=== PATIENT | male | born 1975 | race Caucasian/White ===

== ENCOUNTER 2016-06-28 13:33 | Inpatient (IN) | payer OTHER ==
[2016-06-28] MEDS: chlordiazePOXIDE HCL 25 MG CAPSULE PO SCH ×2 (11:55→17:18)
[2016-06-28 14:02] VITALS: BMI 26.4
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
[2016-06-28] MEDS ORDERED: chlordiazePOXIDE HCL 25 MG CAPSULE PO ONE (14:18)
[2016-06-28] MEDS ORDERED: guaiFENesin/D-METHORPHAN HB 10 ML UNIT-DOSE CUPS PO PRN (14:18)
[2016-06-28] MEDS ORDERED: NICOTINE POLACRILEX 2 MG GUM BUC PRN (14:18)
[2016-06-28] MEDS ORDERED: MAGNESIUM HYDROX 2400MG/30ML ORAL SUSPENSION 30 ML CUP PO PRN (14:18)
[2016-06-28] MEDS ORDERED: MAGNESIUM CITRATE 300 ML BOTTLE PO PRN (14:18)
[2016-06-28] MEDS ORDERED: IBUPROFEN 400 MG TABLET (FP) PO PRN (14:18)
[2016-06-28] MEDS ORDERED: LOPERAMIDE HCL 2 MG CAPSULE PO PRN (14:18)
[2016-06-28] MEDS ORDERED: hydrOXYzine PAMOATE 50 MG CAPSULE (FP) PO PRN (14:18)
[2016-06-28] MEDS ORDERED: chlordiazePOXIDE HCL 25 MG CAPSULE PO PRN (14:18)
[2016-06-28] MEDS ORDERED: P-EPHED 60MG/TRIPROLIDI 2.5MG TABLET PO PRN (14:18)
[2016-06-28] MEDS ORDERED: MENTHOL/PHENOL 1 EACH UD MM PRN (14:18)
[2016-06-28] MEDS ORDERED: METHADONE HCL 10 MG TABLET (FOR DETOX USE ONLY) PO ONE ×2 (14:18→23:00)
[2016-06-28] MEDS ORDERED: MAG HYDROX/AL HYDROX/SIMETH 30 ML UNIT-DOSE CUP PO PRN (14:18)
[2016-06-28] MEDS ORDERED: diphenhydrAMINE HCL 50 MG CAPSULE PO PRN (14:18)
[2016-06-28] MEDS ORDERED: ACETAMINOPHEN 325 MG TABLET (FP) PO PRN (14:18)
[2016-06-28] MEDS: NICOTINE 21 MG/24 HOURS TOPICAL PATCH TD SCH (15:55)
[2016-06-28 19:02] LABS: URINE APPEARANCE CLEAR; URINE BILIRUBIN NEGATIVE (NEGATIVE); URINE BLOOD NEGATIVE (NEGATIVE); URINE COLOR YELLOW; URINE GLUCOSE (UA) NEGATIVE (NEGATIVE); URINE KETONE NEGATIVE (NEGATIVE); URINE LEUK ESTERASE NEGATIVE (NEGATIVE); URINE NITRITE NEGATIVE (NEGATIVE); URINE PROTEIN NEGATIVE (NEGATIVE); URINE UROBILINOGEN NEGATIVE E.U./dl (0.2-1.0)
[2016-06-28] MEDS: THIAMINE HCL 100 MG TABLET (FP) PO SCH (22:13)
[2016-06-29] MEDS: chlordiazePOXIDE HCL 25 MG CAPSULE PO SCH ×4 (05:42→22:04)
[2016-06-29 09:51] LABS: MCH 30.6 pg (25.7-33.7); MCHC 33.6 g/dl (32.0-35.9); MEAN PLT VOLUME 8.6 fl (7.5-11.1); PLATELET COUNT 245 K/MM3 (134-434); RDW 14.2 % (11.9-15.9); WHITE BLOOD COUNT 6.4 K/mm3 (4.0-10.0)
[2016-06-29] MEDS ORDERED: METHADONE HCL 10 MG TABLET (FOR DETOX USE ONLY) PO SCH (10:00)
[2016-06-29] MEDS: PRENATAL VITAMINS W/ FOLIC ACID TABLET (FP) PO SCH (10:14)
[2016-06-29] MEDS: NICOTINE 21 MG/24 HOURS TOPICAL PATCH TD SCH (10:15)
[2016-06-29 11:06] LABS: ALBUMIN 3.5 g/dl (3.4-5.0); ALK PHOS 50 U/L (45-117); ANION GAP 7 (8-16); BILIRUBIN,TOTAL 0.6 mg/dL (0.2-1.0); CO2 26 mmol/L (21-32); CREATININE 0.7 mg/dL (0.7-1.3); GLUCOSE,RANDOM 84 mg/dL (74-106); SGOT/AST 13 U/L (15-37); SGPT/ALT 26 U/L (12-78); TOT PROT 6.3 g/dl (6.4-8.2)
[2016-06-29] MEDS ORDERED: ZOLPIDEM TARTRATE 5 MG TABLET PO PRN (11:49)
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
[2016-06-29] MEDS: prednisoLONE ACETATE 1% OPHTH SUSP 5 ML BOTTLE OD SCH ×3 (14:18→22:03)
[2016-06-29] MEDS: THIAMINE HCL 100 MG TABLET (FP) PO SCH (22:03)
[2016-06-29] MEDS: MINERAL OIL/PETROLAT/WATER TOPICAL CREAM 113 GM JAR TP SCH (22:05)
--- NOTE | 2016-06-29 23:33 | EKG ---
Test Reason : Blood Pressure : / mmHG Vent. Rate : 070 BPM Atrial Rate : 070 BPM P-R Int : 132 ms QRS Dur : 090 ms QT Int : 408 ms P-R-T Axes : 055 005 021 degrees QTc Int : 440 ms NORMAL SINUS RHYTHM NORMAL ECG NO PREVIOUS ECGS AVAILABLE Confirmed by YANETH CLEMONS MD ([id number]) on 06/29/2016 11:32:45 PM Referred By: Confirmed By:YANETH CLEMONS MD
[2016-06-30] MEDS: chlordiazePOXIDE HCL 25 MG CAPSULE PO SCH ×2 (05:27→10:08)
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
--- NOTE | 2016-06-30 09:26 | PN ---
S CIWA - CIWA Score Nausea/Vomitin Muscle Tremors: 4-Moderate,w/Arms Extend Anxiety: 4-Mod. Anxious/Guarded Agitation: 4-Moderately Restless Paroxysmal Sweats: 3 Orientation: 0-Oriented Tacttile Disturbances: 1-Very Mild Itch/Numbness Auditory Disturbances: 0-None Visual Disturbances: 0-None Headache: 0-None Present CIWA-Ar Total Score: 19 BHS COWS - Scale Resting Pulse: 1= [place] 81-100 Sweatin= Chills/Flushing Restless Observation: 1= Difficult to Sit Still Pupil Size: 1= Pupils >than Normal Bone or Joint Aches: 1= Mild Discomfort Runny Nose/ Eye Tearin= Nasal Congestion GI Upset > 30mins: 2= Nausea/Diarrhea Tremor Observation of Outstretched Hands: 2= Slight Tremor Visible Yawning Observation: 1= 1-2x During Session Anxiety or Irritability: 2=Irritable/Anxious Goose Flesh Skin: 3=Piloerection COWS Score: 16 S Progress Note (SOAP) Subjective: nausea, sweats, interrupted sleep, anxiety, trmeor, runny nose, body aches Objective: 06/30/16 09:23 Vital Signs - 8 hr 06/30/16 06/30/16 06/30/16 03:38 06:08 09:16 Temperature 96.7 F L 96.3 F L Pulse Rate 99 H 78 Respiratory 18 16 18 Rate Blood Pressure 108/70 111/78 Vital Signs - 8 hr 06/30/16 06/30/16 06/30/16 03:38 06:08 09:16 Temperature 96.7 F L 96.3 F L Pulse Rate 99 H 78 Respiratory 18 16 18 Rate Blood Pressure 108/70 111/78 Laboratory Tests 06/28/16 06/29/16 06/29/16 17:00 07:45 07:45 WBC 6.4 RBC 4.43 Hgb 13.5 Hct 40.3 MCV 91.0 MCHC 33.6 RDW 14.2 Plt Count 245 MPV 8.6 Sodium 139 Potassium 4.2 Chloride 106 Carbon Dioxide 26 Anion Gap 7 L BUN 11 Creatinine 0.7 Creat Clearance w eGFR > 60 Random Glucose 84 Calcium 8.0 L Total Bilirubin 0.6 AST 13 L D ALT 26 D Alkaline Phosphatase 50 D Total Protein 6.3 L D Albumin 3.5 D Urine Color Yellow Urine Appearance Clear Urine pH 6.0 Ur Specific [place] 1.018 Urine Protein Negative Urine Glucose (UA) Negative Urine Ketones Negative Urine Blood Negative Urine Nitrite Negative Urine Bilirubin Negative Urine Urobilinogen Negative Ur Leukocyte Esterase Negative RPR Titer 06/29/16 07:45 WBC RBC Hgb Hct MCV MCHC RDW Plt Count MPV Sodium Potassium Chloride Carbon Dioxide Anion Gap BUN Creatinine Creat Clearance w eGFR Random Glucose Calcium Total Bilirubin AST ALT Alkaline Phosphatase Total Protein Albumin Urine Color Urine Appearance Urine pH Ur Specific [place] Urine Protein Urine Glucose (UA) Urine Ketones Urine Blood Urine Nitrite Urine Bilirubin Urine Urobilinogen Ur Leukocyte Esterase RPR Titer Nonreactive Assessment: 06/30/16 09:26 withdrawal sx Plan: cont detox, symptomatic relief.
[2016-06-30] MEDS: prednisoLONE ACETATE 1% OPHTH SUSP 5 ML BOTTLE OD SCH ×4 (10:07→22:25)
[2016-06-30] MEDS: cloNIDine HCL 0.1 MG TABLET PO SCH ×2 (10:08→22:26)
[2016-06-30] MEDS: PRENATAL VITAMINS W/ FOLIC ACID TABLET (FP) PO SCH (10:08)
[2016-06-30] MEDS: METHADONE HCL 5 MG TABLET (FOR DETOX USE ONLY) PO SCH (10:08)
[2016-06-30] MEDS: NAPROXEN 500 MG TABLET (FP) PO SCH ×2 (10:09→22:23)
[2016-06-30] MEDS: NICOTINE 21 MG/24 HOURS TOPICAL PATCH TD SCH (10:09)
[2016-06-30] MEDS: MINERAL OIL/PETROLAT/WATER TOPICAL CREAM 113 GM JAR TP SCH ×2 (10:09→22:26)
[2016-06-30] MEDS: CYCLOBENZAPRINE HCL 10 MG TABLET (FP) PO SCH ×2 (14:44→22:23)
[2016-06-30] MEDS: chlordiazePOXIDE 5 MG CAPSULE PO SCH ×2 (17:30→22:23)
[2016-06-30] MEDS: THIAMINE HCL 100 MG TABLET (FP) PO SCH (22:23)
[2016-06-30] MEDS: ZOLPIDEM TARTRATE 10 MG TABLET (PARK CARE ONLY) PO SCH (22:23)
[2016-06-30] MEDS: QUEtiapine FUMARATE 100 MG TABLET (FP) PO SCH (22:23)
[2016-07-01] MEDS: CYCLOBENZAPRINE HCL 10 MG TABLET (FP) PO SCH ×3 (05:31→22:09)
[2016-07-01] MEDS: chlordiazePOXIDE 5 MG CAPSULE PO SCH ×2 (05:32→10:04)
--- NOTE | 2016-07-01 08:40 | PN ---
BHS Progress Note (SOAP) Subjective: nausea, sweats, interrupted sleep, anxiety, tremor, body aches Objective: 07/01/16 08:39 Vital Signs - 8 hr 07/01/16 07/01/16 03:39 06:29 Temperature 96.3 F L Pulse Rate 67 Respiratory 18 16 Rate Blood Pressure 109/79 Laboratory Tests 06/28/16 06/29/16 06/29/16 17:00 07:45 07:45 WBC 6.4 RBC 4.43 Hgb 13.5 Hct 40.3 MCV 91.0 MCHC 33.6 RDW 14.2 Plt Count 245 MPV 8.6 Sodium 139 Potassium 4.2 Chloride 106 Carbon Dioxide 26 Anion Gap 7 L BUN 11 Creatinine 0.7 Creat Clearance w eGFR > 60 Random Glucose 84 Calcium 8.0 L Total Bilirubin 0.6 AST 13 L D ALT 26 D Alkaline Phosphatase 50 D Total Protein 6.3 L D Albumin 3.5 D Urine Color Yellow Urine Appearance Clear Urine pH 6.0 Ur Specific [place] 1.018 Urine Protein Negative Urine Glucose (UA) Negative Urine Ketones Negative Urine Blood Negative Urine Nitrite Negative Urine Bilirubin Negative Urine Urobilinogen Negative Ur Leukocyte Esterase Negative RPR Titer 06/29/16 07:45 WBC RBC Hgb Hct MCV MCHC RDW Plt Count MPV Sodium Potassium Chloride Carbon Dioxide Anion Gap BUN Creatinine Creat Clearance w eGFR Random Glucose Calcium Total Bilirubin AST ALT Alkaline Phosphatase Total Protein Albumin Urine Color Urine Appearance Urine pH Ur Specific [place] Urine Protein Urine Glucose (UA) Urine Ketones Urine Blood Urine Nitrite Urine Bilirubin Urine Urobilinogen Ur Leukocyte Esterase RPR Titer Nonreactive Assessment: 07/01/16 08:40 withdrawal sx Plan: cont detox, early discharge in AM because patient needs to return to work.
[2016-07-01] MEDS: NICOTINE 21 MG/24 HOURS TOPICAL PATCH TD SCH (10:03)
[2016-07-01] MEDS: PRENATAL VITAMINS W/ FOLIC ACID TABLET (FP) PO SCH (10:03)
[2016-07-01] MEDS: METHADONE HCL 5 MG TABLET (FOR DETOX USE ONLY) PO SCH (10:04)
[2016-07-01] MEDS: MINERAL OIL/PETROLAT/WATER TOPICAL CREAM 113 GM JAR TP SCH ×2 (10:04→22:09)
[2016-07-01] MEDS: NAPROXEN 500 MG TABLET (FP) PO SCH ×2 (10:04→22:09)
[2016-07-01] MEDS: cloNIDine HCL 0.1 MG TABLET PO SCH ×2 (10:04→22:09)
[2016-07-01] MEDS: prednisoLONE ACETATE 1% OPHTH SUSP 5 ML BOTTLE OD SCH ×4 (10:08→22:12)
[2016-07-01] MEDS: chlordiazePOXIDE HCL 10 MG CAPSULE PO SCH ×2 (17:20→22:09)
[2016-07-01] MEDS: QUEtiapine FUMARATE 100 MG TABLET (FP) PO SCH (22:09)
[2016-07-01] MEDS: ZOLPIDEM TARTRATE 10 MG TABLET (PARK CARE ONLY) PO SCH (22:09)
[2016-07-01] MEDS: THIAMINE HCL 100 MG TABLET (FP) PO SCH (22:09)
[2016-07-02] MEDS: CYCLOBENZAPRINE HCL 10 MG TABLET (FP) PO SCH (05:51)
[2016-07-02] MEDS: chlordiazePOXIDE HCL 10 MG CAPSULE PO SCH (05:51)
[2016-07-02] MEDS ORDERED: METHADONE HCL 10 MG TABLET (FOR DETOX USE ONLY) PO SCH ×2 (06:00→10:00)
[2016-07-02 06:35] VITALS: BP 117/78; PULSE 80; TEMP 96.6
--- NOTE | 2016-07-02 09:07 | DS ---
[facility] Detox Discharge Summary Admission Date: 06/28/16 Discharge Date: 07/02/16 - History Present History: Alcohol Dependence, Cannabis Dependence, Cocaine Dependence, Opioid Dependence, Sedative Dependence Pertinent Past History: anxiety, depression and insomnia, nicotine dependence - Physical Exam Results Vital Signs: Vital Signs Temperature 96.6 F L 07/02/16 06:35 Pulse Rate 80 07/02/16 06:35 Respiratory Rate 16 07/02/16 06:35 Blood Pressure 117/78 07/02/16 06:35 O2 Sat by Pulse Oximetry (%) Pertinent Admission Physical Exam Findings: withdrawal sx - Treatment Hospital Course: Detox Protocol Followed, Detoxed Safely, Responded well, Discharged Condition Good, Rehab Referral Accepted Patient has Accepted a Rehab Referral to: Yes - Medication Discharge Medications: Ambulatory Orders Quetiapine Fumarate [Seroquel] 100 mg PO HS #30 tablet 06/30/16 - Diagnosis (1) Alcohol dependence with uncomplicated withdrawal Status: Acute (2) Cannabis dependence, uncomplicated Status: Acute (3) Cocaine dependence, uncomplicated Status: Acute (4) Drug-induced mood disorder Status: Acute (5) Nicotine dependence Status: Acute Qualifiers: Nicotine product type: cigarettes Substance use status: uncomplicated Qualified Code(s): F17.210 - Nicotine dependence, cigarettes, uncomplicated (6) Opioid dependence with withdrawal Status: Acute (7) Sedative, hypnotic, or anxiolytic withdrawal Status: Acute (8) Substance-induced sleep disorder Status: Acute - AMA Did Patient Leave Against Medical Advice: No
[2016-07-03] MEDS ORDERED: METHADONE HCL 5 MG TABLET (FOR DETOX USE ONLY) PO SCH (06:00)
== END 2016-07-02 07:10 | disposition home or self-care (01) | DRG 897 ==
LOC: YASAS 13:33 → Y3N 14:30
PROVIDERS: ADMIT Internal Medicine; ATTEND Internal Medicine
PROC: HZ2ZZZZ Detoxification Services for Substance Abuse Treatment (ICD-10-PCS; principal; 2016-06-28)
DX: F11.23 Opioid dependence with withdrawal (principal); F14.20 Cocaine dependence, uncomplicated; F19.282 Other psychoactive substance dependence with psychoactive substance-induced sleep disorder; F13.230 Sedative, hypnotic or anxiolytic dependence with withdrawal, uncomplicated; F10.230 Alcohol dependence with withdrawal, uncomplicated; F12.20 Cannabis dependence, uncomplicated; F17.210 Nicotine dependence, cigarettes, uncomplicated; F32.9 Major depressive disorder, single episode, unspecified; F19.24 Other psychoactive substance dependence with psychoactive substance-induced mood disorder; L30.9 Dermatitis, unspecified; S05.91XS Unspecified injury of right eye and orbit, sequela; Y09 Assault by unspecified means
CPT/HCPCS: 36415; 80053; 81003; 85027; 86593; 93005; 93010

== ENCOUNTER 2016-07-31 13:08 | Observation (INO) | payer OTHER ==
[2016-07-31 13:18] VITALS: BMI 26.4
--- NOTE | 2016-07-31 13:19 | PDOC ---
History of Present Illness - General Chief Complaint: Chest Pain Stated Complaint: CHEST PAIN, SOB Time Seen by Provider: 07/31/16 13:19 Past History - Past Medical History Allergies/Adverse Reactions: Allergies Allergy/AdvReac Type Severity Reaction Status Date / Time No Known Allergies Allergy Verified 07/31/16 13:12 Home Medications: Ambulatory Orders Quetiapine Fumarate [Seroquel] 100 mg PO HS #30 tablet 06/30/16 Anemia: No Asthma: No Cancer: No Cardiac Disorders: No CVA: No COPD: No CHF: No Dementia: No Diabetes: No GI Disorders: No Disorders: No HTN: No Hypercholesterolemia: No Kidney Stones: No Liver Disease: No Suicide Attempt (Hx): No Seizures: No Thyroid Disease: No - Surgical History Abdominal Surgery: No Appendectomy: No Cardiac Surgery: No Cholecystectomy: No Lung Surgery: No Neurologic Surgery: No Orthopedic Surgery: No - Reproductive History Testicular Surgery: No - Psycho/Social/Smoking Cessation Hx Anxiety: Yes Suicidal Ideation: No Smoking History: Current every day smoker Have you smoked in the past 12 months: Yes Number of Cigarettes Smoked Daily: 3 Information on smoking cessation initiated: No 'Breaking Loose' booklet given: 06/28/16 (given on floor) Hx Alcohol Use: Yes Drug/Substance Use Hx: Yes Substance Use Type: Alcohol, Heroin, Tranquilizers Hx Substance Use Treatment: Yes *Physical Exam - Vital Signs Last Vital Signs Temp Pulse Resp BP Pulse Ox 97.9 F 82 19 131/73 95 07/31/16 13:12 07/31/16 13:12 07/31/16 13:12 07/31/16 13:12 07/31/16 13:12
--- NOTE | 2016-07-31 13:37 | PDOC ---
History of Present Illness <Enriqueta Sofia - Last Filed: 07/31/16 15:35> - History of Present Illness Initial Comments: 07/31/16 15:23 CHIEF COMPLAINT: Left sided chest pain PCP: Dr. Orlando Falcon HISTORY OF PRESENT ILLNESS: 41 year old male presented to the ED with chief complaint of left sided chest pain x 1 day. A/c to the patient, he started chest pain suddenly, woke him up from sleep, stabbing in nature, 7/10 in intensity, non radiating, also had jaw pain, neck pain, B/L shoulder pain associated with Shortness of breath at rest. Patient also reports he experienced numbness in the left arm and tingling sensation over the hands/foot. Patient mentioned he took 2 baby aspirin for chest pain which reduced the chest pain. Patient also reports to have taken 2 bags of heroine (snorted) Denies headache, dizziness, fever, chills, rigors, sweating, cough, palpitation , abdominal pain, nausea or vomiting. Bowel/Bladder habit normal. Sleep/Appetite normal. Recent Travel: None PAST MEDICAL HISTORY: Alcohol, cocaine, cannabis, opiod drug abuse; Anxiety, Depression, Insomnia, Nicotine addiction PAST SURGICAL HISTORY: None Social History: Smoking: Smokes marijuana Alcohol: Sober for 10 yrs Drugs: Cocaine-sober for 1 yr Takes heroine (snorts), last snorted this morning; no other drug intake as per the patient. 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 07/31/16 17:07 <Geovanna Pace - Last Filed: 07/31/16 17:16> - General Chief Complaint: Chest Pain Stated Complaint: CHEST PAIN, SOB Time Seen by Provider: 07/31/16 13:19 Past History <Enriqueta Sofia - Last Filed: 07/31/16 15:35> - Past Medical History Anemia: No Asthma: No Cancer: No Cardiac Disorders: No CVA: No COPD: No CHF: No Dementia: No Diabetes: No GI Disorders: No Disorders: No HTN: No Hypercholesterolemia: No Kidney Stones: No Liver Disease: No Suicide Attempt (Hx): No Seizures: No Thyroid Disease: No - Surgical History Abdominal Surgery: No Appendectomy: No Cardiac Surgery: No Cholecystectomy: No Lung Surgery: No Neurologic Surgery: No Orthopedic Surgery: No - Reproductive History Testicular Surgery: No - Psycho/Social/Smoking Cessation Hx Anxiety: Yes Suicidal Ideation: No Smoking History: Current every day smoker Have you smoked in the past 12 months: Yes Number of Cigarettes Smoked Daily: 3 Information on smoking cessation initiated: No 'Breaking Loose' booklet given: 06/28/16 (given on floor) Hx Alcohol Use: Yes Drug/Substance Use Hx: Yes Substance Use Type: Alcohol, Heroin, Tranquilizers Hx Substance Use Treatment: Yes <Geovanna Pace - Last Filed: 07/31/16 17:16> - Past Medical History Allergies/Adverse Reactions: Allergies Allergy/AdvReac Type Severity Reaction Status Date / Time No Known Allergies Allergy Verified 07/31/16 13:12 Home Medications: Ambulatory Orders Quetiapine Fumarate [Seroquel] 100 mg PO HS #30 tablet 06/30/16 Review of Systems - Review of Systems Able to Perform ROS?: Yes Comments:: 07/31/16 15:43 CONSTITUTIONAL: Absent: fever, chills, diaphoresis, generalized weakness, malaise, loss of appetite HEENT: Present: Jaw pain Absent: rhinorrhea, nasal congestion, throat pain, throat swelling, difficulty swallowing, mouth swelling, ear pain, eye pain, visual Changes CARDIOVASCULAR: Present:chest pain Absent:syncope, palpitations, irregular heart rate, lightheadedness, peripheral edema RESPIRATORY: Present: shortness of breath Absent: cough, dyspnea with exertion, orthopnea, wheezing, stridor, hemoptysis GASTROINTESTINAL: Present:abdominal pain Absent: abdominal distension, nausea, vomiting, diarrhea, constipation, melena , hematochezia GENITOURINARY: Absent: dysuria, frequency, urgency, hesitancy, hematuria, flank pain, genital pain MUSCULOSKELETAL: Present: B/L shoulder pain Absent: myalgia, arthralgia, joint swelling SKIN: Absent: rash, itching, pallor HEMATOLOGIC/IMMUNOLOGIC: Absent: easy bleeding, easy bruising, lymphadenopathy, frequent infections ENDOCRINE: Absent: unexplained weight gain, unexplained weight loss, heat intolerance, cold intolerance NEUROLOGIC: Absent: headache, focal weakness or paresthesias, dizziness, unsteady gait, seizure, mental status changes, bladder or bowel incontinence PSYCHIATRIC: Absent: anxiety, depression, suicidal or homicidal ideation, hallucinations. Is the patient limited [place] proficient: No <Geovanna Pace - Last Filed: 07/31/16 17:16> *Physical Exam - Vital Signs Last Vital Signs Temp Pulse Resp BP Pulse Ox 97.9 F 82 19 131/73 95 07/31/16 13:12 07/31/16 13:12 07/31/16 13:12 07/31/16 13:12 07/31/16 13:12 <Enriqueta Sofia - Last Filed: 07/31/16 15:35> - Vital Signs Last Vital Signs Temp Pulse Resp BP Pulse Ox 97.9 F 82 19 131/73 95 07/31/16 13:12 07/31/16 13:12 07/31/16 13:12 07/31/16 13:12 07/31/16 13:12 - Physical Exam Comments: 07/31/16 15:47 PE: GENERAL: Awake, alert, and fully oriented, in no acute distress HEAD: No signs of trauma EYES: PERRLA, EOMI, sclera anicteric, conjunctiva clear ENT: Auricles normal inspection, hearing grossly normal, nares patent, oropharynx clear without exudates. Moist mucosa NECK: Normal ROM, supple, no lymphadenopathy, JVD, or masses LUNGS: Breath sounds equal, clear to auscultation bilaterally. No wheezes, and no crackles.. HEART: Regular rate and rhythm, normal S1 and S2, no murmurs, rubs or gallops Chest: Reproductible left sided chest tenderness ABDOMEN: Soft, tenderness over the epigastric, LLQ and suprapubic area, normoactive bowel sounds. No guarding, no rebound. No masses EXTREMITIES: Normal range of motion, no edema. No clubbing or cyanosis. No cords, erythema, or tenderness NEUROLOGICAL: Cranial nerves II through XII grossly intact. Normal speech, normal gait SKIN: Warm, Dry, normal turgor, no rashes or lesions noted. <Geovanna Pace - Last Filed: 07/31/16 17:16> ED Treatment Course - LABORATORY CBC & Chemistry Diagram: 07/31/16 14:20 07/31/16 14:20 - ADDITIONAL ORDERS Additional order review: Laboratory Results 07/31/16 07/31/16 07/31/16 14:20 14:20 14:20 Sodium Potassium Chloride Carbon Dioxide Anion Gap BUN Creatinine Creat Clearance w eGFR Random Glucose Calcium Magnesium Total Bilirubin AST ALT Alkaline Phosphatase Creatine Kinase CK-MB (CK-2) Rel Index Cancelled Troponin I Total Protein Albumin Lipase Urine Color Yellow Urine Appearance Clear Urine pH 5.0 Ur Specific [place] 1.025 Urine Protein Negative Urine Glucose (UA) Negative Urine Ketones 1+ H Urine Blood Negative Urine Nitrite Negative Urine Bilirubin Negative Urine Urobilinogen Negative Ur Leukocyte Esterase Negative Opiates Screen Positive Methadone Screen Negative Barbiturate Screen Negative Phencyclidine Screen Negative Ur Amphetamines Screen Negative MDMA (Ecstasy) Screen Positive Benzodiazepines Screen Positive Cocaine Screen Negative U Marijuana (THC) Screen Positive 07/31/16 14:20 Sodium 137 Potassium 4.3 Chloride 102 Carbon Dioxide 26 Anion Gap 9 BUN 10 Creatinine 0.7 Creat Clearance w eGFR > 60 Random Glucose 97 Calcium 9.2 Magnesium 2.4 Total Bilirubin 0.8 D AST 22 D ALT 30 Alkaline Phosphatase 57 Creatine Kinase 164 CK-MB (CK-2) Rel Index Troponin I < 0.02 Total Protein 7.6 D Albumin 4.2 Lipase 68 L Urine Color Urine Appearance Urine pH Ur Specific [place] Urine Protein Urine Glucose (UA) Urine Ketones Urine Blood Urine Nitrite Urine Bilirubin Urine Urobilinogen Ur Leukocyte Esterase Opiates Screen Methadone Screen Barbiturate Screen Phencyclidine Screen Ur Amphetamines Screen MDMA (Ecstasy) Screen Benzodiazepines Screen Cocaine Screen U Marijuana (THC) Screen 07/31/16 14:20 RBC 4.74 MCV 90.3 MCHC 33.6 RDW 14.8 MPV 7.8 Neutrophils % 69.4 Lymphocytes % 23.8 Monocytes % 5.9 Eosinophils % 0.3 Basophils % 0.6 - RADIOLOGY Radiograph Interpretation: 07/31/16 15:35 Chest X-Ray Frontal view of the chest is provided. Lung dao appear clear without infiltrate or effusion. Cardiomediastinal silhouette is within normal limits. Visualized bony structures appear intact. IMPRESSION: No active disease in the chest. Reported By: Martin Betancur MD 07/31/16 9419 - Medications Given in the ED: ED Medications Discontinued Medications Generic Name Dose Route Start Last Admin Trade Name Freq PRN Reason Stop Dose Admin Aspirin 162 mg 07/31/16 13:56 07/31/16 14:23 Asa - PO 07/31/16 13:57 162 mg ONCE ONE Administration <Enriqueta Sofia - Last Filed: 07/31/16 15:35> - LABORATORY CBC & Chemistry Diagram: 07/31/16 14:20 07/31/16 14:20 <Geovanna Pace - Last Filed: 07/31/16 17:16> Medical Decision Making - Medical Decision Making 07/31/16 15:00 Patient seen and examined at bed side. Vitals, unremarkable. Physical examination: Positive for abdominal tenderness over the epigastric, left upper quadrant and supra pubic pain. Reproducible pain over the left side of the chest Will order CBC, CMP, Troponins, UA, Urine toxicology CXR 07/31/16 16:04 Patient reassessed. No complaints. Feeling hungry. Urine toxicology positive for heroine, benzodiazepine, Ectasy and Marijuana Troponins Negative. A/P # Chest pain with polysubstance abuse Place on observation in Telemetry Continuous cardiac monitoring Monitor withdrawals Consider Echo and stress test Counseling for drug cessation-Patient wants help and wants to quit taking drugs. Illness, Investigation and Plan of care explained to the patient. He verbalized understanding. Case seen and discussed with Dr. Medrano. 07/31/16 17:15 <Geovanna Pace - Last Filed: 07/31/16 17:16> *DC/Admit/Observation/Transfer <Enriqueta Sofia - Last Filed: 07/31/16 15:35> - Discharge Dispostion Admit: Yes <Geovanna Pace - Last Filed: 07/31/16 17:16> Diagnosis at time of Disposition: Chest pain, Polysubstance abuse - Discharge Dispostion Condition at time of disposition: Guarded
--- NOTE | 2016-07-31 13:38 | PDOC ---
Attending Attestation - Resident Resident Name: Sherrell Paceny - ED Attending Attestation I have performed the following: I have examined & evaluated the patient, The case was reviewed & discussed with the resident, I agree w/resident's findings & plan, Exceptions are as noted - HPI HPI: 07/31/16 13:38 The patient is a 41-year-old male with a significant past medical history of polysubstance abuse, who presents to the emergency department complaining of chest pain. - Physicial Exam PE: 07/31/16 15:32 He is well-appearing and in no acute distress He does have reproducible musculoskeletal chest pain - Medical Decision Making 07/31/16 15:32 Labs noted including negative troponin Clinical impression: Chest pain Polysubstance abuse Case discussed in detail with admitting provider including history, physical exam and ancillary studies. Admitting physician has assumed care for the patient, will follow all pending diagnostics and will complete the evaluation and treatment.
[2016-07-31] MEDS ORDERED: ASPIRIN 81 MG CHEWABLE TABLETS PO ONE (13:56)
[2016-07-31] MEDS ORDERED: ASPIRIN 81 MG CHEWABLE TABLETS ONE (14:22)
[2016-07-31 14:45] LABS: BASOPHIL 0.6 % (0-2.0); EOSINOPHIL 0.3 % (0-4.5); MCH 30.4 pg (25.7-33.7); MCHC 33.6 g/dl (32.0-35.9); MEAN CELL VOLUME 90.3 fl (80-96); MEAN PLT VOLUME 7.8 fl (7.5-11.1); NEUTROPHILS 69.4 % (42.8-82.8); PLATELET COUNT 325 K/MM3 (134-434); RDW 14.8 % (11.9-15.9); WHITE BLOOD COUNT 8.3 K/mm3 (4.0-10.0)
--- NOTE | 2016-07-31 15:01 | EKG ---
Test Reason : Blood Pressure : / mmHG Vent. Rate : 062 BPM Atrial Rate : 062 BPM P-R Int : 132 ms QRS Dur : 088 ms QT Int : 414 ms P-R-T Axes : 048 -01 023 degrees QTc Int : 420 ms NORMAL SINUS RHYTHM NORMAL ECG WHEN COMPARED WITH ECG OF 28-JUN-2016 15:58, NO SIGNIFICANT CHANGE WAS FOUND Confirmed by MALVIN CASTILLO MD ([id number]) on 07/31/2016 3:00:35 PM Referred By: Confirmed By:MALVIN CASTILLO MD
[2016-07-31 15:02] LABS: ALBUMIN 4.2 g/dl (3.4-5.0); ANION GAP 9 (8-16); BILIRUBIN,TOTAL 0.8 mg/dL (0.2-1.0); CALCIUM 9.2 mg/dL (8.5-10.1); CO2 26 mmol/L (21-32); CREATININE 0.7 mg/dL (0.7-1.3); GLUCOSE,RANDOM 97 mg/dL (74-106); MAGNESIUM 2.4 mg/dL (1.8-2.4); SGOT/AST 22 U/L (15-37); SGPT/ALT 30 U/L (12-78); TOT PROT 7.6 g/dl (6.4-8.2)
[2016-07-31 15:06] LABS: ALK PHOS 57 U/L (45-117); TROPONIN I < 0.02 ng/ml (0.00-0.05)
[2016-07-31 15:13] LABS: URINE MARIJUANA THC POSITIVE ng/ml (CUTOFF=50)
[2016-07-31 15:16] LABS: INR 1.19 (0.82-1.09); PROTHROMBIN TIME (PATIENT) 13.1 SEC (9.98-11.88)
[2016-07-31 15:21] LABS: URINE APPEARANCE CLEAR; URINE BILIRUBIN NEGATIVE (NEGATIVE); URINE BLOOD NEGATIVE (NEGATIVE); URINE COLOR YELLOW; URINE GLUCOSE (UA) NEGATIVE (NEGATIVE); URINE KETONE 1+ (NEGATIVE); URINE LEUK ESTERASE NEGATIVE (NEGATIVE); URINE NITRITE NEGATIVE (NEGATIVE); URINE PROTEIN NEGATIVE (NEGATIVE); URINE UROBILINOGEN NEGATIVE E.U./dl (0.2-1.0)
--- NOTE | 2016-07-31 19:03 | PN ---
Teaching Attending Note Name of Resident: Suzy Moeller ATTENDING PHYSICIAN STATEMENT I saw and evaluated the patient. I reviewed the resident's note and discussed the case with the resident. I agree with the resident's findings and plan as documented. SUBJECTIVE:c/o episode of chest pain that occurred 4:30 am and was partially relieved by aspirin. 8/10 pressure like pain , non radiating . reported heroin use, daily. Wants to detox. OBJECTIVE: VS STABLE Abnormal Lab Results 07/31/16 07/31/16 07/31/16 14:20 14:20 14:20 INR 1.19 H Lipase 68 L Urine Ketones 1+ H ENERAL: Awake, alert, and fully oriented, in no acute distress. HEAD: Normal with no signs of trauma. nontender sinuses. EYES: left pupils round and reactive to light, right pupil minimally reactive to light fixed defect larger than right pupil, right medial sclera with small clear vesicle, extraocular movements intact, sclera anicteric, conjunctiva clear. No lid lag. EARS, NOSE, THROAT: Ears normal, nares patent, oropharynx clear without exudates. Moist mucous membranes. missing dentition. NECK: Normal range of motion, supple without lymphadenopathy, JVD, or masses. LUNGS: Breath sounds equal, clear to auscultation bilaterally. No wheezes, and no crackles. No accessory muscle use. HEART: Regular rate and rhythm, normal S1 and S2 without murmur, rub or gallop. ABDOMEN: Soft, nontender, not distended, normoactive bowel sounds, no guarding, no rebound, no masses. MUSCULOSKELETAL: No bony deformities or tenderness. No CVA tenderness. UPPER EXTREMITIES: 2+ pulses, warm, well-perfused. No cyanosis. No clubbing. No peripheral edema. LOWER EXTREMITIES: 2+ pulses, warm, well-perfused. No calf tenderness. No peripheral edema. NEUROLOGICAL: Cranial nerves II-XII intact. Normal speech. PSYCHIATRIC: Cooperative. Good eye contact. Appropriate mood and affect. SKIN: Warm, dry, normal turgor, no rashes or lesions noted. UA positive for opiates, amphetamines. ASSESSMENT AND PLAN: 1. Chest pain - trend troponin -telemetry - IVF - Xanax prn - ECHO 2. Polysubstance abuse -counselled - detox eval 3. DVT ppx -low risk
--- NOTE | 2016-07-31 19:21 | HP ---
CHIEF COMPLAINT: chest pain PCP: HISTORY OF PRESENT ILLNESS: 41 yr old man with current heroin use presents with chest pain for 1 day. approximately 4:30am he felt intermittent non-positional chest pain characterized as tightness located in the midsternum/lower left chest a/with left arm numbness, b/l finger and feet tingling that lasted 10mins at a time. around 5am he snorted heroin and took 2 baby aspirin which helped bring down the pain but not completely. around 11am his drove him to the ED for further evaluation. No previous episodes of chest pain. He been addicted to heroin for the past 18 months, initially receiving prescription pain medications after a left shoulder injury, when he no longer received a prescription he started by heroin. he went from 10 bags to 5 bags daily via snorting (no IVDU) last use this morning at 5am. 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 Smoking: denies Drugs: heroin use for 18 months, snorting (denies IVDU), attempt at detox in [facility] about 1 month ago Family History: father with cardiac history Allergies No Known Allergies Allergy (Verified 07/31/16 13:12) HOME MEDICATIONS: Home Medications Medication Instructions Recorded Quetiapine Fumarate [Seroquel] 100 mg PO HS #30 tablet 06/30/16 REVIEW OF SYSTEMS CONSTITUTIONAL: Absent: fever, chills, diaphoresis, generalized weakness, malaise, loss of appetite, weight change HEENT: Present: blurry vision Absent: rhinorrhea, nasal congestion, throat pain, throat swelling, difficulty swallowing, mouth swelling, ear pain, eye pain, visual changes CARDIOVASCULAR: Present: chest pain Absent: chest pain, syncope, palpitations, irregular heart rate, lightheadedness , peripheral edema RESPIRATORY: Absent: cough, shortness of breath, dyspnea with exertion, orthopnea, wheezing, stridor, hemoptysis GASTROINTESTINAL: Absent: abdominal pain, abdominal distension, nausea, vomiting, diarrhea, constipation, melena, hematochezia GENITOURINARY: Absent: dysuria, frequency, urgency, hesitancy, hematuria, flank pain, genital pain MUSCULOSKELETAL: Absent: myalgia, arthralgia, joint swelling, back pain, neck pain SKIN: Absent: rash, itching, pallor HEMATOLOGIC/IMMUNOLOGIC: Absent: easy bleeding, easy bruising, lymphadenopathy, frequent infections ENDOCRINE: Absent: unexplained weight gain, unexplained weight loss, heat intolerance, cold intolerance NEUROLOGIC: Absent: headache, focal weakness or paresthesias, dizziness, unsteady gait, seizure, mental status changes, bladder or bowel incontinence PSYCHIATRIC: Absent: anxiety, depression, suicidal or homicidal ideation, hallucinations. PHYSICAL EXAMINATION Vital Signs - 24 hr 07/31/16 18:31 Pulse Rate [ 70 Apical] Respiratory 16 Rate Blood Pressure 141/87 [Right] O2 Sat by Pulse 98 Oximetry (%) GENERAL: Awake, alert, and fully oriented, in no acute distress. HEAD: Normal with no signs of trauma. nontender sinuses. EYES: left pupils round and reactive to light, right pupil minimally reactive to light fixed defect larger than right pupil, right medial sclera with small clear vesicle, extraocular movements intact, sclera anicteric, conjunctiva clear. No lid lag. EARS, NOSE, THROAT: Ears normal, nares patent, oropharynx clear without exudates. Moist mucous membranes. missing dentition. NECK: Normal range of motion, supple without lymphadenopathy, JVD, or masses. LUNGS: Breath sounds equal, clear to auscultation bilaterally. No wheezes, and no crackles. No accessory muscle use. HEART: Regular rate and rhythm, normal S1 and S2 without murmur, rub or gallop. ABDOMEN: Soft, nontender, not distended, normoactive bowel sounds, no guarding, no rebound, no masses. MUSCULOSKELETAL: No bony deformities or tenderness. No CVA tenderness. UPPER EXTREMITIES: 2+ pulses, warm, well-perfused. No cyanosis. No clubbing. No peripheral edema. LOWER EXTREMITIES: 2+ pulses, warm, well-perfused. No calf tenderness. No peripheral edema. NEUROLOGICAL: Cranial nerves II-XII intact. Normal speech. PSYCHIATRIC: Cooperative. Good eye contact. Appropriate mood and affect. SKIN: Warm, dry, normal turgor, no rashes or lesions noted. Laboratory Results - last 24 hr 07/31/16 07/31/16 07/31/16 14:20 14:20 14:20 WBC 8.3 RBC 4.74 Hgb 14.4 Hct 42.8 MCV 90.3 MCHC 33.6 RDW 14.8 Plt Count 325 D MPV 7.8 Neutrophils % 69.4 Lymphocytes % 23.8 Monocytes % 5.9 Eosinophils % 0.3 Basophils % 0.6 INR 1.19 H Sodium 137 Potassium 4.3 Chloride 102 Carbon Dioxide 26 Anion Gap 9 BUN 10 Creatinine 0.7 Creat Clearance w eGFR > 60 Random Glucose 97 Calcium 9.2 Magnesium 2.4 Total Bilirubin 0.8 D AST 22 D ALT 30 Alkaline Phosphatase 57 Creatine Kinase 164 Creatine Kinase Index 0.7 CK-MB (CK-2) 1.088 CK-MB (CK-2) Rel Index Troponin I < 0.02 Total Protein 7.6 D Albumin 4.2 Lipase 68 L Urine Color Urine Appearance Urine pH Ur Specific [place] Urine Protein Urine Glucose (UA) Urine Ketones Urine Blood Urine Nitrite Urine Bilirubin Urine Urobilinogen Ur Leukocyte Esterase Opiates Screen Methadone Screen Barbiturate Screen Phencyclidine Screen Ur Amphetamines Screen MDMA (Ecstasy) Screen Benzodiazepines Screen Cocaine Screen U Marijuana (THC) Screen 07/31/16 07/31/16 07/31/16 14:20 14:20 14:20 WBC RBC Hgb Hct MCV MCHC RDW Plt Count MPV Neutrophils % Lymphocytes % Monocytes % Eosinophils % Basophils % INR Sodium Potassium Chloride Carbon Dioxide Anion Gap BUN Creatinine Creat Clearance w eGFR Random Glucose Calcium Magnesium Total Bilirubin AST ALT Alkaline Phosphatase Creatine Kinase Creatine Kinase Index CK-MB (CK-2) CK-MB (CK-2) Rel Index Cancelled Troponin I Total Protein Albumin Lipase Urine Color Yellow Urine Appearance Clear Urine pH 5.0 Ur Specific [place] 1.025 Urine Protein Negative Urine Glucose (UA) Negative Urine Ketones 1+ H Urine Blood Negative Urine Nitrite Negative Urine Bilirubin Negative Urine Urobilinogen Negative Ur Leukocyte Esterase Negative Opiates Screen Positive Methadone Screen Negative Barbiturate Screen Negative Phencyclidine Screen Negative Ur Amphetamines Screen Negative MDMA (Ecstasy) Screen Positive Benzodiazepines Screen Positive Cocaine Screen Negative U Marijuana (THC) Screen Positive ASSESSMENT/PLAN: 41 yr old man with hx of substance abuse presents with chest pain for one day placed on observation for further evaluation. #Chest pain - ekg without acute ischemic changes, trend Trops - echo - acs vs drug induced chest pain #Opiate abuse - ativan 1mg q6hr for withdrawal symptoms - expresses interest in detox, Dr. Mcintyre consulted - IVF NS @100mls/hr #DVT - low risk #Diet - regular Visit type - Emergency Visit Emergency Visit: Yes ED Registration Date: 07/31/16 Care time: The patient presented to the Emergency Department on the above date and was hospitalized for further evaluation of their emergent condition. - New Patient This patient is new to me today: Yes Date on this admission: 07/31/16 - Critical Care Critical Care patient: No
[2016-07-31] MEDS: SODIUM CHLORIDE 1,000 ML IV SCH (19:35)
[2016-07-31] MEDS ORDERED: QUEtiapine FUMARATE 50 MG TABLET ONE (22:31)
[2016-07-31] MEDS: ALPRAZolam 2 MG TABLET PO PRN (22:37)
[2016-07-31] MEDS: QUEtiapine FUMARATE 100 MG TABLET (FP) PO SCH (22:37)
[2016-08-01 03:27] LABS: TROPONIN I < 0.02 ng/ml (0.00-0.05)
[2016-08-01] MEDS: ALPRAZolam 2 MG TABLET PO PRN (04:46)
[2016-08-01] MEDS ORDERED: LORAZEPAM CARPU-JECT 2 MG/ML DISP.SYRIN IVPUSH ONE (06:20)
[2016-08-01 07:59] LABS: CHOLESTEROL 176 mg/dL (50-200)
[2016-08-01 08:06] LABS: LDL CHOLESTEROL (ONLY SJRH) 123 mg/dL (5-100); TROPONIN I < 0.02 ng/ml (0.00-0.05)
[2016-08-01] MEDS ORDERED: LORazepam 1 MG TABLET PO ONE (08:45)
[2016-08-01] MEDS ORDERED: ASPIRIN COATED 81 MG TABLET.EC PO SCH (10:00)
[2016-08-01] MEDS ORDERED: NICOTINE 14 MG/24 HOURS TOPICAL PATCH TD SCH (10:30)
[2016-08-01] MEDS ORDERED: METHADONE HCL 10 MG TABLET (FOR DETOX USE ONLY) PO ONE (10:55)
[2016-08-01] MEDS ORDERED: diazePAM 5 MG TABLET PO PRN (10:55)
[2016-08-01] MEDS ORDERED: METHADONE HCL 10 MG TABLET PO ONE ×2 (11:45→23:00)
[2016-08-01] MEDS: SODIUM CHLORIDE 1,000 ML IV SCH ×2 (14:00→18:40)
--- NOTE | 2016-08-01 15:19 | PN ---
Teaching Attending Note Name of Resident: Suzy Moeller ATTENDING PHYSICIAN STATEMENT I saw and evaluated the patient. I reviewed the resident's note and discussed the case with the resident. I agree with the resident's findings and plan as documented. SUBJECTIVE:reports signs of withdrawal, diaphoresis , tremors and abdominal pain . No chest pain . N acute events on telemetry OBJECTIVE: Vital Signs Temperature 98.2 F 08/01/16 08:00 Pulse Rate 69 08/01/16 14:43 Respiratory Rate 20 08/01/16 14:43 Blood Pressure 122/72 08/01/16 14:43 O2 Sat by Pulse Oximetry (%) 96 08/01/16 10:22 GENERAL: The patient is awake, alert, and fully oriented, in no acute distress. HEAD: Normal with no signs of trauma. EYES: PERRL, extraocular movements intact, right scleral cyst . ENT: Ears normal, nares patent, oropharynx clear without exudates, moist mucous membranes. NECK: Trachea midline, full range of motion, supple. LUNGS: Breath sounds equal, clear to auscultation bilaterally, no wheezes, no crackles, no accessory muscle use. HEART: Regular rate and rhythm, S1, S2 without murmur, rub or gallop. ABDOMEN: Soft, nontender, nondistended, normoactive bowel sounds, no guarding, no rebound, no hepatosplenomegaly, no masses. EXTREMITIES: 2+ pulses, warm, well-perfused, no edema. NEUROLOGICAL: Cranial nerves II through XII grossly intact. Normal speech, gait not observed. PSYCH: Normal mood, normal affect. SKIN: Warm, dry, normal turgor, no rashes or lesions noted CBC, BMP 07/31/16 14:20 07/31/16 14:20 ASSESSMENT AND PLAN: 1. Atypical chest pain - no acute events on telemetry , troponin is negative, ACS ruled out . 2. Polysubstance abuse ( heroin ) - withdrawing . - c/w protocol - detox evaluation - [facility] Dispo : D/C to rehab if accepted .
[2016-08-01] MEDS ORDERED: chlordiazePOXIDE HCL 25 MG CAPSULE PO PRN (15:22)
--- NOTE | 2016-08-01 15:29 | CONSULT ---
Consult Detox [facility] Reason for Current Admission/Consult: Alcohol & heroin detox Referred by:: Sukhi Moeller RES - History History of Present Illness: 41 y/o man went to ED because of chest pain that woke him up from sleep. Pt. has a long hx. of heroin and alcohol dependence,most recent detox a month agoe at [facility] - History Source History Provided By: Patient, Medical Record - Alcohol/Substance Use Hx Alcohol Use: Yes - Current Drug/Alcohol Use Alcohol Route: Oral Frequency: Daily Amount used: cognac 1/2 pint & beer 48 Oz Age of first use: 19 Date of Last Use: 07/31/16 Heroin Route: Inhalation Frequency: Daily Amount used: 5 bags Age of first use: 39 Date of Last Use: 07/31/16 - Significant Medical Findings: Laboratory Last Values WBC 8.3 K/mm3 (4.0-10.0) 07/31/16 14:20 RBC 4.74 M/mm3 (4.00-5.60) 07/31/16 14:20 Hgb 14.4 GM/dL (11.7-16.9) 07/31/16 14:20 Hct 42.8 % (35.4-49) 07/31/16 14:20 MCV 90.3 fl (80-96) 07/31/16 14:20 MCHC 33.6 g/dl (32.0-35.9) 07/31/16 14:20 RDW 14.8 % (11.9-15.9) 07/31/16 14:20 Plt Count 325 K/MM3 (134-434) D 07/31/16 14:20 MPV 7.8 fl (7.5-11.1) 07/31/16 14:20 Neutrophils % 69.4 % (42.8-82.8) 07/31/16 14:20 Lymphocytes % 23.8 % (8-40) 07/31/16 14:20 Monocytes % 5.9 % (3.8-10.2) 07/31/16 14:20 Eosinophils % 0.3 % (0-4.5) 07/31/16 14:20 Basophils % 0.6 % (0-2.0) 07/31/16 14:20 INR 1.19 (0.82-1.09) H 07/31/16 14:20 Sodium 137 mmol/L (136-145) 07/31/16 14:20 Potassium 4.3 mmol/L (3.5-5.1) 07/31/16 14:20 Chloride 102 mmol/L (98-107) 07/31/16 14:20 Carbon Dioxide 26 mmol/L (21-32) 07/31/16 14:20 Anion Gap 9 (8-16) 07/31/16 14:20 BUN 10 mg/dL (7-18) 07/31/16 14:20 Creatinine 0.7 mg/dL (0.7-1.3) 07/31/16 14:20 Creat Clearance w eGFR > 60 (>60) 07/31/16 14:20 Random Glucose 97 mg/dL (74-106) 07/31/16 14:20 Calcium 9.2 mg/dL (8.5-10.1) 07/31/16 14:20 Magnesium 2.4 mg/dL (1.8-2.4) 07/31/16 14:20 Total Bilirubin 0.8 mg/dL (0.2-1.0) D 07/31/16 14:20 AST 22 U/L (15-37) D 07/31/16 14:20 ALT 30 U/L (12-78) 07/31/16 14:20 Alkaline Phosphatase 57 U/L (45-117) 07/31/16 14:20 Creatine Kinase 121 IU/L (39-308) 08/01/16 02:08 Creatine Kinase Index 0.7 % (0.0-5.0) 07/31/16 14:20 CK-MB (CK-2) 1.088 ng/ml (0.5-3.6) 07/31/16 14:20 CK-MB (CK-2) Rel Index Cancelled 07/31/16 14:20 Troponin I < 0.02 ng/ml (0.00-0.05) 08/01/16 05:35 Total Protein 7.6 g/dl (6.4-8.2) D 07/31/16 14:20 Albumin 4.2 g/dl (3.4-5.0) 07/31/16 14:20 Triglycerides 68 mg/dL (35-160) 08/01/16 05:35 Cholesterol 176 mg/dL (50-200) 08/01/16 05:35 Total LDL Cholesterol 123 mg/dL (5-100) H 08/01/16 05:35 HDL Cholesterol 50 mg/dL (40-60) 08/01/16 05:35 Lipase 68 U/L (73-393) L 07/31/16 14:20 Urine Color Yellow 07/31/16 14:20 Urine Appearance Clear 07/31/16 14:20 Urine pH 5.0 (5.0-8.0) 07/31/16 14:20 Ur Specific [place] 1.025 (1.001-1.035) 07/31/16 14:20 Urine Protein Negative (NEGATIVE) 07/31/16 14:20 Urine Glucose (UA) Negative (NEGATIVE) 07/31/16 14:20 Urine Ketones 1+ (NEGATIVE) H 07/31/16 14:20 Urine Blood Negative (NEGATIVE) 07/31/16 14:20 Urine Nitrite Negative (NEGATIVE) 07/31/16 14:20 Urine Bilirubin Negative (NEGATIVE) 07/31/16 14:20 Urine Urobilinogen Negative E.U./dl (0.2-1.0) 07/31/16 14:20 Ur Leukocyte Esterase Negative (NEGATIVE) 07/31/16 14:20 Opiates Screen Positive ng/ml (HHVNAS=884) 07/31/16 14:20 Methadone Screen Negative ng/ml (XOHDPS=680) 07/31/16 14:20 Barbiturate Screen Negative ng/ml (GUQUKL=955) 07/31/16 14:20 Phencyclidine Screen Negative ng/ml (CUTOFF=25) 07/31/16 14:20 Ur Amphetamines Screen Negative ng/ml (OGWYDD=479) 07/31/16 14:20 MDMA (Ecstasy) Screen Positive ng/ml (RNKRHI=912) 07/31/16 14:20 Benzodiazepines Screen Positive ng/ml (THSKHL=420) 07/31/16 14:20 Cocaine Screen Negative ng/ml (JROOQK=586) 07/31/16 14:20 U Marijuana (THC) Screen Positive ng/ml (CUTOFF=50) 07/31/16 14:20 labs noted COWS - Scale Resting Pulse: 0= [place] 80 or Below Sweatin=Flushed/Facial Moisture Restless Observation: 3= Extraneous Movement Pupil Size: 1= Pupils >than Normal Bone or Joint Aches: 2= Severe Diffuse Aches Runny Nose/ Eye Tearin= Runny Nose/Eyes GI Upset > 30mins: 2= Nausea/Diarrhea Tremor Observation: 2= Slight Tremor Visible Yawning Observation: 1= 1-2x During Session Anxiety or Irritability: 2=Irritable/Anxious Goose Flesh Skin: 3=Piloerection COWS Score: 20 CIWA Score - CIWA Score Nausea/Vomitin Muscle Tremors: 4-Moderate,w/Arms Extend Anxiety: 4-Mod. Anxious/Guarded Agitation: 4-Moderately Restless Paroxysmal Sweats: 4-Forehead w/Sweat Beads Orientation: 0-Oriented Tacttile Disturbances: 0-None Auditory Disturbances: 0-None Visual Disturbances: 0-None Headache: 0-None Present CIWA-Ar Total Score: 19 Assessment Plan - Diagnosis (1) Alcohol dependence with uncomplicated withdrawal Status: Acute (2) Cannabis dependence, uncomplicated Status: Acute (3) Cocaine dependence, uncomplicated Status: Acute (4) Nicotine dependence Status: Acute Qualifiers: Nicotine product type: cigarettes Substance use status: uncomplicated Qualified Code(s): F17.210 - Nicotine dependence, cigarettes, uncomplicated (5) Opioid dependence with withdrawal Status: Acute - Plan Plan: detox thenrefer to rehab if pt. is agreeable - Medication Detox Regimen/Protocol: Methadone/Librium
[2016-08-01] MEDS ORDERED: chlordiazePOXIDE HCL 25 MG CAPSULE PO ONE (15:45)
--- NOTE | 2016-08-01 16:22 | DS ---
Physical Exam: SUBJECTIVE: Patient seen and examined. c/o mild intermittent chest pain a/w withdrawal symptoms of heroin. Says he is currently withdrawing and xanax is not enough for his symptoms. OBJECTIVE: Vital Signs Period Temp Pulse Resp BP Sys/Villaseñor Pulse Ox Last 24 Hr 97.0 F-98.6 F 60-85 14-20 110-141/72-87 96-99 PHYSICAL EXAM GENERAL: The patient is awake, alert, and fully oriented. HEAD: Normal with no signs of trauma. EYES: left pupil round and reactive to light, right pupil minimally reactive to light fixed defect. right medial sclera with small clear vesicle, extraocular movements intact, sclera anicteric ENT: oropharynx clear without exudates, moist mucous membranes, missing dentition NECK: Trachea midline, full range of motion, supple. LUNGS: Breath sounds equal, clear to auscultation bilaterally, no wheezes, no crackles, no accessory muscle use. HEART: Regular rate and rhythm, S1, S2 without murmur, rub or gallop. ABDOMEN: Soft, nontender, nondistended, normoactive bowel sounds EXTREMITIES: 2+ pulses, warm, well-perfused, no edema. PSYCH: Normal mood, normal affect. LABS Laboratory Results - last 24 hr 08/01/16 08/01/16 02:08 05:35 Creatine Kinase 121 Troponin I < 0.02 < 0.02 Triglycerides 68 Cholesterol 176 Total LDL Cholesterol 123 H HDL Cholesterol 50 HOSPITAL COURSE: Date of Admission:07/31/16 - Date of Discharge: 08/01/16 41 yr old man with hx of heroin abuse presents with chest pain for one day placed on observation for further evaluation. EKG was normal sinus rhythm without any acute ischemic changes, echo showed normal LV and RV systolic function, trace pulmonic regurgitation, mild tricuspid regurgitation and chest xray was negative for infiltrate, effusion or cardiomegaly. Troponins trended 3 times over 16 hours remained low. He was ruled out for ACS. He expressed interest in attending a detox facility for his heroin withdrawal. Dr. Mcintyre was consulted and he will be transported to [facility] at 8am on 08/02. Minutes to complete discharge: 35 Discharge Summary Reason For Visit: POLYSUBSTANCE ABUSE/ CHEST PAIN Current Active Problems Chest pain (Acute) Polysubstance abuse (Acute) - Instructions Referrals: STAFF,NOT ON [Primary Care Provider] - - Home Medications Comprehensive Discharge Medication List: Ambulatory Orders Quetiapine Fumarate [Seroquel] 100 mg PO HS #30 tablet 06/30/16 This patient is new to me today: No Emergency Visit: No Critical Care patient: No - Discharge Referral Referred to [facility] No
--- NOTE | 2016-08-01 16:34 | EKG ---
Test Reason : Blood Pressure : / mmHG Vent. Rate : 060 BPM Atrial Rate : 060 BPM P-R Int : 126 ms QRS Dur : 094 ms QT Int : 414 ms P-R-T Axes : 061 -06 015 degrees QTc Int : 414 ms NORMAL SINUS RHYTHM WITH SINUS ARRHYTHMIA NORMAL ECG WHEN COMPARED WITH ECG OF 31-JUL-2016 13:20, NO SIGNIFICANT CHANGE WAS FOUND Confirmed by MD MARILUZ, CRISTA ([id number]) on 08/01/2016 4:33:45 PM Referred By: FLORENTINO CROWELL Confirmed By:CRISTA MCGRAW MD
[2016-08-01] MEDS: chlordiazePOXIDE HCL 25 MG CAPSULE PO SCH ×2 (17:13→22:46)
[2016-08-01] MEDS ORDERED: METOCLOPRAMIDE HCL INJECTION 10 MG/2 ML VIAL IVPB ONE ×2 (18:17→21:36)
[2016-08-01] MEDS ORDERED: QUEtiapine FUMARATE 50 MG TABLET ONE (21:32)
[2016-08-01] MEDS: QUEtiapine FUMARATE 100 MG TABLET (FP) PO SCH (22:47)
[2016-08-02] MEDS: SODIUM CHLORIDE 1,000 ML IV SCH (05:37)
[2016-08-02] MEDS: chlordiazePOXIDE HCL 25 MG CAPSULE PO SCH (05:37)
[2016-08-02 06:16] VITALS: BP 122/63; PULSE 72; TEMP 98.1
[2016-08-02] MEDS ORDERED: METHADONE HCL 10 MG TABLET PO ONE (10:00)
[2016-08-02] MEDS ORDERED: chlordiazePOXIDE HCL 25 MG CAPSULE PO SCH (17:00)
[2016-08-03] MEDS ORDERED: METHADONE HCL 5 MG TABLET PO ONE (10:00)
[2016-08-03] MEDS ORDERED: chlordiazePOXIDE 5 MG CAPSULE PO SCH (17:00)
[2016-08-04] MEDS ORDERED: METHADONE HCL 5 MG TABLET PO ONE (10:00)
[2016-08-05] MEDS ORDERED: METHADONE HCL 10 MG TABLET PO ONE (10:00)
[2016-08-06] MEDS ORDERED: METHADONE HCL 5 MG TABLET PO ONE (06:00)
== END 2016-08-02 08:16 | disposition other institution (70) ==
LOC: JER 13:08 → JERBED 17:16 → J4W 21:58
PROVIDERS: ADMIT Internal Medicine; ATTEND Internal Medicine
DX: R07.89 Other chest pain (principal); F10.230 Alcohol dependence with withdrawal, uncomplicated; F12.20 Cannabis dependence, uncomplicated; F14.20 Cocaine dependence, uncomplicated; F11.23 Opioid dependence with withdrawal; F17.210 Nicotine dependence, cigarettes, uncomplicated
CPT/HCPCS: 36415; 71010-TC; 80053; 80061; 80307; 81003; 82550; 82553; 83690; 83721; 83735; 84484; 85025; 85610; 93005; 93010; 93306-TC; 99284-25; G0378; G0480

== ENCOUNTER 2016-08-02 11:30 | Inpatient (IN) | payer OTHER ==
[~2016-08-02 11:30] MED LIST: METHADONE HCL 10 MG TABLET (FOR DETOX USE ONLY) PO SCH
[2016-08-02 12:07] VITALS: BMI 27.1
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
[2016-08-02] MEDS ORDERED: chlordiazePOXIDE HCL 25 MG CAPSULE PO PRN (13:40)
[2016-08-02] MEDS ORDERED: hydrOXYzine PAMOATE 50 MG CAPSULE (FP) PO PRN (13:53)
[2016-08-02] MEDS ORDERED: LOPERAMIDE HCL 2 MG CAPSULE PO PRN (13:53)
[2016-08-02] MEDS ORDERED: MAGNESIUM CITRATE 300 ML BOTTLE PO PRN (13:53)
[2016-08-02] MEDS ORDERED: MAG HYDROX/AL HYDROX/SIMETH 30 ML UNIT-DOSE CUP PO PRN (13:53)
[2016-08-02] MEDS ORDERED: IBUPROFEN 400 MG TABLET (FP) PO PRN (13:53)
[2016-08-02] MEDS ORDERED: ACETAMINOPHEN 325 MG TABLET (FP) PO PRN (13:53)
[2016-08-02] MEDS ORDERED: P-EPHED 60MG/TRIPROLIDI 2.5MG TABLET PO PRN (13:53)
[2016-08-02] MEDS ORDERED: MENTHOL/PHENOL 1 EACH UD MM PRN (13:53)
[2016-08-02] MEDS ORDERED: MAGNESIUM HYDROX 2400MG/30ML ORAL SUSPENSION 30 ML CUP PO PRN (13:53)
[2016-08-02] MEDS ORDERED: guaiFENesin/D-METHORPHAN HB 10 ML UNIT-DOSE CUPS PO PRN (14:04)
[2016-08-02] MEDS: prednisoLONE ACETATE 1% OPHTH SUSP 5 ML BOTTLE OD SCH ×3 (15:08→23:16)
[2016-08-02] MEDS: NICOTINE 21 MG/24 HOURS TOPICAL PATCH TD SCH (15:08)
[2016-08-02] MEDS ORDERED: METHADONE HCL 10 MG TABLET (FOR DETOX USE ONLY) PO SCH (15:45)
[2016-08-02] MEDS: chlordiazePOXIDE HCL 25 MG CAPSULE PO SCH ×2 (17:57→22:42)
[2016-08-02] MEDS: MINERAL OIL/PETROLAT/WATER TOPICAL CREAM 113 GM JAR TP SCH ×2 (18:16→23:16)
[2016-08-02 19:09] LABS: URINE APPEARANCE CLEAR; URINE BILIRUBIN NEGATIVE (NEGATIVE); URINE BLOOD NEGATIVE (NEGATIVE); URINE COLOR STRAW; URINE GLUCOSE (UA) NEGATIVE (NEGATIVE); URINE KETONE 1+ (NEGATIVE); URINE LEUK ESTERASE NEGATIVE (NEGATIVE); URINE NITRITE NEGATIVE (NEGATIVE); URINE PROTEIN NEGATIVE (NEGATIVE); URINE UROBILINOGEN NEGATIVE E.U./dl (0.2-1.0)
--- NOTE | 2016-08-02 20:58 | EKG ---
Test Reason : Blood Pressure : / mmHG Vent. Rate : 075 BPM Atrial Rate : 075 BPM P-R Int : 128 ms QRS Dur : 100 ms QT Int : 412 ms P-R-T Axes : 040 000 017 degrees QTc Int : 460 ms NORMAL SINUS RHYTHM NORMAL ECG WHEN COMPARED WITH ECG OF 01-AUG-2016 08:54, NO SIGNIFICANT CHANGE WAS FOUND Confirmed by FRANSISCO CERVANTES MD ([id number]) on 08/02/2016 8:57:35 PM Referred By: Confirmed By:FRANSISCO CERVANTES MD
[2016-08-02] MEDS: THIAMINE HCL 100 MG TABLET (FP) PO SCH (22:42)
[2016-08-02] MEDS: diphenhydrAMINE HCL 50 MG CAPSULE PO PRN (22:42)
[2016-08-03] MEDS: chlordiazePOXIDE HCL 25 MG CAPSULE PO SCH ×2 (06:08→10:40)
[2016-08-03] MEDS ORDERED: TRIMETHOBENZAMIDE HCL 200MG/2ML INJ IM PRN (09:17)
[2016-08-03 10:26] LABS: MCH 30.5 pg (25.7-33.7); MEAN CELL VOLUME 89.9 fl (80-96); MEAN PLT VOLUME 8.1 fl (7.5-11.1); PLATELET COUNT 281 K/MM3 (134-434); RDW 14.6 % (11.9-15.9); WHITE BLOOD COUNT 8.7 K/mm3 (4.0-10.0)
[2016-08-03 10:32] LABS: ALBUMIN 3.6 g/dl (3.4-5.0); ANION GAP 7 (8-16); CALCIUM 8.4 mg/dL (8.5-10.1); CO2 29 mmol/L (21-32); CREATININE 0.9 mg/dL (0.7-1.3); GLUCOSE,RANDOM 95 mg/dL (74-106); SGOT/AST 10 U/L (15-37); SGPT/ALT 21 U/L (12-78)
[2016-08-03 10:33] LABS: ALK PHOS 46 U/L (45-117); BILIRUBIN,TOTAL 0.6 mg/dL (0.2-1.0); TOT PROT 6.2 g/dl (6.4-8.2)
[2016-08-03] MEDS: PRENATAL VITAMINS W/ FOLIC ACID TABLET (FP) PO SCH (10:39)
[2016-08-03] MEDS: METHADONE HCL 5 MG TABLET (FOR DETOX USE ONLY) PO SCH (10:40)
[2016-08-03] MEDS: prednisoLONE ACETATE 1% OPHTH SUSP 5 ML BOTTLE OD SCH ×4 (10:41→22:28)
[2016-08-03] MEDS: NICOTINE 21 MG/24 HOURS TOPICAL PATCH TD SCH (10:43)
[2016-08-03] MEDS: MINERAL OIL/PETROLAT/WATER TOPICAL CREAM 113 GM JAR TP SCH ×2 (11:00→22:26)
[2016-08-03] MEDS ORDERED: TRIMETHOBENZAMIDE HCL 200MG/2ML INJ IM ONE (11:15)
--- NOTE | 2016-08-03 11:28 | PN ---
S CIWA - CIWA Score Nausea/Vomitin Muscle Tremors: 3 Anxiety: 4-Mod. Anxious/Guarded Agitation: 4-Moderately Restless Paroxysmal Sweats: No Perspiration Orientation: 0-Oriented Tacttile Disturbances: 1-Very Mild Itch/Numbness Auditory Disturbances: 0-None Visual Disturbances: 0-None Headache: 3-Moderate CIWA-Ar Total Score: 18 BHS COWS - Scale Resting Pulse: 0= [place] 80 or Below Sweatin= Chills/Flushing Restless Observation: 1= Difficult to Sit Still Pupil Size: 1= Pupils >than Normal Bone or Joint Aches: 2= Severe Diffuse Aches Runny Nose/ Eye Tearin= Runny Nose/Eyes GI Upset > 30mins: 2= Nausea/Diarrhea Tremor Observation of Outstretched Hands: 1= Tremor [place], Not Seen Yawning Observation: 1= 1-2x During Session Anxiety or Irritability: 2=Irritable/Anxious Goose Flesh Skin: 0=Smooth Skin COWS Score: 13 S Progress Note (SOAP) Subjective: Tremors, Anxiety, Restlessness, Diarrhea, Interrupted Sleep, Headache, Chills Objective: 08/03/16 11:27 Vital Signs Temperature 97.7 F 08/03/16 10:00 Pulse Rate 65 08/03/16 10:00 Respiratory Rate 16 08/03/16 10:00 Blood Pressure 140/79 08/03/16 10:00 O2 Sat by Pulse Oximetry (%) Laboratory Last Values WBC 8.7 K/mm3 (4.0-10.0) 08/03/16 08:00 RBC 4.65 M/mm3 (4.00-5.60) 08/03/16 08:00 Hgb 14.2 GM/dL (11.7-16.9) 08/03/16 08:00 Hct 41.8 % (35.4-49) 08/03/16 08:00 MCV 89.9 fl (80-96) 08/03/16 08:00 MCHC 34.0 g/dl (32.0-35.9) 08/03/16 08:00 RDW 14.6 % (11.9-15.9) 08/03/16 08:00 Plt Count 281 K/MM3 (134-434) 08/03/16 08:00 MPV 8.1 fl (7.5-11.1) 08/03/16 08:00 Sodium 141 mmol/L (136-145) 08/03/16 08:00 Potassium 3.7 mmol/L (3.5-5.1) 08/03/16 08:00 Chloride 105 mmol/L (98-107) 08/03/16 08:00 Carbon Dioxide 29 mmol/L (21-32) 08/03/16 08:00 Anion Gap 7 (8-16) L 08/03/16 08:00 BUN 10 mg/dL (7-18) 08/03/16 08:00 Creatinine 0.9 mg/dL (0.7-1.3) D 08/03/16 08:00 Creat Clearance w eGFR > 60 (>60) 08/03/16 08:00 Random Glucose 95 mg/dL (74-106) 08/03/16 08:00 Calcium 8.4 mg/dL (8.5-10.1) L 08/03/16 08:00 Total Bilirubin 0.6 mg/dL (0.2-1.0) D 08/03/16 08:00 AST 10 U/L (15-37) L D 08/03/16 08:00 ALT 21 U/L (12-78) D 08/03/16 08:00 Alkaline Phosphatase 46 U/L (45-117) 08/03/16 08:00 Total Protein 6.2 g/dl (6.4-8.2) L 08/03/16 08:00 Albumin 3.6 g/dl (3.4-5.0) 08/03/16 08:00 Urine Color Straw 08/02/16 16:00 Urine Appearance Clear 08/02/16 16:00 Urine pH 7.0 (5.0-8.0) D 08/02/16 16:00 Ur Specific [place] 1.010 (1.001-1.035) 08/02/16 16:00 Urine Protein Negative (NEGATIVE) 08/02/16 16:00 Urine Glucose (UA) Negative (NEGATIVE) 08/02/16 16:00 Urine Ketones 1+ (NEGATIVE) H 08/02/16 16:00 Urine Blood Negative (NEGATIVE) 08/02/16 16:00 Urine Nitrite Negative (NEGATIVE) 08/02/16 16:00 Urine Bilirubin Negative (NEGATIVE) 08/02/16 16:00 Urine Urobilinogen Negative E.U./dl (0.2-1.0) 08/02/16 16:00 Ur Leukocyte Esterase Negative (NEGATIVE) 08/02/16 16:00 Labs noted Assessment: Withdrawal Symptoms Plan: Continue Detox
[2016-08-03 14:48] LABS: HIV 1 & 2 AB NEGATIVE; HIV 1 AGp24 NEGATIVE
[2016-08-03] MEDS: chlordiazePOXIDE 5 MG CAPSULE PO SCH ×2 (17:12→22:27)
[2016-08-03] MEDS: THIAMINE HCL 100 MG TABLET (FP) PO SCH (22:26)
[2016-08-03] MEDS: diphenhydrAMINE HCL 50 MG CAPSULE PO PRN (22:26)
[2016-08-04] MEDS: chlordiazePOXIDE 5 MG CAPSULE PO SCH ×2 (05:56→10:10)
--- NOTE | 2016-08-04 07:39 | CONSULT ---
[facility] Psychiatric Consult - Data Date of interview: 08/04/16 Admission source: [facility] Identifying data: This is 41 years old male with no psychiatric hoaspitalization history intoxicated wioth: \Alcohol, Cannabis, Heroin, Benzodiazepins and Nicotine Substance Abuse History: Smoking history: Current every day smoker. Have you smoked in the past 12 months: Yes. Aproximately how many cigarettes per day: 20. Hx Chewing Tobacco Use: No. Initiated information on smoking cessation: Yes. 'Breaking Loose' booklet given: 08/02/16 (give on floor). - Substance & Tx. History. Hx Alcohol Use: Yes. Hx Substance Use: Yes. Substance Use Type: Alcohol, Heroin, Marijuana, Tranquilizers. Hx Substance Use Treatment: Yes ( detox, rehab). - Substances Abused. Alcohol. Route: Oral. Frequency: Daily. Amount used: 3 6 pack Beer, 1/2 pint Cognac. Age of first use: 16. Date of Last Use: 08/02/16. Heroin. Route: Inhalation. Frequency: Daily. Amount used: 7 bags. Age of first use: 40. Date of Last Use: 07/31/16. Alprazolam (Xanax). Route: Oral. Frequency: 3-6 times per week. Amount used: 4mg. Age of first use: 40. Date of Last Use: 08/01/16. Marijuana/Hashish. Route: Smoking. Frequency: 1-3 times last 30 days. Amount used: 1 joint. Age of first use: 16. Date of Last Use: 07/30/16. Benzodiazepine (Klonopin) . Route: Oral. Frequency: No use in 30 days Medical History: Eczema, Chest pain history Psychiatric History: Patient reports insomnia, anxiety, reports taking prior to admission: Ambien 10mg po qhs. Seroquel 100mg po qhs Physical/Sexual Abuse/Trauma History: Denies Additional Comment: Ambien 10mg po qhs. Seroquel 100mg po qhs Mental Status Exam - Mental Status Exam Alert and Oriented to: Person Cognitive Function: Fair Patient Appearance: Unkempt Mood: Sad Affect: Flat Patient Behavior: Sedated Speech Pattern: Delayed Voice Loudness: Mildly Soft/Quiet Thought Process: Circumstantial Thought Disorder: Being Controlled Hallucinations: Denies Suicidal Ideation: Denies Homicidal Ideation: Denies Insight/Judgement: Fair Sleep: Difficulty falling asleep Appetite: Fair Muscle strength/Tone: Mild Hypotonicity Gait/Station: Shuffling Additional Comments: Ambien 10mg po qhs. Seroquel 100mg po qhs Psychiatric Findings - Problem List ([place] 1, 2,3) (1) Alcohol dependence with uncomplicated withdrawal Current Visit: Yes Status: Chronic (2) Nicotine dependence Current Visit: Yes Status: Chronic Qualifiers: Nicotine product type: cigarettes Substance use status: uncomplicated Qualified Code(s): F17.210 - Nicotine dependence, cigarettes, uncomplicated (3) Opioid dependence with withdrawal Current Visit: Yes Status: Chronic (4) Cannabis dependence, uncomplicated Current Visit: No Status: Acute (5) Cocaine dependence, uncomplicated Current Visit: No Status: Acute (6) Drug-induced mood disorder Current Visit: No Status: Acute (7) Sedative, hypnotic, or anxiolytic withdrawal Current Visit: No Status: Acute (8) Substance-induced sleep disorder Current Visit: No Status: Acute (9) Substance-induced anxiety disorder Current Visit: No Status: Chronic - Initial Treatment Plan Initial Treatment Plan: Ambien 10mg po qhs. Seroquel 100mg po qhs
[2016-08-04] MEDS ORDERED: ZOLPIDEM TARTRATE 10 MG TABLET (PARK CARE ONLY) PO PRN (09:02)
[2016-08-04] MEDS ORDERED: METHADONE HCL 10 MG TABLET (FOR DETOX USE ONLY) PO SCH (10:00)
--- NOTE | 2016-08-04 10:00 | PN ---
[facility] CIWA - CIWA Score Nausea/Vomitin Muscle Tremors: 2 Anxiety: 3 Agitation: 2 Paroxysmal Sweats: 3 Orientation: 0-Oriented Tacttile Disturbances: 1-Very Mild Itch/Numbness Auditory Disturbances: 0-None Visual Disturbances: 0-None Headache: 0-None Present CIWA-Ar Total Score: 14 [facility] COWS - Scale Resting Pulse: 0= [place] 80 or Below Sweatin=Flushed/Facial Moisture Restless Observation: 1= Difficult to Sit Still Pupil Size: 1= Pupils >than Normal Bone or Joint Aches: 1= Mild Discomfort Runny Nose/ Eye Tearin= Nasal Congestion GI Upset > 30mins: 1= Stomach Cramp Tremor Observation of Outstretched Hands: 2= Slight Tremor Visible Yawning Observation: 0= None Anxiety or Irritability: 2=Irritable/Anxious Goose Flesh Skin: 0=Smooth Skin COWS Score: 11 [facility] Progress Note (SOAP) Subjective: interrupted sleep, swats, , nausea, vomitng Objective: 08/04/16 09:59 Vital Signs Temperature 97.7 F 08/04/16 06:49 Pulse Rate 69 08/04/16 06:49 Respiratory Rate 16 08/04/16 06:49 Blood Pressure 118/69 08/04/16 06:49 O2 Sat by Pulse Oximetry (%) Laboratory Results - last 24 hr 08/03/16 08/03/16 08/03/16 08:00 08:00 08:00 WBC 8.7 RBC 4.65 Hgb 14.2 Hct 41.8 MCV 89.9 MCHC 34.0 RDW 14.6 Plt Count 281 MPV 8.1 Sodium 141 Potassium 3.7 Chloride 105 Carbon Dioxide 29 Anion Gap 7 L BUN 10 Creatinine 0.9 D Creat Clearance w eGFR > 60 Random Glucose 95 Calcium 8.4 L Total Bilirubin 0.6 D AST 10 L D ALT 21 D Alkaline Phosphatase 46 Total Protein 6.2 L Albumin 3.6 RPR Titer HIV 1&2 Antibody Screen Negative HIV P24 Antigen Negative 08/03/16 08:00 WBC RBC Hgb Hct MCV MCHC RDW Plt Count MPV Sodium Potassium Chloride Carbon Dioxide Anion Gap BUN Creatinine Creat Clearance w eGFR Random Glucose Calcium Total Bilirubin AST ALT Alkaline Phosphatase Total Protein Albumin RPR Titer Nonreactive HIV 1&2 Antibody Screen HIV P24 Antigen pt aox3 in nad ambulating Assessment: 08/04/16 09:59 withdrawl sx's Plan: cont. detox increase fluids d/c in am
[2016-08-04] MEDS: PRENATAL VITAMINS W/ FOLIC ACID TABLET (FP) PO SCH (10:10)
[2016-08-04] MEDS: NICOTINE 21 MG/24 HOURS TOPICAL PATCH TD SCH (10:10)
[2016-08-04] MEDS: MINERAL OIL/PETROLAT/WATER TOPICAL CREAM 113 GM JAR TP SCH ×2 (10:12→22:20)
[2016-08-04] MEDS: prednisoLONE ACETATE 1% OPHTH SUSP 5 ML BOTTLE OD SCH ×3 (10:13→22:19)
[2016-08-04] MEDS: METHADONE HCL 5 MG TABLET (FOR DETOX USE ONLY) PO SCH (11:45)
[2016-08-04] MEDS: chlordiazePOXIDE HCL 10 MG CAPSULE PO SCH ×2 (17:55→22:19)
[2016-08-04] MEDS ORDERED: QUEtiapine FUMARATE 100 MG TABLET (FP) PO SCH (22:00)
[2016-08-04] MEDS: THIAMINE HCL 100 MG TABLET (FP) PO SCH (22:19)
[2016-08-05] MEDS: chlordiazePOXIDE HCL 10 MG CAPSULE PO SCH (05:53)
[2016-08-05] MEDS ORDERED: METHADONE HCL 5 MG TABLET (FOR DETOX USE ONLY) PO SCH (06:00)
[2016-08-05 06:27] VITALS: BP 116/71; PULSE 74; TEMP 97.4
--- NOTE | 2016-08-05 09:17 | DS ---
[facility] Detox Discharge Summary Admission Date: 08/02/16 Discharge Date: 08/05/16 - History Present History: Alcohol Dependence, Cannabis Dependence, Cocaine Dependence, Opioid Dependence, Sedative Dependence - Physical Exam Results Vital Signs: Vital Signs Temperature 97.4 F L 08/05/16 06:27 Pulse Rate 74 08/05/16 06:27 Respiratory Rate 18 08/05/16 06:27 Blood Pressure 116/71 08/05/16 06:27 O2 Sat by Pulse Oximetry (%) - Treatment Hospital Course: Detox Protocol Followed, Detoxed Safely, Responded well, Discharged Condition Good, Rehab Referral Accepted - Medication Discharge Medications: Ambulatory Orders Quetiapine Fumarate [Seroquel] 100 mg PO HS #30 tablet 06/30/16 Alprazolam [Xanax] 1 mg PO Q6H PRN #0 tablet [facility] 4 08/01/16 Chlordiazepoxide [Librium -] 15 mg PO [id number] capsule [facility] 4 08/01/16 Chlordiazepoxide [Librium -] 25 mg PO Q4H PRN #0 capsule [facility]D 6 08/01/16 Chlordiazepoxide [Librium -] 25 mg PO [id number] capsule [facility]D 4 08/01/16 Chlordiazepoxide [Librium -] 50 mg PO [id number] capsule MDD 4 08/01/16 Diazepam [Valium] 10 mg PO Q4H PRN #0 tablet [facility]D 6 08/01/16 Nicotine Patch [Nicoderm Patch -] 14 mg TD DAILY patch 08/01/16 Miscellaneous Drug Not In Syst [Outpatient Lab Test] 1 each ASDIR #1 mis Quetiapine Fumarate [Seroquel] 100 mg PO HS #30 tablet 08/04/16 Zolpidem Tartrate [Ambien] 10 mg PO HS PRN #14 tablet [facility]D 10 08/04/16 - Diagnosis (1) Alcohol dependence with uncomplicated withdrawal Status: Chronic (2) Eczema Status: Chronic Qualifiers: Eczema type: unspecified Qualified Code(s): L30.9 - Dermatitis, unspecified (3) History of eye trauma Status: Chronic (4) Nicotine dependence Status: Chronic Qualifiers: Nicotine product type: cigarettes Substance use status: uncomplicated Qualified Code(s): F17.210 - Nicotine dependence, cigarettes, uncomplicated (5) Opioid dependence with withdrawal Status: Chronic (6) Cannabis dependence, uncomplicated Status: Chronic (7) Chest pain Status: Resolved (8) Cocaine dependence, uncomplicated Status: Chronic (9) Drug-induced mood disorder Status: Acute (10) Polysubstance abuse Status: Acute (11) Sedative, hypnotic, or anxiolytic withdrawal Status: Acute (12) Substance-induced sleep disorder Status: Acute (13) Substance-induced anxiety disorder Status: Chronic (14) Tooth decay Status: Chronic - AMA Did Patient Leave Against Medical Advice: No
== END 2016-08-05 07:14 | disposition home or self-care (01) | DRG 745 ==
LOC: YASAS 11:30 → Y6N 14:01
PROVIDERS: ADMIT Internal Medicine; ATTEND Internal Medicine
PROC: HZ2ZZZZ Detoxification Services for Substance Abuse Treatment (ICD-10-PCS; principal; 2016-08-03)
DX: F11.23 Opioid dependence with withdrawal (principal); F13.230 Sedative, hypnotic or anxiolytic dependence with withdrawal, uncomplicated; F14.20 Cocaine dependence, uncomplicated; F12.20 Cannabis dependence, uncomplicated; F17.210 Nicotine dependence, cigarettes, uncomplicated; F19.24 Other psychoactive substance dependence with psychoactive substance-induced mood disorder; F19.282 Other psychoactive substance dependence with psychoactive substance-induced sleep disorder; F19.280 Other psychoactive substance dependence with psychoactive substance-induced anxiety disorder; L30.9 Dermatitis, unspecified; K02.9 Dental caries, unspecified
CPT/HCPCS: 36415; 80053; 81003; 85027; 86593; 87389; 93005; 93010

== ENCOUNTER 2016-09-26 01:31 | Observation (INO) | payer OTHER ==
[2016-09-26 02:06] VITALS: BMI 28.3
--- NOTE | 2016-09-26 02:43 | PDOC ---
History of Present Illness <Kg Tadeo - Last Filed: 09/26/16 05:18> - General History Source: Patient Exam Limitations: No Limitations - History of Present Illness Initial Comments: 09/26/16 04:31 The patient is a 41 year old male with significant past medical history of anxiety and polysubstance (heroin, marijuana and tranquilizers) who presents to the ED for 1 day of chest pain. Patient reports he developed a sudden onset of chest tightness around 2:30 pm yesterday afternoon. States at that time he started to also have tightness in both shoulders and both hands started to cramp up. He reports a shooting numbness going up the left arm. Patient started to take deep breaths and shortly after felt a sharp chest pain. Denies lightheadedness, diaphoresis, palpitations, SOB, nausea, or vomiting. 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 He also states not eating well due to stress and only ate an orange for lunch today. Admits to not being seen by his PMD in a period of time. The patient denies fever, chills, cough, abdominal pain, and diarrhea. Allergies: NKDA Social History: Current polysubstance abuse (heroin, marijuana and tranquilizers ), etoh use, current smoker (10 cigarettes per day) Family History: Father has h/o of heart disease and [place] Past Surgical History: trauma to left shoulder s/p surgery PCP: None reported <Reyna Bradley - Last Filed: 09/26/16 06:05> - General Chief Complaint: Chest Pain Stated Complaint: CHEST PAIN Past History - Past Medical History Anemia: No Asthma: No Cancer: No Cardiac Disorders: No CVA: No COPD: No CHF: No Dementia: No Diabetes: No GI Disorders: No Disorders: No HTN: No Hypercholesterolemia: No Kidney Stones: No Liver Disease: No Suicide Attempt (Hx): No Seizures: No Thyroid Disease: No - Surgical History Abdominal Surgery: No Appendectomy: No Cardiac Surgery: No Cholecystectomy: No Lung Surgery: No Neurologic Surgery: No Orthopedic Surgery: Yes (lt shoulder surgery) - Reproductive History Testicular Surgery: No - Psycho/Social/Smoking Cessation Hx Anxiety: Yes Suicidal Ideation: No Smoking History: Current every day smoker Have you smoked in the past 12 months: Yes Number of Cigarettes Smoked Daily: 20 Information on smoking cessation initiated: No 'Breaking Loose' booklet given: 08/02/16 (give on floor) Hx Alcohol Use: No Drug/Substance Use Hx: No Substance Use Type: Alcohol, Heroin, Marijuana, Tranquilizers Hx Substance Use Treatment: Yes (detox, rehab) <Kg Tadeo - Last Filed: 09/26/16 05:18> <Reyna Bradley - Last Filed: 09/26/16 06:05> - Past Medical History Allergies/Adverse Reactions: Allergies Allergy/AdvReac Type Severity Reaction Status Date / Time No Known Allergies Allergy Verified 09/26/16 02:03 Home Medications: Ambulatory Orders Quetiapine Fumarate [Seroquel] 100 mg PO HS #30 tablet 06/30/16 Alprazolam [Xanax] 1 mg PO Q6H PRN #0 tablet [facility] 4 08/01/16 Chlordiazepoxide [Librium -] 15 mg PO [id number] capsule [facility] 4 08/01/16 Chlordiazepoxide [Librium -] 25 mg PO Q4H PRN #0 capsule [facility] 6 08/01/16 Chlordiazepoxide [Librium -] 25 mg PO [id number] capsule [facility] 4 08/01/16 Chlordiazepoxide [Librium -] 50 mg PO [id number] capsule [facility] 4 08/01/16 Diazepam [Valium] 10 mg PO Q4H PRN #0 tablet [facility] 6 08/01/16 Nicotine Patch [Nicoderm Patch -] 14 mg TD DAILY patch 08/01/16 Miscellaneous Drug Not In Syst [Outpatient Lab Test] 1 each [place] #1 [facility] [place] Quetiapine Fumarate [Seroquel] 100 mg PO HS #30 tablet 08/04/16 Zolpidem Tartrate [Ambien] 10 mg PO HS PRN #14 tablet [facility] 10 08/04/16 Review of Systems - Review of Systems Able to Perform ROS?: Yes Comments:: 09/26/16 04:32 GENERAL/CONSTITUTIONAL: +lack of appetite No fever or chills. No weakness. HEAD, EYES, EARS, NOSE AND THROAT: No change in vision. No ear pain or discharge. No sore throat. CARDIOVASCULAR: +chest pain No shortness of breath. RESPIRATORY: No cough, wheezing, or hemoptysis. GASTROINTESTINAL: No nausea, vomiting, diarrhea or constipation. GENITOURINARY: No dysuria, frequency, or change in urination. MUSCULOSKELETAL: +cramping of both hands No joint or muscle swelling. No neck or back pain. SKIN: No rash NEUROLOGIC: +numbness in left arm No headache, vertigo, loss of consciousness, or change in strength/sensation. ENDOCRINE: No increased thirst. No abnormal weight change. HEMATOLOGIC/LYMPHATIC: No anemia, easy bleeding, or history of blood clots. ALLERGIC/IMMUNOLOGIC: No hives or skin allergy. <Reyna Bradley - Last Filed: 09/26/16 06:05> *Physical Exam - Vital Signs Last Vital Signs Temp Pulse Resp BP Pulse Ox 98.1 F 82 16 132/81 97 09/26/16 02:04 09/26/16 02:04 09/26/16 02:04 09/26/16 02:04 09/26/16 02:04 <Kg Tadeo - Last Filed: 09/26/16 05:18> - Vital Signs Last Vital Signs Temp Pulse Resp BP Pulse Ox 98.1 F 82 16 132/81 97 09/26/16 02:04 09/26/16 02:04 09/26/16 02:04 09/26/16 02:04 09/26/16 02:04 - Physical Exam Comments: 09/26/16 04:32 GENERAL: Awake, alert, and fully oriented, anxious appearing, but in no acute distress HEAD: No signs of trauma EYES: PERRLA, EOMI, sclera anicteric, conjunctiva clear ENT: Auricles normal inspection, hearing grossly normal, nares patent, oropharynx clear without exudates. Moist mucosa NECK: Normal ROM, supple, no lymphadenopathy, JVD, or masses LUNGS: Breath sounds equal, clear to auscultation bilaterally. No wheezes, and no crackles HEART: Regular rate and rhythm, normal S1 and S2, no murmurs, rubs or gallops ABDOMEN: Soft, nontender, normoactive bowel sounds. No guarding, no rebound. No masses EXTREMITIES: Normal range of motion, no edema. No clubbing or cyanosis. No cords, erythema, or tenderness NEUROLOGICAL: Cranial nerves II through XII grossly intact. Normal speech, normal gait SKIN: Warm, Dry, normal turgor, no rashes or lesions noted. <MirnaReyna - Last Filed: 09/26/16 06:05> Heart Score/ECG Review - ECG Impressions Comment:: 09/26/16 01:57:39 NSR @71bpm Normal axis No LVH Nonspecific T wave abnormality 09/26/16 05:22:19 NSR @70bpm <MirnaReyna - Last Filed: 09/26/16 06:05> ED Treatment Course - LABORATORY CBC & Chemistry Diagram: 09/26/16 03:30 09/26/16 03:30 <Kg Tadeo - Last Filed: 09/26/16 05:18> - LABORATORY CBC & Chemistry Diagram: 09/26/16 03:30 09/26/16 03:30 - ADDITIONAL ORDERS Additional order review: Laboratory Results 09/26/16 03:30 Urine Color Yellow Urine Appearance Clear Urine pH 5.0 D Ur Specific [place] 1.023 Urine Protein Negative Urine Glucose (UA) Negative Urine Ketones Trace H Urine Blood Negative Urine Nitrite Negative Urine Bilirubin Negative Urine Urobilinogen Negative Ur Leukocyte Esterase Negative - RADIOLOGY Radiograph Interpretation: 09/26/16 06:05 Exam: CT pulmonary angiogram Reviewed by Imaging control valve mechanic: Findings: No filling defects are seen in the main, central or proximal segmental pulmonary arteries. No pulmonary infiltrates, nodules or masses are seen. There is no axillary, mediastinal or hilar adenopathy. The heart is within limits for size. There is no pericardial or pleural effusion. The trachea and central bronchi are patent. The thoracic aorta and proximal great vessels have a normal unenhanced appearance. The visualized upper abdominal viscera appear unremarkable. Impression: No pulmonary embolism identified. No other acute abnormality seen in the chest or visualized upper abdomen. <MirnaReyna - Last Filed: 09/26/16 06:05> Medical Decision Making - Medical Decision Making 09/26/16 05:18 41yo m with chest pain, current high stress job, chronic insufficient sleep, poor nutrition, h/o family history cardiac disease, and chronic polysubstance abuse who presents with chest pain. He now also reports a jaw pain that involves only the LEFT side, in the setting of pain that has been LEFT shoulder and chest. He looks very anxious at thi 09/26/16 05:22 <Kg Tadeo - Last Filed: 09/26/16 05:18> *DC/Admit/Observation/Transfer <Kg Tadeo - Last Filed: 09/26/16 05:18> - Attestations Scribe Attestion: 09/26/16 04:33 Documentation prepared by Reyna Bradley, acting as medical office rep for Kg Tadeo MD, MD <Reyna Bradley - Last Filed: 09/26/16 06:05> - Referrals Referrals: STAFF,NOT ON [Primary Care Provider] -
[2016-09-26] MEDS ORDERED: SODIUM CHLORIDE 0.9% 1000 ML INFUS.BAG IV ONE (03:12)
[2016-09-26] MEDS ORDERED: hydrOXYzine HCL 25 MG TABLET (FP) PO ONE (03:12)
[2016-09-26] MEDS ORDERED: cloNIDine HCL 0.1 MG TABLET PO ONE (03:14)
[2016-09-26 03:42] LABS: URINE APPEARANCE CLEAR; URINE BILIRUBIN NEGATIVE (NEGATIVE); URINE BLOOD NEGATIVE (NEGATIVE); URINE COLOR YELLOW; URINE GLUCOSE (UA) NEGATIVE (NEGATIVE); URINE KETONE TRACE (NEGATIVE); URINE LEUK ESTERASE NEGATIVE (NEGATIVE); URINE NITRITE NEGATIVE (NEGATIVE); URINE PROTEIN NEGATIVE (NEGATIVE); URINE UROBILINOGEN NEGATIVE E.U./dl (0.2-1.0)
[2016-09-26 03:49] LABS: EOSINOPHIL 1.1 % (0-4.5); MCH 30.7 pg (25.7-33.7); MCHC 34.4 g/dl (32.0-35.9); MEAN CELL VOLUME 89.2 fl (80-96); MEAN PLT VOLUME 7.9 fl (7.5-11.1); PLATELET COUNT 317 K/MM3 (134-434); RDW 14.8 % (11.9-15.9); WHITE BLOOD COUNT 10.3 K/mm3 (4.0-10.0)
[2016-09-26] MEDS ORDERED: cloNIDine HCL 0.1 MG TABLET ONE (03:51)
[2016-09-26 03:58] LABS: URINE MARIJUANA THC POSITIVE ng/ml (CUTOFF=50)
[2016-09-26 04:09] LABS: INR 1.13 (0.82-1.09); PROTHROMBIN TIME (PATIENT) 12.5 SEC (9.98-11.88)
[2016-09-26 04:17] LABS: CHOLESTEROL 173 mg/dL (50-200)
[2016-09-26 04:19] LABS: ALBUMIN 3.9 g/dl (3.4-5.0); ANION GAP 10 (8-16); CALCIUM 9.1 mg/dL (8.5-10.1); CO2 26 mmol/L (21-32); COCKROFT - GAULT 128.63; CREATININE 0.8 mg/dL (0.7-1.3); GLUCOSE,RANDOM 95 mg/dL (74-106); MAGNESIUM 2.1 mg/dL (1.8-2.4); PHOSPHOROUS 3.7 mg/dL (2.5-4.9); SGOT/AST 15 U/L (15-37); SGPT/ALT 22 U/L (12-78)
[2016-09-26 04:21] LABS: ALK PHOS 47 U/L (45-117); BILIRUBIN,TOTAL 0.5 mg/dL (0.2-1.0); TOT PROT 6.6 g/dl (6.4-8.2); TROPONIN I < 0.02 ng/ml (0.00-0.05)
[2016-09-26 04:30] LABS: LDL CHOLESTEROL (ONLY SJRH) 102 mg/dL (5-100)
[2016-09-26] MEDS ORDERED: ASPIRIN 81 MG CHEWABLE TABLETS PO ONE (05:15)
[2016-09-26] MEDS ORDERED: ASPIRIN 81 MG CHEWABLE TABLETS ONE (05:19)
[2016-09-26 06:23] LABS: TROPONIN I < 0.02 ng/ml (0.00-0.05)
[2016-09-26] MEDS ORDERED: ZOLPIDEM TARTRATE 5 MG TABLET PO PRN ×2 (07:47→22:00)
[2016-09-26] MEDS ORDERED: diazePAM 5 MG TABLET PO PRN ×2 (07:47→12:10)
[2016-09-26] MEDS: NICOTINE 14 MG/24 HOURS TOPICAL PATCH TD SCH (09:14)
--- NOTE | 2016-09-26 09:54 | EKG ---
Test Reason : Blood Pressure : / mmHG Vent. Rate : 070 BPM Atrial Rate : 070 BPM P-R Int : 134 ms QRS Dur : 088 ms QT Int : 398 ms P-R-T Axes : 062 -01 035 degrees QTc Int : 429 ms NORMAL SINUS RHYTHM NORMAL ECG WHEN COMPARED WITH ECG OF 26-SEP-2016 01:57, NO SIGNIFICANT CHANGE WAS FOUND Confirmed by KARLEE HUGHES MD ([id number]) on 09/26/2016 9:53:43 AM Referred By: Confirmed By:KARLEE HUGHES MD
--- NOTE | 2016-09-26 09:55 | EKG ---
Test Reason : Blood Pressure : / mmHG Vent. Rate : 071 BPM Atrial Rate : 071 BPM P-R Int : 144 ms QRS Dur : 088 ms QT Int : 402 ms P-R-T Axes : 055 006 031 degrees QTc Int : 436 ms NORMAL SINUS RHYTHM NORMAL ECG WHEN COMPARED WITH ECG OF 02-AUG-2016 14:52, NO SIGNIFICANT CHANGE WAS FOUND Confirmed by KARLEE HUGHES MD ([id number]) on 09/26/2016 9:54:51 AM Referred By: Confirmed By:KARLEE HUGHES MD
--- NOTE | 2016-09-26 11:55 | HP ---
CHIEF COMPLAINT: PCP: HISTORY OF PRESENT ILLNESS: 41 year old male with pmh of polysubstance abuse, anxiety presented to the emergency department with complaint chest pain. the chest pain started at rest while at work, it was tightness/heaviness substernal, severe, radiating to the jaw, the chest pain also went back between the shoulder, the chest pain started at 2:30 Pm yesterday and lasted 15mn, it was accompanied by shortness of breath. The patient took aspirin sublingual and the chest pain was relieved. The patient did not come to the ED or see a physician because he thought it was just anxiety and panick attack. Pt has a recurrent episode again in the evening at home, this time lasting 5-10mn and decided to come to the hospital. The patient admitted to having used heroin before work yesterday morning, after work and at night, he used the same supplier. He also smoked marijuana yesterday. The patient had that chest pain before, was admitted had an echocardiogram which was normal. He was supposed to follow up with a health and safety specialist but did not because he was "very busy at work". Patient said he has been very stressed lately, lack of sleep, poor appetite and long hours at work, issue with paying bills. ER course was notable for: (1) Normal saline, Clonidine 0.2mg POm ASA 324 mg po once, hydroxyzine Recent Travel: none PAST MEDICAL HISTORY: Polysubstance abuse (heroin, marijuana, tranquillizer). Former alcohol abuser and cocaine. PAST SURGICAL HISTORY: Right eye retinal detachment Left shoulder surgery Social History: Smokin/2 pack per day for over 20 years Alcohol: denies Drugs: heroin, marijuana, percocet Family History: father with [place] at 58 Allergies No Known Allergies Allergy (Verified 09/26/16 02:03) HOME MEDICATIONS: Home Medications Medication Instructions Recorded Quetiapine Fumarate [Seroquel] 100 mg PO HS #30 tablet 06/30/16 Alprazolam [Xanax] 1 mg PO Q6H PRN #0 tablet [facility] 4 08/01/16 Chlordiazepoxide [Librium -] 15 mg PO [id number] capsule [facility] 4 08/01/16 Chlordiazepoxide [Librium -] 25 mg PO Q4H PRN #0 capsule [facility] 6 08/01/16 Chlordiazepoxide [Librium -] 25 mg PO [id number] capsule [facility] 4 08/01/16 Chlordiazepoxide [Librium -] 50 mg PO [id number] capsule [facility] 4 08/01/16 Diazepam [Valium] 10 mg PO Q4H PRN #0 tablet [facility] 6 08/01/16 Nicotine Patch [Nicoderm Patch -] 14 mg TD DAILY patch 08/01/16 Miscellaneous Drug Not In Syst 1 each [place] [facility] [place] [Outpatient Lab Test] Quetiapine Fumarate [Seroquel] 100 mg PO HS #30 tablet 08/04/16 Zolpidem Tartrate [Ambien] 10 mg PO HS PRN #14 tablet [facility] 10 08/04/16 REVIEW OF SYSTEMS CONSTITUTIONAL: Absent: fever, chills, diaphoresis, generalized weakness, malaise, loss of appetite, weight change HEENT: right eye blurred vision since surgery Absent: rhinorrhea, nasal congestion, throat pain, throat swelling, difficulty swallowing, mouth swelling, ear pain, eye pain, visual changes CARDIOVASCULAR: chest pain,palpitations Absent: syncope, irregular heart rate, lightheadedness, peripheral edema RESPIRATORY: shortness of breath, dyspnea with exertion Absent: cough, orthopnea, wheezing, stridor, hemoptysis GASTROINTESTINAL: Absent: abdominal pain, abdominal distension, nausea, vomiting, diarrhea, constipation, melena, hematochezia GENITOURINARY: Absent: dysuria, frequency, urgency, hesitancy, hematuria, flank pain, genital pain MUSCULOSKELETAL: Absent: myalgia, arthralgia, joint swelling, back pain, neck pain SKIN: Absent: rash, itching, pallor HEMATOLOGIC/IMMUNOLOGIC: Absent: easy bleeding, easy bruising, lymphadenopathy, frequent infections ENDOCRINE: Absent: unexplained weight gain, unexplained weight loss, heat intolerance, cold intolerance NEUROLOGIC: Absent: headache, focal weakness or paresthesias, dizziness, unsteady gait, seizure, mental status changes, bladder or bowel incontinence PSYCHIATRIC: Absent: anxiety, depression, suicidal or homicidal ideation, hallucinations. PHYSICAL EXAMINATION Vital Signs - 24 hr 09/26/16 09/26/16 09/26/16 06:56 06:57 07:02 Temperature Pulse Rate Pulse Rate [ 61 87 Apical] Respiratory 17 18 Rate Blood Pressure Blood Pressure 115/65 111/66 [Arm] O2 Sat by Pulse 100 98 Oximetry (%) 09/26/16 09/26/16 09/26/16 07:17 07:44 07:45 Temperature 98 F Pulse Rate 70 Pulse Rate [ 65 70 Apical] Respiratory 18 Rate Blood Pressure Blood Pressure 114/71 118/68 [Arm] O2 Sat by Pulse 100 99 99 Oximetry (%) 09/26/16 09/26/16 08:00 09:00 Temperature 98 F Pulse Rate 70 Pulse Rate [ Apical] Respiratory 18 Rate Blood Pressure 116/60 Blood Pressure [Arm] O2 Sat by Pulse 97 Oximetry (%) GENERAL: Awake, alert, and fully oriented, in no acute distress. HEAD: Normal with no signs of trauma. EYES: Pupils equal, right eye dilated 5mm, barely reactive. left pupil round and reactive to light 3mm. extraocular movements intact, sclera anicteric, conjunctiva clear. No lid lag. EARS, NOSE, THROAT: Ears normal, nares patent, oropharynx clear without exudates. Moist mucous membranes. NECK: Normal range of motion, supple without lymphadenopathy, JVD, or masses. LUNGS: Breath sounds equal, clear to auscultation bilaterally. No wheezes, and no crackles. No accessory muscle use. HEART: Regular rate and rhythm, normal S1 and S2 without murmur, rub or gallop. ABDOMEN: Soft, nontender, not distended, normoactive bowel sounds, no guarding, no rebound, no masses. No hepatomegaly or splenomegaly. MUSCULOSKELETAL: left Chest wal tenderness on palpation. Normal range of motion at all joints. No bony deformities or tenderness. No CVA tenderness. UPPER EXTREMITIES: 2+ pulses, warm, well-perfused. No cyanosis. No clubbing. No peripheral edema. LOWER EXTREMITIES: 2+ pulses, warm, well-perfused. No calf tenderness. No peripheral edema. NEUROLOGICAL: Cranial nerves II-XII intact. Normal speech. no tremors, strength 5/5 in all extremities, normal light touch to sensation in all ext, Normal reflexes in al ext Normal gait. PSYCHIATRIC: Cooperative. Good eye contact. Appropriate mood and affect. SKIN: Warm, dry, normal turgor, no rashes or lesions noted, normal capillary refill. CBC, BMP 09/26/16 03:30 09/26/16 03:30 ASSESSMENT/PLAN: 41 year old male with pmh of polysubstance abuse, anxiety presented to the emergency department with complaint chest pain. 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 Disposition: Keep in telemetry, trend troponins and Discharge to Detox in am in no cardiac event. Visit type - Emergency Visit Emergency Visit: Yes ED Registration Date: 09/26/16 Care time: The patient presented to the Emergency Department on the above date and was hospitalized for further evaluation of their emergent condition. - New Patient This patient is new to me today: Yes Date on this admission: 09/26/16 - Critical Care Critical Care patient: No
--- NOTE | 2016-09-26 12:11 | PN ---
Teaching Attending Note Name of Resident: Ej Kumar ATTENDING PHYSICIAN STATEMENT I saw and evaluated the patient. I reviewed the resident's note and discussed the case with the resident. I agree with the resident's findings and plan as documented. SUBJECTIVE:41yo M c/o L sided CP that started at 1430 yesterday while at work. pain was piercing through his chest assoc with jaw numbness and B/L shoulder pain. pt states that he went outside to have a cigarette and then took an asa and pain resolved 15 minutes later. pt had 2 more episodes later in the day each one which he took an asa which alleviated the pain. pt states he has a lot of stress at work and at home and everytime he develops these CP is usually when hes thinking about his work load and last night he said he was unable to sleep when he developed the pain as he was worried about how he will pay the mortgage. he has had similar episodes in the past, was evaluated last month here had echo which was normal and sent home. has not seen a PMD or mathematician. never had any other cardiac workup. he is active heroin users for the past 18months (snorts). he used it yesterday 3x (before and after work and before bed). desires to clean up his life. wants detox and outpatient rehab. denies SOB,fever, chills, blurred vision, N/V/C/D, tremors, auditory/visual/ tactile hallucinations OBJECTIVE: Last Vital Signs Temp Pulse Resp BP Pulse Ox 98 F 70 18 116/60 97 09/26/16 08:00 09/26/16 08:00 09/26/16 08:00 09/26/16 08:00 09/26/16 09:00 General mildly anxious CV S1 S2 RRR no murmur/rub/gallop + chest wall tenderness Lungs CTA B/L no wheezing/rales/rhonchi ASSESSMENT AND PLAN: 41yo M with PMH anxiety and continuous polysubstance abuse presented to the ER and was admitted for further evaluation of their emergent condition 1. Atypical CP- likely anxiety vs musculoskeletal. normal EKG. tele observation. continuous cardiac monitoring. cardiac markers neg x2 (were only done 2 hours apart) will repeat another cardiac enzyme 6H after the last one. echo from last month reviewed. can have stress test done as outpatient 2. Continuous polysubstance abuse- admits to heroin and THC use. last use of heroin last night. denies any ectasy or methamphetamine use. desires detox. will call jaleesa bustamante if can be transferred to [facility] later today. 3. anxiety- xanax prn. seroquel QHS 4. DVT ppx- EAM
[2016-09-26 13:01] LABS: TROPONIN I < 0.02 ng/ml (0.00-0.05)
[2016-09-26] MEDS ORDERED: METHADONE HCL 10 MG TABLET (FOR DETOX USE ONLY) PO ONE ×3 (16:17→23:00)
--- NOTE | 2016-09-26 16:27 | CONSULT ---
Consult Detox [facility] Reason for Current Admission/Consult: Heroin withdrawal sx. Referred by:: Ej cartagena Res - History History of Present Illness: 41 y/o man with hx. of heroin & alcohol dependence is admitted because of chest pain. Pt. denies drinking since he left detox in July. - Alcohol/Substance Use Hx Alcohol Use: No - Current Drug/Alcohol Use Heroin Route: Inhalation Frequency: Daily Amount used: 10-20 bags - Significant Medical Findings: Laboratory Tests 09/26/16 09/26/16 09/26/16 03:30 03:30 03:30 WBC 10.3 H RBC 4.47 Hgb 13.7 Hct 39.9 MCV 89.2 MCHC 34.4 RDW 14.8 Plt Count 317 MPV 7.9 Neutrophils % 61.0 Lymphocytes % 29.0 D Monocytes % 7.9 Eosinophils % 1.1 D Basophils % 1.0 INR 1.13 D-Dimer Sodium Potassium Chloride Carbon Dioxide Anion Gap BUN Creatinine Creat Clearance w eGFR Random Glucose Hemoglobin A1c % Lactic Acid Calcium Phosphorus Magnesium Total Bilirubin AST ALT Alkaline Phosphatase Creatine Kinase Creatine Kinase Index CK-MB (CK-2) CK-MB (CK-2) Rel Index Troponin I B-Natriuretic Peptide Total Protein Albumin Triglycerides Cholesterol Total LDL Cholesterol HDL Cholesterol Lipase Urine Color Yellow Urine Appearance Clear Urine pH 5.0 D Ur Specific Candor 1.023 Urine Protein Negative Urine Glucose (UA) Negative Urine Ketones Trace H Urine Blood Negative Urine Nitrite Negative Urine Bilirubin Negative Urine Urobilinogen Negative Ur Leukocyte Esterase Negative Opiates Screen Methadone Screen Barbiturate Screen Phencyclidine Screen Ur Amphetamines Screen MDMA (Ecstasy) Screen Benzodiazepines Screen Cocaine Screen U Marijuana (THC) Screen 09/26/16 09/26/16 09/26/16 03:30 03:30 03:30 WBC RBC Hgb Hct MCV MCHC RDW Plt Count MPV Neutrophils % Lymphocytes % Monocytes % Eosinophils % Basophils % INR D-Dimer Sodium 139 Potassium 3.7 Chloride 103 Carbon Dioxide 26 Anion Gap 10 BUN 16 D Creatinine 0.8 Creat Clearance w eGFR > 60 Random Glucose 95 Hemoglobin A1c % Lactic Acid 0.421 Calcium 9.1 Phosphorus 3.7 Magnesium 2.1 Total Bilirubin 0.5 AST 15 D ALT 22 Alkaline Phosphatase 47 Creatine Kinase 162 D Creatine Kinase Index 0.8 CK-MB (CK-2) 1.296 CK-MB (CK-2) Rel Index Troponin I < 0.02 B-Natriuretic Peptide 28.98 Total Protein 6.6 Albumin 3.9 Triglycerides Cholesterol Total LDL Cholesterol HDL Cholesterol Lipase 79 Urine Color Urine Appearance Urine pH Ur Specific Candor Urine Protein Urine Glucose (UA) Urine Ketones Urine Blood Urine Nitrite Urine Bilirubin Urine Urobilinogen Ur Leukocyte Esterase Opiates Screen Positive Methadone Screen Negative Barbiturate Screen Negative Phencyclidine Screen Negative Ur Amphetamines Screen Negative MDMA (Ecstasy) Screen Positive Benzodiazepines Screen Negative Cocaine Screen Negative U Marijuana (THC) Screen Positive 09/26/16 09/26/16 09/26/16 03:30 03:30 03:30 WBC RBC Hgb Hct MCV MCHC RDW Plt Count MPV Neutrophils % Lymphocytes % Monocytes % Eosinophils % Basophils % INR D-Dimer 447 H Sodium Potassium Chloride Carbon Dioxide Anion Gap BUN Creatinine Creat Clearance w eGFR Random Glucose Hemoglobin A1c % 5.3 Lactic Acid Calcium Phosphorus Magnesium Total Bilirubin AST ALT Alkaline Phosphatase Creatine Kinase Creatine Kinase Index CK-MB (CK-2) CK-MB (CK-2) Rel Index Troponin I B-Natriuretic Peptide Total Protein Albumin Triglycerides 88 D Cholesterol 173 Total LDL Cholesterol 102 H HDL Cholesterol 54 Lipase Urine Color Urine Appearance Urine pH Ur Specific Candor Urine Protein Urine Glucose (UA) Urine Ketones Urine Blood Urine Nitrite Urine Bilirubin Urine Urobilinogen Ur Leukocyte Esterase Opiates Screen Methadone Screen Barbiturate Screen Phencyclidine Screen Ur Amphetamines Screen MDMA (Ecstasy) Screen Benzodiazepines Screen Cocaine Screen U Marijuana (THC) Screen 09/26/16 09/26/16 09/26/16 03:30 05:54 05:54 WBC RBC Hgb Hct MCV MCHC RDW Plt Count MPV Neutrophils % Lymphocytes % Monocytes % Eosinophils % Basophils % INR D-Dimer Sodium Potassium Chloride Carbon Dioxide Anion Gap BUN Creatinine Creat Clearance w eGFR Random Glucose Hemoglobin A1c % Lactic Acid Calcium Phosphorus Magnesium Total Bilirubin AST ALT Alkaline Phosphatase Creatine Kinase 171 Creatine Kinase Index 0.7 CK-MB (CK-2) 1.166 CK-MB (CK-2) Rel Index Cancelled Cancelled Troponin I < 0.02 B-Natriuretic Peptide Total Protein Albumin Triglycerides Cholesterol Total LDL Cholesterol HDL Cholesterol Lipase Urine Color Urine Appearance Urine pH Ur Specific Candor Urine Protein Urine Glucose (UA) Urine Ketones Urine Blood Urine Nitrite Urine Bilirubin Urine Urobilinogen Ur Leukocyte Esterase Opiates Screen Methadone Screen Barbiturate Screen Phencyclidine Screen Ur Amphetamines Screen MDMA (Ecstasy) Screen Benzodiazepines Screen Cocaine Screen U Marijuana (THC) Screen 09/26/16 12:05 WBC RBC Hgb Hct MCV MCHC RDW Plt Count MPV Neutrophils % Lymphocytes % Monocytes % Eosinophils % Basophils % INR D-Dimer Sodium Potassium Chloride Carbon Dioxide Anion Gap BUN Creatinine Creat Clearance w eGFR Random Glucose Hemoglobin A1c % Lactic Acid Calcium Phosphorus Magnesium Total Bilirubin AST ALT Alkaline Phosphatase Creatine Kinase 138 Creatine Kinase Index CK-MB (CK-2) CK-MB (CK-2) Rel Index Troponin I < 0.02 B-Natriuretic Peptide Total Protein Albumin Triglycerides Cholesterol Total LDL Cholesterol HDL Cholesterol Lipase Urine Color Urine Appearance Urine pH Ur Specific Cand[place] Urine Protein Urine Glucose (UA) Urine Ketones Urine Blood Urine Nitrite Urine Bilirubin Urine Urobilinogen Ur Leukocyte Esterase Opiates Screen Methadone Screen Barbiturate Screen Phencyclidine Screen Ur Amphetamines Screen MDMA (Ecstasy) Screen Benzodiazepines Screen Cocaine Screen U Marijuana (THC) Screen labs noted COWS - Scale Resting Pulse: 0= [place] 80 or Below Sweatin=Flushed/Facial Moisture Restless Observation: 1= Difficult to Sit Still Pupil Size: 2= Moderately Dilated Bone or Joint Aches: 1= Mild Discomfort Runny Nose/ Eye Tearin= Runny Nose/Eyes GI Upset > 30mins: 2= Nausea/Diarrhea Tremor Observation: 2= Slight Tremor Visible Yawning Observation: 1= 1-2x During Session Anxiety or Irritability: 2=Irritable/Anxious Goose Flesh Skin: 0=Smooth Skin COWS Score: 15 Assessment Plan - Diagnosis (1) Opioid dependence with withdrawal Status: Chronic - Medication Detox Regimen/Protocol: Methadone
[2016-09-26] MEDS ORDERED: METHADONE HCL 10 MG TABLET ONE (17:05)
[2016-09-26] MEDS: diazePAM 5 MG TABLET PO PRN ×2 (18:36→22:32)
[2016-09-26] MEDS ORDERED: QUEtiapine FUMARATE 100 MG TABLET (FP) PO SCH (22:00)
[2016-09-26] MEDS ORDERED: PT OWN MED DRAWER 7, Y5N ONE (22:25)
[2016-09-26] MEDS ORDERED: QUEtiapine FUMARATE 50 MG TABLET ONE (22:25)
[2016-09-26] MEDS ORDERED: METHADONE HCL 10 MG TABLET PO ONE (23:00)
[2016-09-27 06:06] LABS: ECSTACY (MDMA) Negative (Cutoff=500)
[2016-09-27] MEDS: METHADONE HCL 10 MG TABLET PO ONE ×2 (08:24→09:04)
[2016-09-27] MEDS: NICOTINE 14 MG/24 HOURS TOPICAL PATCH TD SCH ×2 (08:25→09:04)
[2016-09-27 09:02] VITALS: BP 138/86; PULSE 78; TEMP 99.3
[2016-09-27] MEDS: diazePAM 5 MG TABLET PO PRN (09:07)
[2016-09-27] MEDS ORDERED: hydrOXYzine PAMOATE 25 MG CAPSULE (FP) PO ONE (10:14)
--- NOTE | 2016-09-27 10:22 | DS ---
Physical Exam: SUBJECTIVE: Patient seen and examined. c/o nausea. states he feels like hes "withdrawing" at this time. desires to go to rehab to "clean myself from this mess". no repeated episodes of CP since admission. denies CP, SOb,fever, chills , auditory/visual/tactile hallucinations OBJECTIVE: Vital Signs Period Temp Pulse Resp BP Sys/Vill[place] Pulse Ox Last 24 Hr 97 F-99.3 F 55-78 18-22 100-138/60-86 95-95 PHYSICAL EXAM GENERAL: The patient is awake, alert, and fully oriented, in no acute distress. HEAD: Normal with no signs of trauma. EYES: PERRL, extraocular movements intact, sclera anicteric, conjunctiva clear. ENT: Ears normal, nares patent, oropharynx clear without exudates, moist mucous membranes. NECK: Trachea midline, full range of motion, supple. LUNGS: Breath sounds equal, clear to auscultation bilaterally, no wheezes, no crackles, no accessory muscle use. HEART: Regular rate and rhythm, S1, S2 without murmur, rub or gallop. ABDOMEN: Soft, nontender, nondistended, normoactive bowel sounds, no guarding, no rebound, no hepatosplenomegaly, no masses. EXTREMITIES: 2+ pulses, warm, well-perfused, no edema. NEUROLOGICAL: Cranial nerves II through XII grossly intact. Normal speech, gait not observed. PSYCH: Normal mood, normal affect. SKIN: +piloerection, Warm, dry, normal turgor, no rashes or lesions noted. LABS Laboratory Results - last 24 hr 09/26/16 12:05 Creatine Kinase 138 Troponin I < 0.02 HOSPITAL COURSE: Date of Admission:09/26/16 Date of Discharge: 09/27/16 Admitting diagnosis: Atypical CP, Acute heroin withdrawals. Pre hospital course 41 year old male with pmh of polysubstance abuse, anxiety presented to the emergency department with complaint chest pain. the chest pain started at rest while at work, it was tightness/heaviness substernal, severe, radiating to the jaw, the chest pain also went back between the shoulder, the chest pain started at 2:30 Pm yesterday and lasted 15mn, it was accompanied by shortness of breath. The patient took aspirin sublingual and the chest pain was relieved. The patient did not come to the ED or see a physician because he thought it was just anxiety and panick attack. Pt has a recurrent episode again in the evening at home, this time lasting 5-10mn and decided to come to the hospital. The patient admitted to having used heroin before work yesterday morning, after work and at night, he used the same supplier. He also smoked marijuana yesterday. The patient had that chest pain before, was admitted had an echocardiogram which was normal. 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 Patient said he has been very stressed lately, lack of sleep, poor appetite and long hours at work, issue with paying bills. Subsequent hospital course: Tele observation. CTA to r/o dissection and PE. echo results noted from last month. pt remained hemodynamically stable and CP free from admission. desires detox from heroin. evaluated by Dr Pankaj Suarez and started on methadone protocol. next morning felt nauseated requesting for hydroxyzine for withdrawals. dose given. spoke with TWAN Tavrea at [facility] who accepted pt to be sent there for evaluation for inpatient detox. explained to pt importance of completing detox and need for abstaining from all illegal substances. informed him need to follow up with PMD in 1 week for evaluation as well as to have stress test done. verbalized understanding and agreed with plan. Minutes to complete discharge: 40 Discharge Summary Reason For Visit: CHEST PAIN - Instructions Referrals: STAFF,NOT ON [Primary Care Provider] - - Home Medications Comprehensive Discharge Medication List: Ambulatory Orders Quetiapine Fumarate [Seroquel] 100 mg PO HS #30 tablet 06/30/16 Alprazolam [Xanax] 1 mg PO Q6H PRN #0 tablet MDD 4 08/01/16 Chlordiazepoxide [Librium -] 15 mg PO [id number] capsule MDD 08/01/16 Chlordiazepoxide [Librium -] 25 mg PO Q4H PRN #0 capsule MDD 6 08/01/16 Chlordiazepoxide [Librium -] 25 mg PO [id number] capsule MDD 4 08/01/16 Chlordiazepoxide [Librium -] 50 mg PO [id number] capsule MDD 4 08/01/16 Diazepam [Valium] 10 mg PO Q4H PRN #0 tablet MDD 6 08/01/16 Nicotine Patch [Nicoderm Patch -] 14 mg TD DAILY patch 08/01/16 Miscellaneous Drug Not In Syst [Outpatient Lab Test] 1 each ASDIR #1 misc Quetiapine Fumarate [Seroquel] 100 mg PO HS #30 tablet 08/04/16 Zolpidem Tartrate [Ambien] 10 mg PO HS PRN #14 tablet MDD 10 08/04/16 This patient is new to me today: No Emergency Visit: Yes ED Registration Date: 09/26/16 Care time: The patient presented to the Emergency Department on the above date and was hospitalized for further evaluation of their emergent condition. Critical Care patient: No - Discharge Referral Referred to [facility] Med P.C.: No
[2016-09-28] MEDS ORDERED: METHADONE HCL 5 MG TABLET PO ONE (10:00)
[2016-09-29] MEDS ORDERED: METHADONE HCL 5 MG TABLET (FOR DETOX USE ONLY) PO ONE (10:00)
[2016-09-30] MEDS ORDERED: METHADONE HCL 10 MG TABLET PO ONE (10:00)
[2016-10-01] MEDS ORDERED: METHADONE HCL 5 MG TABLET PO ONE (06:00)
== END 2016-09-27 11:44 | disposition other institution (70) ==
LOC: JER 01:31 → JERBED 06:51 → J4W 08:15
PROVIDERS: ADMIT Internal Medicine; ATTEND Internal Medicine
DX: R07.89 Other chest pain (principal); F11.23 Opioid dependence with withdrawal; F17.210 Nicotine dependence, cigarettes, uncomplicated; F12.10 Cannabis abuse, uncomplicated; F41.9 Anxiety disorder, unspecified; G47.00 Insomnia, unspecified
CPT/HCPCS: 36415; 71020-TC; 71275-TC; 80053; 80061; 80307; 81003; 82550; 82553; 83036; 83605; 83690; 83721; 83735; 83880; 84100; 84484; 85025; 85379; 85610; 93005; 93010; 99285-25; G0378

== ENCOUNTER 2016-09-27 12:53 | Inpatient (IN) | payer OTHER ==
[2016-09-27 13:35] VITALS: BMI 26.2
[2016-09-27] MEDS ORDERED: MENTHOL/PHENOL 1 EACH UD MM PRN (15:49)
[2016-09-27] MEDS ORDERED: guaiFENesin/D-METHORPHAN HB 10 ML UNIT-DOSE CUPS PO PRN (15:49)
[2016-09-27] MEDS ORDERED: LOPERAMIDE HCL 2 MG CAPSULE PO PRN (15:49)
[2016-09-27] MEDS ORDERED: IBUPROFEN 400 MG TABLET (FP) PO PRN (15:49)
[2016-09-27] MEDS ORDERED: ACETAMINOPHEN 325 MG TABLET (FP) PO PRN (15:49)
[2016-09-27] MEDS ORDERED: P-EPHED 60MG/TRIPROLIDI 2.5MG TABLET PO PRN (15:49)
[2016-09-27] MEDS ORDERED: MAG HYDROX/AL HYDROX/SIMETH 30 ML UNIT-DOSE CUP PO PRN (15:49)
[2016-09-27] MEDS ORDERED: NICOTINE POLACRILEX 2 MG GUM BC PRN (15:49)
[2016-09-27] MEDS ORDERED: MAGNESIUM CITRATE 300 ML BOTTLE PO PRN (15:49)
[2016-09-27] MEDS ORDERED: hydrOXYzine PAMOATE 25 MG CAPSULE (FP) PO PRN (15:49)
[2016-09-27] MEDS ORDERED: MAGNESIUM HYDROX 2400MG/30ML ORAL SUSPENSION 30 ML CUP PO PRN (15:49)
--- NOTE | 2016-09-27 16:02 | HP ---
COWS - Scale Resting Pulse: 0= [place] 80 or Below Sweatin= Chills/Flushing Restless Observation: 1= Difficult to Sit Still Pupil Size: 0= Normal to Room Light Bone or Joint Aches: 2= Severe Diffuse Aches Runny Nose/ Eye Tearin= Nasal Congestion GI Upset > 30mins: 2= Nausea/Diarrhea Tremor Observation: 2= Slight Tremor Visible Yawning Observation: 1= 1-2x During Session Anxiety or Irritability: 2=Irritable/Anxious Goose Flesh Skin: 0=Smooth Skin COWS Score: 12 Admission [facility] Chief Complaint: withdrawal sx Allergies/Adverse Reactions: Allergies Allergy/AdvReac Type Severity Reaction Status Date / Time No Known Allergies Allergy Verified 09/26/16 02:03 History of Present Illness: 41 y/o male was admitted from [facility] where he was hospitalized for chest pain on . He was started on methadone tapering and presents here to complete detox. Exam Limitations: No Limitations - Ebola screening Have you traveled outside of the country in the last 21 days: No Have you had contact with anyone from an Ebola affected area: No Have you been sick,other than usual withdrawal symptoms: No Do you have a fever: No - Review of Systems Constitutional: Chills, Loss of Appetite, Changes in sleep EENT: reports: Dental Problems (missing some teeth), Other (right eye blindness) Respiratory: reports: No Symptoms reported Cardiac: reports: Chest Pain (on and off) GI: reports: Nausea, Poor Appetite, Poor Fluid Intake, Abdominal cramping : reports: No Symptoms Reported Musculoskeletal: reports: Back Pain Integumentary: reports: No Symptoms Reported Neuro: reports: Headache, Tremors Endocrine: reports: No Symptoms Reported Hematology: reports: No Symptoms Reported Psychiatric: reports: Anxious, Depressed Other Systems: Reviewed and Negative Patient History - Patient Medical History Hx Anemia: No Hx Asthma: No Hx Chronic Obstructive Pulmonary Disease (COPD): No Hx Cancer: No Hx Cardiac Disorders: No Hx Congestive Heart Failure: No Hx Hypertension: No Hx Hypercholesterolemia: No Hx Pacemaker: No HX Cerebrovascular Accident: No Hx Seizures: No Hx Dementia: No Hx Diabetes: No Hx Gastrointestinal Disorders: No Hx Liver Disease: No Hx Genitourinary Disorders: No Hx Sexually Transmitted Disorders: No Hx Renal Disease (ESRD): No Hx Thyroid Disease: No Hx Human Immunodeficiency Virus (HIV): No Hx Hepatitis C: No Hx Depression: No Hx Suicide Attempt: No Hx Bipolar Disorder: No Hx Schizophrenia: No - Patient Surgical History Past Surgical History: Yes Hx Neurologic Surgery: No Hx Cataract Extraction: No Hx Cardiac Surgery: No Hx Lung Surgery: No Hx Breast Surgery: No Hx Breast Biopsy: No Hx Abdominal Surgery: No Hx Appendectomy: No Hx Cholecystectomy: No Hx Genitourinary Surgery: No Hx Section: No Hx Orthopedic Surgery: Yes (lt shoulder surgery) Hx Hysterectomy: No Other Surgical History: right eye due to trauma in 2016 Anesthesia Reaction: No - PPD History Previous Implant?: Yes Documented Results: Negative w/proof Implanted On Prior [facility] Admission?: Yes Date: 06/30/16 Results: 0 mm PPD to be Administered?: No - Smoking Cessation Smoking history: Current every day smoker Have you smoked in the past 12 months: Yes Aproximately how many cigarettes per day: 20 Hx Chewing Tobacco Use: No Initiated information on smoking cessation: Yes 'Breaking Loose' booklet given: 09/27/16 - Substance & Tx. History Hx Alcohol Use: Yes (cognac, beer) Hx Substance Use: Yes Substance Use Type: Alcohol - Substances Abused Alcohol Route: Oral Amount used: half pint a day Age of first use: 16 Date of Last Use: 09/25/16 Heroin Route: Inhalation Frequency: Daily Amount used: 10 bags Age of first use: 40 Date of Last Use: 09/25/16 Family Disease History - Family Disease History Family Disease History: Heart Disease: Father (HTN, CAD,ETOH), CA: Grandparent ( from ca ETOH), Other: Father, Mother (thyroid d/o), Brother (ETOH) Admission Physical Exam [facility] - Vital Signs Vital Signs: Vital Signs - 24 hr 09/27/16 13:33 Temperature 97.5 F L Pulse Rate 80 Respiratory 18 Rate Blood Pressure 145/72 - Physical General Appearance: Yes: No Apparent Distress HEENTM: Yes: Hearing grossly Normal, Normal Voice Respiratory: Yes: Chest Non-Tender, Lungs Clear, No Respiratory Distress, No Accessory Muscle Use Neck: Yes: No masses,lesions,Nodules, Supple Breast: Yes: Breast Exam Deferred Cardiology: Yes: Regular Rhythm, Regular Rate, S1, S2 Abdominal: Yes: Normal Bowel Sounds, Flat, Soft Genitourinary: Yes: Within Normal Limits Back: Yes: Normal Inspection Musculoskeletal: Yes: Back pain Extremities: Yes: Normal Range of Motion, Tremors Neurological: Yes: customer professional II-XII NML intact, Fully Oriented, Alert, Normal Mood/ Affect, Normal Response Integumentary: Yes: Normal Color Lymphatic: Yes: Within Normal Limits - Diagnostic (1) Sedative, hypnotic, or anxiolytic withdrawal Current Visit: Yes Status: Acute (2) Alcohol dependence with uncomplicated withdrawal Current Visit: Yes Status: Acute (3) Nicotine dependence Current Visit: Yes Status: Acute Qualifiers: Nicotine product type: cigarettes Substance use status: uncomplicated Qualified Code(s): F17.210 - Nicotine dependence, cigarettes, uncomplicated (4) Opioid dependence with withdrawal Current Visit: Yes Status: Acute Cleared for Admission [facility] - Detox or Rehab [facility] Level of Care: Medically Managed Detox Regimen/Protocol: Methadone [facility] Breath Alcohol Content Breath Alcohol Content: 0 Urine Drug Screen - Results Drug Screen Negative: No Urine Drug Screen Results: OPI-Opiates, BZO-Benzodiazepines, MTD-Methadone
[2016-09-27] MEDS: diazePAM 5 MG TABLET PO PRN (19:14)
[2016-09-27] MEDS: diphenhydrAMINE HCL 50 MG CAPSULE PO PRN (22:30)
[2016-09-27] MEDS: THIAMINE HCL 100 MG TABLET (FP) PO SCH (22:30)
[2016-09-27] MEDS ORDERED: METHADONE HCL 10 MG TABLET (FOR DETOX USE ONLY) PO ONE (23:00)
[2016-09-28] MEDS: diazePAM 5 MG TABLET PO PRN ×4 (05:27→22:38)
[2016-09-28] MEDS ORDERED: NICOTINE 14 MG/24 HOURS TOPICAL PATCH TD SCH (10:00)
[2016-09-28] MEDS ORDERED: METHADONE HCL 10 MG TABLET (FOR DETOX USE ONLY) PO ONE (10:00)
[2016-09-28] MEDS ORDERED: PRENATAL VITAMINS W/ FOLIC ACID TABLET (FP) PO SCH (10:00)
--- NOTE | 2016-09-28 12:43 | EKG ---
Test Reason : Blood Pressure : / mmHG Vent. Rate : 072 BPM Atrial Rate : 072 BPM P-R Int : 134 ms QRS Dur : 088 ms QT Int : 386 ms P-R-T Axes : 062 005 012 degrees QTc Int : 422 ms NORMAL SINUS RHYTHM NORMAL ECG WHEN COMPARED WITH ECG OF 26-SEP-2016 05:22, NO SIGNIFICANT CHANGE WAS FOUND Confirmed by KARLEE HUGHES MD ([id number]) on 09/28/2016 12:43:29 PM Referred By: Confirmed By:KARLEE HUGHES MD
[2016-09-28 13:45] LABS: URINE APPEARANCE CLEAR; URINE BILIRUBIN NEGATIVE (NEGATIVE); URINE BLOOD NEGATIVE (NEGATIVE); URINE COLOR YELLOW; URINE GLUCOSE (UA) NEGATIVE (NEGATIVE); URINE KETONE NEGATIVE (NEGATIVE); URINE LEUK ESTERASE NEGATIVE (NEGATIVE); URINE NITRITE NEGATIVE (NEGATIVE); URINE PROTEIN NEGATIVE (NEGATIVE); URINE UROBILINOGEN NEGATIVE E.U./dl (0.2-1.0)
--- NOTE | 2016-09-28 14:34 | PN ---
[facility] COWS - Scale Resting Pulse: 1= [place] 81-100 Sweatin= Chills/Flushing Restless Observation: 3= Extraneous Movement Pupil Size: 0= Normal to Room Light Bone or Joint Aches: 2= Severe Diffuse Aches Runny Nose/ Eye Tearin= Runny Nose/Eyes GI Upset > 30mins: 2= Nausea/Diarrhea Tremor Observation of Outstretched Hands: 0= None Yawning Observation: 0= None Anxiety or Irritability: 1=Feels Anxious/Irritable Goose Flesh Skin: 0=Smooth Skin COWS Score: 12 [facility] Progress Note (SOAP) Subjective: Rhinorrhea, increased tears, sweating, chills, body aches, nausea, diarrhea Objective: 09/28/16 14:33 Last Vital Signs Temp Pulse Resp BP Pulse Ox 96.9 F L 79 18 126/82 09/28/16 13:13 09/28/16 13:13 09/28/16 13:13 09/28/16 13:13 Laboratory Tests 09/28/16 10:39 Urine Color Yellow Urine Appearance Clear Urine pH 7.0 D Ur Specific [place] 1.026 Urine Protein Negative Urine Glucose (UA) Negative Urine Ketones Negative Urine Blood Negative Urine Nitrite Negative Urine Bilirubin Negative Urine Urobilinogen Negative Ur Leukocyte Esterase Negative Labs noted: hematology and chemistry wnl Assessment: 09/28/16 14:34 Withdrawal symptoms Plan: Continue detox Discharge patient in AM (patient requesting to be discharged as he was initially admitted to [facility] on for chest pain in which he began detox then transferred here to complete detox. 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
[2016-09-28] MEDS: diphenhydrAMINE HCL 50 MG CAPSULE PO PRN (22:38)
[2016-09-28] MEDS: THIAMINE HCL 100 MG TABLET (FP) PO SCH (22:38)
[2016-09-29] MEDS: diazePAM 5 MG TABLET PO PRN (05:12)
[2016-09-29] MEDS ORDERED: METHADONE HCL 5 MG TABLET (FOR DETOX USE ONLY) PO ONE ×2 (06:00→10:00)
[2016-09-29 06:13] VITALS: BP 113/76; PULSE 80; TEMP 97.4
--- NOTE | 2016-09-30 12:33 | DS ---
[facility] Detox Discharge Summary Admission Date: 09/27/16 Discharge Date: 09/29/16 - History Present History: Alcohol Dependence, Cannabis Dependence, Opioid Dependence, Sedative Dependence Pertinent Past History: Eczema - Physical Exam Results Vital Signs: Vital Signs Temperature 97.4 F L 09/29/16 06:13 Pulse Rate 80 09/29/16 06:13 Respiratory Rate 18 09/29/16 06:13 Blood Pressure 113/76 09/29/16 06:13 O2 Sat by Pulse Oximetry (%) Pertinent Admission Physical Exam Findings: Withdrawal sx. Laboratory Last Values Urine Color Yellow 09/28/16 10:39 Urine Appearance Clear 09/28/16 10:39 Urine pH 7.0 (5.0-8.0) D 09/28/16 10:39 Ur Specific Berry 1.026 (1.001-1.035) 09/28/16 10:39 Urine Protein Negative (NEGATIVE) 09/28/16 10:39 Urine Glucose (UA) Negative (NEGATIVE) 09/28/16 10:39 Urine Ketones Negative (NEGATIVE) 09/28/16 10:39 Urine Blood Negative (NEGATIVE) 09/28/16 10:39 Urine Nitrite Negative (NEGATIVE) 09/28/16 10:39 Urine Bilirubin Negative (NEGATIVE) 09/28/16 10:39 Urine Urobilinogen Negative E.U./dl (0.2-1.0) 09/28/16 10:39 Ur Leukocyte Esterase Negative (NEGATIVE) 09/28/16 10:39 labs noted - Treatment Hospital Course: Detox Protocol Followed, Detoxed Safely, Responded well, Discharged Condition Good, Rehab Referral Accepted Patient has Accepted a Rehab Referral to: 12 step meetings, IOP - Medication Discharge Medications: Ambulatory Orders Alprazolam [Xanax] 1 mg PO Q6H PRN #0 tablet MDD 4 08/01/16 Quetiapine Fumarate [Seroquel] 100 mg PO HS #30 tablet 08/04/16 Zolpidem Tartrate [Ambien] 10 mg PO HS PRN #14 tablet MDD 10 08/04/16 Nicotine Patch [Nicoderm Patch -] 14 mg TD DAILY #30 patch 09/27/16 - Diagnosis (1) Alcohol dependence with uncomplicated withdrawal Status: Acute (2) Nicotine dependence Status: Acute Qualifiers: Nicotine product type: cigarettes Substance use status: uncomplicated Qualified Code(s): F17.210 - Nicotine dependence, cigarettes, uncomplicated (3) Opioid dependence with withdrawal Status: Acute (4) Sedative, hypnotic, or anxiolytic withdrawal Status: Acute (5) Chest pain Status: Acute - AMA Did Patient Leave Against Medical Advice: No
== END 2016-09-29 06:30 | disposition home or self-care (01) | DRG 745 ==
LOC: YASAS 12:53 → Y3N 17:14
PROVIDERS: ADMIT Internal Medicine; ATTEND Internal Medicine
PROC: HZ2ZZZZ Detoxification Services for Substance Abuse Treatment (ICD-10-PCS; principal; 2016-09-27)
DX: F11.23 Opioid dependence with withdrawal (principal); F13.230 Sedative, hypnotic or anxiolytic dependence with withdrawal, uncomplicated; F10.230 Alcohol dependence with withdrawal, uncomplicated; F17.210 Nicotine dependence, cigarettes, uncomplicated
CPT/HCPCS: 81003; 93005; 93010

== ENCOUNTER 2017-01-01 08:44 | Inpatient (IN) | payer OTHER ==
[2017-01-01 08:48] VITALS: BMI 26.9
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
[2017-01-01] MEDS ORDERED: P-EPHED 60MG/TRIPROLIDI 2.5MG TABLET PO PRN (13:38)
[2017-01-01] MEDS ORDERED: IBUPROFEN 400 MG TABLET (FP) PO PRN (13:38)
[2017-01-01] MEDS ORDERED: MENTHOL/PHENOL 1 EACH UD MM PRN (13:38)
[2017-01-01] MEDS ORDERED: ACETAMINOPHEN 325 MG TABLET (FP) PO PRN (13:38)
[2017-01-01] MEDS ORDERED: MAG HYDROX/AL HYDROX/SIMETH 30 ML UNIT-DOSE CUP PO PRN (13:38)
[2017-01-01] MEDS ORDERED: MAGNESIUM HYDROX 2400MG/30ML ORAL SUSPENSION 30 ML CUP PO PRN (13:38)
[2017-01-01] MEDS ORDERED: guaiFENesin/D-METHORPHAN HB 10 ML UNIT-DOSE CUPS PO PRN (13:38)
[2017-01-01] MEDS ORDERED: LOPERAMIDE HCL 2 MG CAPSULE PO PRN (13:38)
[2017-01-01] MEDS ORDERED: NICOTINE POLACRILEX 4 MG GUM BUC PRN (13:38)
[2017-01-01] MEDS ORDERED: MAGNESIUM CITRATE 300 ML BOTTLE PO PRN (13:38)
[2017-01-01] MEDS ORDERED: chlordiazePOXIDE HCL 25 MG CAPSULE PO ONE (13:52)
[2017-01-01] MEDS ORDERED: METHADONE HCL 10 MG TABLET (FOR DETOX USE ONLY) PO ONE ×2 (13:53→23:00)
--- NOTE | 2017-01-01 14:10 | CONSULT ---
[facility] Psychiatric Consult - Data Date of interview: 01/01/17 Admission source: [facility] Identifying data: This is 41 years old male with no psychiatric hospitalization history intoxicated with: Heroin, Alcahol, Nicotine, Extazy and Benzodiazepins Substance Abuse History: Drug Screen Negative: No. Urine Drug Screen Results: OPI-Opiates, MDMA-Ecstasy, BZO-Benzodiazepines. - Smoking Cessation. Smoking history: Current every day smoker. Have you smoked in the past 12 months: Yes. Aproximately how many cigarettes per day: 20. Hx Chewing Tobacco Use: No. Initiated information on smoking cessation: Yes. 'Breaking Loose' booklet given : 01/01/17. - Substance & Tx. History. Hx Alcohol Use: Yes (COGNAC/BEER). Hx Substance Use: Yes (HEROIN). Hx Substance Use Treatment: Yes (LAST TX IN [facility] ). - Substances Abused. Heroin. Route: Inhalation. Frequency: Daily. Amount used: 7 bags. Age of first use: 39. Date of Last Use : 01/01/17. Alcohol-cognac/beer. Route: Oral. Frequency: Daily. Amount used: 1/2-1 pt./3-4 (40 oz.). Age of first use: 16. Date of Last Use: 12/31/16 Medical History: Denies any significant medical problems Psychiatric History: Patient reports anxiety and Insomnia, reports taking prior to admission: Seroquel 100mg po qhs. Ambien 10mg po qhs Physical/Sexual Abuse/Trauma History: Denies Additional Comment: Drug Screen Negative: No. Urine Drug Screen Results: OPI- Opiates, MDMA-Ecstasy, BZO-Benzodiazepines. Seroquel 100mg po qhs. Ambien 10mg po qhs Mental Status Exam - Mental Status Exam Alert and Oriented to: Place, Person Cognitive Function: Fair Patient Appearance: Well Groomed Mood: Anxious Affect: Mood Congruent Patient Behavior: Cooperative Speech Pattern: Appropriate Voice Loudness: Normal Thought Process: Goal Oriented Thought Disorder: Being Controlled Hallucinations: Denies Suicidal Ideation: Denies Homicidal Ideation: Denies Insight/Judgement: Fair Sleep: Difficulty falling asleep Appetite: Fair Muscle strength/Tone: Normal Gait/Station: Normal Additional Comments: Seroquel 100mg po qhs. Ambien 10mg po qhs Psychiatric Findings - Problem List ([place] 1, 2,3) (1) Alcohol dependence with uncomplicated withdrawal Current Visit: Yes Status: Acute (2) Nicotine dependence Current Visit: Yes Status: Acute Qualifiers: Nicotine product type: cigarettes Substance use status: in withdrawal Qualified Code(s): F17.213 - Nicotine dependence, cigarettes, with withdrawal (3) Opioid dependence with withdrawal Current Visit: Yes Status: Acute (4) Drug-induced mood disorder Current Visit: No Status: Acute (5) Sedative, hypnotic, or anxiolytic withdrawal Current Visit: No Status: Acute (6) Substance-induced sleep disorder Current Visit: No Status: Acute (7) Cannabis dependence, uncomplicated Current Visit: No Status: Chronic (8) Cocaine dependence, uncomplicated Current Visit: No Status: Chronic (9) Substance-induced anxiety disorder Current Visit: No Status: Chronic (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 Ambien 10mg po qhs
[2017-01-01] MEDS: NICOTINE 21 MG/24 HOURS TOPICAL PATCH TD SCH (14:31)
--- NOTE | 2017-01-01 15:38 | EKG ---
Test Reason : Blood Pressure : / mmHG Vent. Rate : 069 BPM Atrial Rate : 069 BPM P-R Int : 136 ms QRS Dur : 098 ms QT Int : 422 ms P-R-T Axes : 036 -01 034 degrees QTc Int : 452 ms NORMAL SINUS RHYTHM Confirmed by MALVIN CASTILLO MD ([id number]) on 01/01/2017 3:38:19 PM Referred By: Marc Duff Confirmed By:MALVIN CASTILLO MD
[2017-01-01 16:17] LABS: HIV 1 & 2 AB NEGATIVE; HIV 1 AGp24 NEGATIVE
[2017-01-01 16:56] LABS: URINE APPEARANCE CLEAR; URINE BILIRUBIN NEGATIVE (NEGATIVE); URINE BLOOD NEGATIVE (NEGATIVE); URINE COLOR YELLOW; URINE GLUCOSE (UA) NEGATIVE (NEGATIVE); URINE KETONE NEGATIVE (NEGATIVE); URINE LEUK ESTERASE NEGATIVE (NEGATIVE); URINE NITRITE NEGATIVE (NEGATIVE); URINE PROTEIN NEGATIVE (NEGATIVE); URINE UROBILINOGEN NEGATIVE mg/dL (0.2-1.0)
[2017-01-01] MEDS: chlordiazePOXIDE HCL 25 MG CAPSULE PO SCH ×2 (18:07→22:47)
[2017-01-01] MEDS: THIAMINE HCL 100 MG TABLET (FP) PO SCH (22:46)
[2017-01-01] MEDS: QUEtiapine FUMARATE 100 MG TABLET (FP) PO SCH (22:46)
[2017-01-01] MEDS: ZOLPIDEM TARTRATE 10 MG TABLET (PARK CARE ONLY) PO PRN (22:49)
[2017-01-02] MEDS: chlordiazePOXIDE HCL 25 MG CAPSULE PO SCH ×4 (05:49→22:52)
[2017-01-02] MEDS ORDERED: METHADONE HCL 10 MG TABLET (FOR DETOX USE ONLY) PO SCH (10:00)
[2017-01-02 10:13] LABS: MCH 30.2 pg (25.7-33.7); MCHC 33.6 g/dl (32.0-35.9); MEAN CELL VOLUME 89.9 fl (80-96); MEAN PLT VOLUME 8.4 fl (7.5-11.1); PLATELET COUNT 421 K/MM3 (134-434); RDW 14.8 % (11.9-15.9); WHITE BLOOD COUNT 10.3 K/mm3 (4.0-10.0)
[2017-01-02] MEDS ORDERED: ONDANSETRON *ODT* 4 MG TABLET SL PRN (10:37)
[2017-01-02 10:47] LABS: ALK PHOS 51 U/L (45-117); ANION GAP 9 (8-16); BILIRUBIN,TOTAL 0.8 mg/dL (0.2-1.0); CO2 28 mmol/L (21-32); CREATININE 0.8 mg/dL (0.7-1.3); GLUCOSE,RANDOM 88 mg/dL (74-106); SGOT/AST 22 U/L (15-37); SGPT/ALT 26 U/L (12-78); TOT PROT 7.2 g/dl (6.4-8.2)
[2017-01-02] MEDS: NICOTINE 21 MG/24 HOURS TOPICAL PATCH TD SCH (10:58)
[2017-01-02] MEDS: PRENATAL VITAMINS W/ FOLIC ACID TABLET (FP) PO SCH (10:58)
--- NOTE | 2017-01-02 12:41 | PN ---
S CIWA - CIWA Score Nausea/Vomitin Muscle Tremors: 4-Moderate,w/Arms Extend Anxiety: 3 Agitation: 0-Normal Activity Paroxysmal Sweats: 3 Orientation: 0-Oriented Tacttile Disturbances: 1-Very Mild Itch/Numbness Auditory Disturbances: 2-Mild Harshness/Frighten Visual Disturbances: 0-None Headache: 2-Mild CIWA-Ar Total Score: 18 BHS COWS - Scale Resting Pulse: 1= [place] 81-100 Sweatin= Chills/Flushing Restless Observation: 0= Sits Still Pupil Size: 0= Normal to Room Light Bone or Joint Aches: 2= Severe Diffuse Aches Runny Nose/ Eye Tearin= Runny Nose/Eyes GI Upset > 30mins: 2= Nausea/Diarrhea Tremor Observation of Outstretched Hands: 2= Slight Tremor Visible Yawning Observation: 1= 1-2x During Session Anxiety or Irritability: 2=Irritable/Anxious Goose Flesh Skin: 3=Piloerection COWS Score: 16 S Progress Note (SOAP) Subjective: Vomiting, Stomach Cramping, Constipation, H/A, Interrupted sleep, Tremors, Body Aches Sweating. Objective: PT. A & O X 3, OBSERVED AMBULATING ON UNIT. NO ACUTE DISTRESS. 01/02/17 12:39 Vital Signs Temperature 97.5 F L 01/02/17 09:19 Pulse Rate 97 H 01/02/17 09:19 Respiratory Rate 18 01/02/17 09:19 Blood Pressure 114/78 01/02/17 09:19 O2 Sat by Pulse Oximetry (%) Laboratory Tests 01/01/17 01/01/17 01/02/17 11:50 14:40 06:00 WBC 10.3 H RBC 4.55 Hgb 13.8 Hct 40.9 MCV 89.9 MCH 30.2 MCHC 33.6 RDW 14.8 Plt Count 421 D MPV 8.4 Sodium Potassium Chloride Carbon Dioxide Anion Gap BUN Creatinine Creat Clearance w eGFR Random Glucose Calcium Total Bilirubin AST ALT Alkaline Phosphatase Total Protein Albumin Urine Color Yellow Urine Appearance Clear Urine pH 5.0 D Ur Specific [place] >= 1.030 H Urine Protein Negative Urine Glucose (UA) Negative Urine Ketones Negative Urine Blood Negative Urine Nitrite Negative Urine Bilirubin Negative Urine Urobilinogen Negative Ur Leukocyte Esterase Negative HIV 1&2 Antibody Screen Negative HIV P24 Antigen Negative 01/02/17 06:00 WBC RBC Hgb Hct MCV MCH MCHC RDW Plt Count MPV Sodium 136 Potassium 3.9 Chloride 99 Carbon Dioxide 28 Anion Gap 9 BUN 12 D Creatinine 0.8 Creat Clearance w eGFR > 60 Random Glucose 88 Calcium 9.0 Total Bilirubin 0.8 D AST 22 D ALT 26 Alkaline Phosphatase 51 Total Protein 7.2 Albumin 4.0 Urine Color Urine Appearance Urine pH Ur Specific [place] Urine Protein Urine Glucose (UA) Urine Ketones Urine Blood Urine Nitrite Urine Bilirubin Urine Urobilinogen Ur Leukocyte Esterase HIV 1&2 Antibody Screen HIV P24 Antigen LABS NOTED. RPR RESULT PENDING. 01/02/17 12:41 Assessment: 01/02/17 12:40 WITHDRAWAL SYMPTOMS. Plan: CONTINUE DETOX.
[2017-01-02] MEDS: chlordiazePOXIDE HCL 25 MG CAPSULE PO PRN (14:22)
[2017-01-02] MEDS: THIAMINE HCL 100 MG TABLET (FP) PO SCH (22:51)
[2017-01-02] MEDS: QUEtiapine FUMARATE 100 MG TABLET (FP) PO SCH (22:51)
[2017-01-02] MEDS: ZOLPIDEM TARTRATE 10 MG TABLET (PARK CARE ONLY) PO PRN (22:51)
[2017-01-03] MEDS: chlordiazePOXIDE HCL 25 MG CAPSULE PO SCH ×2 (05:32→10:20)
[2017-01-03] MEDS: METHADONE HCL 5 MG TABLET (FOR DETOX USE ONLY) PO SCH (10:20)
[2017-01-03] MEDS: NICOTINE 21 MG/24 HOURS TOPICAL PATCH TD SCH (10:20)
[2017-01-03] MEDS: PRENATAL VITAMINS W/ FOLIC ACID TABLET (FP) PO SCH (10:20)
[2017-01-03] MEDS: AMMONIUM LACTATE 12% LOTION 225 GM BOTTLE TP SCH ×2 (13:14→22:55)
[2017-01-03] MEDS: BACITRACIN 0.9 GM PACKET TP SCH ×2 (13:15→22:09)
[2017-01-03] MEDS: chlordiazePOXIDE HCL 25 MG CAPSULE PO PRN (13:26)
[2017-01-03] MEDS: chlordiazePOXIDE 5 MG CAPSULE PO SCH ×2 (17:49→22:09)
--- NOTE | 2017-01-03 18:44 | PN ---
S CIWA - CIWA Score Nausea/Vomitin Muscle Tremors: 4-Moderate,w/Arms Extend Anxiety: 4-Mod. Anxious/Guarded Agitation: 0-Normal Activity Paroxysmal Sweats: 3 Orientation: 0-Oriented Tacttile Disturbances: 2-Mild Itch/Numbness/Burn Auditory Disturbances: 0-None Visual Disturbances: 3-Moderate Sensitivity Headache: 0-None Present CIWA-Ar Total Score: 19 BHS COWS - Scale Resting Pulse: 1= [place] 81-100 Sweatin=Flushed/Facial Moisture Restless Observation: 0= Sits Still Pupil Size: 0= Normal to Room Light Bone or Joint Aches: 4=Acute Joint/Muscle Pain Runny Nose/ Eye Tearin= Runny Nose/Eyes GI Upset > 30mins: 2= Nausea/Diarrhea Tremor Observation of Outstretched Hands: 2= Slight Tremor Visible Yawning Observation: 1= 1-2x During Session Anxiety or Irritability: 2=Irritable/Anxious Goose Flesh Skin: 0=Smooth Skin COWS Score: 16 S Progress Note (SOAP) Subjective: Tremors, Nausea, Diarrhea, Body Aches, Sweating, Body Aches, Chills, Interrupted Sleep, Anxious. Objective: PT. A & O X 3, OBSERVED AMBULATING ON UNIT. NO ACUTE DISTRESS. 01/03/17 18:41 Vital Signs Temperature 97.6 F 01/03/17 13:53 Pulse Rate 72 01/03/17 13:53 Respiratory Rate 20 01/03/17 13:53 Blood Pressure 100/76 01/03/17 13:53 O2 Sat by Pulse Oximetry (%) Laboratory Tests 01/01/17 01/01/17 01/02/17 11:50 14:40 06:00 WBC 10.3 H RBC 4.55 Hgb 13.8 Hct 40.9 MCV 89.9 MCH 30.2 MCHC 33.6 RDW 14.8 Plt Count 421 D MPV 8.4 Sodium Potassium Chloride Carbon Dioxide Anion Gap BUN Creatinine Creat Clearance w eGFR Random Glucose Calcium Total Bilirubin AST ALT Alkaline Phosphatase Total Protein Albumin Urine Color Yellow Urine Appearance Clear Urine pH 5.0 D Ur Specific [place] >= 1.030 H Urine Protein Negative Urine Glucose (UA) Negative Urine Ketones Negative Urine Blood Negative Urine Nitrite Negative Urine Bilirubin Negative Urine Urobilinogen Negative Ur Leukocyte Esterase Negative RPR Titer HIV 1&2 Antibody Screen Negative HIV P24 Antigen Negative 01/02/17 01/02/17 06:00 06:00 WBC RBC Hgb Hct MCV MCH MCHC RDW Plt Count MPV Sodium 136 Potassium 3.9 Chloride 99 Carbon Dioxide 28 Anion Gap 9 BUN 12 D Creatinine 0.8 Creat Clearance w eGFR > 60 Random Glucose 88 Calcium 9.0 Total Bilirubin 0.8 D AST 22 D ALT 26 Alkaline Phosphatase 51 Total Protein 7.2 Albumin 4.0 Urine Color Urine Appearance Urine pH Ur Specific [place] Urine Protein Urine Glucose (UA) Urine Ketones Urine Blood Urine Nitrite Urine Bilirubin Urine Urobilinogen Ur Leukocyte Esterase RPR Titer Nonreactive HIV 1&2 Antibody Screen HIV P24 Antigen LABS NOTED. Assessment: 01/03/17 18:42 WITHDRAWAL SYMPTOMS. Plan: CONTINUE DETOX. PRN FLEXERIL PO FOR BODY ACHES / MUSCLE SPASMS. PRN IMMODIUM PO FOR DIARRHEA. PRN ZOFRAN SL FOR NAUSEA / VOMITING.
[2017-01-03] MEDS: QUEtiapine FUMARATE 100 MG TABLET (FP) PO SCH (22:09)
[2017-01-03] MEDS: ZOLPIDEM TARTRATE 10 MG TABLET (PARK CARE ONLY) PO PRN (22:11)
[2017-01-03] MEDS: THIAMINE HCL 100 MG TABLET (FP) PO SCH (22:55)
[2017-01-04] MEDS: chlordiazePOXIDE 5 MG CAPSULE PO SCH ×2 (05:25→10:06)
[2017-01-04] MEDS: METHADONE HCL 5 MG TABLET (FOR DETOX USE ONLY) PO SCH (10:04)
[2017-01-04] MEDS: BACITRACIN 0.9 GM PACKET TP SCH ×2 (10:04→22:02)
[2017-01-04] MEDS: PRENATAL VITAMINS W/ FOLIC ACID TABLET (FP) PO SCH (10:04)
[2017-01-04] MEDS: NICOTINE 21 MG/24 HOURS TOPICAL PATCH TD SCH (10:05)
[2017-01-04] MEDS: AMMONIUM LACTATE 12% LOTION 225 GM BOTTLE TP SCH ×2 (10:05→22:04)
[2017-01-04] MEDS: hydrOXYzine PAMOATE 25 MG CAPSULE (FP) PO PRN (13:41)
--- NOTE | 2017-01-04 15:22 | PN ---
S Progress Note (SOAP) Subjective: Nausea, interrupted sleep, diarrhea, sweating, chills, tremor, body aches Objective: 01/04/17 15:18 Last Vital Signs Temp Pulse Resp BP Pulse Ox 97.8 F 75 18 115/79 01/04/17 13:52 01/04/17 13:52 01/04/17 13:52 01/04/17 13:52 Laboratory Tests 01/01/17 01/01/17 01/02/17 11:50 14:40 06:00 WBC 10.3 H RBC 4.55 Hgb 13.8 Hct 40.9 MCV 89.9 MCH 30.2 MCHC 33.6 RDW 14.8 Plt Count 421 D MPV 8.4 Sodium Potassium Chloride Carbon Dioxide Anion Gap BUN Creatinine Creat Clearance w eGFR Random Glucose Calcium Total Bilirubin AST ALT Alkaline Phosphatase Total Protein Albumin Urine Color Yellow Urine Appearance Clear Urine pH 5.0 D Ur Specific [place] >= 1.030 H Urine Protein Negative Urine Glucose (UA) Negative Urine Ketones Negative Urine Blood Negative Urine Nitrite Negative Urine Bilirubin Negative Urine Urobilinogen Negative Ur Leukocyte Esterase Negative RPR Titer HIV 1&2 Antibody Screen Negative HIV P24 Antigen Negative 01/02/17 01/02/17 06:00 06:00 WBC RBC Hgb Hct MCV MCH MCHC RDW Plt Count MPV Sodium 136 Potassium 3.9 Chloride 99 Carbon Dioxide 28 Anion Gap 9 BUN 12 D Creatinine 0.8 Creat Clearance w eGFR > 60 Random Glucose 88 Calcium 9.0 Total Bilirubin 0.8 D AST 22 D ALT 26 Alkaline Phosphatase 51 Total Protein 7.2 Albumin 4.0 Urine Color Urine Appearance Urine pH Ur Specific [place] Urine Protein Urine Glucose (UA) Urine Ketones Urine Blood Urine Nitrite Urine Bilirubin Urine Urobilinogen Ur Leukocyte Esterase RPR Titer Nonreactive HIV 1&2 Antibody Screen HIV P24 Antigen Labs noted Assessment: 01/04/17 15:19 Withdrawal symptoms Plan: Continue detox Encouraged to drink lots of water, water pitcher ordered
[2017-01-04] MEDS: chlordiazePOXIDE HCL 10 MG CAPSULE PO SCH ×2 (17:09→22:02)
[2017-01-04] MEDS: QUEtiapine FUMARATE 100 MG TABLET (FP) PO SCH (22:03)
[2017-01-04] MEDS: diphenhydrAMINE HCL 50 MG CAPSULE PO PRN (22:04)
[2017-01-04] MEDS: THIAMINE HCL 100 MG TABLET (FP) PO SCH (22:04)
[2017-01-05] MEDS: chlordiazePOXIDE HCL 10 MG CAPSULE PO SCH ×2 (05:54→10:03)
[2017-01-05] MEDS ORDERED: METHADONE HCL 10 MG TABLET (FOR DETOX USE ONLY) PO SCH (10:00)
[2017-01-05] MEDS: AMMONIUM LACTATE 12% LOTION 225 GM BOTTLE TP SCH ×2 (10:04→22:18)
[2017-01-05] MEDS: PRENATAL VITAMINS W/ FOLIC ACID TABLET (FP) PO SCH (10:04)
[2017-01-05] MEDS: NICOTINE 21 MG/24 HOURS TOPICAL PATCH TD SCH (10:04)
[2017-01-05] MEDS: BACITRACIN 0.9 GM PACKET TP SCH ×2 (10:04→22:17)
--- NOTE | 2017-01-05 14:41 | PN ---
BHS Progress Note (SOAP) Subjective: Sweating,interrupted sleep,restless. Objective: 01/05/17 14:39 Vital Signs - 8 hr 01/05/17 01/05/17 09:27 13:26 Temperature 96.5 F L 96.2 F L Pulse Rate 73 60 Respiratory 16 16 Rate Blood Pressure 120/71 111/72 Laboratory Last Values WBC 10.3 K/mm3 (4.0-10.0) H 01/02/17 06:00 RBC 4.55 M/mm3 (4.00-5.60) 01/02/17 06:00 Hgb 13.8 GM/dL (11.7-16.9) 01/02/17 06:00 Hct 40.9 % (35.4-49) 01/02/17 06:00 MCV 89.9 fl (80-96) 01/02/17 06:00 MCH 30.2 pg (25.7-33.7) 01/02/17 06:00 MCHC 33.6 g/dl (32.0-35.9) 01/02/17 06:00 RDW 14.8 % (11.9-15.9) 01/02/17 06:00 Plt Count 421 K/MM3 (134-434) D 01/02/17 06:00 MPV 8.4 fl (7.5-11.1) 01/02/17 06:00 Sodium 136 mmol/L (136-145) 01/02/17 06:00 Potassium 3.9 mmol/L (3.5-5.1) 01/02/17 06:00 Chloride 99 mmol/L (98-107) 01/02/17 06:00 Carbon Dioxide 28 mmol/L (21-32) 01/02/17 06:00 Anion Gap 9 (8-16) 01/02/17 06:00 BUN 12 mg/dL (7-18) D 01/02/17 06:00 Creatinine 0.8 mg/dL (0.7-1.3) 01/02/17 06:00 Creat Clearance w eGFR > 60 (>60) 01/02/17 06:00 Random Glucose 88 mg/dL (74-106) 01/02/17 06:00 Calcium 9.0 mg/dL (8.5-10.1) 01/02/17 06:00 Total Bilirubin 0.8 mg/dL (0.2-1.0) D 01/02/17 06:00 AST 22 U/L (15-37) D 01/02/17 06:00 ALT 26 U/L (12-78) 01/02/17 06:00 Alkaline Phosphatase 51 U/L (45-117) 01/02/17 06:00 Total Protein 7.2 g/dl (6.4-8.2) 01/02/17 06:00 Albumin 4.0 g/dl (3.4-5.0) 01/02/17 06:00 Urine Color Yellow 01/01/17 14:40 Urine Appearance Clear 01/01/17 14:40 Urine pH 5.0 (5.0-8.0) D 01/01/17 14:40 Ur Specific [place] >= 1.030 (1.005-1.025) H 01/01/17 14:40 Urine Protein Negative (NEGATIVE) 01/01/17 14:40 Urine Glucose (UA) Negative (NEGATIVE) 01/01/17 14:40 Urine Ketones Negative (NEGATIVE) 01/01/17 14:40 Urine Blood Negative (NEGATIVE) 01/01/17 14:40 Urine Nitrite Negative (NEGATIVE) 01/01/17 14:40 Urine Bilirubin Negative (NEGATIVE) 01/01/17 14:40 Urine Urobilinogen Negative mg/dL (0.2-1.0) 01/01/17 14:40 Ur Leukocyte Esterase Negative (NEGATIVE) 01/01/17 14:40 RPR Titer Nonreactive (NONREACTIVE) 01/02/17 06:00 HIV 1&2 Antibody Screen Negative 01/01/17 11:50 HIV P24 Antigen Negative 01/01/17 11:50 labs noted Assessment: 01/05/17 14:39 Withdrawal sx. Plan: Continue detox
[2017-01-05] MEDS: hydrOXYzine PAMOATE 25 MG CAPSULE (FP) PO PRN (17:56)
[2017-01-05] MEDS: diphenhydrAMINE HCL 50 MG CAPSULE PO PRN (22:18)
[2017-01-05] MEDS: QUEtiapine FUMARATE 100 MG TABLET (FP) PO SCH (22:18)
[2017-01-05] MEDS: THIAMINE HCL 100 MG TABLET (FP) PO SCH (22:18)
[2017-01-06] MEDS ORDERED: METHADONE HCL 5 MG TABLET (FOR DETOX USE ONLY) PO SCH (06:00)
[2017-01-06 06:15] VITALS: BP 118/76; PULSE 69; TEMP 96.3
--- NOTE | 2017-01-06 12:02 | DS ---
[facility] Detox Discharge Summary Admission Date: 01/01/17 Discharge Date: 01/06/17 - History Present History: Alcohol Dependence, Opioid Dependence Additional Comments: DETOX COMPLETED. PT WAS DISCHARGED TODAY. Pertinent Past History: CHEST PAIN ECZEMA DEPRESSION RIGHT EYE TRUAMA - Physical Exam Results Vital Signs: Vital Signs Temperature 96.3 F L 01/06/17 06:15 Pulse Rate 69 01/06/17 06:15 Respiratory Rate 18 01/06/17 06:15 Blood Pressure 118/76 01/06/17 06:15 O2 Sat by Pulse Oximetry (%) Pertinent Admission Physical Exam Findings: WITHDRAWAL SX Laboratory Last Values WBC 10.3 K/mm3 (4.0-10.0) H 01/02/17 06:00 RBC 4.55 M/mm3 (4.00-5.60) 01/02/17 06:00 Hgb 13.8 GM/dL (11.7-16.9) 01/02/17 06:00 Hct 40.9 % (35.4-49) 01/02/17 06:00 MCV 89.9 fl (80-96) 01/02/17 06:00 MCH 30.2 pg (25.7-33.7) 01/02/17 06:00 MCHC 33.6 g/dl (32.0-35.9) 01/02/17 06:00 RDW 14.8 % (11.9-15.9) 01/02/17 06:00 Plt Count 421 K/MM3 (134-434) D 01/02/17 06:00 MPV 8.4 fl (7.5-11.1) 01/02/17 06:00 Sodium 136 mmol/L (136-145) 01/02/17 06:00 Potassium 3.9 mmol/L (3.5-5.1) 01/02/17 06:00 Chloride 99 mmol/L (98-107) 01/02/17 06:00 Carbon Dioxide 28 mmol/L (21-32) 01/02/17 06:00 Anion Gap 9 (8-16) 01/02/17 06:00 BUN 12 mg/dL (7-18) D 01/02/17 06:00 Creatinine 0.8 mg/dL (0.7-1.3) 01/02/17 06:00 Creat Clearance w eGFR > 60 (>60) 01/02/17 06:00 Random Glucose 88 mg/dL (74-106) 01/02/17 06:00 Calcium 9.0 mg/dL (8.5-10.1) 01/02/17 06:00 Total Bilirubin 0.8 mg/dL (0.2-1.0) D 01/02/17 06:00 AST 22 U/L (15-37) D 01/02/17 06:00 ALT 26 U/L (12-78) 01/02/17 06:00 Alkaline Phosphatase 51 U/L (45-117) 01/02/17 06:00 Total Protein 7.2 g/dl (6.4-8.2) 01/02/17 06:00 Albumin 4.0 g/dl (3.4-5.0) 01/02/17 06:00 Urine Color Yellow 01/01/17 14:40 Urine Appearance Clear 01/01/17 14:40 Urine pH 5.0 (5.0-8.0) D 01/01/17 14:40 Ur Specific [place] >= 1.030 (1.005-1.025) H 01/01/17 14:40 Urine Protein Negative (NEGATIVE) 01/01/17 14:40 Urine Glucose (UA) Negative (NEGATIVE) 01/01/17 14:40 Urine Ketones Negative (NEGATIVE) 01/01/17 14:40 Urine Blood Negative (NEGATIVE) 01/01/17 14:40 Urine Nitrite Negative (NEGATIVE) 01/01/17 14:40 Urine Bilirubin Negative (NEGATIVE) 01/01/17 14:40 Urine Urobilinogen Negative mg/dL (0.2-1.0) 01/01/17 14:40 Ur Leukocyte Esterase Negative (NEGATIVE) 01/01/17 14:40 RPR Titer Nonreactive (NONREACTIVE) 01/02/17 06:00 HIV 1&2 Antibody Screen Negative 01/01/17 11:50 HIV P24 Antigen Negative 01/01/17 11:50 - Treatment Hospital Course: Detox Protocol Followed, Detoxed Safely, Responded well, Discharged Condition Good - Medication Discharge Medications: Ambulatory Orders Quetiapine Fumarate [Seroquel] 100 mg PO HS #30 tablet 08/04/16 Zolpidem Tartrate [Ambien] 10 mg PO HS PRN #14 tablet MDD 10 08/04/16 Quetiapine Fumarate [Seroquel] 100 mg PO HS #30 tablet 01/01/17 - Diagnosis (1) Alcohol dependence with uncomplicated withdrawal Status: Acute (2) Nicotine dependence Status: Acute Qualifiers: Nicotine product type: cigarettes Substance use status: in withdrawal Qualified Code(s): F17.213 - Nicotine dependence, cigarettes, with withdrawal (3) Opioid dependence with withdrawal Status: Acute (4) Eczema Status: Chronic Qualifiers: Eczema type: unspecified Qualified Code(s): L30.9 - Dermatitis, unspecified (5) History of eye trauma Status: Chronic - AMA Did Patient Leave Against Medical Advice: No
== END 2017-01-06 06:27 | disposition home or self-care (01) | DRG 773 ==
LOC: YASAS 08:44 → UNDOADMIN 11:27 → Y3N 11:27
PROVIDERS: ADMIT Internal Medicine; ATTEND Internal Medicine
PROC: HZ2ZZZZ Detoxification Services for Substance Abuse Treatment (ICD-10-PCS; principal; 2017-01-01)
DX: F11.23 Opioid dependence with withdrawal (principal); F10.230 Alcohol dependence with withdrawal, uncomplicated; F13.230 Sedative, hypnotic or anxiolytic dependence with withdrawal, uncomplicated; F16.10 Hallucinogen abuse, uncomplicated; F17.213 Nicotine dependence, cigarettes, with withdrawal; F19.24 Other psychoactive substance dependence with psychoactive substance-induced mood disorder; F19.282 Other psychoactive substance dependence with psychoactive substance-induced sleep disorder; F19.280 Other psychoactive substance dependence with psychoactive substance-induced anxiety disorder; L30.9 Dermatitis, unspecified
CPT/HCPCS: 36415; 80053; 81003; 85027; 86593; 87389; 93005; 93010

== ENCOUNTER 2017-05-15 10:39 | Inpatient (IN) | payer OTHER ==
[2017-05-15 12:32] VITALS: BMI 25.4
--- NOTE | 2017-05-15 14:43 | HP ---
COWS - Scale Resting Pulse: 0= [place] 80 or Below Sweatin=Flushed/Facial Moisture Restless Observation: 1= Difficult to Sit Still Pupil Size: 0= Normal to Room Light Bone or Joint Aches: 2= Severe Diffuse Aches Runny Nose/ Eye Tearin= Runny Nose/Eyes GI Upset > 30mins: 2= Nausea/Diarrhea Tremor Observation: 2= Slight Tremor Visible Yawning Observation: 2= >3x During Session Anxiety or Irritability: 2=Irritable/Anxious Goose Flesh Skin: 3=Piloerection COWS Score: 18 CIWA Score - CIWA Score Nausea/Vomitin-No Nausea/No Vomiting Muscle Tremors: 4-Moderate,w/Arms Extend Anxiety: 4-Mod. Anxious/Guarded Agitation: 4-Moderately Restless Paroxysmal Sweats: 3 Orientation: 0-Oriented Tacttile Disturbances: 0-None Auditory Disturbances: 0-None Visual Disturbances: 0-None Headache: 1-Very Mild CIWA-Ar Total Score: 16 Admission ROS [facility] - HPI Chief Complaint: I am here for detox and get it right. Allergies/Adverse Reactions: Allergies Allergy/AdvReac Type Severity Reaction Status Date / Time No Known Allergies Allergy Verified 05/15/17 14:16 History of Present Illness: pt is a 42yr old male with a history of alcohol and heroin dependence seeking detox for treatment Exam Limitations: No Limitations - Ebola screening Have you traveled outside of the country in the last 21 days: No Have you had contact with anyone from an Ebola affected area: No Have you been sick,other than usual withdrawal symptoms: No Do you have a fever: No - Review of Systems Constitutional: Chills, Diaphoresis, Loss of Appetite, Changes in sleep, Unintentional Wgt. Loss EENT: reports: Tearing, Nose Congestion Respiratory: reports: No Symptoms reported Cardiac: reports: No Symptoms Reported GI: reports: Constipated, Diarrhea, Nausea, Poor Appetite, Poor Fluid Intake, Indigestion : reports: No Symptoms Reported Musculoskeletal: reports: Back Pain Integumentary: reports: Flushing, Sweating Neuro: reports: Headache, Tingling, Tremors Endocrine: reports: Excessive Sweating, Flushing, Intolerance to Cold, Intolerance to Heat Hematology: reports: No Symptoms Reported Psychiatric: reports: Judgement Intact, Mood/Affect Appropiate, Orientated x3, Agitated, Anxious Other Systems: Reviewed and Negative Patient History - Patient Medical History Hx Anemia: No Hx Asthma: No Hx Chronic Obstructive Pulmonary Disease (COPD): No Hx Cancer: No Hx Cardiac Disorders: No Hx Congestive Heart Failure: No Hx Hypertension: No Hx Hypercholesterolemia: No Hx Pacemaker: No HX Cerebrovascular Accident: No Hx Seizures: No Hx Dementia: No Hx Diabetes: No Hx Gastrointestinal Disorders: No Hx Liver Disease: No Hx Genitourinary Disorders: No Hx Sexually Transmitted Disorders: No Hx Renal Disease (ESRD): No Hx Thyroid Disease: No Hx Human Immunodeficiency Virus (HIV): No (NEGATIVE HX) Hx Hepatitis C: No (DENIES) Hx Depression: Yes Hx Suicide Attempt: No (denies) Hx Bipolar Disorder: No Hx Schizophrenia: No - Patient Surgical History Past Surgical History: Yes Hx Neurologic Surgery: No Hx Cataract Extraction: No Hx Cardiac Surgery: No Hx Lung Surgery: No Hx Breast Surgery: No Hx Breast Biopsy: No Hx Abdominal Surgery: No Hx Appendectomy: No Hx Cholecystectomy: No Hx Genitourinary Surgery: No Hx Section: No Hx Orthopedic Surgery: No Hx Hysterectomy: No Other Surgical History: right eye due to trauma in 2015 Anesthesia Reaction: No - PPD History Previous Implant?: Yes Documented Results: Negative w/proof Implanted On Prior [facility] Admission?: Yes Date: 06/30/16 Results: 0 MM PPD to be Administered?: No - Reproductive History Patient is a Female of Child Bearing Age (11 -55 yrs old): No - Smoking Cessation Smoking history: Current every day smoker Have you smoked in the past 12 months: Yes Aproximately how many cigarettes per day: 20 Hx Chewing Tobacco Use: No Initiated information on smoking cessation: Yes 'Breaking Loose' booklet given: 05/15/17 - Substance & Tx. History Hx Alcohol Use: Yes Hx Substance Use: Yes Substance Use Type: Alcohol, Heroin Hx Substance Use Treatment: Yes ([facility] 12/2016 detox) - Substances Abused Heroin Route: Inhalation Frequency: Daily Amount used: 7 BAGS Age of first use: 39 Date of Last Use: 05/15/17 Alcohol Route: Oral Frequency: Daily Amount used: 1/4 OF PINT- 1 PINT COGNAC Age of first use: 19 Date of Last Use: 05/15/17 Family Disease History - Family Disease History Family Disease History: Heart Disease: Father (HTN, CAD,ETOH), CA: Grandparent ( from ca ETOH), Other: Father, Mother (thyroid d/o), Brother (ETOH) Admission Physical Exam [facility] - Vital Signs Vital Signs: Vital Signs - 24 hr 05/15/17 12:07 Temperature 97.9 F Pulse Rate 60 Respiratory 18 Rate Blood Pressure 127/88 - Physical General Appearance: Yes: Appropriately Dressed, Moderate Distress, Tremorous, Irritable, Sweating, Anxious HEENTM: Yes: Normal Voice, Nasal Congestion, Rhinorrhea Respiratory: Yes: Lungs Clear, Normal Breath Sounds, No Respiratory Distress Neck: Yes: No masses,lesions,Nodules Breast: Yes: Within Normal Limits Cardiology: Yes: Regular Rhythm, Regular Rate, S1, S2 Abdominal: Yes: Normal Bowel Sounds, Non Tender, Soft Genitourinary: Yes: Within Normal Limits Back: Yes: Normal Inspection Musculoskeletal: Yes: Within Normal Limits, full range of Motion, Back pain Extremities: Yes: Normal Capillary Refill, Normal Inspection, Non-Tender, Tremors Neurological: Yes: Fully Oriented, Alert, Normal Response Integumentary: Yes: Normal Color, Diaphoresis Lymphatic: Yes: Within Normal Limits - Diagnostic (1) Alcohol dependence with uncomplicated withdrawal Current Visit: Yes Status: Chronic (2) Nicotine dependence Current Visit: Yes Status: Chronic Qualifiers: Nicotine product type: cigarettes Substance use status: uncomplicated Qualified Code(s): F17.210 - Nicotine dependence, cigarettes, uncomplicated (3) Opioid dependence with withdrawal Current Visit: Yes Status: Chronic (4) Cannabis dependence, uncomplicated Current Visit: Yes Status: Chronic Cleared for Admission [facility] - Detox or Rehab [facility] Level of Care: Medically Managed Detox Regimen/Protocol: Methadone/Librium [facility] Breath Alcohol Content Breath Alcohol Content: 0 Urine Drug Screen - Results Drug Screen Negative: No Urine Drug Screen Results: THC-Marijuana, OPI-Opiates, BZO-Benzodiazepines, MTD- Methadone
[2017-05-15] MEDS ORDERED: ACETAMINOPHEN 325 MG TABLET (FP) PO PRN (14:45)
[2017-05-15] MEDS ORDERED: P-EPHED 60MG/TRIPROLIDI 2.5MG TABLET PO PRN (14:45)
[2017-05-15] MEDS ORDERED: NICOTINE POLACRILEX 4 MG GUM BC PRN (14:45)
[2017-05-15] MEDS ORDERED: MENTHOL/PHENOL 1 EACH UD MM PRN (14:45)
[2017-05-15] MEDS ORDERED: MAG HYDROX/AL HYDROX/SIMETH 30 ML UNIT-DOSE CUP PO PRN (14:45)
[2017-05-15] MEDS ORDERED: MAGNESIUM HYDROX 2400MG/30ML ORAL SUSPENSION 30 ML CUP PO PRN (14:45)
[2017-05-15] MEDS ORDERED: MAGNESIUM CITRATE 300 ML BOTTLE PO PRN (14:45)
[2017-05-15] MEDS ORDERED: hydrOXYzine PAMOATE 50 MG CAPSULE (FP) PO PRN (14:45)
[2017-05-15] MEDS ORDERED: IBUPROFEN 400 MG TABLET (FP) PO PRN (14:45)
[2017-05-15] MEDS ORDERED: LOPERAMIDE HCL 2 MG CAPSULE PO PRN (14:45)
[2017-05-15] MEDS ORDERED: guaiFENesin/D-METHORPHAN HB 10 ML UNIT-DOSE CUPS PO PRN (14:45)
[2017-05-15] MEDS ORDERED: METHADONE HCL 10 MG TABLET (FOR DETOX USE ONLY) PO ONE ×2 (16:45→23:00)
[2017-05-15] MEDS ORDERED: chlordiazePOXIDE HCL 25 MG CAPSULE PO ONE (16:45)
[2017-05-15] MEDS: chlordiazePOXIDE HCL 25 MG CAPSULE PO SCH ×2 (16:52→22:14)
[2017-05-15 18:16] LABS: URINE APPEARANCE CLEAR; URINE BILIRUBIN NEGATIVE (NEGATIVE); URINE BLOOD NEGATIVE (NEGATIVE); URINE COLOR YELLOW; URINE GLUCOSE (UA) NEGATIVE (NEGATIVE); URINE KETONE NEGATIVE (NEGATIVE); URINE LEUK ESTERASE NEGATIVE (NEGATIVE); URINE NITRITE NEGATIVE (NEGATIVE); URINE PROTEIN NEGATIVE (NEGATIVE); URINE UROBILINOGEN NEGATIVE mg/dL (0.2-1.0)
[2017-05-15] MEDS: MOXIFLOXACIN HCL 0.5% OPHTHALMIC 3 ML BOTTLE OD SCH (22:14)
[2017-05-15] MEDS: ERYTHROMYCIN 0.5% OPHTHALMIC OINTMENT 3.5 GM TUBE OD SCH (22:14)
[2017-05-15] MEDS: THIAMINE HCL 100 MG TABLET (FP) PO SCH (22:14)
[2017-05-15 23:14] LABS: URINE LEUK ESTERASE Negative (NEGATIVE)
[2017-05-16] MEDS: chlordiazePOXIDE HCL 25 MG CAPSULE PO SCH ×4 (05:33→23:07)
[2017-05-16] MEDS: MOXIFLOXACIN HCL 0.5% OPHTHALMIC 3 ML BOTTLE OD SCH ×4 (05:35→18:55)
[2017-05-16 09:51] LABS: MCH 30.4 pg (25.7-33.7); MCHC 33.5 g/dl (32.0-35.9); MEAN CELL VOLUME 90.7 fl (80-96); MEAN PLT VOLUME 8.3 fl (7.5-11.1); PLATELET COUNT 341 K/MM3 (134-434); RDW 14.2 % (11.9-15.9); WHITE BLOOD COUNT 7.1 K/mm3 (4.0-10.0)
[2017-05-16] MEDS ORDERED: METHADONE HCL 10 MG TABLET (FOR DETOX USE ONLY) PO SCH (10:00)
[2017-05-16] MEDS: PRENATAL VITAMINS W/ FOLIC ACID TABLET (FP) PO SCH (10:07)
[2017-05-16] MEDS: NICOTINE 21 MG/24 HOURS TOPICAL PATCH TD SCH (10:07)
[2017-05-16 10:14] LABS: ALBUMIN 4.3 g/dl (3.4-5.0); ALK PHOS 49 U/L (45-117); ANION GAP 8 (8-16); BILIRUBIN,TOTAL 0.7 mg/dL (0.2-1.0); CALCIUM 9.4 mg/dL (8.5-10.1); CO2 28 mmol/L (21-32); CREATININE 0.8 mg/dL (0.7-1.3); GLUCOSE,RANDOM 82 mg/dL (74-106); SGOT/AST 19 U/L (15-37); SGPT/ALT 35 U/L (12-78); TOT PROT 7.6 g/dl (6.4-8.2)
--- NOTE | 2017-05-16 11:57 | CONSULT ---
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 Refer to addiction counselor's note for further information Medical History: Significant for history of surgery right eye due to trauma. Smokes 1 ppd Psychiatric History: Denies history of previous formal psychiatric treatment but cites multiple previous contact with psychiatrist on previous admission to detox in this facility and was prescribed Seroquel 100 mg po HS and Ambien 10 mg o HS for anxiety and insomnia. t present, reports doing ok but sleeping poorly. Physical/Sexual Abuse/Trauma History: Denies history of verbal, physical or sexual abuse as well as DV relationship Additional Comment: Reports 2 previous arrests but added:"My record is clean" Mental Status Exam - Mental Status Exam Alert and Oriented to: Time, Place, Person Cognitive Function: Fair Patient Appearance: Well Groomed Mood: Hopeful, Euthymic Affect: Appropriate Patient Behavior: Cooperative Speech Pattern: Clear Voice Loudness: Normal Thought Process: Intact, Goal Oriented Thought Disorder: Not Present Hallucinations: Denies Suicidal Ideation: Denies Homicidal Ideation: Denies Insight/Judgement: Poor Sleep: Poorly Appetite: Good Muscle strength/Tone: Normal Gait/Station: Normal Psychiatric Findings - Problem List ([place] 1, 2,3) (1) Substance-induced sleep disorder Current Visit: Yes Status: Acute (2) Alcohol dependence with uncomplicated withdrawal Current Visit: Yes Status: Acute (3) Opioid dependence with withdrawal Current Visit: Yes Status: Acute (4) Nicotine dependence Current Visit: Yes Status: Chronic Qualifiers: Nicotine product type: cigarettes Substance use status: uncomplicated Qualified Code(s): F17.210 - Nicotine dependence, cigarettes, uncomplicated - Initial Treatment Plan Initial Treatment Plan: 1) Start Ambien 10 mg po HS prn for insomnia. 2) Continue inpatient detoxification
--- NOTE | 2017-05-16 13:38 | PN ---
[facility] CIWA - CIWA Score Nausea/Vomitin-No Nausea/No Vomiting Muscle Tremors: 3 Anxiety: 4-Mod. Anxious/Guarded Agitation: 4-Moderately Restless Paroxysmal Sweats: 3 Orientation: 0-Oriented Tacttile Disturbances: 0-None Auditory Disturbances: 0-None Visual Disturbances: 0-None Headache: 0-None Present CIWA-Ar Total Score: 14 S COWS - Scale Resting Pulse: 0= [place] 80 or Below Sweatin=Flushed/Facial Moisture Restless Observation: 1= Difficult to Sit Still Pupil Size: 0= Normal to Room Light Bone or Joint Aches: 2= Severe Diffuse Aches Runny Nose/ Eye Tearin= Runny Nose/Eyes GI Upset > 30mins: 2= Nausea/Diarrhea Tremor Observation of Outstretched Hands: 2= Slight Tremor Visible Yawning Observation: 1= 1-2x During Session Anxiety or Irritability: 2=Irritable/Anxious Goose Flesh Skin: 0=Smooth Skin COWS Score: 14 [facility] Progress Note (SOAP) Subjective: Anxiety,tremors,sweating,interrupted sleep,restless Objective: 05/16/17 13:37 Vital Signs - 8 hr 05/16/17 05/16/17 06:49 10:00 Temperature 97.7 F 97.7 F Pulse Rate 60 75 Respiratory 16 18 Rate Blood Pressure 95/57 135/75 Laboratory Tests 05/15/17 05/16/17 05/16/17 15:48 06:05 06:05 WBC 7.1 D RBC 4.65 Hgb 14.1 Hct 42.2 MCV 90.7 MCH 30.4 MCHC 33.5 RDW 14.2 Plt Count 341 MPV 8.3 Sodium 136 Potassium 4.4 Chloride 100 Carbon Dioxide 28 Anion Gap 8 BUN 9 D Creatinine 0.8 Creat Clearance w eGFR > 60 Random Glucose 82 Calcium 9.4 Total Bilirubin 0.7 AST 19 ALT 35 D Alkaline Phosphatase 49 Total Protein 7.6 Albumin 4.3 Urine Color Yellow Urine Appearance Clear Urine pH 7.0 D Ur Specific [place] 1.020 Urine Protein Negative Urine Glucose (UA) Negative Urine Ketones Negative Urine Blood Negative Urine Nitrite Negative Urine Bilirubin Negative Urine Urobilinogen Negative Ur Leukocyte Esterase Negative RPR Titer 05/16/17 06:05 WBC RBC Hgb Hct MCV MCH MCHC RDW Plt Count MPV Sodium Potassium Chloride Carbon Dioxide Anion Gap BUN Creatinine Creat Clearance w eGFR Random Glucose Calcium Total Bilirubin AST ALT Alkaline Phosphatase Total Protein Albumin Urine Color Urine Appearance Urine pH Ur Specific [place] Urine Protein Urine Glucose (UA) Urine Ketones Urine Blood Urine Nitrite Urine Bilirubin Urine Urobilinogen Ur Leukocyte Esterase RPR Titer Nonreactive labs noted Assessment: 05/16/17 13:38 Withdrawal sx. Plan: Continue detox
[2017-05-16] MEDS ORDERED: COLLOIDAL OATMEAL 1 BAR EACH TP PRN (15:27)
[2017-05-16] MEDS: ERYTHROMYCIN 0.5% OPHTHALMIC OINTMENT 3.5 GM TUBE OD SCH (23:07)
[2017-05-16] MEDS: THIAMINE HCL 100 MG TABLET (FP) PO SCH (23:07)
[2017-05-16] MEDS: ZOLPIDEM TARTRATE 5 MG TABLET PO PRN (23:09)
[2017-05-17] MEDS: MOXIFLOXACIN HCL 0.5% OPHTHALMIC 3 ML BOTTLE OD SCH ×3 (05:50→17:54)
[2017-05-17] MEDS: chlordiazePOXIDE HCL 25 MG CAPSULE PO SCH ×2 (05:56→10:44)
--- NOTE | 2017-05-17 08:39 | EKG ---
Test Reason : Blood Pressure : / mmHG Vent. Rate : 066 BPM Atrial Rate : 066 BPM P-R Int : 122 ms QRS Dur : 092 ms QT Int : 424 ms P-R-T Axes : 052 -02 018 degrees QTc Int : 444 ms NORMAL SINUS RHYTHM NORMAL ECG WHEN COMPARED WITH ECG OF 01-JAN-2017 12:59, NO SIGNIFICANT CHANGE WAS FOUND Confirmed by YENY STERN MD ([id number]) on 05/17/2017 8:39:27 AM Referred By: Confirmed By:YENY STERN MD
[2017-05-17] MEDS: PRENATAL VITAMINS W/ FOLIC ACID TABLET (FP) PO SCH (10:44)
[2017-05-17] MEDS: METHADONE HCL 5 MG TABLET (FOR DETOX USE ONLY) PO SCH (10:44)
[2017-05-17] MEDS: NICOTINE 21 MG/24 HOURS TOPICAL PATCH TD SCH (10:45)
[2017-05-17] MEDS: chlordiazePOXIDE HCL 25 MG CAPSULE PO PRN (13:24)
--- NOTE | 2017-05-17 13:47 | PN ---
[facility] CIWA - CIWA Score Nausea/Vomitin-No Nausea/No Vomiting Muscle Tremors: 3 Anxiety: 1-Mildly Anxious Agitation: 3 Paroxysmal Sweats: 1-Minimal Palms Moist Orientation: 0-Oriented Tacttile Disturbances: 0-None Auditory Disturbances: 0-None Visual Disturbances: 0-None Headache: 0-None Present CIWA-Ar Total Score: 8 [facility] COWS - Scale Resting Pulse: 0= [place] 80 or Below Sweatin= Chills/Flushing Restless Observation: 3= Extraneous Movement Pupil Size: 0= Normal to Room Light Bone or Joint Aches: 2= Severe Diffuse Aches Runny Nose/ Eye Tearin= Runny Nose/Eyes GI Upset > 30mins: 1= Stomach Cramp Tremor Observation of Outstretched Hands: 0= None Yawning Observation: 1= 1-2x During Session Anxiety or Irritability: 0= None Goose Flesh Skin: 0=Smooth Skin COWS Score: 10 [facility] Progress Note (SOAP) Subjective: sweating restlessness general body ache Objective: 05/17/17 13:34 Vital Signs Temperature 96.8 F L 05/17/17 10:30 Pulse Rate 63 05/17/17 10:30 Respiratory Rate 18 05/17/17 10:30 Blood Pressure 112/75 05/17/17 10:30 O2 Sat by Pulse Oximetry (%) Laboratory Last Values WBC 7.1 K/mm3 (4.0-10.0) D 05/16/17 06:05 RBC 4.65 M/mm3 (4.00-5.60) 05/16/17 06:05 Hgb 14.1 GM/dL (11.7-16.9) 05/16/17 06:05 Hct 42.2 % (35.4-49) 05/16/17 06:05 MCV 90.7 fl (80-96) 05/16/17 06:05 MCH 30.4 pg (25.7-33.7) 05/16/17 06:05 MCHC 33.5 g/dl (32.0-35.9) 05/16/17 06:05 RDW 14.2 % (11.9-15.9) 05/16/17 06:05 Plt Count 341 K/MM3 (134-434) 05/16/17 06:05 MPV 8.3 fl (7.5-11.1) 05/16/17 06:05 Sodium 136 mmol/L (136-145) 05/16/17 06:05 Potassium 4.4 mmol/L (3.5-5.1) 05/16/17 06:05 Chloride 100 mmol/L (98-107) 05/16/17 06:05 Carbon Dioxide 28 mmol/L (21-32) 05/16/17 06:05 Anion Gap 8 (8-16) 05/16/17 06:05 BUN 9 mg/dL (7-18) D 05/16/17 06:05 Creatinine 0.8 mg/dL (0.7-1.3) 05/16/17 06:05 Creat Clearance w eGFR > 60 (>60) 05/16/17 06:05 Random Glucose 82 mg/dL (74-106) 05/16/17 06:05 Calcium 9.4 mg/dL (8.5-10.1) 05/16/17 06:05 Total Bilirubin 0.7 mg/dL (0.2-1.0) 05/16/17 06:05 AST 19 U/L (15-37) 05/16/17 06:05 ALT 35 U/L (12-78) D 05/16/17 06:05 Alkaline Phosphatase 49 U/L (45-117) 05/16/17 06:05 Total Protein 7.6 g/dl (6.4-8.2) 05/16/17 06:05 Albumin 4.3 g/dl (3.4-5.0) 05/16/17 06:05 Urine Color Yellow 05/15/17 15:48 Urine Appearance Clear 05/15/17 15:48 Urine pH 7.0 (5.0-8.0) D 05/15/17 15:48 Ur Specific [place] 1.020 (1.001-1.035) 05/15/17 15:48 Urine Protein Negative (NEGATIVE) 05/15/17 15:48 Urine Glucose (UA) Negative (NEGATIVE) 05/15/17 15:48 Urine Ketones Negative (NEGATIVE) 05/15/17 15:48 Urine Blood Negative (NEGATIVE) 05/15/17 15:48 Urine Nitrite Negative (NEGATIVE) 05/15/17 15:48 Urine Bilirubin Negative (NEGATIVE) 05/15/17 15:48 Urine Urobilinogen Negative mg/dL (0.2-1.0) 05/15/17 15:48 Ur Leukocyte Esterase Negative (NEGATIVE) 05/15/17 15:48 RPR Titer Nonreactive (NONREACTIVE) 05/16/17 06:05 lab noted Assessment: 05/17/17 13:47 withdrawal sx Plan: continue detox
[2017-05-17] MEDS: chlordiazePOXIDE 5 MG CAPSULE PO SCH ×2 (17:54→22:41)
[2017-05-17] MEDS: ERYTHROMYCIN 0.5% OPHTHALMIC OINTMENT 3.5 GM TUBE OD SCH (22:41)
[2017-05-17] MEDS: ZOLPIDEM TARTRATE 5 MG TABLET PO PRN (22:41)
[2017-05-17] MEDS: THIAMINE HCL 100 MG TABLET (FP) PO SCH (22:41)
[2017-05-18] MEDS: chlordiazePOXIDE 5 MG CAPSULE PO SCH ×2 (05:30→10:48)
[2017-05-18] MEDS: MOXIFLOXACIN HCL 0.5% OPHTHALMIC 3 ML BOTTLE OD SCH ×4 (05:30→17:37)
[2017-05-18] MEDS: METHADONE HCL 5 MG TABLET (FOR DETOX USE ONLY) PO SCH (10:47)
[2017-05-18] MEDS: PRENATAL VITAMINS W/ FOLIC ACID TABLET (FP) PO SCH (10:47)
[2017-05-18] MEDS: NICOTINE 21 MG/24 HOURS TOPICAL PATCH TD SCH (10:49)
--- NOTE | 2017-05-18 11:43 | PN ---
[facility] Progress Note (SOAP) Subjective: I have a painful cold sore to my lip sweats anxiety Objective: 05/18/17 11:42 Vital Signs Temperature 96.6 F L 05/18/17 09:59 Pulse Rate 61 05/18/17 09:59 Respiratory Rate 18 05/18/17 09:59 Blood Pressure 107/61 05/18/17 09:59 O2 Sat by Pulse Oximetry (%) aaox3 ambulating no acute distress cold sore to lower lip noted Assessment: 05/18/17 11:42 withdrawal sx Plan: continue detox increase fluids valtrex 500mg bid x 7 days
[2017-05-18] MEDS: valACYclovir HCL 500 MG TABLET (FP) PO SCH ×2 (13:48→22:11)
[2017-05-18] MEDS: chlordiazePOXIDE HCL 25 MG CAPSULE PO PRN (13:50)
[2017-05-18] MEDS: chlordiazePOXIDE HCL 10 MG CAPSULE PO SCH ×2 (17:37→22:11)
[2017-05-18] MEDS: THIAMINE HCL 100 MG TABLET (FP) PO SCH (22:11)
[2017-05-18] MEDS: ZOLPIDEM TARTRATE 5 MG TABLET PO PRN (22:11)
[2017-05-19] MEDS: ERYTHROMYCIN 0.5% OPHTHALMIC OINTMENT 3.5 GM TUBE OD SCH ×2 (00:09→22:00)
[2017-05-19] MEDS: MOXIFLOXACIN HCL 0.5% OPHTHALMIC 3 ML BOTTLE OD SCH ×4 (05:50→17:47)
[2017-05-19] MEDS: chlordiazePOXIDE HCL 10 MG CAPSULE PO SCH ×2 (06:06→10:54)
[2017-05-19] MEDS: PRENATAL VITAMINS W/ FOLIC ACID TABLET (FP) PO SCH (10:54)
[2017-05-19] MEDS: valACYclovir HCL 500 MG TABLET (FP) PO SCH ×2 (10:54→22:00)
[2017-05-19] MEDS: METHADONE HCL 10 MG TABLET (FOR DETOX USE ONLY) PO SCH ×2 (10:54→10:57)
[2017-05-19] MEDS: NICOTINE 21 MG/24 HOURS TOPICAL PATCH TD SCH (10:57)
--- NOTE | 2017-05-19 11:41 | PN ---
[facility] Progress Note (SOAP) Subjective: feeling so much better [place] anxiety Objective: 05/19/17 11:39 Vital Signs Temperature 96.1 F L 05/19/17 09:54 Pulse Rate 60 05/19/17 09:54 Respiratory Rate 18 05/19/17 09:54 Blood Pressure 108/66 05/19/17 09:54 O2 Sat by Pulse Oximetry (%) aaox3 ambulating no acute distress Assessment: 05/19/17 11:40 mild withdrawal sx Plan: continue detox d/c in am
[2017-05-19] MEDS: ZOLPIDEM TARTRATE 5 MG TABLET PO PRN (22:00)
[2017-05-19] MEDS: THIAMINE HCL 100 MG TABLET (FP) PO SCH (22:00)
[2017-05-19 22:07] VITALS: PULSE 61
[2017-05-20] MEDS ORDERED: METHADONE HCL 5 MG TABLET (FOR DETOX USE ONLY) PO SCH (06:00)
[2017-05-20] MEDS: MOXIFLOXACIN HCL 0.5% OPHTHALMIC 3 ML BOTTLE OD SCH (06:31)
[2017-05-20 07:03] VITALS: BP 126/69; TEMP 96.3
--- NOTE | 2017-05-20 10:42 | DS ---
[facility] Detox Discharge Summary Admission Date: 05/15/17 Discharge Date: 05/20/17 - History Present History: Alcohol Dependence, Cannabis Dependence, Cocaine Dependence, Opioid Dependence - Physical Exam Results Vital Signs: Vital Signs Temperature 96.3 F L 05/20/17 07:02 Pulse Rate 61 05/20/17 07:02 Respiratory Rate 20 05/20/17 07:02 Blood Pressure 126/69 05/20/17 07:02 O2 Sat by Pulse Oximetry (%) - Treatment Hospital Course: Detox Protocol Followed, Detoxed Safely, Responded well, Discharged Condition Good - Medication Discharge Medications: Ambulatory Orders Zolpidem Tartrate [Ambien] 10 mg PO HS PRN #14 tablet MDD 10 08/04/16 Quetiapine Fumarate [Seroquel] 100 mg PO HS #30 tablet 01/01/17 Erythromycin 0.5% Eye Ointment [Erythromycin 0.5% Eye Ointment -] 1 applic OD HS 05/15/17 Moxifloxacin HCl [Vigamox 0.5% Eye Drops -] 1 drop OD QID 05/15/17 - Diagnosis (1) Alcohol dependence with uncomplicated withdrawal Status: Chronic (2) Opioid dependence with withdrawal Status: Chronic (3) Sedative, hypnotic, or anxiolytic withdrawal Status: Chronic (4) Cocaine dependence, uncomplicated Status: Chronic (5) Nicotine dependence Status: Chronic Qualifiers: Nicotine product type: cigarettes Substance use status: uncomplicated Qualified Code(s): F17.210 - Nicotine dependence, cigarettes, uncomplicated - AMA Did Patient Leave Against Medical Advice: No
== END 2017-05-20 07:35 | disposition home or self-care (01) | DRG 773 ==
LOC: YASAS 10:39 → Y6N 15:15
PROVIDERS: ADMIT Internal Medicine; ATTEND Internal Medicine
PROC: HZ2ZZZZ Detoxification Services for Substance Abuse Treatment (ICD-10-PCS; principal; 2017-05-15)
DX: F11.23 Opioid dependence with withdrawal (principal); F10.230 Alcohol dependence with withdrawal, uncomplicated; F14.20 Cocaine dependence, uncomplicated; F17.210 Nicotine dependence, cigarettes, uncomplicated; F19.282 Other psychoactive substance dependence with psychoactive substance-induced sleep disorder; F32.9 Major depressive disorder, single episode, unspecified
CPT/HCPCS: 36415; 80053; 81003; 85027; 86593; 93005; 93010

== ENCOUNTER 2017-10-23 12:23 | Inpatient (IN) | payer OTHER ==
[2017-10-23 14:32] VITALS: BMI 24.9
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
[2017-10-23] MEDS ORDERED: P-EPHED 60MG/TRIPROLIDI 2.5MG TABLET PO PRN (19:11)
[2017-10-23] MEDS ORDERED: IBUPROFEN 400 MG TABLET (FP) PO PRN (19:11)
[2017-10-23] MEDS ORDERED: guaiFENesin/D-METHORPHAN HB 10 ML UNIT-DOSE CUPS PO PRN (19:11)
[2017-10-23] MEDS ORDERED: LOPERAMIDE HCL 2 MG CAPSULE PO PRN (19:11)
[2017-10-23] MEDS ORDERED: MENTHOL/PHENOL 1 EACH UD MM PRN (19:11)
[2017-10-23] MEDS ORDERED: MAGNESIUM CITRATE 300 ML BOTTLE PO PRN (19:11)
[2017-10-23] MEDS ORDERED: MAGNESIUM HYDROX 2400MG/30ML ORAL SUSPENSION 30 ML CUP PO PRN (19:11)
[2017-10-23] MEDS ORDERED: ACETAMINOPHEN 325 MG TABLET (FP) PO PRN (19:11)
[2017-10-23] MEDS ORDERED: hydrOXYzine PAMOATE 50 MG CAPSULE (FP) PO PRN (19:11)
[2017-10-23] MEDS ORDERED: MAG HYDROX/AL HYDROX/SIMETH 30 ML UNIT-DOSE CUP PO PRN (19:11)
[2017-10-23] MEDS ORDERED: METHADONE HCL 10 MG TABLET (FOR DETOX USE ONLY) PO ONE ×2 (19:11→23:00)
[2017-10-23] MEDS ORDERED: HYDROCORTISONE 0.5% TOPICAL CREAM 30 GM TUBE TP PRN (19:22)
[2017-10-23] MEDS: chlordiazePOXIDE HCL 25 MG CAPSULE PO PRN (20:57)
[2017-10-23] MEDS ORDERED: MELATONIN 5 MG TABLETS PO PRN (22:00)
[2017-10-23] MEDS: chlordiazePOXIDE HCL 25 MG CAPSULE PO SCH (22:14)
[2017-10-23] MEDS: THIAMINE HCL 100 MG TABLET (FP) PO SCH (22:14)
[2017-10-24 01:20] LABS: URINE APPEARANCE CLEAR; URINE BILIRUBIN NEGATIVE (<2.0 mg/dL); URINE BLOOD NEGATIVE (NEGATIVE); URINE COLOR YELLOW; URINE GLUCOSE (UA) NEGATIVE (NEGATIVE); URINE KETONE NEGATIVE (NEGATIVE); URINE LEUK ESTERASE NEGATIVE (NEGATIVE); URINE NITRITE NEGATIVE (NEGATIVE); URINE PROTEIN NEGATIVE (NEGATIVE); URINE UROBILINOGEN NEGATIVE mg/dL (0.2-1.0)
[2017-10-24] MEDS: chlordiazePOXIDE HCL 25 MG CAPSULE PO SCH ×4 (05:36→22:30)
[2017-10-24] MEDS ORDERED: METHADONE HCL 10 MG TABLET (FOR DETOX USE ONLY) PO SCH (10:00)
[2017-10-24] MEDS: PANTOPRAZOLE 20 MG TABLET (FP) PO SCH (10:13)
[2017-10-24] MEDS: NICOTINE 21 MG/24 HOURS TOPICAL PATCH TD SCH (10:13)
[2017-10-24] MEDS: PRENATAL VITAMINS W/ FOLIC ACID TABLET (FP) PO SCH (10:13)
[2017-10-24 10:42] LABS: HEMATOCRIT 40.6 % (35.4-49); HEMOGLOBIN 14.1 GM/dL (11.7-16.9); MCH 31.1 pg (25.7-33.7); MCHC 34.6 g/dl (32.0-35.9); MEAN CELL VOLUME 89.8 fl (80-96); MEAN PLT VOLUME 8.1 fl (7.5-11.1); PLATELET COUNT 286 K/MM3 (134-434); RBC 4.52 M/mm3 (4.00-5.60); RDW 14.6 % (11.9-15.9); WHITE BLOOD COUNT 6.4 K/mm3 (4.0-10.0)
[2017-10-24 10:49] LABS: CHLORIDE 105 mmol/L (98-107); POTASSIUM 3.8 mmol/L (3.5-5.1); SODIUM 139 mmol/L (136-145)
[2017-10-24 10:55] LABS: ALBUMIN 3.7 g/dl (3.4-5.0); ALK PHOS 38 U/L (45-117); ANION GAP 4 (8-16); BILIRUBIN,TOTAL 0.6 mg/dL (0.2-1.0); BLOOD UREA NITROGEN 10 mg/dL (7-18); CALCIUM 8.4 mg/dL (8.5-10.1); CO2 30 mmol/L (21-32); CREATININE 0.7 mg/dL (0.7-1.3); GLUCOSE,RANDOM 84 mg/dL (74-106); SGOT/AST 15 U/L (15-37); SGPT/ALT 23 U/L (12-78); TOT PROT 6.6 g/dl (6.4-8.2)
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
--- NOTE | 2017-10-24 16:24 | PN ---
[facility] CIWA - CIWA Score Nausea/Vomitin Muscle Tremors: 3 Anxiety: 3 Agitation: 2 Paroxysmal Sweats: 3 Orientation: 0-Oriented Tacttile Disturbances: 0-None Auditory Disturbances: 0-None Visual Disturbances: 0-None Headache: 0-None Present CIWA-Ar Total Score: 14 [facility] COWS - Scale Resting Pulse: 0= [place] 80 or Below Sweatin=Flushed/Facial Moisture Restless Observation: 1= Difficult to Sit Still Pupil Size: 0= Normal to Room Light Bone or Joint Aches: 0= None Runny Nose/ Eye Tearin= Nasal Congestion GI Upset > 30mins: 2= Nausea/Diarrhea Tremor Observation of Outstretched Hands: 2= Slight Tremor Visible Yawning Observation: 0= None Anxiety or Irritability: 2=Irritable/Anxious Goose Flesh Skin: 0=Smooth Skin COWS Score: 10 [facility] Progress Note (SOAP) Subjective: sleep disturbance sweats shakes abdoinal cramp Objective: 10/24/17 16:22 Sleepy, arouses to verbal stimuli Not in acute distress Vital Signs Temperature 97.0 F L 10/24/17 14:06 Pulse Rate 61 10/24/17 14:06 Respiratory Rate 18 10/24/17 14:06 Blood Pressure 127/76 10/24/17 14:06 O2 Sat by Pulse Oximetry (%) Laboratory Last Values WBC 6.4 K/mm3 (4.0-10.0) 10/24/17 07:50 RBC 4.52 M/mm3 (4.00-5.60) 10/24/17 07:50 Hgb 14.1 GM/dL (11.7-16.9) 10/24/17 07:50 Hct 40.6 % (35.4-49) 10/24/17 07:50 MCV 89.8 fl (80-96) 10/24/17 07:50 MCH 31.1 pg (25.7-33.7) 10/24/17 07:50 MCHC 34.6 g/dl (32.0-35.9) 10/24/17 07:50 RDW 14.6 % (11.9-15.9) 10/24/17 07:50 Plt Count 286 K/MM3 (134-434) 10/24/17 07:50 MPV 8.1 fl (7.5-11.1) 10/24/17 07:50 Sodium 139 mmol/L (136-145) 10/24/17 07:50 Potassium 3.8 mmol/L (3.5-5.1) 10/24/17 07:50 Chloride 105 mmol/L (98-107) 10/24/17 07:50 Carbon Dioxide 30 mmol/L (21-32) 10/24/17 07:50 Anion Gap 4 (8-16) L 10/24/17 07:50 BUN 10 mg/dL (7-18) D 10/24/17 07:50 Creatinine 0.7 mg/dL (0.7-1.3) 10/24/17 07:50 Creat Clearance w eGFR > 60 (>60) 10/24/17 07:50 Random Glucose 84 mg/dL (74-106) 10/24/17 07:50 Calcium 8.4 mg/dL (8.5-10.1) L 10/24/17 07:50 Total Bilirubin 0.6 mg/dL (0.2-1.0) 10/24/17 07:50 AST 15 U/L (15-37) 10/24/17 07:50 ALT 23 U/L (12-78) D 10/24/17 07:50 Alkaline Phosphatase 38 U/L (45-117) L 10/24/17 07:50 Total Protein 6.6 g/dl (6.4-8.2) 10/24/17 07:50 Albumin 3.7 g/dl (3.4-5.0) 10/24/17 07:50 Urine Color Yellow 10/23/17 22:20 Urine Appearance Clear 10/23/17 22:20 Urine pH 7.0 (5.0-8.0) D 10/23/17 22:20 Ur Specific [place] 1.015 (1.001-1.035) 10/23/17 22:20 Urine Protein Negative (NEGATIVE) 10/23/17 22:20 Urine Glucose (UA) Negative (NEGATIVE) 10/23/17 22:20 Urine Ketones Negative (NEGATIVE) 10/23/17 22:20 Urine Blood Negative (NEGATIVE) 10/23/17 22:20 Urine Nitrite Negative (NEGATIVE) 10/23/17 22:20 Urine Bilirubin Negative (<2.0 mg/dL) 10/23/17 22:20 Urine Urobilinogen Negative mg/dL (0.2-1.0) 10/23/17 22:20 Ur Leukocyte Esterase Negative (NEGATIVE) 10/23/17 22:20 RPR Titer Nonreactive (NONREACTIVE) 10/24/17 07:50 labs noted Assessment: 10/24/17 16:23 withdrawal sx Plan: continue detox
[2017-10-24] MEDS: QUEtiapine FUMARATE 100 MG TABLET (FP) PO SCH (22:30)
[2017-10-24] MEDS: THIAMINE HCL 100 MG TABLET (FP) PO SCH (22:30)
[2017-10-25] MEDS: chlordiazePOXIDE HCL 25 MG CAPSULE PO SCH ×3 (05:29→17:29)
[2017-10-25] MEDS ORDERED: ONDANSETRON *ODT* 4 MG TABLET SL PRN (10:35)
[2017-10-25] MEDS: NICOTINE 21 MG/24 HOURS TOPICAL PATCH TD SCH (10:44)
[2017-10-25] MEDS: PRENATAL VITAMINS W/ FOLIC ACID TABLET (FP) PO SCH (10:44)
[2017-10-25] MEDS: PANTOPRAZOLE 20 MG TABLET (FP) PO SCH (10:44)
[2017-10-25] MEDS: METHADONE HCL 5 MG TABLET (FOR DETOX USE ONLY) PO SCH (10:44)
--- NOTE | 2017-10-25 11:11 | PN ---
S CIWA - CIWA Score Nausea/Vomitin-Mild Nausea/No Vomiting Muscle Tremors: 4-Moderate,w/Arms Extend Anxiety: 2 Agitation: 3 Paroxysmal Sweats: 3 Orientation: 0-Oriented Tacttile Disturbances: 0-None Auditory Disturbances: 0-None Visual Disturbances: 0-None Headache: 0-None Present CIWA-Ar Total Score: 13 [facility] COWS - Scale Resting Pulse: 0= [place] 80 or Below Sweatin=Flushed/Facial Moisture Restless Observation: 1= Difficult to Sit Still Pupil Size: 0= Normal to Room Light Bone or Joint Aches: 2= Severe Diffuse Aches Runny Nose/ Eye Tearin= Nasal Congestion GI Upset > 30mins: 0= None Tremor Observation of Outstretched Hands: 2= Slight Tremor Visible Yawning Observation: 1= 1-2x During Session Anxiety or Irritability: 2=Irritable/Anxious Goose Flesh Skin: 3=Piloerection COWS Score: 14 [facility] Progress Note (SOAP) Subjective: sweats body aches chills agitation shakes nausea Objective: 10/25/17 11:10 Vital Signs Temperature 97.9 F 10/24/17 22:33 Pulse Rate 64 10/25/17 06:00 Respiratory Rate 18 10/25/17 06:00 Blood Pressure 127/78 10/25/17 06:00 O2 Sat by Pulse Oximetry (%) Laboratory Tests 10/23/17 10/24/17 10/24/17 22:20 07:50 07:50 WBC 6.4 RBC 4.52 Hgb 14.1 Hct 40.6 MCV 89.8 MCH 31.1 MCHC 34.6 RDW 14.6 Plt Count 286 MPV 8.1 Sodium 139 Potassium 3.8 Chloride 105 Carbon Dioxide 30 Anion Gap 4 L BUN 10 D Creatinine 0.7 Creat Clearance w eGFR > 60 Random Glucose 84 Calcium 8.4 L Total Bilirubin 0.6 AST 15 ALT 23 D Alkaline Phosphatase 38 L Total Protein 6.6 Albumin 3.7 Urine Color Yellow Urine Appearance Clear Urine pH 7.0 D Ur Specific [place] 1.015 Urine Protein Negative Urine Glucose (UA) Negative Urine Ketones Negative Urine Blood Negative Urine Nitrite Negative Urine Bilirubin Negative Urine Urobilinogen Negative Ur Leukocyte Esterase Negative RPR Titer 10/24/17 07:50 WBC RBC Hgb Hct MCV MCH MCHC RDW Plt Count MPV Sodium Potassium Chloride Carbon Dioxide Anion Gap BUN Creatinine Creat Clearance w eGFR Random Glucose Calcium Total Bilirubin AST ALT Alkaline Phosphatase Total Protein Albumin Urine Color Urine Appearance Urine pH Ur Specific [place] Urine Protein Urine Glucose (UA) Urine Ketones Urine Blood Urine Nitrite Urine Bilirubin Urine Urobilinogen Ur Leukocyte Esterase RPR Titer Nonreactive aaox3 ambulating no acute distress Assessment: 10/25/17 11:10 withdrawal sx Plan: continue detox increase fluids zofran prn
[2017-10-25] MEDS: chlordiazePOXIDE HCL 25 MG CAPSULE PO PRN (20:36)
[2017-10-25] MEDS: THIAMINE HCL 100 MG TABLET (FP) PO SCH (22:29)
[2017-10-25] MEDS: ZOLPIDEM TARTRATE 10 MG TABLET (PARK CARE ONLY) PO PRN (22:29)
[2017-10-25] MEDS: QUEtiapine FUMARATE 100 MG TABLET (FP) PO SCH (22:29)
[2017-10-25] MEDS: chlordiazePOXIDE 5 MG CAPSULE PO SCH (22:29)
[2017-10-26] MEDS: chlordiazePOXIDE 5 MG CAPSULE PO SCH ×3 (05:28→17:20)
[2017-10-26] MEDS ORDERED: CYCLOBENZAPRINE HCL 10 MG TABLET (FP) PO PRN (09:03)
[2017-10-26] MEDS: PANTOPRAZOLE 20 MG TABLET (FP) PO SCH (10:49)
[2017-10-26] MEDS: METHADONE HCL 5 MG TABLET (FOR DETOX USE ONLY) PO SCH (10:49)
[2017-10-26] MEDS: cloNIDine HCL 0.1 MG TABLET PO SCH ×2 (10:49→22:23)
[2017-10-26] MEDS: PRENATAL VITAMINS W/ FOLIC ACID TABLET (FP) PO SCH (10:49)
[2017-10-26] MEDS: NICOTINE 21 MG/24 HOURS TOPICAL PATCH TD SCH (10:50)
--- NOTE | 2017-10-26 11:33 | PN ---
S Progress Note (SOAP) Subjective: ALERT,IRRITABLE,ANXIOUS,INTERRUPTED SLEEP,PAIN IN THE BODY AND BACK Objective: 10/26/17 11:31 Vital Signs Temperature 96.8 F L 10/26/17 09:56 Pulse Rate 56 L 10/26/17 09:56 Respiratory Rate 18 10/26/17 09:56 Blood Pressure 109/62 10/26/17 09:56 O2 Sat by Pulse Oximetry (%) Assessment: 10/26/17 11:32 WITHDRAWAL SYMPTOM Plan: CONTINUE DETOX,FLEXERIL 10 MGS PO TID PRN,CLONIDINE 0.1 MG PO BID
[2017-10-26] MEDS ORDERED: COLLOIDAL OATMEAL 1 BAR EACH TP PRN (18:54)
[2017-10-26] MEDS: chlordiazePOXIDE HCL 10 MG CAPSULE PO SCH (22:23)
[2017-10-26] MEDS: THIAMINE HCL 100 MG TABLET (FP) PO SCH (22:23)
[2017-10-26] MEDS: QUEtiapine FUMARATE 100 MG TABLET (FP) PO SCH (22:23)
[2017-10-26] MEDS: ZOLPIDEM TARTRATE 10 MG TABLET (PARK CARE ONLY) PO PRN (22:24)
--- NOTE | 2017-10-27 00:52 | EKG ---
Test Reason : Blood Pressure : / mmHG Vent. Rate : 057 BPM Atrial Rate : 057 BPM P-R Int : 132 ms QRS Dur : 086 ms QT Int : 430 ms P-R-T Axes : 061 017 030 degrees QTc Int : 418 ms SINUS BRADYCARDIA OTHERWISE NORMAL ECG WHEN COMPARED WITH ECG OF 18-AUG-2017 13:59, T WAVE VARIATION Confirmed by YANETH CLEMONS MD ([id number]) on 10/27/2017 12:51:38 AM Referred By: Confirmed By:YANETH CLEMONS MD
[2017-10-27] MEDS: chlordiazePOXIDE HCL 10 MG CAPSULE PO SCH ×3 (05:49→17:59)
[2017-10-27] MEDS ORDERED: METHADONE HCL 10 MG TABLET (FOR DETOX USE ONLY) PO SCH (10:00)
[2017-10-27] MEDS: PRENATAL VITAMINS W/ FOLIC ACID TABLET (FP) PO SCH (10:22)
[2017-10-27] MEDS: cloNIDine HCL 0.1 MG TABLET PO SCH ×2 (10:22→22:14)
[2017-10-27] MEDS: PANTOPRAZOLE 20 MG TABLET (FP) PO SCH (10:22)
[2017-10-27] MEDS: NICOTINE 21 MG/24 HOURS TOPICAL PATCH TD SCH (10:23)
--- NOTE | 2017-10-27 11:37 | PN ---
[facility] Progress Note (SOAP) Subjective: ALERT,INTERRUPTED SLEEP,PAIN IN THE BODY Objective: 10/27/17 11:37 Vital Signs Temperature 97.8 F 10/27/17 09:14 Pulse Rate 65 10/27/17 09:14 Respiratory Rate 18 10/27/17 09:14 Blood Pressure 118/70 10/27/17 09:14 O2 Sat by Pulse Oximetry (%) Assessment: 10/27/17 11:37 WITHDRAWAL SYMPTOM Plan: DISCHARGE IN AM
[2017-10-27] MEDS: QUEtiapine FUMARATE 100 MG TABLET (FP) PO SCH (22:14)
[2017-10-27] MEDS: THIAMINE HCL 100 MG TABLET (FP) PO SCH (22:14)
[2017-10-27] MEDS: ZOLPIDEM TARTRATE 10 MG TABLET (PARK CARE ONLY) PO PRN (22:14)
[2017-10-28] MEDS ORDERED: METHADONE HCL 5 MG TABLET (FOR DETOX USE ONLY) PO SCH (06:00)
[2017-10-28 07:03] VITALS: BP 89/61; PULSE 58; TEMP 96.3
--- NOTE | 2017-10-28 08:31 | PN ---
S Progress Note (SOAP) Subjective: ALERT,NO COMPLAINT Objective: 10/28/17 08:30 Vital Signs Temperature 96.3 F L 10/28/17 07:02 Pulse Rate 58 L 10/28/17 07:02 Respiratory Rate 16 10/28/17 07:02 Blood Pressure 89/61 10/28/17 07:02 O2 Sat by Pulse Oximetry (%) Assessment: 10/28/17 08:30 DETOX COMPLETE,NO WITHDRAWAL SYMPTOM Plan: DISCHARGE TODAY,FOLLOW UP WITH AFTER CARE PROGRAM ARRANGEMENT
--- NOTE | 2017-10-28 08:36 | DS ---
[facility] Detox Discharge Summary Admission Date: 10/23/17 Discharge Date: 10/28/17 - History Present History: Alcohol Dependence, Opioid Dependence, Sedative Dependence Additional Comments: FOLLOW UP WITH AFTER CARE PROGRAM ARRANGEMENT Pertinent Past History: GERD NICOTINE DEPENDENCE ECZEMA - Physical Exam Results Vital Signs: Vital Signs Temperature 96.3 F L 10/28/17 07:02 Pulse Rate 58 L 10/28/17 07:02 Respiratory Rate 16 10/28/17 07:02 Blood Pressure 89/61 10/28/17 07:02 O2 Sat by Pulse Oximetry (%) Pertinent Admission Physical Exam Findings: WITHDRAWAL SIGNS AND SYMPTOM Vital Signs Temperature 96.3 F L 10/28/17 07:02 Pulse Rate 58 L 10/28/17 07:02 Respiratory Rate 16 10/28/17 07:02 Blood Pressure 89/61 10/28/17 07:02 O2 Sat by Pulse Oximetry (%) Laboratory Last Values WBC 6.4 K/mm3 (4.0-10.0) 10/24/17 07:50 RBC 4.52 M/mm3 (4.00-5.60) 10/24/17 07:50 Hgb 14.1 GM/dL (11.7-16.9) 10/24/17 07:50 Hct 40.6 % (35.4-49) 10/24/17 07:50 MCV 89.8 fl (80-96) 10/24/17 07:50 MCH 31.1 pg (25.7-33.7) 10/24/17 07:50 MCHC 34.6 g/dl (32.0-35.9) 10/24/17 07:50 RDW 14.6 % (11.9-15.9) 10/24/17 07:50 Plt Count 286 K/MM3 (134-434) 10/24/17 07:50 MPV 8.1 fl (7.5-11.1) 10/24/17 07:50 Sodium 139 mmol/L (136-145) 10/24/17 07:50 Potassium 3.8 mmol/L (3.5-5.1) 10/24/17 07:50 Chloride 105 mmol/L (98-107) 10/24/17 07:50 Carbon Dioxide 30 mmol/L (21-32) 10/24/17 07:50 Anion Gap 4 (8-16) L 10/24/17 07:50 BUN 10 mg/dL (7-18) D 10/24/17 07:50 Creatinine 0.7 mg/dL (0.7-1.3) 10/24/17 07:50 Creat Clearance w eGFR > 60 (>60) 10/24/17 07:50 Random Glucose 84 mg/dL (74-106) 10/24/17 07:50 Calcium 8.4 mg/dL (8.5-10.1) L 10/24/17 07:50 Total Bilirubin 0.6 mg/dL (0.2-1.0) 10/24/17 07:50 AST 15 U/L (15-37) 10/24/17 07:50 ALT 23 U/L (12-78) D 10/24/17 07:50 Alkaline Phosphatase 38 U/L (45-117) L 10/24/17 07:50 Total Protein 6.6 g/dl (6.4-8.2) 10/24/17 07:50 Albumin 3.7 g/dl (3.4-5.0) 10/24/17 07:50 Urine Color Yellow 10/23/17 22:20 Urine Appearance Clear 10/23/17 22:20 Urine pH 7.0 (5.0-8.0) D 10/23/17 22:20 Ur Specific [place] 1.015 (1.001-1.035) 10/23/17 22:20 Urine Protein Negative (NEGATIVE) 10/23/17 22:20 Urine Glucose (UA) Negative (NEGATIVE) 10/23/17 22:20 Urine Ketones Negative (NEGATIVE) 10/23/17 22:20 Urine Blood Negative (NEGATIVE) 10/23/17 22:20 Urine Nitrite Negative (NEGATIVE) 10/23/17 22:20 Urine Bilirubin Negative (<2.0 mg/dL) 10/23/17 22:20 Urine Urobilinogen Negative mg/dL (0.2-1.0) 10/23/17 22:20 Ur Leukocyte Esterase Negative (NEGATIVE) 10/23/17 22:20 RPR Titer Nonreactive (NONREACTIVE) 10/24/17 07:50 - Treatment Hospital Course: Detox Protocol Followed, Detoxed Safely, Responded well, Discharged Condition Good Patient has Accepted a Rehab Referral to: DECLINED - Medication Discharge Medications: Ambulatory Orders Quetiapine Fumarate [Seroquel] 100 mg PO HS #30 tablet 01/01/17 Zolpidem Tartrate [Ambien] 10 mg PO HS MDD 10 08/18/17 Quetiapine Fumarate [Seroquel] 100 mg PO HS #30 tablet 10/24/17 - Diagnosis (1) Opioid dependence with withdrawal Status: Acute (2) Alcohol dependence with uncomplicated withdrawal Status: Acute (3) Sedative, hypnotic, or anxiolytic withdrawal Status: Acute (4) Chronic GERD Status: Chronic (5) Insomnia Status: Chronic Qualifiers: Insomnia type: unspecified Qualified Code(s): G47.00 - Insomnia, unspecified (6) Nicotine dependence Status: Chronic Qualifiers: Nicotine product type: cigarettes Substance use status: in withdrawal Qualified Code(s): F17.213 - Nicotine dependence, cigarettes, with withdrawal (7) Tooth decay Status: Chronic (8) Eczema Status: Chronic Qualifiers: Eczema type: unspecified Qualified Code(s): L30.9 - Dermatitis, unspecified (9) Drug-induced mood disorder Status: Suspected - AMA Did Patient Leave Against Medical Advice: No
== END 2017-10-28 06:50 | disposition home or self-care (01) | DRG 773 ==
LOC: YASAS 12:23 → Y6N 19:32
PROVIDERS: ADMIT Surgery; ATTEND Surgery
PROC: HZ2ZZZZ Detoxification Services for Substance Abuse Treatment (ICD-10-PCS; principal; 2017-10-23)
DX: F11.23 Opioid dependence with withdrawal (principal); F13.230 Sedative, hypnotic or anxiolytic dependence with withdrawal, uncomplicated; F10.230 Alcohol dependence with withdrawal, uncomplicated; F17.213 Nicotine dependence, cigarettes, with withdrawal; F19.24 Other psychoactive substance dependence with psychoactive substance-induced mood disorder; G47.00 Insomnia, unspecified; K21.9 Gastro-esophageal reflux disease without esophagitis; L30.9 Dermatitis, unspecified; K02.9 Dental caries, unspecified; K05.10 Chronic gingivitis, plaque induced; Z91.14 Patient's other noncompliance with medication regimen
CPT/HCPCS: 36415; 80053; 81003; 85027; 86593; 93005; 93010; J0735

== ENCOUNTER 2018-10-09 11:14 | Inpatient (IN) | payer OTHER ==
[2018-10-09 13:49] VITALS: BMI 27.0
--- NOTE | 2018-10-09 15:27 | HP ---
COWS - Scale Resting Pulse: 1= [place] 81-100 Sweatin=Flushed/Facial Moisture Restless Observation: 1= Difficult to Sit Still Pupil Size: 0= Normal to Room Light Bone or Joint Aches: 2= Severe Diffuse Aches Runny Nose/ Eye Tearin= Runny Nose/Eyes GI Upset > 30mins: 3= Vomiting/Diarrhea Tremor Observation: 2= Slight Tremor Visible Yawning Observation: 1= 1-2x During Session Anxiety or Irritability: 4=Extreme Anxiety Goose Flesh Skin: 0=Smooth Skin COWS Score: 18 CIWA Score Nausea/Vomitin Muscle Tremors: 3 Anxiety: 5 Agitation: 3 Paroxysmal Sweats: 3 Orientation: 0-Oriented Tacttile Disturbances: 0-None Auditory Disturbances: 0-None Visual Disturbances: 0-None Headache: 1-Very Mild CIWA-Ar Total Score: 18 - Admission Criteria OASAS Guidelines: Admission for Medically Managed Detox: Requires at least one of the followin. CIWA greater than 12 2. Seizures within the past 24 hours 3. Delirium tremens within the past 24 hours 4. Hallucinations within the past 24 hours 5. Acute intervention needed for co occurring medical disorder 6. Acute intervention needed for co occurring psychiatric disorder 7. Severe withdrawal that cannot be handled at a lower level of care (continued vomiting, continued diarrhea, abnormal vital signs) requiring intravenous medication and/or fluids 8. Patient presents the following: CIWA greater than 12 Admission Criteria Met: Admission criteria met Admission ROS [facility] Chief Complaint: "I want to come off my methadone" Allergies/Adverse Reactions: Allergies Allergy/AdvReac Type Severity Reaction Status Date / Time No Known Allergies Allergy Verified 10/23/17 18:45 History of Present Illness: 43 y/o male known to this program requesting detox from heroin and alcohol. Pt states he is in a methadone program at [facility] on a 20mg regimen. He states he was tapered down from 100mg to 20mg in 2 months. Last medicated yesterday. He is requesting to be tapered off the 20mg with us now. His dose could not be verified at this time because the center is closed for the weekend Utox is positive for Opiates and methadone Patient Name: Costa Mejía Date: 1975 Address: [address] [place] [address] Sex: Male Rx Written Rx Dispensed Drug Quantity Days Supply Prescriber Name 09/08/2018 09/12/2018 alprazolam 1 mg tablet 60 30 Kirsten, Romeeda 08/11/2018 09/01/2018 zolpidem tartrate 10 mg tablet 30 30 Valente Singh 08/11/2018 08/12/2018 alprazolam 1 mg tablet 60 30 Francisco Valente 07/12/2018 07/28/2018 zolpidem tartrate 10 mg tablet 30 30 Lebron Silverman, TWAN 07/12/2018 07/12/2018 alprazolam 1 mg tablet 60 30 Lebron Silverman, [employer] 06/11/2018 06/24/2018 zolpidem tartrate 10 mg tablet 30 30 Kirsten, Romeeda 06/11/2018 06/11/2018 alprazolam 1 mg tablet 60 30 Kirsten, Romeeda 04/28/2018 05/24/2018 zolpidem tartrate 10 mg tablet 30 30 Kirsten, Romeeda 05/12/2018 05/12/2018 alprazolam 1 mg tablet 40 20 Kirsten, Romeeda 04/28/2018 04/28/2018 alprazolam 0.5 mg tablet 28 14 Kirsten, Romeeda 03/30/2018 04/24/2018 zolpidem tartrate 10 mg tablet 30 30 Kirsten, Romeeda 03/30/2018 03/30/2018 alprazolam 0.5 mg tablet 40 20 Kirsten, Romeeda 03/15/2018 03/16/2018 clonazepam 1 mg tablet 14 14 Kirsten, Romeeda 03/15/2018 03/16/2018 zolpidem tartrate 10 mg tablet 30 30 Kirsten, Romeeda 02/15/2018 02/15/2018 clonazepam 1 mg tablet 30 30 Kirsten, Romeeda 02/15/2018 02/15/2018 zolpidem tartrate 10 mg tablet 30 30 Kirsten, Romeeda He is on xanax, seroquel and ambien for anxiety, depression, PTSD and insomnia. Denies medical hx Denies previous nor current SI. Exam Limitations: No Limitations - Ebola screening Have you traveled outside of the country in the last 21 days: No (N) Have you had contact with anyone from an Ebola affected area: No Do you have a fever: No - Review of Systems Constitutional: Loss of Appetite, Changes in sleep, Unintentional Wgt. Loss EENT: reports: Blurred Vision (R eye), Nose Congestion, Dental Problems ( missing teeth), Odynophagia Respiratory: reports: No Symptoms reported Cardiac: reports: No Symptoms Reported GI: reports: Diarrhea, Nausea, Poor Appetite, Vomiting : reports: No Symptoms Reported Musculoskeletal: reports: Back Pain, Joint Pain Integumentary: reports: No Symptoms Reported Neuro: reports: Headache Endocrine: reports: No Symptoms Reported Hematology: reports: No Symptoms Reported Psychiatric: reports: Judgement Intact, Orientated x3, Agitated, Anxious Other Systems: Reviewed and Negative Patient History - Patient Medical History Hx Anemia: No Hx Asthma: No Hx Chronic Obstructive Pulmonary Disease (COPD): No Hx Cancer: No Hx Cardiac Disorders: No Hx Congestive Heart Failure: No Hx Hypertension: No Hx Hypercholesterolemia: No Hx Pacemaker: No HX Cerebrovascular Accident: No Hx Seizures: No Hx Dementia: No Hx Diabetes: No Hx Gastrointestinal Disorders: No Hx Liver Disease: No Hx Genitourinary Disorders: No Hx Sexually Transmitted Disorders: No Hx Renal Disease (ESRD): No Hx Thyroid Disease: No Hx Human Immunodeficiency Virus (HIV): No (NEGATIVE HX) Hx Hepatitis C: No (DENIES) Hx Depression: Yes Hx Suicide Attempt: No (denies) Hx Bipolar Disorder: No Hx Schizophrenia: No - Patient Surgical History Past Surgical History: Yes Hx Neurologic Surgery: No Hx Cataract Extraction: No Hx Cardiac Surgery: No Hx Lung Surgery: No Hx Breast Surgery: No Hx Breast Biopsy: No Hx Abdominal Surgery: No Hx Appendectomy: No Hx Cholecystectomy: No Hx Genitourinary Surgery: No Hx Section: No Hx Orthopedic Surgery: No Hx Hysterectomy: No Other Surgical History: right eye due to trauma in 2016 Anesthesia Reaction: No - PPD History Previous Implant?: Yes Documented Results: Negative w/proof Implanted On Prior [facility] Admission?: Yes Date: 08/20/17 Results: 0 MM PPD to be Administered?: Yes - Reproductive History Patient is a Female of Child Bearing Age (11 -55 yrs old): No - Smoking Cessation Smoking history: Current every day smoker Have you smoked in the past 12 months: Yes Aproximately how many cigarettes per day: 20 Cigars Per Day: 0 Hx Chewing Tobacco Use: No Initiated information on smoking cessation: Yes 'Breaking Loose' booklet given: 10/09/18 - Substance & Tx. History Hx Alcohol Use: Yes Hx Substance Use: Yes Substance Use Type: Alcohol, Heroin, Marijuana, Prescribed, Tranquilizers Hx Substance Use Treatment: Yes - Substances abused Alcohol Substance route: Oral Frequency: Daily Amount used: 1/2 pt - 1 pt Age of first use: 19 Date of last use: 10/07/18 Heroin Substance route: Inhalation Frequency: Daily Amount used: 2 bags Age of first use: 41 Date of last use: 10/08/18 Family Disease History - Family Disease History Family Disease History: Heart Disease: Father (HTN, CAD,ETOH), CA: Grandparent ( from ca ETOH), Other: Father, Mother (thyroid d/o), Brother (ETOH) Admission Physical Exam S - Vital Signs Vital Signs: Vital Signs - 24 hr 10/09/18 13:18 Temperature 97.0 F L Pulse Rate 88 Respiratory 20 Rate Blood Pressure 114/70 - Physical General Appearance: Yes: Moderate Distress HEENTM: Yes: EOMI, Nasal Congestion Respiratory: Yes: Lungs Clear, No Respiratory Distress Neck: Yes: No masses,lesions,Nodules, Trachea in good position Breast: Yes: Breast Exam Deferred Cardiology: Yes: Regular Rhythm, Regular Rate Abdominal: Yes: Normal Bowel Sounds, Non Tender Genitourinary: Yes: Within Normal Limits Back: Yes: Normal Inspection Musculoskeletal: Yes: full range of Motion, Gait Steady Extremities: Yes: Normal Capillary Refill, Normal Inspection, Normal Range of Motion Neurological: Yes: Fully Oriented, Alert Integumentary: Yes: Normal Color Lymphatic: Yes: Within Normal Limits - Diagnostic (1) Alcohol dependence with uncomplicated withdrawal Current Visit: Yes Status: Acute (2) Opioid dependence with withdrawal Current Visit: Yes Status: Acute (3) Substance-induced sleep disorder Current Visit: No Status: Chronic (4) Cannabis dependence, uncomplicated Current Visit: Yes Status: Chronic (5) Cocaine dependence, uncomplicated Current Visit: Yes Status: Chronic (6) History of eye trauma Current Visit: Yes Status: Chronic (7) Insomnia Current Visit: Yes Status: Chronic Qualifiers: Insomnia type: unspecified Qualified Code(s): G47.00 - Insomnia, unspecified (8) Nicotine dependence Current Visit: Yes Status: Chronic Qualifiers: Nicotine product type: cigarettes Substance use status: in withdrawal Qualified Code(s): F17.213 - Nicotine dependence, cigarettes, with withdrawal Cleared for Admission [facility] - Detox or Rehab [facility] Level of Care: Medically Managed Detox Regimen/Protocol: Methadone/Librium Inpatient Rehab Admission - Rehab Decision to Admit Inpatient rehab admission?: No
[2018-10-09] MEDS ORDERED: MAGNESIUM HYDROX 2400MG/30ML ORAL SUSPENSION 30 ML CUP PO PRN (16:14)
[2018-10-09] MEDS ORDERED: MAG HYDROX/AL HYDROX/SIMETH 30 ML UNIT-DOSE CUP PO PRN (16:14)
[2018-10-09] MEDS ORDERED: METHOCARBAMOL 500 MG TABLET PO PRN (16:14)
[2018-10-09] MEDS ORDERED: chlordiazePOXIDE HCL 10 MG CAPSULE PO PRN (16:14)
[2018-10-09] MEDS ORDERED: ACETAMINOPHEN 325 MG TABLET (FP) PO PRN ×2 (16:14)
[2018-10-09] MEDS ORDERED: NICOTINE POLACRILEX 4 MG GUM BUC PRN (16:14)
[2018-10-09] MEDS ORDERED: BISMUTH SUBSALICYLATE 524 MG/30 ML UD PO PRN (16:14)
[2018-10-09] MEDS ORDERED: IBUPROFEN 400 MG TABLET (FP) PO PRN (16:14)
[2018-10-09] MEDS ORDERED: hydrOXYzine PAMOATE 25 MG CAPSULE (FP) PO PRN (16:14)
[2018-10-09] MEDS ORDERED: MENTHOL/PHENOL 1 EACH UD MM PRN (16:14)
[2018-10-09] MEDS ORDERED: MAGNESIUM CITRATE 300 ML BOTTLE PO PRN (16:14)
[2018-10-09] MEDS ORDERED: cloNIDine HCL 0.1 MG TABLET PO PRN (16:14)
[2018-10-09] MEDS ORDERED: chlordiazePOXIDE HCL 25 MG CAPSULE PO ONE (17:15)
[2018-10-09] MEDS: NICOTINE 21 MG/24 HOURS TOPICAL PATCH TD SCH (17:42)
[2018-10-09] MEDS: chlordiazePOXIDE HCL 25 MG CAPSULE PO SCH (22:24)
[2018-10-09] MEDS: MELATONIN 5 MG TABLETS PO PRN (22:24)
[2018-10-09] MEDS: THIAMINE HCL 100 MG TABLET (FP) PO SCH (22:24)
[2018-10-09] MEDS ORDERED: METHADONE HCL 10 MG TABLET (FOR DETOX USE ONLY) PO ONE (23:00)
[2018-10-10] MEDS: chlordiazePOXIDE HCL 25 MG CAPSULE PO SCH ×2 (05:26→13:53)
[2018-10-10] MEDS ORDERED: METHADONE HCL 5 MG TABLET (FOR DETOX USE ONLY) PO ONE (10:00)
[2018-10-10] MEDS: NICOTINE 21 MG/24 HOURS TOPICAL PATCH TD SCH (10:42)
[2018-10-10] MEDS: PRENATAL VITAMINS W/ FOLIC ACID TABLET (FP) PO SCH (10:42)
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
[2018-10-10 10:52] LABS: HEMATOCRIT 41.1 % (35.4-49); HEMOGLOBIN 13.7 GM/dL (11.7-16.9); MCH 30.3 pg (25.7-33.7); MCHC 33.3 g/dl (32.0-35.9); MEAN CELL VOLUME 91.2 fl (80-96); MEAN PLT VOLUME 8.2 fl (7.5-11.1); PLATELET COUNT 290 K/MM3 (134-434); RBC 4.51 M/mm3 (4.00-5.60); WHITE BLOOD COUNT 5.6 K/mm3 (4.0-10.0)
[2018-10-10 11:34] LABS: ALBUMIN 3.4 g/dl (3.4-5.0); ALK PHOS 42 U/L (45-117); ANION GAP 5 MMOL/L (8-16); BILIRUBIN,TOTAL 0.4 mg/dL (0.2-1); BLOOD UREA NITROGEN 8 mg/dL (7-18); CALCIUM 8.9 mg/dL (8.5-10.1); CHLORIDE 106 mmol/L (98-107); CO2 27 mmol/L (21-32); CREATININE 0.7 mg/dL (0.55-1.3); GLUCOSE,RANDOM 111 mg/dL (74-106); POTASSIUM 4.1 mmol/L (3.5-5.1); SGOT/AST 16 U/L (15-37); SGPT/ALT 31 U/L (13-61); SODIUM 138 mmol/L (136-145); TOT PROT 6.5 g/dl (6.4-8.2)
--- NOTE | 2018-10-10 16:59 | PN ---
[facility] CIWA - CIWA Score Nausea/Vomitin-Mild Nausea/No Vomiting Muscle Tremors: 4-Moderate,w/Arms Extend Anxiety: 3 Agitation: 3 Paroxysmal Sweats: 3 Orientation: 0-Oriented Tacttile Disturbances: 0-None Auditory Disturbances: 0-None Visual Disturbances: 0-None Headache: 0-None Present CIWA-Ar Total Score: 14 BHS COWS - Scale Resting Pulse: 0= [place] 80 or Below Sweatin= Chills/Flushing Restless Observation: 3= Extraneous Movement Pupil Size: 0= Normal to Room Light Bone or Joint Aches: 2= Severe Diffuse Aches Runny Nose/ Eye Tearin= Nasal Congestion GI Upset > 30mins: 2= Nausea/Diarrhea Tremor Observation of Outstretched Hands: 2= Slight Tremor Visible Yawning Observation: 0= None Anxiety or Irritability: 2=Irritable/Anxious Goose Flesh Skin: 0=Smooth Skin COWS Score: 13 S Progress Note (SOAP) Subjective: Chills, bone pain, joint pain, back pain, diarrhea, sweating, stuffy nose Objective: 10/10/18 16:58 Last Vital Signs Temp Pulse Resp BP Pulse Ox 97.9 F 69 16 97/61 10/10/18 14:13 10/10/18 14:13 10/10/18 14:13 10/10/18 14:13 Laboratory Tests 10/10/18 10/10/18 10/10/18 07:50 07:50 07:50 WBC 5.6 RBC 4.51 Hgb 13.7 Hct 41.1 MCV 91.2 MCH 30.3 MCHC 33.3 RDW 15.0 Plt Count 290 MPV 8.2 Sodium 138 Potassium 4.1 Chloride 106 Carbon Dioxide 27 Anion Gap 5 L BUN 8 Creatinine 0.7 Creat Clearance w eGFR 123.08 Random Glucose 111 H Calcium 8.9 Total Bilirubin 0.4 AST 16 ALT 31 Alkaline Phosphatase 42 L Total Protein 6.5 Albumin 3.4 RPR Titer Nonreactive HIV 1&2 Antibody Screen HIV P24 Antigen 10/10/18 07:50 WBC RBC Hgb Hct MCV MCH MCHC RDW Plt Count MPV Sodium Potassium Chloride Carbon Dioxide Anion Gap BUN Creatinine Creat Clearance w eGFR Random Glucose Calcium Total Bilirubin AST ALT Alkaline Phosphatase Total Protein Albumin RPR Titer HIV 1&2 Antibody Screen Negative HIV P24 Antigen Negative Labs reviewed Assessment: 10/10/18 16:58 Withdrawal symptoms Plan: Continue detox Encouraged PO water intake
[2018-10-10] MEDS: THIAMINE HCL 100 MG TABLET (FP) PO SCH (22:15)
[2018-10-10] MEDS: chlordiazePOXIDE 5 MG CAPSULE PO SCH (22:15)
[2018-10-10] MEDS: QUEtiapine FUMARATE 200 MG TABLET PO SCH (22:15)
[2018-10-10] MEDS: MELATONIN 5 MG TABLETS PO PRN (22:17)
[2018-10-11] MEDS: chlordiazePOXIDE 5 MG CAPSULE PO SCH ×2 (05:18→12:23)
--- NOTE | 2018-10-11 09:12 | PN ---
[facility] Progress Note Note: pt is on a MMTP program with [facility] [phone] and states he was being tapered from 100mg down to 20mg over a 1yr and this information was verified with FREDI Lee. Pt will be on a methadone detox.
--- NOTE | 2018-10-11 09:33 | PN ---
S CIWA - CIWA Score Nausea/Vomitin-No Nausea/No Vomiting Muscle Tremors: 3 Anxiety: 3 Agitation: 3 Paroxysmal Sweats: 3 Orientation: 0-Oriented Tacttile Disturbances: 0-None Auditory Disturbances: 0-None Visual Disturbances: 0-None Headache: 0-None Present CIWA-Ar Total Score: 12 BHS Progress Note (SOAP) Subjective: sweats agitation little shakes Objective: 10/11/18 10:26 Vital Signs Temperature 96.8 F L 10/11/18 09:29 Pulse Rate 61 10/11/18 09:29 Respiratory Rate 18 10/11/18 09:29 Blood Pressure 101/58 L 10/11/18 09:29 O2 Sat by Pulse Oximetry (%) Laboratory Tests 10/10/18 10/10/18 10/10/18 07:50 07:50 07:50 WBC 5.6 RBC 4.51 Hgb 13.7 Hct 41.1 MCV 91.2 MCH 30.3 MCHC 33.3 RDW 15.0 Plt Count 290 MPV 8.2 Sodium 138 Potassium 4.1 Chloride 106 Carbon Dioxide 27 Anion Gap 5 L BUN 8 Creatinine 0.7 Creat Clearance w eGFR 123.08 Random Glucose 111 H Calcium 8.9 Total Bilirubin 0.4 AST 16 ALT 31 Alkaline Phosphatase 42 L Total Protein 6.5 Albumin 3.4 RPR Titer Nonreactive HIV 1&2 Antibody Screen HIV P24 Antigen 10/10/18 07:50 WBC RBC Hgb Hct MCV MCH MCHC RDW Plt Count MPV Sodium Potassium Chloride Carbon Dioxide Anion Gap BUN Creatinine Creat Clearance w eGFR Random Glucose Calcium Total Bilirubin AST ALT Alkaline Phosphatase Total Protein Albumin RPR Titer HIV 1&2 Antibody Screen Negative HIV P24 Antigen Negative aaox3 ambulating no acute distress Assessment: 10/11/18 10:32 withdrawal sx Plan: continue detox increase fluids
[2018-10-11] MEDS: NICOTINE 21 MG/24 HOURS TOPICAL PATCH TD SCH (09:49)
[2018-10-11] MEDS: PRENATAL VITAMINS W/ FOLIC ACID TABLET (FP) PO SCH (09:49)
[2018-10-11] MEDS ORDERED: METHADONE HCL 10 MG TABLET (FOR DETOX USE ONLY) PO ONE ×2 (10:00)
[2018-10-11] MEDS ORDERED: chlordiazePOXIDE HCL 10 MG CAPSULE PO PRN (21:00)
[2018-10-11] MEDS: THIAMINE HCL 100 MG TABLET (FP) PO SCH (22:30)
[2018-10-11] MEDS: chlordiazePOXIDE HCL 10 MG CAPSULE PO SCH (22:30)
[2018-10-11] MEDS: QUEtiapine FUMARATE 200 MG TABLET PO SCH (22:30)
[2018-10-12] MEDS ORDERED: METHADONE HCL 5 MG TABLET (FOR DETOX USE ONLY) PO ONE ×2 (06:00)
[2018-10-12] MEDS: chlordiazePOXIDE HCL 10 MG CAPSULE PO SCH ×3 (06:18→22:24)
[2018-10-12] MEDS: PRENATAL VITAMINS W/ FOLIC ACID TABLET (FP) PO SCH (10:11)
[2018-10-12] MEDS: NICOTINE 21 MG/24 HOURS TOPICAL PATCH TD SCH (10:11)
--- NOTE | 2018-10-12 11:01 | PN ---
[facility] CIWA - CIWA Score Nausea/Vomitin-No Nausea/No Vomiting Muscle Tremors: 2 Anxiety: 1-Mildly Anxious Agitation: 0-Normal Activity Paroxysmal Sweats: 1-Minimal Palms Moist Orientation: 1-Uncertain about Date Tacttile Disturbances: 0-None Auditory Disturbances: 1-Very Mild Visual Disturbances: 1-Very Mild Sensitivity Headache: 0-None Present CIWA-Ar Total Score: 7 S COWS - Scale Resting Pulse: 0= [place] 80 or Below Sweatin= No chills or Flushing Restless Observation: 0= Sits Still Pupil Size: 0= Normal to Room Light Bone or Joint Aches: 1= Mild Discomfort Runny Nose/ Eye Tearin= None GI Upset > 30mins: 0= None Tremor Observation of Outstretched Hands: 1= Tremor [place], Not Seen Yawning Observation: 0= None Anxiety or Irritability: 1=Feels Anxious/Irritable Goose Flesh Skin: 0=Smooth Skin COWS Score: 3 S Progress Note (SOAP) Subjective: feeling much better little sweats Objective: 10/12/18 10:58 Vital Signs Temperature 97.3 F L 10/12/18 09:06 Pulse Rate 78 10/12/18 09:06 Respiratory Rate 18 10/12/18 09:06 Blood Pressure 115/77 10/12/18 09:06 O2 Sat by Pulse Oximetry (%) aaox3 ambulating no acute distress Assessment: 10/12/18 10:59 mild withdrawal sx Plan: continue detox increase fluids d/c at 7am as per pt request.
[2018-10-12 22:06] VITALS: BP 138/64; PULSE 73; TEMP 98.2
[2018-10-12] MEDS: THIAMINE HCL 100 MG TABLET (FP) PO SCH (22:24)
[2018-10-12] MEDS: QUEtiapine FUMARATE 200 MG TABLET PO SCH (22:24)
[2018-10-12] MEDS: MELATONIN 5 MG TABLETS PO PRN (22:24)
--- NOTE | 2018-10-13 08:42 | DS ---
[facility] Detox Discharge Summary Admission Date: 10/09/18 Discharge Date: 10/13/18 - History Present History: Alcohol Dependence, Sedative Dependence - Physical Exam Results Vital Signs: Vital Signs Temperature 98.2 F 10/12/18 22:05 Pulse Rate 73 10/12/18 22:05 Respiratory Rate 18 10/13/18 03:30 Blood Pressure 138/64 10/12/18 22:05 O2 Sat by Pulse Oximetry (%) - Treatment Hospital Course: Detox Protocol Followed, Detoxed Safely, Responded well, Discharged Condition Good, Rehab Referral Accepted - Medication Discharge Medications: Ambulatory Orders Quetiapine Fumarate [Seroquel] 100 mg PO HS #30 tablet 01/01/17 Zolpidem Tartrate [Ambien] 10 mg PO HS MDD 10 08/18/17 Quetiapine Fumarate [Seroquel] 100 mg PO HS #30 tablet 10/24/17 Alprazolam [Xanax] 1 mg PO BID 10/09/18 Mineral Oil/Petrolat,Wht/Water [Eucerin] 1 applic TP 10/09/18 Prednisolone 1% Ophthalmic [Pred Forte 1% -] 5 ml OP BID 10/09/18 - Diagnosis (1) Alcohol dependence with uncomplicated withdrawal Status: Chronic (2) Ecstasy abuse Status: Acute (3) Sedative, hypnotic, or anxiolytic withdrawal Status: Chronic (4) Substance-induced sleep disorder Status: Acute (5) Substance-induced sleep disorder Status: Acute (6) Anxiety disorder Status: Chronic (7) Cannabis dependence, uncomplicated Status: Chronic (8) Chronic GERD Status: Chronic (9) Cocaine dependence, uncomplicated Status: Chronic (10) Eczema Status: Chronic (11) Insomnia Status: Chronic Qualifiers: Insomnia type: unspecified Qualified Code(s): G47.00 - Insomnia, unspecified (12) Nicotine dependence Status: Chronic Qualifiers: Nicotine product type: cigarettes Substance use status: uncomplicated Qualified Code(s): F17.210 - Nicotine dependence, cigarettes, uncomplicated (13) Non compliance w medication regimen Status: Chronic (14) PTSD (post-traumatic stress disorder) Status: Chronic (15) Substance-induced anxiety disorder Status: Chronic (16) Substance-induced sleep disorder Status: Chronic (17) Tooth decay Status: Chronic (18) Drug-induced mood disorder Status: Suspected (19) History of eye trauma Status: Resolved - AMA Did Patient Leave Against Medical Advice: No (going home; declined rehab)
== END 2018-10-13 07:27 | disposition home or self-care (01) | DRG 773 ==
LOC: YASAS 11:14 → Y6N 17:01
PROVIDERS: ADMIT Surgery; ATTEND Surgery
PROC: HZ2ZZZZ Detoxification Services for Substance Abuse Treatment (ICD-10-PCS; principal; 2018-10-09)
DX: F10.230 Alcohol dependence with withdrawal, uncomplicated (principal); F11.20 Opioid dependence, uncomplicated; F14.20 Cocaine dependence, uncomplicated; F12.20 Cannabis dependence, uncomplicated; F16.10 Hallucinogen abuse, uncomplicated; F17.210 Nicotine dependence, cigarettes, uncomplicated; F19.24 Other psychoactive substance dependence with psychoactive substance-induced mood disorder; F19.282 Other psychoactive substance dependence with psychoactive substance-induced sleep disorder; F19.280 Other psychoactive substance dependence with psychoactive substance-induced anxiety disorder; F31.9 Bipolar disorder, unspecified; F43.10 Post-traumatic stress disorder, unspecified; K21.9 Gastro-esophageal reflux disease without esophagitis; L30.9 Dermatitis, unspecified; G47.00 Insomnia, unspecified; K08.89 Other specified disorders of teeth and supporting structures; Z91.14 Patient's other noncompliance with medication regimen
CPT/HCPCS: 36415; 80053; 85027; 86593; 87389

== ENCOUNTER 2019-01-01 10:14 | Inpatient (IN) | payer OTHER ==
[2019-01-01 11:45] VITALS: BMI 26.5
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
[2019-01-01] MEDS ORDERED: MAGNESIUM HYDROX 2400MG/30ML ORAL SUSPENSION 30 ML CUP PO PRN (14:24)
[2019-01-01] MEDS ORDERED: METHOCARBAMOL 500 MG TABLET PO PRN (14:24)
[2019-01-01] MEDS ORDERED: BISMUTH SUBSALICYLATE 524 MG/30 ML UD PO PRN (14:24)
[2019-01-01] MEDS ORDERED: MAGNESIUM CITRATE 300 ML BOTTLE PO PRN (14:24)
[2019-01-01] MEDS ORDERED: MAG HYDROX/AL HYDROX/SIMETH 30 ML UNIT-DOSE CUP PO PRN (14:24)
[2019-01-01] MEDS ORDERED: MENTHOL/PHENOL 1 EACH UD MM PRN (14:24)
[2019-01-01] MEDS ORDERED: chlordiazePOXIDE HCL 25 MG CAPSULE PO ONE (14:24)
[2019-01-01] MEDS ORDERED: ACETAMINOPHEN 325 MG TABLET (FP) PO PRN (14:24)
[2019-01-01] MEDS ORDERED: MELATONIN 5 MG TABLETS PO PRN (14:24)
[2019-01-01] MEDS ORDERED: NICOTINE POLACRILEX 4 MG GUM BUC PRN (14:24)
[2019-01-01] MEDS ORDERED: IBUPROFEN 400 MG TABLET (FP) PO PRN (14:24)
[2019-01-01] MEDS ORDERED: ARTIFICIAL TEARS (POLYVINYL ALCOHOL) OPTH DROPS OU PRN (14:27)
[2019-01-01] MEDS: NICOTINE 21 MG/24 HOURS TOPICAL PATCH TD SCH (17:31)
[2019-01-01] MEDS: GABAPENTIN 300 MG CAPSULE (FP) PO SCH ×2 (17:32→23:29)
[2019-01-01] MEDS: THIAMINE HCL 100 MG TABLET (FP) PO SCH (22:48)
[2019-01-01] MEDS: chlordiazePOXIDE HCL 25 MG CAPSULE PO SCH (22:48)
[2019-01-02] MEDS ORDERED: METHADONE HCL 10 MG TABLET PO ONE (06:00)
[2019-01-02] MEDS: GABAPENTIN 300 MG CAPSULE (FP) PO SCH ×3 (06:16→22:48)
[2019-01-02] MEDS: chlordiazePOXIDE HCL 25 MG CAPSULE PO SCH ×3 (06:16→22:48)
[2019-01-02] MEDS: PRENATAL VITAMINS W/ FOLIC ACID TABLET (FP) PO SCH (09:39)
[2019-01-02] MEDS: NICOTINE 21 MG/24 HOURS TOPICAL PATCH TD SCH (09:39)
[2019-01-02 09:42] LABS: HEMOGLOBIN 13.7 GM/dL (11.7-16.9); RDW 14.8 % (11.9-15.9)
[2019-01-02 09:44] LABS: HEMATOCRIT 40.7 % (35.4-49); MCH 31.1 pg (25.7-33.7); MCHC 33.7 g/dl (32.0-35.9); MEAN CELL VOLUME 92.1 fl (80-96); MEAN PLT VOLUME 8.6 fl (7.5-11.1); PLATELET COUNT 270 K/MM3 (134-434); RBC 4.42 M/mm3 (4.00-5.60); WHITE BLOOD COUNT 4.7 K/mm3 (4.0-10.0)
[2019-01-02 09:45] LABS: ALBUMIN 3.5 g/dl (3.4-5.0); BILIRUBIN,TOTAL 0.2 mg/dL (0.2-1); BLOOD UREA NITROGEN 8.1 mg/dL (7-18); CALCIUM 8.9 mg/dL (8.5-10.1); CREATININE 0.8 mg/dL (0.55-1.3); POTASSIUM 4.6 mmol/L (3.5-5.1); TOT PROT 6.3 g/dl (6.4-8.2)
[2019-01-02] MEDS: chlordiazePOXIDE HCL 10 MG CAPSULE PO PRN (11:06)
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
--- NOTE | 2019-01-02 15:17 | PN ---
[facility] CIWA - CIWA Score Nausea/Vomitin-Mild Nausea/No Vomiting Muscle Tremors: 4-Moderate,w/Arms Extend Anxiety: 4-Mod. Anxious/Guarded Agitation: 3 Paroxysmal Sweats: 3 Orientation: 0-Oriented Tacttile Disturbances: 0-None Auditory Disturbances: 0-None Visual Disturbances: 0-None Headache: 0-None Present CIWA-Ar Total Score: 15 BHS COWS - Scale Resting Pulse: 0= [place] 80 or Below Sweatin= Chills/Flushing Restless Observation: 3= Extraneous Movement Pupil Size: 0= Normal to Room Light Bone or Joint Aches: 2= Severe Diffuse Aches Runny Nose/ Eye Tearin= Runny Nose/Eyes GI Upset > 30mins: 3= Vomiting/Diarrhea Tremor Observation of Outstretched Hands: 2= Slight Tremor Visible Yawning Observation: 0= None Anxiety or Irritability: 2=Irritable/Anxious Goose Flesh Skin: 0=Smooth Skin COWS Score: 15 [facility] Progress Note (SOAP) Subjective: Runny nose, watery eyes, interrupted sleep, vivid wild good dreams, feels uncomfortable in own skin, sweating, headache, anxious Objective: 01/02/19 15:16 Last Vital Signs Temp Pulse Resp BP Pulse Ox 97.7 F 69 18 120/78 01/02/19 13:38 01/02/19 13:38 01/02/19 13:38 01/02/19 13:38 Laboratory Tests 01/02/19 01/02/19 01/02/19 08:00 08:00 08:00 WBC 4.7 RBC 4.42 Hgb 13.7 Hct 40.7 MCV 92.1 MCH 31.1 MCHC 33.7 RDW 14.8 Plt Count 270 MPV 8.6 Sodium 140 Potassium 4.6 Chloride 107 Carbon Dioxide 28 Anion Gap 5 L BUN 8.1 Creatinine 0.8 Est GFR (CKD-EPI)AfAm 126.81 Est GFR (CKD-EPI)NonAf 109.41 Random Glucose 92 Calcium 8.9 Total Bilirubin 0.2 AST 18 ALT 32 Alkaline Phosphatase 37 L Total Protein 6.3 L Albumin 3.5 RPR Titer Nonreactive Labs reviewed Assessment: 01/02/19 15:16 Withdrawal sxs Plan: Continue detox Encouraged PO water hydration
[2019-01-02] MEDS: THIAMINE HCL 100 MG TABLET (FP) PO SCH (22:48)
[2019-01-02] MEDS: QUEtiapine FUMARATE 200 MG TABLET PO SCH (22:48)
[2019-01-03] MEDS: GABAPENTIN 300 MG CAPSULE (FP) PO SCH ×3 (05:22→22:36)
[2019-01-03] MEDS: chlordiazePOXIDE 5 MG CAPSULE PO SCH ×3 (05:22→22:35)
[2019-01-03] MEDS: PRENATAL VITAMINS W/ FOLIC ACID TABLET (FP) PO SCH (10:45)
[2019-01-03] MEDS: NICOTINE 21 MG/24 HOURS TOPICAL PATCH TD SCH (10:45)
[2019-01-03] MEDS ORDERED: METHADONE HCL 10 MG TABLET PO ONE (14:27)
--- NOTE | 2019-01-03 14:40 | PN ---
S CIWA - CIWA Score Nausea/Vomitin Muscle Tremors: None Anxiety: 3 Agitation: 2 Paroxysmal Sweats: 2 Orientation: 0-Oriented Tacttile Disturbances: 2-Mild Itch/Numbness/Burn Auditory Disturbances: 0-None Visual Disturbances: 0-None Headache: 0-None Present CIWA-Ar Total Score: 14 BHS COWS - Scale Resting Pulse: 0= [place] 80 or Below Sweatin= Chills/Flushing Restless Observation: 1= Difficult to Sit Still Pupil Size: 0= Normal to Room Light Bone or Joint Aches: 2= Severe Diffuse Aches Runny Nose/ Eye Tearin= Runny Nose/Eyes GI Upset > 30mins: 3= Vomiting/Diarrhea Tremor Observation of Outstretched Hands: 0= None Yawning Observation: 1= 1-2x During Session Anxiety or Irritability: 2=Irritable/Anxious Goose Flesh Skin: 3=Piloerection COWS Score: 15 S Progress Note (SOAP) Subjective: Body Aches, Eye Tearing, Anxious, Sweating, Hot / Cold Sensations, Interrupted Sleep, Diarrhea, Vomiting. Objective: PATIENT A & O X 3, OBSERVED AMBULATING ON UNIT UNASSISTED. IN NO ACUTE DISTRESS. 01/03/19 14:34 Vital Signs Temperature 97.7 F 01/03/19 13:25 Pulse Rate 68 01/03/19 13:25 Respiratory Rate 18 01/03/19 13:25 Blood Pressure 104/57 L 01/03/19 13:25 O2 Sat by Pulse Oximetry (%) Laboratory Tests 01/02/19 01/02/19 01/02/19 08:00 08:00 08:00 WBC 4.7 RBC 4.42 Hgb 13.7 Hct 40.7 MCV 92.1 MCH 31.1 MCHC 33.7 RDW 14.8 Plt Count 270 MPV 8.6 Sodium 140 Potassium 4.6 Chloride 107 Carbon Dioxide 28 Anion Gap 5 L BUN 8.1 Creatinine 0.8 Est GFR (CKD-EPI)AfAm 126.81 Est GFR (CKD-EPI)NonAf 109.41 Random Glucose 92 Calcium 8.9 Total Bilirubin 0.2 AST 18 ALT 32 Alkaline Phosphatase 37 L Total Protein 6.3 L Albumin 3.5 RPR Titer Nonreactive LABS NOTED. Assessment: 01/03/19 14:34 WITHDRAWAL SYMPTOMS. Plan: CONTINUE DETOX. PATIENT REPORTS HISTORY OF METHADONE MAINTENANCE THERAPY (20 MG CURRENT DOSE) AT TIME OF ADMISSION TO DETOX UNIT, BUT THAT HE WISHES TO BE TAPERED OFF OF METHADONE. PATIENT NOTES THAT HE MEDICAL PROVIDER AT HIS PROGRAM GAVE HIM APPOVAL TO DO THIS PRIOR TO ADMISSION TO DETOX. HOWEVER, DESPITE SEVERAL ATTEMPTS TO CONTACT [facility] ([facility]; [phone]) VIA TELEPHONE BY Rosa PACE LPN, IN BOTH MORNING AND AFTERNOON TO MULTIPLE DRUM SANDER HELPER AT PROGRAM TO CONFIRM THIS, RENZOR UNABLE TO REACH TAILER OFF AT PROGRAM AND LATER INFORMED THAT PROGRAM CLOSED AT 2 PM. DESPITE MS. PACE INFORMED THAT PROGRAM MAINTAIN AT 20 MG PO DOSE FOR TODAY AND WILL ATTEMPT TO CONTACT [facility] PROGRAM AGAIN TOMORROW FOR FURTHER CLARIFICATION / VERIFICATION. IN THE INTERIM, ONE-TIME DOSE OF METHADONE, 20 MG PO ORDERED FOR TODAY TO MAINTAIN PATIENT FOR TODAY.
[2019-01-03] MEDS ORDERED: PROCHLORPERAZINE MALEATE 5 MG TABLET PO PRN (14:42)
[2019-01-03] MEDS: chlordiazePOXIDE HCL 10 MG CAPSULE PO PRN (17:50)
[2019-01-03] MEDS: QUEtiapine FUMARATE 200 MG TABLET PO SCH (22:36)
[2019-01-03] MEDS: THIAMINE HCL 100 MG TABLET (FP) PO SCH (22:36)
[2019-01-04] MEDS ORDERED: chlordiazePOXIDE HCL 10 MG CAPSULE PO PRN
[2019-01-04] MEDS: GABAPENTIN 300 MG CAPSULE (FP) PO SCH ×3 (05:45→21:33)
[2019-01-04] MEDS: chlordiazePOXIDE HCL 10 MG CAPSULE PO SCH ×3 (05:46→21:33)
[2019-01-04] MEDS: NICOTINE 21 MG/24 HOURS TOPICAL PATCH TD SCH (10:22)
[2019-01-04] MEDS: PRENATAL VITAMINS W/ FOLIC ACID TABLET (FP) PO SCH (10:22)
--- NOTE | 2019-01-04 11:15 | PN ---
S CIWA - CIWA Score Nausea/Vomitin Muscle Tremors: 2 Anxiety: 2 Agitation: 2 Paroxysmal Sweats: No Perspiration Orientation: 0-Oriented Tacttile Disturbances: 0-None Auditory Disturbances: 0-None Visual Disturbances: 0-None Headache: 2-Mild CIWA-Ar Total Score: 10 BHS COWS - Scale Resting Pulse: 1= [place] 81-100 Sweatin= Chills/Flushing Restless Observation: 1= Difficult to Sit Still Pupil Size: 1= Pupils >than Normal Bone or Joint Aches: 2= Severe Diffuse Aches Runny Nose/ Eye Tearin= Nasal Congestion GI Upset > 30mins: 1= Stomach Cramp Tremor Observation of Outstretched Hands: 1= Tremor [place], Not Seen Yawning Observation: 1= 1-2x During Session Anxiety or Irritability: 2=Irritable/Anxious Goose Flesh Skin: 0=Smooth Skin COWS Score: 12 S Progress Note (SOAP) Subjective: alert,irritable,anxious,interrupted sleep,pain in the body and back Objective: 01/04/19 11:12 Vital Signs Temperature 97.5 F L 01/04/19 09:15 Pulse Rate 88 01/04/19 09:15 Respiratory Rate 18 01/04/19 09:15 Blood Pressure 107/61 01/04/19 09:15 O2 Sat by Pulse Oximetry (%) 01/04/19 11:12 Laboratory Last Values WBC 4.7 K/mm3 (4.0-10.0) 01/02/19 08:00 RBC 4.42 M/mm3 (4.00-5.60) 01/02/19 08:00 Hgb 13.7 GM/dL (11.7-16.9) 01/02/19 08:00 Hct 40.7 % (35.4-49) 01/02/19 08:00 MCV 92.1 fl (80-96) 01/02/19 08:00 MCH 31.1 pg (25.7-33.7) 01/02/19 08:00 MCHC 33.7 g/dl (32.0-35.9) 01/02/19 08:00 RDW 14.8 % (11.9-15.9) 01/02/19 08:00 Plt Count 270 K/MM3 (134-434) 01/02/19 08:00 MPV 8.6 fl (7.5-11.1) 01/02/19 08:00 Sodium 140 mmol/L (136-145) 01/02/19 08:00 Potassium 4.6 mmol/L (3.5-5.1) 01/02/19 08:00 Chloride 107 mmol/L (98-107) 01/02/19 08:00 Carbon Dioxide 28 mmol/L (21-32) 01/02/19 08:00 Anion Gap 5 MMOL/L (8-16) L 01/02/19 08:00 BUN 8.1 mg/dL (7-18) 01/02/19 08:00 Creatinine 0.8 mg/dL (0.55-1.3) 01/02/19 08:00 Est GFR (CKD-EPI)AfAm 126.81 01/02/19 08:00 Est GFR (CKD-EPI)NonAf 109.41 01/02/19 08:00 Random Glucose 92 mg/dL (74-106) 01/02/19 08:00 Calcium 8.9 mg/dL (8.5-10.1) 01/02/19 08:00 Total Bilirubin 0.2 mg/dL (0.2-1) 01/02/19 08:00 AST 18 U/L (15-37) 01/02/19 08:00 ALT 32 U/L (13-61) 01/02/19 08:00 Alkaline Phosphatase 37 U/L (45-117) L 01/02/19 08:00 Total Protein 6.3 g/dl (6.4-8.2) L 01/02/19 08:00 Albumin 3.5 g/dl (3.4-5.0) 01/02/19 08:00 RPR Titer Nonreactive (NONREACTIVE) 01/02/19 08:00 Assessment: 01/04/19 11:13 withdrawal symptom Plan: patient has been on methadone maintenance 20 mgs/day,verified by RN,did not want to go back on methadone maintenance, would like to be detox completely from methadone,will continue detox methadone and librium regimen
[2019-01-04] MEDS ORDERED: METHADONE (DETOX) 10 MG, METHADONE (DETOX) 5 MG PO ONE (11:16)
[2019-01-04] MEDS ORDERED: METHADONE HCL 5 MG TABLET (FOR DETOX USE ONLY) ONE (11:27)
[2019-01-04] MEDS ORDERED: METHADONE HCL 10 MG TABLET (FOR DETOX USE ONLY) ONE (11:28)
[2019-01-04] MEDS: THIAMINE HCL 100 MG TABLET (FP) PO SCH (21:33)
[2019-01-04] MEDS: QUEtiapine FUMARATE 200 MG TABLET PO SCH (21:33)
[2019-01-05] MEDS ORDERED: chlordiazePOXIDE HCL 10 MG CAPSULE PO ONE (05:00)
[2019-01-05] MEDS: GABAPENTIN 300 MG CAPSULE (FP) PO SCH ×3 (05:51→22:09)
[2019-01-05] MEDS: NICOTINE 21 MG/24 HOURS TOPICAL PATCH TD SCH (09:33)
[2019-01-05] MEDS: PRENATAL VITAMINS W/ FOLIC ACID TABLET (FP) PO SCH (09:33)
[2019-01-05] MEDS ORDERED: METHADONE HCL 10 MG TABLET (FOR DETOX USE ONLY) PO ONE (10:00)
[2019-01-05] MEDS: hydrOXYzine PAMOATE 25 MG CAPSULE (FP) PO PRN ×2 (13:10→22:09)
--- NOTE | 2019-01-05 13:31 | PN ---
S CIWA - CIWA Score Nausea/Vomitin-No Nausea/No Vomiting Muscle Tremors: 1-None Visible, but [place] Anxiety: 1-Mildly Anxious Agitation: 1-Slight > Activity Paroxysmal Sweats: No Perspiration Orientation: 0-Oriented Tacttile Disturbances: 0-None Auditory Disturbances: 0-None Visual Disturbances: 0-None Headache: 1-Very Mild CIWA-Ar Total Score: 4 BHS Progress Note (SOAP) Subjective: Pt here for alcohol detox, also methadone detox (pt in an MAT but wants to detox off). states doing well with the detoxes O: Vital Signs - 24 hr 01/04/19 01/04/19 01/04/19 13:56 17:07 20:38 Temperature 96.4 F L 97.5 F L 97.7 F Pulse Rate 65 64 79 Respiratory 18 18 18 Rate Blood Pressure 119/76 101/66 128/67 01/05/19 01/05/19 01/05/19 03:30 07:48 09:26 Temperature 96.6 F L 97.3 F L Pulse Rate 58 L 75 Respiratory 18 17 18 Rate Blood Pressure 95/60 109/73 01/05/19 13:15 Temperature 98.5 F Pulse Rate 83 Respiratory 18 Rate Blood Pressure 125/76 Laboratory Tests 01/02/19 01/02/19 01/02/19 08:00 08:00 08:00 WBC 4.7 RBC 4.42 Hgb 13.7 Hct 40.7 MCV 92.1 MCH 31.1 MCHC 33.7 RDW 14.8 Plt Count 270 MPV 8.6 Sodium 140 Potassium 4.6 Chloride 107 Carbon Dioxide 28 Anion Gap 5 L BUN 8.1 Creatinine 0.8 Est GFR (CKD-EPI)AfAm 126.81 Est GFR (CKD-EPI)NonAf 109.41 Random Glucose 92 Calcium 8.9 Total Bilirubin 0.2 AST 18 ALT 32 Alkaline Phosphatase 37 L Total Protein 6.3 L Albumin 3.5 RPR Titer Nonreactive nl VS and Labs alert and oriented a/p: contninue alcohol detox, and methadone detox: d/w pt nutritional options for recovery. pt to f/u with PCP at discharge tomorrow
[2019-01-05 21:22] VITALS: PULSE 72
[2019-01-05] MEDS: QUEtiapine FUMARATE 200 MG TABLET PO SCH (22:09)
[2019-01-05] MEDS: THIAMINE HCL 100 MG TABLET (FP) PO SCH (22:10)
[2019-01-06] MEDS: GABAPENTIN 300 MG CAPSULE (FP) PO SCH (05:50)
[2019-01-06] MEDS ORDERED: METHADONE HCL 5 MG TABLET (FOR DETOX USE ONLY) PO ONE (06:00)
[2019-01-06 08:24] VITALS: BP 106/72; TEMP 97
--- NOTE | 2019-01-06 09:49 | DS ---
[facility] Detox Discharge Summary Admission Date: 01/01/19 Discharge Date: 01/06/19 - History Present History: Alcohol Dependence, Cannabis Dependence, Sedative Dependence - Physical Exam Results Vital Signs: Vital Signs Temperature 97 F L 01/06/19 08:23 Pulse Rate 72 01/06/19 08:23 Respiratory Rate 18 01/06/19 08:23 Blood Pressure 106/72 01/06/19 08:23 O2 Sat by Pulse Oximetry (%) Pertinent Admission Physical Exam Findings: pt arrived in withdrawals Laboratory Tests 01/02/19 01/02/19 01/02/19 08:00 08:00 08:00 WBC 4.7 RBC 4.42 Hgb 13.7 Hct 40.7 MCV 92.1 MCH 31.1 MCHC 33.7 RDW 14.8 Plt Count 270 MPV 8.6 Sodium 140 Potassium 4.6 Chloride 107 Carbon Dioxide 28 Anion Gap 5 L BUN 8.1 Creatinine 0.8 Est GFR (CKD-EPI)AfAm 126.81 Est GFR (CKD-EPI)NonAf 109.41 Random Glucose 92 Calcium 8.9 Total Bilirubin 0.2 AST 18 ALT 32 Alkaline Phosphatase 37 L Total Protein 6.3 L Albumin 3.5 RPR Titer Nonreactive today pt is aaox3 ambulating no acute distress no s/s of withdrawals - Treatment Hospital Course: Detox Protocol Followed, Detoxed Safely, Responded well, Discharged Condition Good, Rehab Referral Accepted Patient has Accepted a Rehab Referral to: pt declined rehab; referral provided - Medication Discharge Medications: Ambulatory Orders Zolpidem Tartrate [Ambien] 10 mg PO HS MDD 10 08/18/17 Alprazolam [Xanax] 1 mg PO BID 10/09/18 Mineral Oil/Petrolat,Wht/Water [Eucerin] 1 applic TP DAILY PRN 10/09/18 Citalopram Hydrobromide [Citalopram HBr] 10 mg PO DAILY 01/01/19 Gabapentin 300 mg PO TID 01/01/19 Methadone [Dolophine -] 20 mg PO DAILY 01/01/19 Propylene Glycol/Peg 400/Pf [Systane 0.3-0.4% Eye Drops] 1 each OP DAILY Quetiapine Fumarate [Seroquel] 200 mg PO HS 01/01/19 - Diagnosis (1) Alcohol dependence with uncomplicated withdrawal Status: Chronic (2) Cannabis dependence, uncomplicated Status: Chronic (3) Ecstasy abuse Status: Chronic (4) Substance-induced sleep disorder Status: Acute (5) Anxiety disorder Status: Chronic (6) Chronic GERD Status: Chronic (7) Cocaine dependence, uncomplicated Status: Chronic (8) Eczema Status: Chronic Qualifiers: Eczema type: unspecified Qualified Code(s): L30.9 - Dermatitis, unspecified (9) History of traumatic head injury Status: Chronic (10) Insomnia Status: Chronic Qualifiers: Insomnia type: unspecified Qualified Code(s): G47.00 - Insomnia, unspecified (11) Nicotine dependence Status: Chronic Qualifiers: Nicotine product type: cigarettes Substance use status: uncomplicated Qualified Code(s): F17.210 - Nicotine dependence, cigarettes, uncomplicated (12) PTSD (post-traumatic stress disorder) Status: Chronic (13) Sedative, hypnotic, or anxiolytic withdrawal Status: Chronic (14) Drug-induced mood disorder Status: Suspected - AMA Did Patient Leave Against Medical Advice: No (going home)
== END 2019-01-06 08:31 | disposition home or self-care (01) | DRG 774 ==
LOC: YASAS 10:14 → Y6N 15:37
PROVIDERS: ADMIT Surgery; ATTEND Surgery
PROC: HZ2ZZZZ Detoxification Services for Substance Abuse Treatment (ICD-10-PCS; principal; 2019-01-01)
DX: F10.230 Alcohol dependence with withdrawal, uncomplicated (principal); F13.230 Sedative, hypnotic or anxiolytic dependence with withdrawal, uncomplicated; F14.20 Cocaine dependence, uncomplicated; F12.20 Cannabis dependence, uncomplicated; F16.10 Hallucinogen abuse, uncomplicated; F17.210 Nicotine dependence, cigarettes, uncomplicated; F19.24 Other psychoactive substance dependence with psychoactive substance-induced mood disorder; F19.282 Other psychoactive substance dependence with psychoactive substance-induced sleep disorder; F41.9 Anxiety disorder, unspecified; F43.10 Post-traumatic stress disorder, unspecified; K21.9 Gastro-esophageal reflux disease without esophagitis; L30.9 Dermatitis, unspecified; G47.00 Insomnia, unspecified; Z87.820 Personal history of traumatic brain injury
CPT/HCPCS: 36415; 80053; 85027; 86593

== ENCOUNTER 2019-02-07 10:07 | Inpatient (IN) | payer OTHER ==
[2019-02-07 10:34] VITALS: BMI 26.6
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
[2019-02-07] MEDS ORDERED: cloNIDine HCL 0.1 MG TABLET PO PRN (11:07)
[2019-02-07] MEDS ORDERED: IBUPROFEN 400 MG TABLET (FP) PO PRN (11:10)
[2019-02-07] MEDS ORDERED: MAG HYDROX/AL HYDROX/SIMETH 30 ML UNIT-DOSE CUP PO PRN (11:10)
[2019-02-07] MEDS ORDERED: MELATONIN 5 MG TABLETS PO PRN (11:10)
[2019-02-07] MEDS ORDERED: BISMUTH SUBSALICYLATE 262 MG/15 ML BTL PO PRN (11:10)
[2019-02-07] MEDS ORDERED: MAGNESIUM HYDROX 2400MG/30ML ORAL SUSPENSION 30 ML CUP PO PRN (11:10)
[2019-02-07] MEDS ORDERED: ACETAMINOPHEN 325 MG TABLET (FP) PO PRN ×2 (11:10)
[2019-02-07] MEDS ORDERED: MENTHOL/PHENOL 1 EACH UD MM PRN (11:10)
[2019-02-07] MEDS ORDERED: MAGNESIUM CITRATE 300 ML BOTTLE PO PRN (11:10)
[2019-02-07] MEDS ORDERED: METHADONE HCL 10 MG TABLET (FOR DETOX USE ONLY) PO ONE (11:45)
[2019-02-07] MEDS: chlordiazePOXIDE HCL 25 MG CAPSULE PO PRN ×2 (12:07→18:09)
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
[2019-02-07] MEDS: THIAMINE HCL 100 MG TABLET (FP) PO SCH (21:58)
[2019-02-07] MEDS: QUETIAPINE FUMARATE 200 MG PO SCH (21:59)
[2019-02-07] MEDS: chlordiazePOXIDE HCL 25 MG CAPSULE PO SCH (21:59)
[2019-02-07] MEDS ORDERED: PATIENT'S OWN MEDICATION (NON-FORMULARY) (Zolpidem Tartrate [Ambien] 10 MG) PO SCH (22:00)
[2019-02-08] MEDS: chlordiazePOXIDE HCL 25 MG CAPSULE PO SCH ×4 (05:28→22:10)
[2019-02-08 09:58] LABS: HEMATOCRIT 42.5 % (35.4-49); HEMOGLOBIN 14.6 GM/dL (11.7-16.9); MCH 31.5 pg (25.7-33.7); MCHC 34.4 g/dl (32.0-35.9); MEAN CELL VOLUME 91.6 fl (80-96); MEAN PLT VOLUME 8.6 fl (7.5-11.1); PLATELET COUNT 287 K/MM3 (134-434); RBC 4.64 M/mm3 (4.00-5.60); RDW 14.3 % (11.9-15.9); WHITE BLOOD COUNT 5.3 K/mm3 (4.0-10.0)
[2019-02-08] MEDS ORDERED: METHADONE (DETOX) 20 MG, METHADONE (DETOX) 5 MG PO ONE (10:00)
[2019-02-08 10:03] LABS: ALBUMIN 3.7 g/dl (3.4-5.0); BILIRUBIN,TOTAL 0.5 mg/dL (0.2-1); CALCIUM 8.9 mg/dL (8.5-10.1); CREATININE 0.7 mg/dL (0.55-1.3); POTASSIUM 4.2 mmol/L (3.5-5.1); TOT PROT 6.5 g/dl (6.4-8.2)
[2019-02-08] MEDS: PATIENT'S OWN MEDICATION (NON-FORMULARY) (Propylene Glycol/Peg 400/Pf [Systane 0.3-0.4% Ey OP SCH (10:10)
[2019-02-08] MEDS: PRENATAL VITAMINS W/ FOLIC ACID TABLET (FP) PO SCH (10:11)
[2019-02-08] MEDS ORDERED: METHADONE HCL 10 MG TABLET (FOR DETOX USE ONLY) ONE (10:12)
[2019-02-08] MEDS ORDERED: METHADONE HCL 5 MG TABLET (FOR DETOX USE ONLY) ONE (10:13)
[2019-02-08] MEDS: MINERAL OIL/PETROLAT/WATER TOPICAL CREAM 113 GM JAR TP PRN (10:14)
[2019-02-08] MEDS ORDERED: NICOTINE POLACRILEX 4 MG GUM BUC PRN (10:59)
[2019-02-08] MEDS: NICOTINE 21 MG/24 HOURS TOPICAL PATCH TD SCH (11:34)
--- NOTE | 2019-02-08 13:52 | PN ---
[facility] CIWA - CIWA Score Nausea/Vomitin-Mild Nausea/No Vomiting Muscle Tremors: 3 Anxiety: 4-Mod. Anxious/Guarded Agitation: 2 Paroxysmal Sweats: 2 Orientation: 0-Oriented Tacttile Disturbances: 0-None Auditory Disturbances: 0-None Visual Disturbances: 0-None Headache: 0-None Present CIWA-Ar Total Score: 12 BHS COWS - Scale Resting Pulse: 0= IN 80 or Below Sweatin= Chills/Flushing Restless Observation: 0= Sits Still Pupil Size: 0= Normal to Room Light Bone or Joint Aches: 1= Mild Discomfort Runny Nose/ Eye Tearin= Nasal Congestion GI Upset > 30mins: 1= Stomach Cramp Tremor Observation of Outstretched Hands: 2= Slight Tremor Visible Yawning Observation: 1= 1-2x During Session Anxiety or Irritability: 2=Irritable/Anxious Goose Flesh Skin: 3=Piloerection COWS Score: 12 S Progress Note (SOAP) Subjective: 44 years old male multiple patient [facility] [place] admission since 2015 was admitted on 02/07/19 for alcohol and opiate withdrawal sx management doing well with librum and methadone detox regimen feeling anxious from nicotine withdrawal nicotine patch and gum provided feeling calmer Objective: 02/08/19 13:55 Vital Signs Temperature 971 F H 02/08/19 13:25 Pulse Rate 79 02/08/19 13:25 Respiratory Rate 16 02/08/19 13:25 Blood Pressure 100/71 02/08/19 13:25 O2 Sat by Pulse Oximetry (%) Laboratory Last Values WBC 5.3 K/mm3 (4.0-10.0) 02/08/19 07:00 RBC 4.64 M/mm3 (4.00-5.60) 02/08/19 07:00 Hgb 14.6 GM/dL (11.7-16.9) 02/08/19 07:00 Hct 42.5 % (35.4-49) 02/08/19 07:00 MCV 91.6 fl (80-96) 02/08/19 07:00 MCH 31.5 pg (25.7-33.7) 02/08/19 07:00 MCHC 34.4 g/dl (32.0-35.9) 02/08/19 07:00 RDW 14.3 % (11.9-15.9) 02/08/19 07:00 Plt Count 287 K/MM3 (134-434) 02/08/19 07:00 MPV 8.6 fl (7.5-11.1) 02/08/19 07:00 Sodium 139 mmol/L (136-145) 02/08/19 07:00 Potassium 4.2 mmol/L (3.5-5.1) 02/08/19 07:00 Chloride 107 mmol/L (98-107) 02/08/19 07:00 Carbon Dioxide 28 mmol/L (21-32) 02/08/19 07:00 Anion Gap 4 MMOL/L (8-16) L 02/08/19 07:00 BUN 11.0 mg/dL (7-18) 02/08/19 07:00 Creatinine 0.7 mg/dL (0.55-1.3) 02/08/19 07:00 Est GFR (CKD-EPI)AfAm 133.02 02/08/19 07:00 Est GFR (CKD-EPI)NonAf 114.77 02/08/19 07:00 Random Glucose 84 mg/dL (74-106) 02/08/19 07:00 Calcium 8.9 mg/dL (8.5-10.1) 02/08/19 07:00 Total Bilirubin 0.5 mg/dL (0.2-1) 02/08/19 07:00 AST 16 U/L (15-37) 02/08/19 07:00 ALT 21 U/L (13-61) 02/08/19 07:00 Alkaline Phosphatase 38 U/L (45-117) L 02/08/19 07:00 Total Protein 6.5 g/dl (6.4-8.2) 02/08/19 07:00 Albumin 3.7 g/dl (3.4-5.0) 02/08/19 07:00 RPR Titer Nonreactive (NONREACTIVE) 02/08/19 07:00 lab noted Assessment: 02/08/19 13:55 alcohol and opiate withdrawal sx alert oriented x 3 skin warm and moist tremor noted both hands Plan: continue librum and methadone detox regimen
[2019-02-08] MEDS: chlordiazePOXIDE HCL 25 MG CAPSULE PO PRN (16:01)
[2019-02-08] MEDS: QUETIAPINE FUMARATE 200 MG PO SCH (22:10)
[2019-02-08] MEDS: THIAMINE HCL 100 MG TABLET (FP) PO SCH (22:10)
[2019-02-09] MEDS: chlordiazePOXIDE HCL 25 MG CAPSULE PO SCH ×4 (05:34→22:04)
--- NOTE | 2019-02-09 09:42 | PN ---
[facility] CIWA - CIWA Score Nausea/Vomitin-No Nausea/No Vomiting Muscle Tremors: 3 Anxiety: 3 Agitation: 2 Paroxysmal Sweats: 2 Orientation: 0-Oriented Tacttile Disturbances: 0-None Auditory Disturbances: 0-None Visual Disturbances: 0-None Headache: 0-None Present CIWA-Ar Total Score: 10 BHS COWS - Scale Resting Pulse: 0= [place] 80 or Below Sweatin= Chills/Flushing Restless Observation: 0= Sits Still Pupil Size: 0= Normal to Room Light Bone or Joint Aches: 2= Severe Diffuse Aches Runny Nose/ Eye Tearin= None GI Upset > 30mins: 1= Stomach Cramp (no diarrh) Tremor Observation of Outstretched Hands: 2= Slight Tremor Visible Yawning Observation: 2= >3x During Session Anxiety or Irritability: 2=Irritable/Anxious Goose Flesh Skin: 0=Smooth Skin COWS Score: 10 S Progress Note (SOAP) Subjective: doing well with librium and methadone detox regimen mild sweating chronic back pain lidocain patch to lumbar spin Objective: 02/09/19 09:41 Vital Signs Temperature 98 F 02/09/19 09:03 Pulse Rate 72 02/09/19 09:03 Respiratory Rate 16 02/09/19 09:03 Blood Pressure 97/63 02/09/19 09:03 O2 Sat by Pulse Oximetry (%) Laboratory Last Values WBC 5.3 K/mm3 (4.0-10.0) 02/08/19 07:00 RBC 4.64 M/mm3 (4.00-5.60) 02/08/19 07:00 Hgb 14.6 GM/dL (11.7-16.9) 02/08/19 07:00 Hct 42.5 % (35.4-49) 02/08/19 07:00 MCV 91.6 fl (80-96) 02/08/19 07:00 MCH 31.5 pg (25.7-33.7) 02/08/19 07:00 MCHC 34.4 g/dl (32.0-35.9) 02/08/19 07:00 RDW 14.3 % (11.9-15.9) 02/08/19 07:00 Plt Count 287 K/MM3 (134-434) 02/08/19 07:00 MPV 8.6 fl (7.5-11.1) 02/08/19 07:00 Sodium 139 mmol/L (136-145) 02/08/19 07:00 Potassium 4.2 mmol/L (3.5-5.1) 02/08/19 07:00 Chloride 107 mmol/L (98-107) 02/08/19 07:00 Carbon Dioxide 28 mmol/L (21-32) 02/08/19 07:00 Anion Gap 4 MMOL/L (8-16) L 02/08/19 07:00 BUN 11.0 mg/dL (7-18) 02/08/19 07:00 Creatinine 0.7 mg/dL (0.55-1.3) 02/08/19 07:00 Est GFR (CKD-EPI)AfAm 133.02 02/08/19 07:00 Est GFR (CKD-EPI)NonAf 114.77 02/08/19 07:00 Random Glucose 84 mg/dL (74-106) 02/08/19 07:00 Calcium 8.9 mg/dL (8.5-10.1) 02/08/19 07:00 Total Bilirubin 0.5 mg/dL (0.2-1) 02/08/19 07:00 AST 16 U/L (15-37) 02/08/19 07:00 ALT 21 U/L (13-61) 02/08/19 07:00 Alkaline Phosphatase 38 U/L (45-117) L 02/08/19 07:00 Total Protein 6.5 g/dl (6.4-8.2) 02/08/19 07:00 Albumin 3.7 g/dl (3.4-5.0) 02/08/19 07:00 RPR Titer Nonreactive (NONREACTIVE) 02/08/19 07:00 lab noted increase oral fluid Assessment: 02/09/19 09:41 alcohol and opiate withdrawal sx alert oriented x 3 02/09/19 09:42 no chest pain no shortness of breath Plan: continue libirum and methadone detox regimen
[2019-02-09] MEDS ORDERED: METHADONE HCL 10 MG TABLET (FOR DETOX USE ONLY) PO ONE (10:00)
[2019-02-09] MEDS: NICOTINE 21 MG/24 HOURS TOPICAL PATCH TD SCH (10:31)
[2019-02-09] MEDS: LIDOCAINE 5% TOPICAL PATCH TP SCH (10:31)
[2019-02-09] MEDS: PATIENT'S OWN MEDICATION (NON-FORMULARY) (Propylene Glycol/Peg 400/Pf [Systane 0.3-0.4% Ey OP SCH (10:32)
[2019-02-09] MEDS: PRENATAL VITAMINS W/ FOLIC ACID TABLET (FP) PO SCH (10:33)
[2019-02-09] MEDS: hydrOXYzine PAMOATE 25 MG CAPSULE (FP) PO PRN (10:34)
[2019-02-09] MEDS: THIAMINE HCL 100 MG TABLET (FP) PO SCH (22:03)
[2019-02-09] MEDS: QUETIAPINE FUMARATE 200 MG PO SCH (22:04)
[2019-02-09] MEDS: LIDOCAINE PATCH REMOVAL MC SCH (22:04)
[2019-02-10] MEDS ORDERED: chlordiazePOXIDE HCL 10 MG CAPSULE PO PRN
[2019-02-10] MEDS: chlordiazePOXIDE HCL 10 MG CAPSULE PO SCH ×4 (05:17→22:08)
[2019-02-10] MEDS ORDERED: METHADONE HCL 10 MG TABLET (FOR DETOX USE ONLY) ONE (08:43)
[2019-02-10] MEDS ORDERED: METHADONE HCL 5 MG TABLET (FOR DETOX USE ONLY) ONE (08:43)
[2019-02-10] MEDS ORDERED: METHADONE (DETOX) 10 MG, METHADONE (DETOX) 5 MG PO ONE (10:00)
[2019-02-10] MEDS: MINERAL OIL/PETROLAT/WATER TOPICAL CREAM 113 GM JAR TP PRN (10:11)
[2019-02-10] MEDS: PRENATAL VITAMINS W/ FOLIC ACID TABLET (FP) PO SCH (10:11)
[2019-02-10] MEDS: LIDOCAINE 5% TOPICAL PATCH TP SCH (10:11)
[2019-02-10] MEDS: NICOTINE 21 MG/24 HOURS TOPICAL PATCH TD SCH (10:12)
[2019-02-10] MEDS: PATIENT'S OWN MEDICATION (NON-FORMULARY) (Propylene Glycol/Peg 400/Pf [Systane 0.3-0.4% Ey OP SCH (10:13)
[2019-02-10] MEDS ORDERED: COLLOIDAL OATMEAL 1 BAR EACH TP PRN (12:44)
--- NOTE | 2019-02-10 15:00 | PN ---
S CIWA - CIWA Score Nausea/Vomitin-No Nausea/No Vomiting Muscle Tremors: 3 Anxiety: 2 Agitation: 2 Paroxysmal Sweats: 2 Orientation: 0-Oriented Tacttile Disturbances: 0-None Auditory Disturbances: 0-None Visual Disturbances: 1-Very Mild Sensitivity Headache: 0-None Present CIWA-Ar Total Score: 10 BHS COWS - Scale Resting Pulse: 0= [place] 80 or Below Sweatin= Chills/Flushing Restless Observation: 1= Difficult to Sit Still Pupil Size: 0= Normal to Room Light Bone or Joint Aches: 0= None Runny Nose/ Eye Tearin= None GI Upset > 30mins: 0= None Tremor Observation of Outstretched Hands: 2= Slight Tremor Visible Yawning Observation: 1= 1-2x During Session Anxiety or Irritability: 2=Irritable/Anxious Goose Flesh Skin: 3=Piloerection COWS Score: 10 BHS Progress Note (SOAP) Subjective: Sweating, Tremors, Anxious. Patient reports that current Withdrawal / Detox Symptoms are subsiding in severity. Objective: PATIENT A & O X 3, OBSERVED AMBULATING ON UNIT UNASSISTED. IN NO ACUTE DISTRESS. 02/10/19 14:59 Vital Signs Temperature 97.6 F 02/10/19 13:40 Pulse Rate 68 02/10/19 13:40 Respiratory Rate 18 02/10/19 13:40 Blood Pressure 105/72 02/10/19 13:40 O2 Sat by Pulse Oximetry (%) Laboratory Tests 02/08/19 02/08/19 02/08/19 07:00 07:00 07:00 WBC 5.3 RBC 4.64 Hgb 14.6 Hct 42.5 MCV 91.6 MCH 31.5 MCHC 34.4 RDW 14.3 Plt Count 287 MPV 8.6 Sodium 139 Potassium 4.2 Chloride 107 Carbon Dioxide 28 Anion Gap 4 L BUN 11.0 Creatinine 0.7 Est GFR (CKD-EPI)AfAm 133.02 Est GFR (CKD-EPI)NonAf 114.77 Random Glucose 84 Calcium 8.9 Total Bilirubin 0.5 AST 16 ALT 21 Alkaline Phosphatase 38 L Total Protein 6.5 Albumin 3.7 RPR Titer Nonreactive LABS NOTED. Assessment: 02/10/19 14:59 WITHDRAWAL SYMPTOMS. Plan: CONTINUE DETOX.
[2019-02-10] MEDS: THIAMINE HCL 100 MG TABLET (FP) PO SCH (22:08)
[2019-02-10] MEDS: LIDOCAINE PATCH REMOVAL MC SCH (22:08)
[2019-02-10] MEDS: QUETIAPINE FUMARATE 200 MG PO SCH (22:08)
[2019-02-10] MEDS: METHOCARBAMOL 500 MG TABLET PO PRN (22:09)
[2019-02-11] MEDS: chlordiazePOXIDE HCL 10 MG CAPSULE PO SCH ×2 (05:49→17:29)
[2019-02-11] MEDS ORDERED: METHADONE HCL 10 MG TABLET (FOR DETOX USE ONLY) PO ONE (10:00)
[2019-02-11] MEDS: LIDOCAINE 5% TOPICAL PATCH TP SCH (10:10)
[2019-02-11] MEDS: NICOTINE 21 MG/24 HOURS TOPICAL PATCH TD SCH (10:10)
[2019-02-11] MEDS: PRENATAL VITAMINS W/ FOLIC ACID TABLET (FP) PO SCH (10:10)
[2019-02-11] MEDS: PATIENT'S OWN MEDICATION (NON-FORMULARY) (Propylene Glycol/Peg 400/Pf [Systane 0.3-0.4% Ey OP SCH (10:13)
[2019-02-11] MEDS: METHOCARBAMOL 500 MG TABLET PO PRN (10:13)
[2019-02-11] MEDS: hydrOXYzine PAMOATE 25 MG CAPSULE (FP) PO PRN ×2 (11:53→22:19)
--- NOTE | 2019-02-11 14:44 | PN ---
S CIWA - CIWA Score Nausea/Vomitin-No Nausea/No Vomiting Muscle Tremors: 2 Anxiety: 2 Agitation: 1-Slight > Activity Paroxysmal Sweats: 3 Orientation: 0-Oriented Tacttile Disturbances: 1-Very Mild Itch/Numbness Auditory Disturbances: 0-None Visual Disturbances: 0-None Headache: 0-None Present CIWA-Ar Total Score: 9 BHS COWS - Scale Resting Pulse: 0= [place] 80 or Below Sweatin= Chills/Flushing Restless Observation: 1= Difficult to Sit Still Pupil Size: 0= Normal to Room Light Bone or Joint Aches: 1= Mild Discomfort Runny Nose/ Eye Tearin= None GI Upset > 30mins: 0= None Tremor Observation of Outstretched Hands: 2= Slight Tremor Visible Yawning Observation: 1= 1-2x During Session Anxiety or Irritability: 2=Irritable/Anxious Goose Flesh Skin: 0=Smooth Skin COWS Score: 8 BHS Progress Note (SOAP) Subjective: Sweating, Anxious, Tremors. Objective: PATIENT A & O X 3, OBSERVED AMBULATING ON UNIT UNASSISTED. IN NO ACUTE DISTRESS. 02/11/19 14:41 Vital Signs Temperature 96.9 F L 02/11/19 13:35 Pulse Rate 73 02/11/19 13:35 Respiratory Rate 18 02/11/19 13:35 Blood Pressure 110/77 02/11/19 13:35 O2 Sat by Pulse Oximetry (%) Laboratory Tests 02/08/19 02/08/19 02/08/19 07:00 07:00 07:00 WBC 5.3 RBC 4.64 Hgb 14.6 Hct 42.5 MCV 91.6 MCH 31.5 MCHC 34.4 RDW 14.3 Plt Count 287 MPV 8.6 Sodium 139 Potassium 4.2 Chloride 107 Carbon Dioxide 28 Anion Gap 4 L BUN 11.0 Creatinine 0.7 Est GFR (CKD-EPI)AfAm 133.02 Est GFR (CKD-EPI)NonAf 114.77 Random Glucose 84 Calcium 8.9 Total Bilirubin 0.5 AST 16 ALT 21 Alkaline Phosphatase 38 L Total Protein 6.5 Albumin 3.7 RPR Titer Nonreactive LABS NOTED. Assessment: 02/11/19 14:42 WITHDRAWAL SYMPTOMS. Plan: CONTINUE DETOX. INCREASE DAILY PO WATER INTAKE. PATIENT SCHEDULED FOR D/C FROM DETOX UNIT TOMORROW.
[2019-02-11] MEDS: LIDOCAINE PATCH REMOVAL MC SCH (22:16)
[2019-02-11] MEDS: THIAMINE HCL 100 MG TABLET (FP) PO SCH (22:16)
[2019-02-11] MEDS: QUETIAPINE FUMARATE 200 MG PO SCH (22:16)
[2019-02-12] MEDS ORDERED: chlordiazePOXIDE HCL 10 MG CAPSULE PO ONE (05:00)
[2019-02-12] MEDS ORDERED: METHADONE HCL 5 MG TABLET (FOR DETOX USE ONLY) PO ONE (06:00)
[2019-02-12 09:22] VITALS: BP 105/69; PULSE 84; TEMP 97.1
--- NOTE | 2019-02-12 17:53 | DS ---
[facility] Detox Discharge Summary Admission Date: 02/07/19 Discharge Date: 02/12/19 - History Present History: Alcohol Dependence, Cannabis Dependence, Cocaine Dependence, Opioid Dependence Additional Comments: PATIENT RETURNING HOME, WILL ATTEND LOCAL 12-STEP / NA / AA OUTPATIENT SUPPORT GROUPS. PATIENT WAS DISCHARGED FROM DETOX UNIT IN STABLE MEDICAL CONDITION. Pertinent Past History: Anxiety Disorder, GERD, History Of Traumatic Head Injury, Depression, Insomnia, P.T.S.D., History Of Eczema, History of Retinal Detachment of Right Eye, Nicotine Dependence. - Physical Exam Results Vital Signs: Vital Signs Temperature 97.1 F L 02/12/19 09:22 Pulse Rate 84 02/12/19 09:22 Respiratory Rate 16 02/12/19 09:22 Blood Pressure 105/69 02/12/19 09:22 O2 Sat by Pulse Oximetry (%) Pertinent Admission Physical Exam Findings: WITHDRAWAL SYMPTOMS. Laboratory Tests 02/08/19 02/08/19 02/08/19 07:00 07:00 07:00 WBC 5.3 RBC 4.64 Hgb 14.6 Hct 42.5 MCV 91.6 MCH 31.5 MCHC 34.4 RDW 14.3 Plt Count 287 MPV 8.6 Sodium 139 Potassium 4.2 Chloride 107 Carbon Dioxide 28 Anion Gap 4 L BUN 11.0 Creatinine 0.7 Est GFR (CKD-EPI)AfAm 133.02 Est GFR (CKD-EPI)NonAf 114.77 Random Glucose 84 Calcium 8.9 Total Bilirubin 0.5 AST 16 ALT 21 Alkaline Phosphatase 38 L Total Protein 6.5 Albumin 3.7 RPR Titer Nonreactive LABS NOTED. - Treatment Hospital Course: Detox Protocol Followed, Detoxed Safely, Responded well, Discharged Condition Good Patient has Accepted a Rehab Referral to: PT. WILL ATTEND LOCAL 12-STEP/AA/NA OUTPATIENT SUPPORT GROUP MEETINGS. - Medication Discharge Medications: Ambulatory Orders Mineral Oil/Petrolat,Wht/Water [Eucerin] 1 applic TP DAILY PRN 10/09/18 Citalopram Hydrobromide [Citalopram HBr] 10 mg PO DAILY 01/01/19 Gabapentin 300 mg PO TID 01/01/19 Propylene Glycol/Peg 400/Pf [Systane 0.3-0.4% Eye Drops] 1 each OP DAILY Quetiapine Fumarate [Seroquel] 200 mg PO HS 01/01/19 - Diagnosis (1) Alcohol dependence with uncomplicated withdrawal Status: Acute (2) Anxiety disorder Status: Chronic Qualifiers: Anxiety disorder type: unspecified anxiety disorder Qualified Code(s): F41.9 - Anxiety disorder, unspecified (3) Cannabis dependence, uncomplicated Status: Chronic (4) Chronic GERD Status: Chronic (5) Cocaine dependence, uncomplicated Status: Chronic (6) Drug-induced mood disorder Status: Chronic (7) Eczema Status: Chronic Qualifiers: Eczema type: unspecified Qualified Code(s): L30.9 - Dermatitis, unspecified (8) History of traumatic head injury Status: Chronic (9) Insomnia Status: Chronic Qualifiers: Insomnia type: unspecified Qualified Code(s): G47.00 - Insomnia, unspecified (10) Nicotine dependence Status: Chronic Qualifiers: Nicotine product type: cigarettes Substance use status: uncomplicated Qualified Code(s): F17.210 - Nicotine dependence, cigarettes, uncomplicated (11) PTSD (post-traumatic stress disorder) Status: Chronic (12) Opioid dependence Status: Chronic - AMA Did Patient Leave Against Medical Advice: No S CIWA - CIWA Score Nausea/Vomitin-No Nausea/No Vomiting Muscle Tremors: None Anxiety: 1-Mildly Anxious Agitation: 1-Slight > Activity Paroxysmal Sweats: 2 Orientation: 0-Oriented Tacttile Disturbances: 0-None Auditory Disturbances: 0-None Visual Disturbances: 0-None Headache: 0-None Present CIWA-Ar Total Score: 4 S COWS - Scale Resting Pulse: 1= [place] 81-100 Sweatin= Chills/Flushing Restless Observation: 1= Difficult to Sit Still Pupil Size: 0= Normal to Room Light Bone or Joint Aches: 0= None Runny Nose/ Eye Tearin= None GI Upset > 30mins: 0= None Tremor Observation of Outstretched Hands: 0= None Yawning Observation: 0= None Anxiety or Irritability: 2=Irritable/Anxious Goose Flesh Skin: 0=Smooth Skin COWS Score: 5
== END 2019-02-12 08:58 | disposition home or self-care (01) | DRG 773 ==
LOC: YASAS 10:07 → Y3N 11:15
PROVIDERS: ADMIT Surgery; ATTEND Surgery
PROC: HZ2ZZZZ Detoxification Services for Substance Abuse Treatment (ICD-10-PCS; principal; 2019-02-07)
DX: F11.23 Opioid dependence with withdrawal (principal); F10.230 Alcohol dependence with withdrawal, uncomplicated; F14.20 Cocaine dependence, uncomplicated; F12.20 Cannabis dependence, uncomplicated; F17.210 Nicotine dependence, cigarettes, uncomplicated; F19.24 Other psychoactive substance dependence with psychoactive substance-induced mood disorder; F43.10 Post-traumatic stress disorder, unspecified; F41.9 Anxiety disorder, unspecified; G47.00 Insomnia, unspecified; K21.9 Gastro-esophageal reflux disease without esophagitis; L30.9 Dermatitis, unspecified; R25.1 Tremor, unspecified
CPT/HCPCS: 36415; 80053; 85027; 86593

== ENCOUNTER 2019-03-11 14:41 | Inpatient (IN) | payer OTHER ==
[2019-03-11 17:44] VITALS: BMI 28.1
--- NOTE | 2019-03-11 18:25 | HP ---
COWS - Scale Resting Pulse: 0= [place] 80 or Below Sweatin=Flushed/Facial Moisture Restless Observation: 1= Difficult to Sit Still Pupil Size: 0= Normal to Room Light Bone or Joint Aches: 1= Mild Discomfort Runny Nose/ Eye Tearin= Runny Nose/Eyes GI Upset > 30mins: 2= Nausea/Diarrhea Tremor Observation: 1= Tremor [place], Not Seen Yawning Observation: 1= 1-2x During Session Anxiety or Irritability: 2=Irritable/Anxious Goose Flesh Skin: 0=Smooth Skin COWS Score: 12 CIWA Score Nausea/Vomitin Muscle Tremors: 2 Anxiety: 3 Agitation: 0-Normal Activity Paroxysmal Sweats: 1-Minimal Palms Moist Orientation: 0-Oriented Tacttile Disturbances: 1-Very Mild Itch/Numbness Auditory Disturbances: 1-Very Mild Visual Disturbances: 1-Very Mild Sensitivity Headache: 2-Mild CIWA-Ar Total Score: 14 - Admission Criteria OASAS Guidelines: Admission for Medically Managed Detox: Requires at least one of the followin. CIWA greater than 12 2. Seizures within the past 24 hours 3. Delirium tremens within the past 24 hours 4. Hallucinations within the past 24 hours 5. Acute intervention needed for co occurring medical disorder 6. Acute intervention needed for co occurring psychiatric disorder 7. Severe withdrawal that cannot be handled at a lower level of care (continued vomiting, continued diarrhea, abnormal vital signs) requiring intravenous medication and/or fluids 8. Patient presents the following: CIWA greater than 12 Admission Criteria Met: Admission criteria met Admitting History and Physical - Smoking History Smoking history: Current every day smoker Have you smoked in the past 12 months: Yes Aproximately how many cigarettes per day: 20 - Alcohol/Substance Use Hx Alcohol Use: Yes (up to 1 pint of vodka per day) Admission [facility] Chief Complaint: alcohol and opioid withdrawal symptoms Allergies/Adverse Reactions: Allergies Allergy/AdvReac Type Severity Reaction Status Date / Time No Known Allergies Allergy Verified 03/11/19 17:31 History of Present Illness: Patient is a 44 yo male, domicile, with hx of alcohol and alcohol dependence is here seeking inpatient detox d/t withdrawal sx. Denies hx of seizures, blackouts or overdose. Reports hx of methadone maintenance [facility] reports last attendance December 2018, but keeps using opiates. PMHX: eczema. Psych: PTSD, Insomnia and anxiety. Denies SI/HI Exam Limitations: No Limitations - Ebola screening Have you traveled outside of the country in the last 21 days: No (N) Have you had contact with anyone from an Ebola affected area: No Do you have a fever: No - Review of Systems Constitutional: Chills, Loss of Appetite, Changes in sleep, Unintentional Wgt. Loss EENT: reports: Nose Congestion Respiratory: reports: No Symptoms reported Cardiac: reports: No Symptoms Reported GI: reports: Nausea, Poor Appetite, Poor Fluid Intake, Abdominal cramping : reports: No Symptoms Reported Musculoskeletal: reports: Back Pain, Joint Pain Integumentary: reports: No Symptoms Reported Neuro: reports: Headache Endocrine: reports: No Symptoms Reported Hematology: reports: No Symptoms Reported Psychiatric: reports: Orientated x3, Anxious Other Systems: Reviewed and Negative Patient History - Patient Medical History Hx Anemia: No Hx Asthma: No Hx Chronic Obstructive Pulmonary Disease (COPD): No Hx Cancer: No Hx Cardiac Disorders: No Hx Congestive Heart Failure: No Hx Hypertension: No Hx Hypercholesterolemia: No Hx Pacemaker: No HX Cerebrovascular Accident: No Hx Seizures: No Hx Dementia: No Hx Diabetes: No Hx Gastrointestinal Disorders: No Hx Liver Disease: No Hx Genitourinary Disorders: No Hx Sexually Transmitted Disorders: No Hx Renal Disease (ESRD): No Hx Thyroid Disease: No Hx Human Immunodeficiency Virus (HIV): No (NEGATIVE HX) Hx Hepatitis C: No (DENIES) Hx Depression: Yes Hx Suicide Attempt: No Hx Bipolar Disorder: No Hx Schizophrenia: No - Patient Surgical History Past Surgical History: Yes Hx Neurologic Surgery: No Hx Cataract Extraction: No Hx Cardiac Surgery: No Hx Lung Surgery: No Hx Breast Surgery: No Hx Breast Biopsy: No Hx Abdominal Surgery: No Hx Appendectomy: No Hx Cholecystectomy: No Hx Genitourinary Surgery: No Hx Section: No Hx Orthopedic Surgery: No Hx Hysterectomy: No Other Surgical History: right eye due to trauma in 2016 Anesthesia Reaction: No - PPD History Previous Implant?: No Documented Results: Negative w/proof Date: 10/11/18 Results: 0 MM PPD to be Administered?: No - Smoking Cessation Smoking history: Current every day smoker Have you smoked in the past 12 months: Yes Aproximately how many cigarettes per day: 20 Cigars Per Day: 0 Hx Chewing Tobacco Use: No Initiated information on smoking cessation: Yes 'Breaking Loose' booklet given: 03/11/19 - Substance & Tx. History Hx Alcohol Use: Yes Hx Substance Use: Yes Substance Use Type: Alcohol, Heroin, Marijuana Hx Substance Use Treatment: Yes - Substances abused Alcohol Substance route: Oral Frequency: Daily Amount used: quarter to 1 pint of cognac, 1 to 2 beers Age of first use: 17 Date of last use: 03/11/19 Heroin Substance route: Inhalation Frequency: Daily Amount used: 4 bags Age of first use: 40 Date of last use: 03/11/19 Marijuana/Hashish Substance route: Inhalation Frequency: Daily Amount used: couple puffs from vape Age of first use: 17 Date of last use: 02/06/19 Admission Physical Exam S - Vital Signs Vital Signs: Vital Signs - 24 hr 03/11/19 17:30 Temperature 96.2 F L Pulse Rate 80 Respiratory 16 Rate Blood Pressure 125/82 - Physical General Appearance: Yes: Appropriately Dressed, Mild Distress, Anxious HEENTM: Yes: EOMI, Hearing grossly Normal, Normal ENT Inspection, Normocephalic , Normal Voice, MARCOS, Pharynx Normal, Tm's normal, Other (poor dentition) Respiratory: Yes: Chest Non-Tender, Lungs Clear, Normal Breath Sounds, No Respiratory Distress, No Accessory Muscle Use Neck: Yes: Within Normal Limits Breast: Yes: Breast Exam Deferred Cardiology: Yes: Regular Rhythm, Regular Rate Abdominal: Yes: Normal Bowel Sounds, Non Tender, Soft, Protuberent Genitourinary: Yes: Within Normal Limits Back: Yes: Normal Inspection Musculoskeletal: Yes: full range of Motion, Gait Steady, Pelvis Stable Extremities: Yes: Normal Capillary Refill, Normal Inspection, Normal Range of Motion, Non-Tender Neurological: Yes: transmission assembler II-XII NML intact, Fully Oriented, Alert, Motor Strength 5/5, Depressed Affect Integumentary: Yes: Normal Color, Dry, Warm Lymphatic: Yes: Within Normal Limits - Diagnostic (1) Opioid dependence with withdrawal Current Visit: Yes Status: Acute (2) Alcohol dependence with uncomplicated withdrawal Current Visit: Yes Status: Acute (3) Cannabis dependence, uncomplicated Current Visit: Yes Status: Chronic (4) Eczema Current Visit: Yes Status: Chronic Qualifiers: Eczema type: unspecified Qualified Code(s): L30.9 - Dermatitis, unspecified (5) Nicotine dependence Current Visit: Yes Status: Chronic Qualifiers: Nicotine product type: cigarettes Substance use status: uncomplicated Qualified Code(s): F17.210 - Nicotine dependence, cigarettes, uncomplicated Cleared for Admission S - Detox or Rehab [facility] Level of Care: Medically Managed Detox Regimen/Protocol: Methadone/Valium Breathalyzer - Breathalyzer Breathalyzer: 0 Urine Drug Screen - Test Device Lot number: [id number] Expiration date: 11/05/20 - Control Is test valid?: Yes - Results Drug screen NEGATIVE: No Urine drug screen results: MOP-Opiates, OXY-Oxycodone, BZO-Benzodiazepines Inpatient Rehab Admission - Rehab Decision to Admit Inpatient rehab admission?: No
[2019-03-11] MEDS ORDERED: METHADONE HCL 10 MG TABLET (FOR DETOX USE ONLY) PO ONE (18:27)
[2019-03-11] MEDS ORDERED: MELATONIN 5 MG TABLETS PO PRN (18:27)
[2019-03-11] MEDS ORDERED: hydrOXYzine PAMOATE 25 MG CAPSULE (FP) PO PRN (18:27)
[2019-03-11] MEDS ORDERED: BISMUTH SUBSALICYLATE 524 MG/30 ML UD PO PRN (18:27)
[2019-03-11] MEDS ORDERED: MAGNESIUM CITRATE 300 ML BOTTLE PO PRN (18:27)
[2019-03-11] MEDS ORDERED: chlordiazePOXIDE HCL 25 MG CAPSULE PO PRN (18:27)
[2019-03-11] MEDS ORDERED: MAG HYDROX/AL HYDROX/SIMETH 30 ML UNIT-DOSE CUP PO PRN (18:27)
[2019-03-11] MEDS ORDERED: IBUPROFEN 400 MG TABLET (FP) PO PRN (18:27)
[2019-03-11] MEDS ORDERED: cloNIDine HCL 0.1 MG TABLET PO PRN (18:27)
[2019-03-11] MEDS ORDERED: ACETAMINOPHEN 325 MG TABLET (FP) PO PRN ×2 (18:27)
[2019-03-11] MEDS ORDERED: MAGNESIUM HYDROX 2400MG/30ML ORAL SUSPENSION 30 ML CUP PO PRN (18:27)
[2019-03-11] MEDS ORDERED: MENTHOL/PHENOL 1 EACH UD MM PRN (18:27)
[2019-03-11] MEDS ORDERED: MINERAL OIL/PETROLAT/WATER TOPICAL CREAM 113 GM JAR TP PRN (18:29)
[2019-03-11] MEDS ORDERED: COLLOIDAL OATMEAL 1 BAR EACH TP PRN (18:29)
[2019-03-11] MEDS ORDERED: NICOTINE POLACRILEX 2 MG GUM BUC PRN (18:43)
[2019-03-11] MEDS: THIAMINE HCL 100 MG TABLET (FP) PO SCH (21:46)
[2019-03-11] MEDS ORDERED: QUEtiapine FUMARATE 50 MG TABLET PO ONE (22:00)
[2019-03-11] MEDS: chlordiazePOXIDE HCL 25 MG CAPSULE PO SCH (22:18)
[2019-03-12] MEDS: chlordiazePOXIDE HCL 25 MG CAPSULE PO SCH ×2 (06:28→10:23)
[2019-03-12] MEDS ORDERED: METHADONE HCL 5 MG TABLET (FOR DETOX USE ONLY) PO ONE (10:00)
[2019-03-12] MEDS: PRENATAL VITAMINS W/ FOLIC ACID TABLET (FP) PO SCH (10:23)
[2019-03-12] MEDS: NICOTINE 21 MG/24 HOURS TOPICAL PATCH TD SCH (10:23)
[2019-03-12 11:12] LABS: HEMATOCRIT 39.8 % (35.4-49); HEMOGLOBIN 13.8 GM/dL (11.7-16.9); MCH 31.5 pg (25.7-33.7); MCHC 34.5 g/dl (32.0-35.9); MEAN CELL VOLUME 91.3 fl (80-96); MEAN PLT VOLUME 8.6 fl (7.5-11.1); PLATELET COUNT 285 K/MM3 (134-434); RBC 4.36 M/mm3 (4.00-5.60); RDW 14.6 % (11.9-15.9); WHITE BLOOD COUNT 5.3 K/mm3 (4.0-10.0)
[2019-03-12 11:28] LABS: ALBUMIN 3.4 g/dl (3.4-5.0); BILIRUBIN,TOTAL 0.3 mg/dL (0.2-1); CALCIUM 8.7 mg/dL (8.5-10.1); CREATININE 0.8 mg/dL (0.55-1.3); POTASSIUM 4.4 mmol/L (3.5-5.1); TOT PROT 6.4 g/dl (6.4-8.2)
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
--- NOTE | 2019-03-12 13:59 | PN ---
[facility] CIWA - CIWA Score Nausea/Vomitin-No Nausea/No Vomiting Muscle Tremors: 2 Anxiety: 3 Agitation: 1-Slight > Activity Paroxysmal Sweats: 3 Orientation: 0-Oriented Tacttile Disturbances: 0-None Auditory Disturbances: 0-None Visual Disturbances: 0-None Headache: 2-Mild CIWA-Ar Total Score: 11 BHS COWS - Scale Resting Pulse: 0= [place] 80 or Below Sweatin= Beads of Sweat on Face Restless Observation: 1= Difficult to Sit Still Pupil Size: 0= Normal to Room Light Bone or Joint Aches: 2= Severe Diffuse Aches Runny Nose/ Eye Tearin= None GI Upset > 30mins: 0= None Tremor Observation of Outstretched Hands: 2= Slight Tremor Visible Yawning Observation: 1= 1-2x During Session Anxiety or Irritability: 2=Irritable/Anxious Goose Flesh Skin: 0=Smooth Skin COWS Score: 11 S Progress Note (SOAP) Subjective: c/o anxiety, irritability, chills, muscle aches, and headache. Objective: 03/12/19 13:56 Vital Signs 03/12/19 03/12/19 06:00 09:48 Temperature 98.6 F Pulse Rate 64 73 Respiratory 18 18 Rate Blood Pressure 107/62 108/71 Lab Results WBC 5.3 K/mm3 (4.0-10.0) 03/12/19 08:10 RBC 4.36 M/mm3 (4.00-5.60) 03/12/19 08:10 Hgb 13.8 GM/dL (11.7-16.9) 03/12/19 08:10 Hct 39.8 % (35.4-49) 03/12/19 08:10 MCV 91.3 fl (80-96) 03/12/19 08:10 MCHC 34.5 g/dl (32.0-35.9) 03/12/19 08:10 RDW 14.6 % (11.9-15.9) 03/12/19 08:10 Plt Count 285 K/MM3 (134-434) 03/12/19 08:10 Sodium 141 mmol/L (136-145) 03/12/19 08:10 Potassium 4.4 mmol/L (3.5-5.1) 03/12/19 08:10 Chloride 106 mmol/L (98-107) 03/12/19 08:10 Carbon Dioxide 30 mmol/L (21-32) 03/12/19 08:10 Anion Gap 5 MMOL/L (8-16) L 03/12/19 08:10 BUN 15.0 mg/dL (7-18) 03/12/19 08:10 Creatinine 0.8 mg/dL (0.55-1.3) 03/12/19 08:10 Random Glucose 88 mg/dL (74-106) 03/12/19 08:10 Calcium 8.7 mg/dL (8.5-10.1) 03/12/19 08:10 Abnormal Lab Results 03/12/19 08:10 Anion Gap 5 L AST 81 H ALT 141 H Alkaline Phosphatase 42 L Labs noted with elevated AST/ALT Assessment: 03/12/19 13:58 AOX3, in no acute respiratory distress. Full ROM, ambulating in the unit. Withdrawal symptoms. Elevated AST/ALT. Plan: continue detox. change librium protocol to ativan protocol.
[2019-03-12] MEDS: METHOCARBAMOL 500 MG TABLET PO PRN (16:22)
[2019-03-12] MEDS: LORazepam 2 MG TABLET PO SCH ×2 (17:51→22:44)
[2019-03-12] MEDS: THIAMINE HCL 100 MG TABLET (FP) PO SCH (22:44)
[2019-03-12] MEDS: QUEtiapine FUMARATE 200 MG TABLET PO SCH (22:44)
[2019-03-13] MEDS ORDERED: chlordiazePOXIDE HCL 25 MG CAPSULE PO SCH (05:00)
[2019-03-13] MEDS: LORazepam 2 MG TABLET PO SCH ×4 (06:22→22:40)
[2019-03-13] MEDS ORDERED: METHADONE HCL 10 MG TABLET (FOR DETOX USE ONLY) PO ONE (10:00)
[2019-03-13] MEDS: CITALOPRAM HYDROBROMIDE 20 MG TABLET (FP) PO SCH (10:32)
[2019-03-13] MEDS: PRENATAL VITAMINS W/ FOLIC ACID TABLET (FP) PO SCH (10:32)
[2019-03-13] MEDS: NICOTINE 21 MG/24 HOURS TOPICAL PATCH TD SCH (10:32)
--- NOTE | 2019-03-13 11:21 | EKG ---
Test Reason : Blood Pressure : / mmHG Vent. Rate : 065 BPM Atrial Rate : 065 BPM P-R Int : 142 ms QRS Dur : 088 ms QT Int : 408 ms P-R-T Axes : 050 -24 023 degrees QTc Int : 424 ms NORMAL SINUS RHYTHM WHEN COMPARED WITH ECG OF 23-OCT-2017 21:18, T WAVE AMPLITUDE HAS INCREASED IN ANTEROLATERAL LEADS Confirmed by KARLEE HUGHES MD ([id number]) on 03/13/2019 11:21:17 AM Referred By: Confirmed By:KARLEE HUGHES MD
[2019-03-13] MEDS: METHOCARBAMOL 500 MG TABLET PO PRN (12:19)
--- NOTE | 2019-03-13 14:00 | PN ---
[facility] CIWA - CIWA Score Nausea/Vomitin-No Nausea/No Vomiting Muscle Tremors: 1-None Visible, but [place] Anxiety: 4-Mod. Anxious/Guarded Agitation: 3 Paroxysmal Sweats: 2 Orientation: 0-Oriented Tacttile Disturbances: 0-None Auditory Disturbances: 0-None Visual Disturbances: 0-None Headache: 0-None Present CIWA-Ar Total Score: 10 S COWS - Scale Resting Pulse: 1= [place] 81-100 Sweatin= Chills/Flushing Restless Observation: 3= Extraneous Movement Pupil Size: 0= Normal to Room Light Bone or Joint Aches: 1= Mild Discomfort Runny Nose/ Eye Tearin= Nasal Congestion GI Upset > 30mins: 0= None Tremor Observation of Outstretched Hands: 1= Tremor [place], Not Seen Yawning Observation: 0= None Anxiety or Irritability: 2=Irritable/Anxious Goose Flesh Skin: 0=Smooth Skin COWS Score: 10 [facility] Progress Note (SOAP) Subjective: requesting ativan instead of libriumanxious about d/c date shakes sweats Objective: 03/13/19 13:59 A & O x 3 anxious Vital Signs Temperature 97.3 F L 03/13/19 13:04 Pulse Rate 79 03/13/19 13:04 Respiratory Rate 18 03/13/19 13:04 Blood Pressure 117/74 03/13/19 13:04 O2 Sat by Pulse Oximetry (%) Laboratory Last Values WBC 5.3 K/mm3 (4.0-10.0) 03/12/19 08:10 RBC 4.36 M/mm3 (4.00-5.60) 03/12/19 08:10 Hgb 13.8 GM/dL (11.7-16.9) 03/12/19 08:10 Hct 39.8 % (35.4-49) 03/12/19 08:10 MCV 91.3 fl (80-96) 03/12/19 08:10 MCH 31.5 pg (25.7-33.7) 03/12/19 08:10 MCHC 34.5 g/dl (32.0-35.9) 03/12/19 08:10 RDW 14.6 % (11.9-15.9) 03/12/19 08:10 Plt Count 285 K/MM3 (134-434) 03/12/19 08:10 MPV 8.6 fl (7.5-11.1) 03/12/19 08:10 Sodium 141 mmol/L (136-145) 03/12/19 08:10 Potassium 4.4 mmol/L (3.5-5.1) 03/12/19 08:10 Chloride 106 mmol/L (98-107) 03/12/19 08:10 Carbon Dioxide 30 mmol/L (21-32) 03/12/19 08:10 Anion Gap 5 MMOL/L (8-16) L 03/12/19 08:10 BUN 15.0 mg/dL (7-18) 03/12/19 08:10 Creatinine 0.8 mg/dL (0.55-1.3) 03/12/19 08:10 Est GFR (CKD-EPI)AfAm 125.92 03/12/19 08:10 Est GFR (CKD-EPI)NonAf 108.65 03/12/19 08:10 Random Glucose 88 mg/dL (74-106) 03/12/19 08:10 Calcium 8.7 mg/dL (8.5-10.1) 03/12/19 08:10 Total Bilirubin 0.3 mg/dL (0.2-1) 03/12/19 08:10 AST 81 U/L (15-37) H 03/12/19 08:10 ALT 141 U/L (13-61) H 03/12/19 08:10 Alkaline Phosphatase 42 U/L (45-117) L 03/12/19 08:10 Total Protein 6.4 g/dl (6.4-8.2) 03/12/19 08:10 Albumin 3.4 g/dl (3.4-5.0) 03/12/19 08:10 RPR Titer Nonreactive (NONREACTIVE) 03/12/19 08:10 HIV 1&2 Antibody Screen Negative 03/12/19 08:10 HIV P24 Antigen Negative 03/12/19 08:10 Assessment: 03/13/19 14:00 withdrawal sx Plan: continue detox increase po hydration already on Ativan regimen
[2019-03-13] MEDS: PATIENT'S OWN MEDICATION (NON-FORMULARY) (Propylene Glycol/Peg 400/Pf [Systane 0.3-0.4% Ey OP SCH (14:50)
[2019-03-13] MEDS: QUEtiapine FUMARATE 200 MG TABLET PO SCH (22:40)
[2019-03-13] MEDS: THIAMINE HCL 100 MG TABLET (FP) PO SCH (22:40)
[2019-03-13] MEDS: ARTIFICIAL TEARS (POLYVINYL ALCOHOL) OPTH DROPS OU SCH (22:42)
[2019-03-14] MEDS ORDERED: chlordiazePOXIDE HCL 10 MG CAPSULE PO PRN
[2019-03-14] MEDS ORDERED: chlordiazePOXIDE HCL 10 MG CAPSULE PO SCH (05:00)
[2019-03-14] MEDS ORDERED: LORazepam 1 MG TABLET PO SCH (05:00)
[2019-03-14] MEDS ORDERED: METHADONE HCL 5 MG TABLET (FOR DETOX USE ONLY) PO ONE (06:00)
[2019-03-14 09:14] VITALS: BP 131/89; PULSE 87; TEMP 97.6
[2019-03-14] MEDS: CITALOPRAM HYDROBROMIDE 20 MG TABLET (FP) PO SCH (09:18)
[2019-03-14] MEDS: PRENATAL VITAMINS W/ FOLIC ACID TABLET (FP) PO SCH (09:18)
[2019-03-14] MEDS: ARTIFICIAL TEARS (POLYVINYL ALCOHOL) OPTH DROPS OU SCH (09:19)
[2019-03-14] MEDS: NICOTINE 21 MG/24 HOURS TOPICAL PATCH TD SCH (09:21)
--- NOTE | 2019-03-14 09:22 | DS ---
[facility] Detox Discharge Summary Admission Date: 03/11/19 Discharge Date: 03/14/19 - History Present History: Alcohol Dependence, Cannabis Dependence, Opioid Dependence, Sedative Dependence - Physical Exam Results Vital Signs: Vital Signs Temperature 97.6 F 03/14/19 09:13 Pulse Rate 87 03/14/19 09:13 Respiratory Rate 18 03/14/19 09:13 Blood Pressure 131/89 03/14/19 09:13 O2 Sat by Pulse Oximetry (%) Pertinent Admission Physical Exam Findings: pt arrived in withdrawals Laboratory Tests 03/12/19 03/12/19 03/12/19 08:10 08:10 08:10 WBC 5.3 RBC 4.36 Hgb 13.8 Hct 39.8 MCV 91.3 MCH 31.5 MCHC 34.5 RDW 14.6 Plt Count 285 MPV 8.6 Sodium 141 Potassium 4.4 Chloride 106 Carbon Dioxide 30 Anion Gap 5 L BUN 15.0 Creatinine 0.8 Est GFR (CKD-EPI)AfAm 125.92 Est GFR (CKD-EPI)NonAf 108.65 Random Glucose 88 Calcium 8.7 Total Bilirubin 0.3 AST 81 H ALT 141 H Alkaline Phosphatase 42 L Total Protein 6.4 Albumin 3.4 RPR Titer Nonreactive HIV 1&2 Antibody Screen HIV P24 Antigen 03/12/19 08:10 WBC RBC Hgb Hct MCV MCH MCHC RDW Plt Count MPV Sodium Potassium Chloride Carbon Dioxide Anion Gap BUN Creatinine Est GFR (CKD-EPI)AfAm Est GFR (CKD-EPI)NonAf Random Glucose Calcium Total Bilirubin AST ALT Alkaline Phosphatase Total Protein Albumin RPR Titer HIV 1&2 Antibody Screen Negative HIV P24 Antigen Negative today pt is aaox3 ambulating no acute distress no s/s of withdrawals - Treatment Hospital Course: Detox Protocol Followed, Detoxed Safely, Responded well, Discharged Condition Good, Rehab Referral Accepted Patient has Accepted a Rehab Referral to: pt declined rehab; referral provided - Medication Discharge Medications: Ambulatory Orders Mineral Oil/Petrolat,Wht/Water [Eucerin] 1 applic TP DAILY PRN 10/09/18 Citalopram Hydrobromide [Citalopram HBr] 10 mg PO DAILY 01/01/19 Gabapentin 300 mg PO TID 01/01/19 Propylene Glycol/Peg 400/Pf [Systane 0.3-0.4% Eye Drops] 1 each OP DAILY Quetiapine Fumarate [Seroquel] 200 mg PO HS 01/01/19 - Diagnosis (1) Alcohol dependence with uncomplicated withdrawal Current Visit: Yes Status: Chronic (2) Opioid dependence with withdrawal Current Visit: Yes Status: Chronic (3) Substance-induced sleep disorder Current Visit: Yes Status: Acute (4) Cannabis dependence, uncomplicated Current Visit: Yes Status: Chronic (5) Eczema Current Visit: Yes Status: Chronic Qualifiers: Eczema type: unspecified Qualified Code(s): L30.9 - Dermatitis, unspecified (6) Nicotine dependence Current Visit: Yes Status: Chronic Qualifiers: Nicotine product type: cigarettes Substance use status: uncomplicated Qualified Code(s): F17.210 - Nicotine dependence, cigarettes, uncomplicated (7) PTSD (post-traumatic stress disorder) Current Visit: Yes Status: Chronic (8) Sedative, hypnotic, or anxiolytic withdrawal Current Visit: No Status: Acute (9) Anxiety disorder Current Visit: No Status: Chronic Qualifiers: Anxiety disorder type: unspecified anxiety disorder Qualified Code(s): F41.9 - Anxiety disorder, unspecified (10) Chronic GERD Current Visit: Yes Status: Chronic (11) Cocaine dependence, uncomplicated Current Visit: No Status: Chronic (12) Drug-induced mood disorder Current Visit: Yes Status: Chronic (13) Ecstasy abuse Current Visit: No Status: Chronic (14) History of traumatic head injury Current Visit: No Status: Chronic (15) Insomnia Current Visit: No Status: Chronic Qualifiers: Insomnia type: unspecified Qualified Code(s): G47.00 - Insomnia, unspecified (16) Opioid dependence Current Visit: Yes Status: Chronic Qualifiers: Substance use status: uncomplicated Qualified Code(s): F11.20 - Opioid dependence, uncomplicated - AMA Did Patient Leave Against Medical Advice: No
[2019-03-15] MEDS ORDERED: LORazepam 0.5 MG TABLET PO PRN
[2019-03-15] MEDS ORDERED: chlordiazePOXIDE HCL 10 MG CAPSULE PO SCH (05:00)
[2019-03-15] MEDS ORDERED: LORazepam 0.5 MG TABLET PO SCH (05:00)
[2019-03-16] MEDS ORDERED: chlordiazePOXIDE HCL 10 MG CAPSULE PO ONE (05:00)
[2019-03-16] MEDS ORDERED: LORazepam 0.5 MG TABLET PO ONE (05:00)
== END 2019-03-14 09:30 | disposition home or self-care (01) | DRG 773 ==
LOC: YASAS 14:41 → Y6N 18:55
PROVIDERS: ADMIT Allergy & Immunology; ATTEND Allergy & Immunology
PROC: HZ2ZZZZ Detoxification Services for Substance Abuse Treatment (ICD-10-PCS; principal; 2019-03-11)
DX: F11.23 Opioid dependence with withdrawal (principal); F10.230 Alcohol dependence with withdrawal, uncomplicated; F13.20 Sedative, hypnotic or anxiolytic dependence, uncomplicated; F14.20 Cocaine dependence, uncomplicated; F12.20 Cannabis dependence, uncomplicated; F16.10 Hallucinogen abuse, uncomplicated; F17.210 Nicotine dependence, cigarettes, uncomplicated; F19.24 Other psychoactive substance dependence with psychoactive substance-induced mood disorder; F19.282 Other psychoactive substance dependence with psychoactive substance-induced sleep disorder; F43.10 Post-traumatic stress disorder, unspecified; F41.9 Anxiety disorder, unspecified; G47.00 Insomnia, unspecified; K21.9 Gastro-esophageal reflux disease without esophagitis; L30.9 Dermatitis, unspecified; R74.0 Nonspecific elevation of levels of transaminase and lactic acid dehydrogenase [LDH]; Z87.820 Personal history of traumatic brain injury
CPT/HCPCS: 36415; 80053; 85027; 86593; 87389; 93005; 93010; J0735

== ENCOUNTER 2019-04-08 11:59 | Inpatient (IN) | payer OTHER ==
[2019-04-08 12:32] VITALS: BMI 27.8
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
[2019-04-08] MEDS ORDERED: MELATONIN 5 MG TABLETS PO PRN (14:54)
[2019-04-08] MEDS ORDERED: METHOCARBAMOL 500 MG TABLET PO PRN (14:54)
[2019-04-08] MEDS ORDERED: MENTHOL/PHENOL 1 EACH UD MM PRN (14:54)
[2019-04-08] MEDS ORDERED: MAG HYDROX/AL HYDROX/SIMETH 30 ML UNIT-DOSE CUP PO PRN (14:54)
[2019-04-08] MEDS ORDERED: cloNIDine HCL 0.1 MG TABLET PO PRN (14:54)
[2019-04-08] MEDS ORDERED: METHADONE HCL 10 MG TABLET (FOR DETOX USE ONLY) PO ONE (14:54)
[2019-04-08] MEDS ORDERED: IBUPROFEN 400 MG TABLET (FP) PO PRN (14:54)
[2019-04-08] MEDS ORDERED: MAGNESIUM CITRATE 300 ML BOTTLE PO PRN (14:54)
[2019-04-08] MEDS ORDERED: BISMUTH SUBSALICYLATE 262 MG/15 ML BTL PO PRN (14:54)
[2019-04-08] MEDS ORDERED: MAGNESIUM HYDROX 2400MG/30ML ORAL SUSPENSION 30 ML CUP PO PRN (14:54)
[2019-04-08] MEDS ORDERED: ACETAMINOPHEN 325 MG TABLET (FP) PO PRN ×2 (14:54)
[2019-04-08] MEDS ORDERED: MINERAL OIL/PETROLAT/WATER TOPICAL CREAM 113 GM JAR TP PRN (14:56)
[2019-04-08] MEDS ORDERED: COLLOIDAL OATMEAL 1 BAR EACH TP PRN (14:57)
[2019-04-08] MEDS ORDERED: PATIENT'S OWN MEDICATION (NON-FORMULARY) (Propylene Glycol/Peg 400/Pf [Systane 0.3-0.4% Ey OP SCH (15:00)
--- NOTE | 2019-04-08 15:03 | PN ---
Teaching Attending Note Name of Resident: Kg Salgado ATTENDING PHYSICIAN STATEMENT I saw and evaluated the patient. I reviewed the resident's note and discussed the case with the resident. I agree with the resident's findings and plan as documented. SUBJECTIVE:this 44 years old male with heroin dependence,alcohol dependence, seeking detox ,multiple admissions in this facility,last 03/11/19 to 03/14/19 but keep relapsing OBJECTIVE: Vital Signs Temperature 97 F L 04/08/19 14:07 Pulse Rate 97 H 04/08/19 14:07 Respiratory Rate 16 04/08/19 14:07 Blood Pressure 119/76 04/08/19 14:07 O2 Sat by Pulse Oximetry (%) withdrawal sings and symptom ASSESSMENT AND PLAN: this 44 years old male with opioid and alcohol dependence needed inpatient detox methadone and valium regimen, medically managed detox
[2019-04-08] MEDS: diazePAM 5 MG TABLET PO PRN ×2 (15:48→20:09)
[2019-04-08] MEDS: GABAPENTIN 300 MG CAPSULE (FP) PO SCH ×2 (15:52→22:11)
[2019-04-08] MEDS: NICOTINE 21 MG/24 HOURS TOPICAL PATCH TD SCH (15:56)
[2019-04-08 18:38] LABS: HEMATOCRIT 41.7 % (35.4-49); HEMOGLOBIN 14.4 GM/dL (11.7-16.9); MCH 31.4 pg (25.7-33.7); MCHC 34.5 g/dl (32.0-35.9); MEAN CELL VOLUME 91.1 fl (80-96); MEAN PLT VOLUME 8.5 fl (7.5-11.1); PLATELET COUNT 375 K/MM3 (134-434); RBC 4.57 M/mm3 (4.00-5.60); RDW 14.3 % (11.9-15.9); WHITE BLOOD COUNT 6.7 K/mm3 (4.0-10.0)
[2019-04-08 18:47] LABS: ALBUMIN 3.9 g/dl (3.4-5.0); BILIRUBIN,TOTAL 0.5 mg/dL (0.2-1); BLOOD UREA NITROGEN 13.7 mg/dL (7-18); CALCIUM 8.8 mg/dL (8.5-10.1); CREATININE 0.9 mg/dL (0.55-1.3); POTASSIUM 4.1 mmol/L (3.5-5.1); TOT PROT 7.2 g/dl (6.4-8.2)
[2019-04-08] MEDS: ARTIFICIAL TEARS (POLYVINYL ALCOHOL) OPTH DROPS OU SCH (22:10)
[2019-04-08] MEDS: THIAMINE HCL 100 MG TABLET (FP) PO SCH (22:11)
[2019-04-08] MEDS: diazePAM 5 MG TABLET PO SCH (22:11)
[2019-04-09] MEDS: GABAPENTIN 300 MG CAPSULE (FP) PO SCH ×3 (05:35→22:18)
[2019-04-09] MEDS: ARTIFICIAL TEARS (POLYVINYL ALCOHOL) OPTH DROPS OU SCH ×3 (05:35→22:18)
[2019-04-09] MEDS: diazePAM 5 MG TABLET PO SCH ×3 (05:36→22:18)
[2019-04-09] MEDS ORDERED: METHADONE HCL 10 MG TABLET (FOR DETOX USE ONLY) ONE (08:18)
[2019-04-09] MEDS ORDERED: METHADONE HCL 5 MG TABLET (FOR DETOX USE ONLY) ONE (08:19)
[2019-04-09] MEDS: PRENATAL VITAMINS W/ FOLIC ACID TABLET (FP) PO SCH (09:28)
[2019-04-09] MEDS: NICOTINE 21 MG/24 HOURS TOPICAL PATCH TD SCH (09:28)
[2019-04-09] MEDS ORDERED: METHADONE (DETOX) 20 MG, METHADONE (DETOX) 5 MG PO ONE (10:00)
[2019-04-09] MEDS: diazePAM 5 MG TABLET PO PRN ×2 (10:22→17:20)
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
--- NOTE | 2019-04-09 11:22 | PN ---
S CIWA - CIWA Score Nausea/Vomitin-No Nausea/No Vomiting Muscle Tremors: 2 Anxiety: 3 Agitation: 0-Normal Activity Paroxysmal Sweats: 3 Orientation: 0-Oriented Tacttile Disturbances: 0-None Auditory Disturbances: 0-None Visual Disturbances: 0-None Headache: 2-Mild CIWA-Ar Total Score: 10 BHS COWS - Scale Resting Pulse: 0= [place] 80 or Below Sweatin= Beads of Sweat on Face Restless Observation: 1= Difficult to Sit Still Pupil Size: 0= Normal to Room Light Bone or Joint Aches: 2= Severe Diffuse Aches Runny Nose/ Eye Tearin= None GI Upset > 30mins: 0= None Tremor Observation of Outstretched Hands: 2= Slight Tremor Visible Yawning Observation: 1= 1-2x During Session Anxiety or Irritability: 2=Irritable/Anxious Goose Flesh Skin: 0=Smooth Skin COWS Score: 11 S Progress Note (SOAP) Subjective: c/o muscle aches, anxiety, irritability, sweats, and headache. Objective: 04/09/19 11:22 Vital Signs 04/09/19 04/09/19 04/09/19 03:30 06:08 09:04 Temperature 97.0 F L 97.6 F Pulse Rate 73 66 Respiratory 18 18 18 Rate Blood Pressure 99/61 99/66 Lab Results WBC 6.7 K/mm3 (4.0-10.0) 04/08/19 15:20 RBC 4.57 M/mm3 (4.00-5.60) 04/08/19 15:20 Hgb 14.4 GM/dL (11.7-16.9) 04/08/19 15:20 Hct 41.7 % (35.4-49) 04/08/19 15:20 MCV 91.1 fl (80-96) 04/08/19 15:20 MCHC 34.5 g/dl (32.0-35.9) 04/08/19 15:20 RDW 14.3 % (11.9-15.9) 04/08/19 15:20 Plt Count 375 K/MM3 (134-434) D 04/08/19 15:20 Sodium 140 mmol/L (136-145) 04/08/19 15:20 Potassium 4.1 mmol/L (3.5-5.1) 04/08/19 15:20 Chloride 107 mmol/L (98-107) 04/08/19 15:20 Carbon Dioxide 29 mmol/L (21-32) 04/08/19 15:20 Anion Gap 5 MMOL/L (8-16) L 04/08/19 15:20 BUN 13.7 mg/dL (7-18) 04/08/19 15:20 Creatinine 0.9 mg/dL (0.55-1.3) 04/08/19 15:20 Random Glucose 90 mg/dL (74-106) 04/08/19 15:20 Calcium 8.8 mg/dL (8.5-10.1) 04/08/19 15:20 Labs noted. Assessment: 04/09/19 11:22 AOX3, in no acute respiratory distress. Full ROM, ambulating in the unit. Withdrawal symptoms. Plan: continue detox.
[2019-04-09] MEDS: THIAMINE HCL 100 MG TABLET (FP) PO SCH (22:18)
[2019-04-09] MEDS: QUEtiapine FUMARATE 200 MG TABLET PO SCH (22:18)
[2019-04-10] MEDS: GABAPENTIN 300 MG CAPSULE (FP) PO SCH ×3 (05:35→22:19)
[2019-04-10] MEDS: ARTIFICIAL TEARS (POLYVINYL ALCOHOL) OPTH DROPS OU SCH ×3 (05:35→22:18)
[2019-04-10] MEDS: diazePAM 5 MG TABLET PO SCH ×2 (05:37→17:46)
[2019-04-10] MEDS ORDERED: METHADONE HCL 10 MG TABLET (FOR DETOX USE ONLY) PO ONE (10:00)
[2019-04-10] MEDS: PRENATAL VITAMINS W/ FOLIC ACID TABLET (FP) PO SCH (10:09)
[2019-04-10] MEDS: NICOTINE 21 MG/24 HOURS TOPICAL PATCH TD SCH (10:09)
[2019-04-10] MEDS: CITALOPRAM HYDROBROMIDE 20 MG TABLET (FP) PO SCH (10:10)
[2019-04-10] MEDS: diazePAM 5 MG TABLET PO PRN ×3 (10:10→22:18)
--- NOTE | 2019-04-10 10:28 | PN ---
S CIWA - CIWA Score Nausea/Vomitin-Mild Nausea/No Vomiting Muscle Tremors: 3 Anxiety: 2 Agitation: 1-Slight > Activity Paroxysmal Sweats: 2 Orientation: 0-Oriented Tacttile Disturbances: 0-None Auditory Disturbances: 0-None Visual Disturbances: 0-None Headache: 0-None Present CIWA-Ar Total Score: 9 BHS COWS - Scale Resting Pulse: 0= [place] 80 or Below Sweatin= Chills/Flushing Restless Observation: 0= Sits Still Pupil Size: 0= Normal to Room Light Bone or Joint Aches: 1= Mild Discomfort Runny Nose/ Eye Tearin= Nasal Congestion GI Upset > 30mins: 1= Stomach Cramp Tremor Observation of Outstretched Hands: 2= Slight Tremor Visible Yawning Observation: 1= 1-2x During Session Anxiety or Irritability: 2=Irritable/Anxious Goose Flesh Skin: 0=Smooth Skin COWS Score: 9 S Progress Note (SOAP) Subjective: 44 years old male admitted on 04/08/19 for alcohol and opiate withdrawal sx management treated with valium and methadone detox regimen patient tolerated well ate breakfast resting on bed feeling tired prefers stay in bed today Objective: 04/10/19 10:27 Vital Signs Temperature 98.4 F 04/10/19 09:02 Pulse Rate 62 04/10/19 09:02 Respiratory Rate 16 04/10/19 09:02 Blood Pressure 101/65 04/10/19 09:02 O2 Sat by Pulse Oximetry (%) Laboratory Last Values WBC 6.7 K/mm3 (4.0-10.0) 04/08/19 15:20 RBC 4.57 M/mm3 (4.00-5.60) 04/08/19 15:20 Hgb 14.4 GM/dL (11.7-16.9) 04/08/19 15:20 Hct 41.7 % (35.4-49) 04/08/19 15:20 MCV 91.1 fl (80-96) 04/08/19 15:20 MCH 31.4 pg (25.7-33.7) 04/08/19 15:20 MCHC 34.5 g/dl (32.0-35.9) 04/08/19 15:20 RDW 14.3 % (11.9-15.9) 04/08/19 15:20 Plt Count 375 K/MM3 (134-434) D 04/08/19 15:20 MPV 8.5 fl (7.5-11.1) 04/08/19 15:20 Sickle Cell Screen Negative (NEGATIVE) 04/09/19 05:50 Sodium 140 mmol/L (136-145) 04/08/19 15:20 Potassium 4.1 mmol/L (3.5-5.1) 04/08/19 15:20 Chloride 107 mmol/L (98-107) 04/08/19 15:20 Carbon Dioxide 29 mmol/L (21-32) 04/08/19 15:20 Anion Gap 5 MMOL/L (8-16) L 04/08/19 15:20 BUN 13.7 mg/dL (7-18) 04/08/19 15:20 Creatinine 0.9 mg/dL (0.55-1.3) 04/08/19 15:20 Est GFR (CKD-EPI)AfAm 119.97 04/08/19 15:20 Est GFR (CKD-EPI)NonAf 103.51 04/08/19 15:20 Random Glucose 90 mg/dL (74-106) 04/08/19 15:20 Calcium 8.8 mg/dL (8.5-10.1) 04/08/19 15:20 Total Bilirubin 0.5 mg/dL (0.2-1) 04/08/19 15:20 AST 15 U/L (15-37) 04/08/19 15:20 ALT 30 U/L (13-61) 04/08/19 15:20 Alkaline Phosphatase 44 U/L (45-117) L 04/08/19 15:20 Total Protein 7.2 g/dl (6.4-8.2) 04/08/19 15:20 Albumin 3.9 g/dl (3.4-5.0) 04/08/19 15:20 RPR Titer Nonreactive (NONREACTIVE) 04/08/19 15:20 lab noted Assessment: 04/10/19 10:27 alcohol and opiate withdrawal sx Plan: continue valium and methadone detox regimen
[2019-04-10] MEDS: THIAMINE HCL 100 MG TABLET (FP) PO SCH (22:18)
[2019-04-10] MEDS: QUEtiapine FUMARATE 200 MG TABLET PO SCH (22:19)
[2019-04-11] MEDS: ARTIFICIAL TEARS (POLYVINYL ALCOHOL) OPTH DROPS OU SCH ×3 (05:16→21:56)
[2019-04-11] MEDS: GABAPENTIN 300 MG CAPSULE (FP) PO SCH ×3 (05:16→21:55)
[2019-04-11] MEDS ORDERED: diazePAM 5 MG TABLET PO ONE (06:00)
[2019-04-11] MEDS ORDERED: METHADONE HCL 10 MG TABLET (FOR DETOX USE ONLY) ONE (09:29)
[2019-04-11] MEDS ORDERED: METHADONE HCL 5 MG TABLET (FOR DETOX USE ONLY) ONE (09:29)
[2019-04-11] MEDS ORDERED: METHADONE (DETOX) 10 MG, METHADONE (DETOX) 5 MG PO ONE (10:00)
[2019-04-11] MEDS: diazePAM 5 MG TABLET PO PRN (10:12)
[2019-04-11] MEDS: CITALOPRAM HYDROBROMIDE 20 MG TABLET (FP) PO SCH (10:13)
[2019-04-11] MEDS: PRENATAL VITAMINS W/ FOLIC ACID TABLET (FP) PO SCH (10:13)
[2019-04-11] MEDS: NICOTINE 21 MG/24 HOURS TOPICAL PATCH TD SCH (10:13)
--- NOTE | 2019-04-11 13:15 | PN ---
S CIWA - CIWA Score Nausea/Vomitin-No Nausea/No Vomiting Muscle Tremors: 2 Anxiety: 2 Agitation: 2 Paroxysmal Sweats: No Perspiration Orientation: 0-Oriented Tacttile Disturbances: 0-None Auditory Disturbances: 0-None Visual Disturbances: 0-None Headache: 0-None Present CIWA-Ar Total Score: 6 BHS COWS - Scale Resting Pulse: 0= [place] 80 or Below Sweatin= Chills/Flushing Restless Observation: 0= Sits Still Pupil Size: 0= Normal to Room Light Bone or Joint Aches: 1= Mild Discomfort Runny Nose/ Eye Tearin= None GI Upset > 30mins: 1= Stomach Cramp Tremor Observation of Outstretched Hands: 1= Tremor [place], Not Seen Yawning Observation: 1= 1-2x During Session Anxiety or Irritability: 1=Feels Anxious/Irritable Goose Flesh Skin: 0=Smooth Skin COWS Score: 6 BHS Progress Note (SOAP) Subjective: 44 years old male admitted on 04/08/19 for alcohol and opiate withdrawal sx management treated with valium and methadone detox regimen patient tolerated well alert oriented x 3 ate breakfast social with staff discuss aftercare with staff Objective: 04/11/19 13:14 Vital Signs Temperature 97.7 F 04/11/19 09:17 Pulse Rate 78 04/11/19 09:17 Respiratory Rate 18 04/11/19 09:17 Blood Pressure 103/73 04/11/19 09:17 O2 Sat by Pulse Oximetry (%) Laboratory Last Values WBC 6.7 K/mm3 (4.0-10.0) 04/08/19 15:20 RBC 4.57 M/mm3 (4.00-5.60) 04/08/19 15:20 Hgb 14.4 GM/dL (11.7-16.9) 04/08/19 15:20 Hct 41.7 % (35.4-49) 04/08/19 15:20 MCV 91.1 fl (80-96) 04/08/19 15:20 MCH 31.4 pg (25.7-33.7) 04/08/19 15:20 MCHC 34.5 g/dl (32.0-35.9) 04/08/19 15:20 RDW 14.3 % (11.9-15.9) 04/08/19 15:20 Plt Count 375 K/MM3 (134-434) D 04/08/19 15:20 MPV 8.5 fl (7.5-11.1) 04/08/19 15:20 Sickle Cell Screen Negative (NEGATIVE) 04/09/19 05:50 Sodium 140 mmol/L (136-145) 04/08/19 15:20 Potassium 4.1 mmol/L (3.5-5.1) 04/08/19 15:20 Chloride 107 mmol/L (98-107) 04/08/19 15:20 Carbon Dioxide 29 mmol/L (21-32) 04/08/19 15:20 Anion Gap 5 MMOL/L (8-16) L 04/08/19 15:20 BUN 13.7 mg/dL (7-18) 04/08/19 15:20 Creatinine 0.9 mg/dL (0.55-1.3) 04/08/19 15:20 Est GFR (CKD-EPI)AfAm 119.97 04/08/19 15:20 Est GFR (CKD-EPI)NonAf 103.51 04/08/19 15:20 Random Glucose 90 mg/dL (74-106) 04/08/19 15:20 Calcium 8.8 mg/dL (8.5-10.1) 04/08/19 15:20 Total Bilirubin 0.5 mg/dL (0.2-1) 04/08/19 15:20 AST 15 U/L (15-37) 04/08/19 15:20 ALT 30 U/L (13-61) 04/08/19 15:20 Alkaline Phosphatase 44 U/L (45-117) L 04/08/19 15:20 Total Protein 7.2 g/dl (6.4-8.2) 04/08/19 15:20 Albumin 3.9 g/dl (3.4-5.0) 04/08/19 15:20 RPR Titer Nonreactive (NONREACTIVE) 04/08/19 15:20 lab noted Assessment: 04/11/19 13:14 alcohol and opiate withdrawal sx Plan: continue valium and methadone detox regimen
[2019-04-11] MEDS: THIAMINE HCL 100 MG TABLET (FP) PO SCH (21:55)
[2019-04-11] MEDS: QUEtiapine FUMARATE 200 MG TABLET PO SCH (21:55)
[2019-04-12] MEDS: hydrOXYzine PAMOATE 25 MG CAPSULE (FP) PO PRN ×3 (05:37→22:00)
[2019-04-12] MEDS: GABAPENTIN 300 MG CAPSULE (FP) PO SCH ×3 (05:37→22:00)
[2019-04-12] MEDS: ARTIFICIAL TEARS (POLYVINYL ALCOHOL) OPTH DROPS OU SCH ×3 (05:38→22:00)
[2019-04-12] MEDS: CITALOPRAM HYDROBROMIDE 20 MG TABLET (FP) PO SCH (09:53)
[2019-04-12] MEDS: NICOTINE 21 MG/24 HOURS TOPICAL PATCH TD SCH (09:53)
[2019-04-12] MEDS: PRENATAL VITAMINS W/ FOLIC ACID TABLET (FP) PO SCH (09:53)
[2019-04-12] MEDS ORDERED: METHADONE HCL 10 MG TABLET (FOR DETOX USE ONLY) PO ONE (10:00)
--- NOTE | 2019-04-12 10:16 | PN ---
[facility] CIWA - CIWA Score Nausea/Vomitin-No Nausea/No Vomiting Muscle Tremors: 1-None Visible, but [place] Anxiety: 1-Mildly Anxious Agitation: 0-Normal Activity Paroxysmal Sweats: 1-Minimal Palms Moist Orientation: 0-Oriented Tacttile Disturbances: 0-None Auditory Disturbances: 0-None Visual Disturbances: 0-None Headache: 0-None Present CIWA-Ar Total Score: 3 S COWS - Scale Resting Pulse: 1= [place] 81-100 Sweatin= Chills/Flushing Restless Observation: 0= Sits Still Pupil Size: 0= Normal to Room Light Bone or Joint Aches: 0= None Runny Nose/ Eye Tearin= None GI Upset > 30mins: 0= None Tremor Observation of Outstretched Hands: 1= Tremor [place], Not Seen Yawning Observation: 0= None Anxiety or Irritability: 0= None Goose Flesh Skin: 0=Smooth Skin COWS Score: 3 S Progress Note (SOAP) Subjective: 44 years old male admitted on 04/08/19 for alcohol and opiate withdrawal sx management treated with valium and methadone detox regimenh patient tolerated well discuss medication assisted treatment program 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 Objective: 04/12/19 10:18 Vital Signs Temperature 97.0 F L 04/12/19 09:18 Pulse Rate 83 04/12/19 09:18 Respiratory Rate 18 04/12/19 09:18 Blood Pressure 104/69 04/12/19 09:18 O2 Sat by Pulse Oximetry (%) Laboratory Last Values WBC 6.7 K/mm3 (4.0-10.0) 04/08/19 15:20 RBC 4.57 M/mm3 (4.00-5.60) 04/08/19 15:20 Hgb 14.4 GM/dL (11.7-16.9) 04/08/19 15:20 Hct 41.7 % (35.4-49) 04/08/19 15:20 MCV 91.1 fl (80-96) 04/08/19 15:20 MCH 31.4 pg (25.7-33.7) 04/08/19 15:20 MCHC 34.5 g/dl (32.0-35.9) 04/08/19 15:20 RDW 14.3 % (11.9-15.9) 04/08/19 15:20 Plt Count 375 K/MM3 (134-434) D 04/08/19 15:20 MPV 8.5 fl (7.5-11.1) 04/08/19 15:20 Sickle Cell Screen Negative (NEGATIVE) 04/09/19 05:50 Sodium 140 mmol/L (136-145) 04/08/19 15:20 Potassium 4.1 mmol/L (3.5-5.1) 04/08/19 15:20 Chloride 107 mmol/L (98-107) 04/08/19 15:20 Carbon Dioxide 29 mmol/L (21-32) 04/08/19 15:20 Anion Gap 5 MMOL/L (8-16) L 04/08/19 15:20 BUN 13.7 mg/dL (7-18) 04/08/19 15:20 Creatinine 0.9 mg/dL (0.55-1.3) 04/08/19 15:20 Est GFR (CKD-EPI)AfAm 119.97 04/08/19 15:20 Est GFR (CKD-EPI)NonAf 103.51 04/08/19 15:20 Random Glucose 90 mg/dL (74-106) 04/08/19 15:20 Calcium 8.8 mg/dL (8.5-10.1) 04/08/19 15:20 Total Bilirubin 0.5 mg/dL (0.2-1) 04/08/19 15:20 AST 15 U/L (15-37) 04/08/19 15:20 ALT 30 U/L (13-61) 04/08/19 15:20 Alkaline Phosphatase 44 U/L (45-117) L 04/08/19 15:20 Total Protein 7.2 g/dl (6.4-8.2) 04/08/19 15:20 Albumin 3.9 g/dl (3.4-5.0) 04/08/19 15:20 RPR Titer Nonreactive (NONREACTIVE) 04/08/19 15:20 lab noted Assessment: 04/12/19 10:18 alcohol and opiate withdrawal sx Plan: continue valium and methadone detox regimen
[2019-04-12] MEDS: THIAMINE HCL 100 MG TABLET (FP) PO SCH (22:00)
[2019-04-12] MEDS: QUEtiapine FUMARATE 200 MG TABLET PO SCH (22:00)
[2019-04-13] MEDS: GABAPENTIN 300 MG CAPSULE (FP) PO SCH (05:41)
[2019-04-13] MEDS: ARTIFICIAL TEARS (POLYVINYL ALCOHOL) OPTH DROPS OU SCH (05:54)
[2019-04-13] MEDS ORDERED: METHADONE HCL 5 MG TABLET (FOR DETOX USE ONLY) PO ONE (06:00)
[2019-04-13 06:12] VITALS: BP 108/71; PULSE 74; TEMP 96.7
[2019-04-13] MEDS: PRENATAL VITAMINS W/ FOLIC ACID TABLET (FP) PO SCH (09:18)
[2019-04-13] MEDS: NICOTINE 21 MG/24 HOURS TOPICAL PATCH TD SCH (09:18)
[2019-04-13] MEDS: CITALOPRAM HYDROBROMIDE 20 MG TABLET (FP) PO SCH (09:18)
--- NOTE | 2019-04-13 13:17 | DS ---
[facility] Detox Discharge Summary Admission Date: 04/08/19 Discharge Date: 04/13/19 - History Present History: Alcohol Dependence, Opioid Dependence Additional Comments: 44 years old male admitted on 04/08/19 for alcohol and opiate withdrawal sx management treated with valium and methadone detox regimen patient is alert oriented x 3 cardiac S1S2 regular rate rhyth respiratory clear lung bilaterally on auscultation skin warm and dry - Physical Exam Results Vital Signs: Vital Signs Temperature 96.7 F L 04/13/19 06:12 Pulse Rate 74 04/13/19 06:12 Respiratory Rate 18 04/13/19 06:12 Blood Pressure 108/71 04/13/19 06:12 O2 Sat by Pulse Oximetry (%) Pertinent Admission Physical Exam Findings: alcohol and opiate withdrawal sx Laboratory Last Values WBC 6.7 K/mm3 (4.0-10.0) 04/08/19 15:20 RBC 4.57 M/mm3 (4.00-5.60) 04/08/19 15:20 Hgb 14.4 GM/dL (11.7-16.9) 04/08/19 15:20 Hct 41.7 % (35.4-49) 04/08/19 15:20 MCV 91.1 fl (80-96) 04/08/19 15:20 MCH 31.4 pg (25.7-33.7) 04/08/19 15:20 MCHC 34.5 g/dl (32.0-35.9) 04/08/19 15:20 RDW 14.3 % (11.9-15.9) 04/08/19 15:20 Plt Count 375 K/MM3 (134-434) D 04/08/19 15:20 MPV 8.5 fl (7.5-11.1) 04/08/19 15:20 Sickle Cell Screen Negative (NEGATIVE) 04/09/19 05:50 Sodium 140 mmol/L (136-145) 04/08/19 15:20 Potassium 4.1 mmol/L (3.5-5.1) 04/08/19 15:20 Chloride 107 mmol/L (98-107) 04/08/19 15:20 Carbon Dioxide 29 mmol/L (21-32) 04/08/19 15:20 Anion Gap 5 MMOL/L (8-16) L 04/08/19 15:20 BUN 13.7 mg/dL (7-18) 04/08/19 15:20 Creatinine 0.9 mg/dL (0.55-1.3) 04/08/19 15:20 Est GFR (CKD-EPI)AfAm 119.97 04/08/19 15:20 Est GFR (CKD-EPI)NonAf 103.51 04/08/19 15:20 Random Glucose 90 mg/dL (74-106) 04/08/19 15:20 Calcium 8.8 mg/dL (8.5-10.1) 04/08/19 15:20 Total Bilirubin 0.5 mg/dL (0.2-1) 04/08/19 15:20 AST 15 U/L (15-37) 04/08/19 15:20 ALT 30 U/L (13-61) 04/08/19 15:20 Alkaline Phosphatase 44 U/L (45-117) L 04/08/19 15:20 Total Protein 7.2 g/dl (6.4-8.2) 04/08/19 15:20 Albumin 3.9 g/dl (3.4-5.0) 04/08/19 15:20 RPR Titer Nonreactive (NONREACTIVE) 04/08/19 15:20 lab noted - Treatment Hospital Course: Detox Protocol Followed, Detoxed Safely, Responded well, Discharged Condition Good, Rehab Referral Accepted Patient has Accepted [facility] - Medication Discharge Medications: Ambulatory Orders Mineral Oil/Petrolat,Wht/Water [Eucerin] 1 applic TP DAILY PRN 10/09/18 Gabapentin 300 mg PO TID 01/01/19 Propylene Glycol/Peg 400/Pf [Systane 0.3-0.4% Eye Drops] 1 each OP DAILY Quetiapine Fumarate [Seroquel] 200 mg PO HS 01/01/19 Naloxone HCl [Narcan] 4 mg NS ASDIR PRN #1 spray 04/12/19 - Diagnosis (1) Alcohol dependence with uncomplicated withdrawal Status: Acute (2) Opioid dependence with withdrawal Status: Acute (3) Chronic GERD Status: Chronic (4) Eczema Status: Chronic Qualifiers: Eczema type: unspecified Qualified Code(s): L30.9 - Dermatitis, unspecified (5) Nicotine dependence Status: Acute Qualifiers: Nicotine product type: cigarettes Substance use status: in withdrawal Qualified Code(s): F17.213 - Nicotine dependence, cigarettes, with withdrawal - AMA Did Patient Leave Against Medical Advice: No CIWA Score - CIWA Score Nausea/Vomitin-No Nausea/No Vomiting Muscle Tremors: 1-None Visible, but [place] Anxiety: 0-No Anxiety, at Ease Agitation: 0-Normal Activity Paroxysmal Sweats: No Perspiration Orientation: 0-Oriented Tacttile Disturbances: 0-None Auditory Disturbances: 0-None Visual Disturbances: 0-None Headache: 0-None Present CIWA-Ar Total Score: 1 COWS (PN) - Opiate Withdrawal Resting Pulse: 0= [place] 80 or Below Sweatin= No chills or Flushing Restless Observation: 0= Sits Still Pupil Size: 0= Normal to Room Light Bone or Joint Aches: 1= Mild Discomfort Runny Nose/ Eye Tearin= None GI Upset > 30mins: 0= None Tremor Observation of Outstretched Hands: 0= None Yawning Observation: 0= None Anxiety or Irritability: 0= None Goose Flesh Skin: 0=Smooth Skin COWS Score: 1
== END 2019-04-13 09:00 | disposition home or self-care (01) | DRG 773 ==
LOC: YASAS 11:59 → Y3N 14:59
PROVIDERS: ADMIT Allergy & Immunology; ATTEND Allergy & Immunology
PROC: HZ2ZZZZ Detoxification Services for Substance Abuse Treatment (ICD-10-PCS; principal; 2019-04-08)
DX: F10.230 Alcohol dependence with withdrawal, uncomplicated (principal); F11.23 Opioid dependence with withdrawal; F13.230 Sedative, hypnotic or anxiolytic dependence with withdrawal, uncomplicated; F12.20 Cannabis dependence, uncomplicated; F17.213 Nicotine dependence, cigarettes, with withdrawal; F19.24 Other psychoactive substance dependence with psychoactive substance-induced mood disorder; F41.9 Anxiety disorder, unspecified; F43.10 Post-traumatic stress disorder, unspecified; L30.9 Dermatitis, unspecified; G47.00 Insomnia, unspecified; Z87.820 Personal history of traumatic brain injury
CPT/HCPCS: 36415; 80053; 85027; 85660; 86593

== ENCOUNTER 2019-05-18 11:46 | Inpatient (IN) | payer OTHER ==
[2019-05-18 13:14] VITALS: BMI 27.9
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
[2019-05-18] MEDS ORDERED: BISMUTH SUBSALICYLATE 262 MG/15 ML BTL PO PRN (14:16)
[2019-05-18] MEDS ORDERED: MAGNESIUM CITRATE 300 ML BOTTLE PO PRN (14:16)
[2019-05-18] MEDS ORDERED: METHOCARBAMOL 500 MG TABLET PO PRN (14:16)
[2019-05-18] MEDS ORDERED: MAG HYDROX/AL HYDROX/SIMETH 30 ML UNIT-DOSE CUP PO PRN (14:16)
[2019-05-18] MEDS ORDERED: MELATONIN 5 MG TABLETS PO PRN (14:16)
[2019-05-18] MEDS ORDERED: cloNIDine HCL 0.1 MG TABLET PO PRN (14:16)
[2019-05-18] MEDS ORDERED: ACETAMINOPHEN 325 MG TABLET (FP) PO PRN ×2 (14:16)
[2019-05-18] MEDS ORDERED: MENTHOL/PHENOL 1 EACH UD MM PRN (14:16)
[2019-05-18] MEDS ORDERED: MAGNESIUM HYDROX 2400MG/30ML ORAL SUSPENSION 30 ML CUP PO PRN (14:16)
[2019-05-18] MEDS ORDERED: IBUPROFEN 400 MG TABLET (FP) PO PRN (14:16)
[2019-05-18] MEDS ORDERED: MINERAL OIL/PETROLAT/WATER TOPICAL CREAM 113 GM JAR TP PRN (14:19)
[2019-05-18] MEDS ORDERED: COLLOIDAL OATMEAL 1 BAR EACH TP PRN (14:22)
[2019-05-18] MEDS ORDERED: METHADONE HCL 10 MG TABLET (FOR DETOX USE ONLY) PO ONE (15:30)
[2019-05-18] MEDS: diazePAM 5 MG TABLET PO SCH ×2 (15:46→22:22)
[2019-05-18 15:59] LABS: HEMATOCRIT 39.9 % (35.4-49); HEMOGLOBIN 13.5 GM/dL (11.7-16.9); MCH 31.3 pg (25.7-33.7); MCHC 33.9 g/dl (32.0-35.9); MEAN CELL VOLUME 92.3 fl (80-96); MEAN PLT VOLUME 8.6 fl (7.5-11.1); PLATELET COUNT 304 K/MM3 (134-434); RBC 4.32 M/mm3 (4.00-5.60); RDW 14.3 % (11.9-15.9); WHITE BLOOD COUNT 6.1 K/mm3 (4.0-10.0)
[2019-05-18 16:19] LABS: ALBUMIN 3.8 g/dl (3.4-5.0); BILIRUBIN,TOTAL 0.3 mg/dL (0.2-1); BLOOD UREA NITROGEN 14.5 mg/dL (7-18); CALCIUM 8.9 mg/dL (8.5-10.1); CREATININE 0.8 mg/dL (0.55-1.3); POTASSIUM 4.2 mmol/L (3.5-5.1); TOT PROT 6.8 g/dl (6.4-8.2)
[2019-05-18] MEDS: hydrOXYzine PAMOATE 25 MG CAPSULE (FP) PO PRN (17:19)
[2019-05-18] MEDS: diazePAM 5 MG TABLET PO PRN (17:56)
[2019-05-18] MEDS: ARTIFICIAL TEARS (POLYVINYL ALCOHOL) OPTH DROPS OU SCH ×2 (19:07→22:22)
[2019-05-18] MEDS ORDERED: ALPRAZolam 1 MG TABLET PO SCH (22:00)
[2019-05-18] MEDS ORDERED: QUEtiapine FUMARATE 200 MG TABLET PO SCH (22:00)
[2019-05-18] MEDS: THIAMINE HCL 100 MG TABLET (FP) PO SCH (22:22)
[2019-05-18] MEDS: GABAPENTIN 300 MG CAPSULE (FP) PO SCH (22:22)
[2019-05-19] MEDS: GABAPENTIN 300 MG CAPSULE (FP) PO SCH ×3 (06:40→22:25)
[2019-05-19] MEDS: ARTIFICIAL TEARS (POLYVINYL ALCOHOL) OPTH DROPS OU SCH ×3 (06:41→22:25)
[2019-05-19] MEDS: diazePAM 5 MG TABLET PO SCH ×3 (06:44→22:26)
[2019-05-19] MEDS ORDERED: METHADONE HCL 5 MG TABLET (FOR DETOX USE ONLY) ONE (09:59)
[2019-05-19] MEDS ORDERED: METHADONE HCL 10 MG TABLET (FOR DETOX USE ONLY) ONE (09:59)
[2019-05-19] MEDS ORDERED: METHADONE (DETOX) 20 MG, METHADONE (DETOX) 5 MG PO ONE (10:00)
--- NOTE | 2019-05-19 10:19 | PN ---
[facility] CIWA - CIWA Score Nausea/Vomitin-No Nausea/No Vomiting Muscle Tremors: 3 Anxiety: 2 Agitation: 2 Paroxysmal Sweats: 2 Orientation: 0-Oriented Tacttile Disturbances: 0-None Auditory Disturbances: 0-None Visual Disturbances: 0-None Headache: 0-None Present CIWA-Ar Total Score: 9 [facility] COWS - Scale Resting Pulse: 0= [place] 80 or Below Sweatin= Chills/Flushing Restless Observation: 1= Difficult to Sit Still Pupil Size: 0= Normal to Room Light Bone or Joint Aches: 2= Severe Diffuse Aches Runny Nose/ Eye Tearin= Runny Nose/Eyes GI Upset > 30mins: 0= None Tremor Observation of Outstretched Hands: 1= Tremor [place], Not Seen Yawning Observation: 1= 1-2x During Session Anxiety or Irritability: 1=Feels Anxious/Irritable Goose Flesh Skin: 0=Smooth Skin COWS Score: 9 [facility] Progress Note (SOAP) Subjective: sweats shakes interrupted sleep body aches agitation Objective: 05/19/19 10:18 Vital Signs Temperature 98.4 F 05/19/19 09:41 Pulse Rate 58 L 05/19/19 09:41 Respiratory Rate 18 05/19/19 09:41 Blood Pressure 100/60 05/19/19 09:41 O2 Sat by Pulse Oximetry (%) Laboratory Tests 05/18/19 05/18/19 05/18/19 14:00 14:00 14:00 WBC 6.1 RBC 4.32 Hgb 13.5 Hct 39.9 MCV 92.3 MCH 31.3 MCHC 33.9 RDW 14.3 Plt Count 304 MPV 8.6 Sodium 137 Potassium 4.2 Chloride 104 Carbon Dioxide 29 Anion Gap 4 L BUN 14.5 Creatinine 0.8 Est GFR (CKD-EPI)AfAm 125.92 Est GFR (CKD-EPI)NonAf 108.65 Random Glucose 89 Calcium 8.9 Total Bilirubin 0.3 AST 17 ALT 28 Alkaline Phosphatase 39 L Total Protein 6.8 Albumin 3.8 RPR Titer Nonreactive labs noted aaox3 ambulating no acute distress Assessment: 05/19/19 10:19 withdrawals Plan: continue detox increase fluids
[2019-05-19] MEDS: NICOTINE 14 MG/24 HOURS TOPICAL PATCH TD SCH (10:36)
[2019-05-19] MEDS: PRENATAL VITAMINS W/ FOLIC ACID TABLET (FP) PO SCH (10:36)
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
[2019-05-19] MEDS: diazePAM 5 MG TABLET PO PRN (18:14)
[2019-05-19] MEDS ORDERED: SUVOREXANT 10 MG TABLET PO PRN (22:00)
[2019-05-19] MEDS: QUEtiapine FUMARATE 200 MG TABLET PO SCH (22:25)
[2019-05-19] MEDS: THIAMINE HCL 100 MG TABLET (FP) PO SCH (22:26)
[2019-05-20] MEDS: GABAPENTIN 300 MG CAPSULE (FP) PO SCH ×3 (05:46→23:03)
[2019-05-20] MEDS: diazePAM 5 MG TABLET PO SCH ×2 (05:46→17:21)
[2019-05-20] MEDS: ARTIFICIAL TEARS (POLYVINYL ALCOHOL) OPTH DROPS OU SCH ×3 (06:07→23:03)
[2019-05-20] MEDS ORDERED: METHADONE HCL 10 MG TABLET (FOR DETOX USE ONLY) PO ONE (10:00)
[2019-05-20] MEDS: NICOTINE 14 MG/24 HOURS TOPICAL PATCH TD SCH (10:40)
[2019-05-20] MEDS: PRENATAL VITAMINS W/ FOLIC ACID TABLET (FP) PO SCH (10:40)
[2019-05-20] MEDS: diazePAM 5 MG TABLET PO PRN ×2 (10:43→15:17)
--- NOTE | 2019-05-20 12:23 | PN ---
[facility] CIWA - CIWA Score Nausea/Vomitin-No Nausea/No Vomiting Muscle Tremors: 2 Anxiety: 2 Agitation: 2 Paroxysmal Sweats: 1-Minimal Palms Moist Orientation: 0-Oriented Tacttile Disturbances: 0-None Auditory Disturbances: 0-None Visual Disturbances: 0-None Headache: 0-None Present CIWA-Ar Total Score: 7 [facility] COWS - Scale Resting Pulse: 1= [place] 81-100 Sweatin= Chills/Flushing Restless Observation: 1= Difficult to Sit Still Pupil Size: 0= Normal to Room Light Bone or Joint Aches: 1= Mild Discomfort Runny Nose/ Eye Tearin= Nasal Congestion GI Upset > 30mins: 0= None Tremor Observation of Outstretched Hands: 1= Tremor [place], Not Seen Yawning Observation: 1= 1-2x During Session Anxiety or Irritability: 1=Feels Anxious/Irritable Goose Flesh Skin: 0=Smooth Skin COWS Score: 8 [facility] Progress Note (SOAP) Subjective: low appetite sweats interrupted sleep body aches Objective: 05/20/19 12:22 Vital Signs Temperature 96.3 F L 05/20/19 10:30 Pulse Rate 20 L 05/20/19 10:30 Respiratory Rate 87 H 05/20/19 10:30 Blood Pressure 104/61 05/20/19 10:30 O2 Sat by Pulse Oximetry (%) Laboratory Tests 05/18/19 05/18/19 05/18/19 14:00 14:00 14:00 WBC 6.1 RBC 4.32 Hgb 13.5 Hct 39.9 MCV 92.3 MCH 31.3 MCHC 33.9 RDW 14.3 Plt Count 304 MPV 8.6 Sodium 137 Potassium 4.2 Chloride 104 Carbon Dioxide 29 Anion Gap 4 L BUN 14.5 Creatinine 0.8 Est GFR (CKD-EPI)AfAm 125.92 Est GFR (CKD-EPI)NonAf 108.65 Random Glucose 89 Calcium 8.9 Total Bilirubin 0.3 AST 17 ALT 28 Alkaline Phosphatase 39 L Total Protein 6.8 Albumin 3.8 RPR Titer Nonreactive aaox3 ambulating no acute distress Assessment: 05/20/19 12:22 withdrawals Plan: continue detox increase fluids ensure plus 120ml po bid
[2019-05-20] MEDS: QUEtiapine FUMARATE 200 MG TABLET PO SCH (23:03)
[2019-05-20] MEDS: THIAMINE HCL 100 MG TABLET (FP) PO SCH (23:03)
[2019-05-21] MEDS: GABAPENTIN 300 MG CAPSULE (FP) PO SCH ×3 (05:33→22:41)
[2019-05-21] MEDS: ARTIFICIAL TEARS (POLYVINYL ALCOHOL) OPTH DROPS OU SCH ×3 (05:33→23:05)
[2019-05-21] MEDS ORDERED: diazePAM 5 MG TABLET PO ONE (06:00)
[2019-05-21] MEDS ORDERED: METHADONE HCL 10 MG TABLET (FOR DETOX USE ONLY) ONE (09:04)
[2019-05-21] MEDS ORDERED: METHADONE HCL 5 MG TABLET (FOR DETOX USE ONLY) ONE (09:04)
[2019-05-21] MEDS ORDERED: METHADONE (DETOX) 10 MG, METHADONE (DETOX) 5 MG PO ONE (10:00)
[2019-05-21] MEDS: PRENATAL VITAMINS W/ FOLIC ACID TABLET (FP) PO SCH (10:46)
[2019-05-21] MEDS: NICOTINE 14 MG/24 HOURS TOPICAL PATCH TD SCH (10:47)
[2019-05-21] MEDS: diazePAM 5 MG TABLET PO PRN ×2 (10:48→13:57)
--- NOTE | 2019-05-21 11:54 | PN ---
[facility] CIWA - CIWA Score Nausea/Vomitin-Mild Nausea/No Vomiting Muscle Tremors: 2 Anxiety: 1-Mildly Anxious Agitation: 1-Slight > Activity Paroxysmal Sweats: 1-Minimal Palms Moist Orientation: 0-Oriented Tacttile Disturbances: 0-None Auditory Disturbances: 0-None Visual Disturbances: 0-None Headache: 1-Very Mild CIWA-Ar Total Score: 7 BHS COWS - Scale Resting Pulse: 1= [place] 81-100 Sweatin= Chills/Flushing Restless Observation: 1= Difficult to Sit Still Pupil Size: 0= Normal to Room Light Bone or Joint Aches: 2= Severe Diffuse Aches Runny Nose/ Eye Tearin= Nasal Congestion GI Upset > 30mins: 1= Stomach Cramp Tremor Observation of Outstretched Hands: 0= None Yawning Observation: 0= None Anxiety or Irritability: 2=Irritable/Anxious Goose Flesh Skin: 0=Smooth Skin COWS Score: 9 S Progress Note (SOAP) Subjective: Pt states he is feeling fine, here for alcohol/benzo detox O: Vital Signs - 24 hr 05/20/19 05/20/19 05/20/19 13:10 17:23 22:00 Temperature 97.7 F 97.3 F L 96.6 F L Pulse Rate 18 L 17 L 67 Respiratory 89 H 77 H 18 Rate Blood Pressure 158/61 119/73 112/72 05/21/19 05/21/19 05/21/19 00:30 03:30 06:00 Temperature 97.7 F Pulse Rate 86 Respiratory 16 16 16 Rate Blood Pressure 104/60 05/21/19 09:41 Temperature 97.7 F Pulse Rate 77 Respiratory 18 Rate Blood Pressure 122/76 Laboratory Tests 05/18/19 05/18/19 05/18/19 14:00 14:00 14:00 WBC 6.1 RBC 4.32 Hgb 13.5 Hct 39.9 MCV 92.3 MCH 31.3 MCHC 33.9 RDW 14.3 Plt Count 304 MPV 8.6 Sodium 137 Potassium 4.2 Chloride 104 Carbon Dioxide 29 Anion Gap 4 L BUN 14.5 Creatinine 0.8 Est GFR (CKD-EPI)AfAm 125.92 Est GFR (CKD-EPI)NonAf 108.65 Random Glucose 89 Calcium 8.9 Total Bilirubin 0.3 AST 17 ALT 28 Alkaline Phosphatase 39 L Total Protein 6.8 Albumin 3.8 RPR Titer Nonreactive a/p: continue alcohol and heroin detox protocols
[2019-05-21] MEDS ORDERED: MINERAL OIL/PETROLAT/WATER TOPICAL CREAM 113 GM JAR TP PRN (14:02)
[2019-05-21] MEDS: hydrOXYzine PAMOATE 25 MG CAPSULE (FP) PO PRN (17:48)
[2019-05-21] MEDS: QUEtiapine FUMARATE 200 MG TABLET PO SCH (22:41)
[2019-05-21] MEDS: THIAMINE HCL 100 MG TABLET (FP) PO SCH (22:41)
[2019-05-22] MEDS: GABAPENTIN 300 MG CAPSULE (FP) PO SCH ×3 (05:30→22:12)
[2019-05-22] MEDS: ARTIFICIAL TEARS (POLYVINYL ALCOHOL) OPTH DROPS OU SCH ×3 (05:30→22:11)
[2019-05-22] MEDS: hydrOXYzine PAMOATE 25 MG CAPSULE (FP) PO PRN (05:31)
[2019-05-22] MEDS ORDERED: METHADONE HCL 10 MG TABLET (FOR DETOX USE ONLY) PO ONE (10:00)
[2019-05-22] MEDS: NICOTINE 14 MG/24 HOURS TOPICAL PATCH TD SCH (10:48)
[2019-05-22] MEDS: PRENATAL VITAMINS W/ FOLIC ACID TABLET (FP) PO SCH (10:48)
--- NOTE | 2019-05-22 16:40 | PN ---
[facility] CIWA - CIWA Score Nausea/Vomitin-No Nausea/No Vomiting Muscle Tremors: None Anxiety: 2 Agitation: 2 Paroxysmal Sweats: 2 Orientation: 0-Oriented Tacttile Disturbances: 0-None Auditory Disturbances: 0-None Visual Disturbances: 0-None Headache: 0-None Present CIWA-Ar Total Score: 6 BHS COWS - Scale Resting Pulse: 0= [place] 80 or Below Sweatin= No chills or Flushing Restless Observation: 1= Difficult to Sit Still Pupil Size: 0= Normal to Room Light Bone or Joint Aches: 1= Mild Discomfort Runny Nose/ Eye Tearin= None GI Upset > 30mins: 1= Stomach Cramp Tremor Observation of Outstretched Hands: 0= None Yawning Observation: 1= 1-2x During Session Anxiety or Irritability: 1=Feels Anxious/Irritable Goose Flesh Skin: 0=Smooth Skin COWS Score: 5 BHS Progress Note (SOAP) Subjective: Feels ok, medication working ok Objective: 05/22/19 16:38 Last Vital Signs Temp Pulse Resp BP Pulse Ox 96.4 F L 77 18 119/72 05/22/19 14:24 05/22/19 14:24 05/22/19 14:24 05/22/19 14:24 Laboratory Tests 05/18/19 05/18/19 05/18/19 14:00 14:00 14:00 WBC 6.1 RBC 4.32 Hgb 13.5 Hct 39.9 MCV 92.3 MCH 31.3 MCHC 33.9 RDW 14.3 Plt Count 304 MPV 8.6 Sodium 137 Potassium 4.2 Chloride 104 Carbon Dioxide 29 Anion Gap 4 L BUN 14.5 Creatinine 0.8 Est GFR (CKD-EPI)AfAm 125.92 Est GFR (CKD-EPI)NonAf 108.65 Random Glucose 89 Calcium 8.9 Total Bilirubin 0.3 AST 17 ALT 28 Alkaline Phosphatase 39 L Total Protein 6.8 Albumin 3.8 RPR Titer Nonreactive Labs reviewed Assessment: 05/22/19 16:38 Withdrawal sxs Plan: Continue detox Encouraged PO water intake
[2019-05-22] MEDS: QUEtiapine FUMARATE 200 MG TABLET PO SCH (22:11)
[2019-05-22] MEDS: THIAMINE HCL 100 MG TABLET (FP) PO SCH (22:11)
[2019-05-23] MEDS: ARTIFICIAL TEARS (POLYVINYL ALCOHOL) OPTH DROPS OU SCH (05:41)
[2019-05-23] MEDS: GABAPENTIN 300 MG CAPSULE (FP) PO SCH (05:42)
[2019-05-23] MEDS ORDERED: METHADONE HCL 5 MG TABLET (FOR DETOX USE ONLY) PO ONE (06:00)
[2019-05-23 06:32] VITALS: BP 111/60; PULSE 100; TEMP 96.8
--- NOTE | 2019-05-23 10:19 | DS ---
[facility] Detox Discharge Summary Admission Date: 05/18/19 - History Present History: Alcohol Dependence, Cannabis Dependence, Cocaine Dependence, Opioid Dependence, Sedative Dependence - Physical Exam Results Vital Signs: Vital Signs Temperature 96.8 F L 05/23/19 06:00 Pulse Rate 100 H 05/23/19 06:00 Respiratory Rate 18 05/23/19 06:00 Blood Pressure 111/60 05/23/19 06:00 O2 Sat by Pulse Oximetry (%) Pertinent Admission Physical Exam Findings: Vital Signs Temperature 96.8 F L 05/23/19 06:00 Pulse Rate 100 H 05/23/19 06:00 Respiratory Rate 18 05/23/19 06:00 Blood Pressure 111/60 05/23/19 06:00 O2 Sat by Pulse Oximetry (%) Laboratory Tests 05/18/19 05/18/19 05/18/19 14:00 14:00 14:00 WBC 6.1 RBC 4.32 Hgb 13.5 Hct 39.9 MCV 92.3 MCH 31.3 MCHC 33.9 RDW 14.3 Plt Count 304 MPV 8.6 Sodium 137 Potassium 4.2 Chloride 104 Carbon Dioxide 29 Anion Gap 4 L BUN 14.5 Creatinine 0.8 Est GFR (CKD-EPI)AfAm 125.92 Est GFR (CKD-EPI)NonAf 108.65 Random Glucose 89 Calcium 8.9 Total Bilirubin 0.3 AST 17 ALT 28 Alkaline Phosphatase 39 L Total Protein 6.8 Albumin 3.8 RPR Titer Nonreactive aaox3 ambulating no acute distress - Treatment Hospital Course: Detox Protocol Followed, Detoxed Safely, Responded well, Discharged Condition Good, Rehab Referral Accepted Patient has Accepted a Rehab Referral to: pt declined; referral provided - Medication Discharge Medications: Ambulatory Orders Mineral Oil/Petrolat,Wht/Water [Eucerin] 1 applic TP DAILY PRN 10/09/18 Gabapentin 300 mg PO TID 01/01/19 Quetiapine Fumarate [Seroquel] 200 mg PO HS 01/01/19 - Diagnosis (1) Alcohol dependence with uncomplicated withdrawal Current Visit: Yes Status: Chronic (2) Nicotine dependence Current Visit: Yes Status: Chronic Qualifiers: Nicotine product type: cigarettes Substance use status: uncomplicated Qualified Code(s): F17.210 - Nicotine dependence, cigarettes, uncomplicated (3) Opioid dependence with withdrawal Current Visit: Yes Status: Chronic (4) Substance-induced sleep disorder Current Visit: Yes Status: Acute (5) Anxiety disorder Current Visit: Yes Status: Chronic Qualifiers: Anxiety disorder type: unspecified anxiety disorder Qualified Code(s): F41.9 - Anxiety disorder, unspecified (6) Cannabis dependence, uncomplicated Current Visit: Yes Status: Chronic (7) Drug-induced mood disorder Current Visit: Yes Status: Chronic (8) Eczema Current Visit: Yes Status: Chronic Qualifiers: Eczema type: unspecified Qualified Code(s): L30.9 - Dermatitis, unspecified (9) History of traumatic head injury Current Visit: Yes Status: Chronic (10) Insomnia Current Visit: Yes Status: Chronic Qualifiers: Insomnia type: unspecified Qualified Code(s): G47.00 - Insomnia, unspecified (11) PTSD (post-traumatic stress disorder) Current Visit: Yes Status: Chronic (12) Sedative, hypnotic, or anxiolytic withdrawal Current Visit: Yes Status: Chronic (13) Chronic GERD Current Visit: No Status: Chronic (14) Cocaine dependence, uncomplicated Current Visit: No Status: Chronic (15) Ecstasy abuse Current Visit: No Status: Chronic (16) Opioid dependence Current Visit: No Status: Chronic Qualifiers: Substance use status: uncomplicated Qualified Code(s): F11.20 - Opioid dependence, uncomplicated - AMA Did Patient Leave Against Medical Advice: No
== END 2019-05-23 09:18 | disposition home or self-care (01) | DRG 773 ==
LOC: YASAS 11:46 → Y6N 14:57
PROVIDERS: ADMIT Allergy & Immunology; ATTEND Allergy & Immunology
PROC: HZ2ZZZZ Detoxification Services for Substance Abuse Treatment (ICD-10-PCS; principal; 2019-05-18)
DX: F11.23 Opioid dependence with withdrawal (principal); F10.230 Alcohol dependence with withdrawal, uncomplicated; F13.230 Sedative, hypnotic or anxiolytic dependence with withdrawal, uncomplicated; F14.20 Cocaine dependence, uncomplicated; F12.20 Cannabis dependence, uncomplicated; F16.10 Hallucinogen abuse, uncomplicated; F17.210 Nicotine dependence, cigarettes, uncomplicated; F19.24 Other psychoactive substance dependence with psychoactive substance-induced mood disorder; F19.282 Other psychoactive substance dependence with psychoactive substance-induced sleep disorder; F41.9 Anxiety disorder, unspecified; F43.10 Post-traumatic stress disorder, unspecified; G47.00 Insomnia, unspecified; L30.9 Dermatitis, unspecified; K21.9 Gastro-esophageal reflux disease without esophagitis; Z87.820 Personal history of traumatic brain injury
CPT/HCPCS: 36415; 80053; 85027; 86593

== ENCOUNTER 2019-07-01 12:16 | Inpatient (IN) | payer OTHER ==
[2019-07-01 12:59] VITALS: BMI 30.2
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
[2019-07-01] MEDS ORDERED: MENTHOL/PHENOL 1 EACH UD MM PRN (16:00)
[2019-07-01] MEDS ORDERED: hydrOXYzine PAMOATE 25 MG CAPSULE (FP) PO PRN (16:00)
[2019-07-01] MEDS ORDERED: IBUPROFEN 400 MG TABLET (FP) PO PRN (16:00)
[2019-07-01] MEDS ORDERED: BISMUTH SUBSALICYLATE 524 MG/30 ML UD PO PRN (16:00)
[2019-07-01] MEDS ORDERED: cloNIDine HCL 0.1 MG TABLET PO PRN (16:00)
[2019-07-01] MEDS ORDERED: MAGNESIUM CITRATE 300 ML BOTTLE PO PRN (16:00)
[2019-07-01] MEDS ORDERED: ACETAMINOPHEN 325 MG TABLET (FP) PO PRN ×2 (16:00)
[2019-07-01] MEDS ORDERED: MAGNESIUM HYDROX 2400MG/30ML ORAL SUSPENSION 30 ML CUP PO PRN (16:00)
[2019-07-01] MEDS ORDERED: MELATONIN 5 MG TABLETS PO PRN (16:00)
[2019-07-01] MEDS ORDERED: MAG HYDROX/AL HYDROX/SIMETH 30 ML UNIT-DOSE CUP PO PRN (16:00)
[2019-07-01] MEDS: diazePAM 5 MG TABLET PO SCH ×2 (17:28→22:15)
[2019-07-01] MEDS: diazePAM 5 MG TABLET PO PRN (17:29)
[2019-07-01] MEDS ORDERED: METHADONE HCL 10 MG TABLET (FOR DETOX USE ONLY) PO ONE (18:00)
[2019-07-01] MEDS: THIAMINE HCL 100 MG TABLET (FP) PO SCH (22:15)
[2019-07-02] MEDS: diazePAM 5 MG TABLET PO PRN ×2 (01:45→11:03)
[2019-07-02] MEDS: diazePAM 5 MG TABLET PO SCH ×3 (05:44→22:41)
[2019-07-02] MEDS ORDERED: METHADONE HCL 5 MG TABLET (FOR DETOX USE ONLY) PO ONE (10:00)
[2019-07-02] MEDS: PRENATAL VITAMINS W/ FOLIC ACID TABLET (FP) PO SCH (11:03)
[2019-07-02] MEDS: METHOCARBAMOL 500 MG TABLET PO PRN ×2 (11:03→22:42)
[2019-07-02] MEDS: NICOTINE 7 MG/24 HOURS TOPICAL PATCH TD SCH (11:04)
[2019-07-02 11:13] LABS: HEMATOCRIT 38.5 % (35.4-49); MCHC 33.8 g/dl (32.0-35.9); MEAN CELL VOLUME 91.9 fl (80-96); MEAN PLT VOLUME 8.8 fl (7.5-11.1); PLATELET COUNT 256 K/MM3 (134-434); RBC 4.18 M/mm3 (4.00-5.60); RDW 14.5 % (11.9-15.9)
[2019-07-02 11:35] LABS: BILIRUBIN,TOTAL 0.3 mg/dL (0.2-1); BLOOD UREA NITROGEN 13.4 mg/dL (7-18); CALCIUM 8.4 mg/dL (8.5-10.1); CREATININE 0.8 mg/dL (0.55-1.3); POTASSIUM 4.2 mmol/L (3.5-5.1); TOT PROT 6.1 g/dl (6.4-8.2)
--- NOTE | 2019-07-02 12:53 | PN ---
S CIWA - CIWA Score Nausea/Vomitin-No Nausea/No Vomiting Muscle Tremors: 2 Anxiety: 3 Agitation: 2 Paroxysmal Sweats: 3 Orientation: 0-Oriented Tacttile Disturbances: 0-None Auditory Disturbances: 0-None Visual Disturbances: 0-None Headache: 2-Mild CIWA-Ar Total Score: 12 BHS COWS - Scale Resting Pulse: 0= [place] 80 or Below Sweatin= Beads of Sweat on Face Restless Observation: 1= Difficult to Sit Still Pupil Size: 0= Normal to Room Light Bone or Joint Aches: 2= Severe Diffuse Aches Runny Nose/ Eye Tearin= None GI Upset > 30mins: 0= None Tremor Observation of Outstretched Hands: 2= Slight Tremor Visible Yawning Observation: 1= 1-2x During Session Anxiety or Irritability: 2=Irritable/Anxious Goose Flesh Skin: 0=Smooth Skin COWS Score: 11 S Progress Note (SOAP) Subjective: c/o headache, anxiety, muscle aches, sweats, and shakes. Objective: 07/02/19 12:47 Vital Signs 07/02/19 07/02/19 06:27 09:18 Temperature 98.8 F 98.7 F Pulse Rate 69 68 Respiratory 18 18 Rate Blood Pressure 99/57 L 100/62 Laboratory Last Values WBC 8.0 K/mm3 (4.0-10.0) 07/02/19 08:00 RBC 4.18 M/mm3 (4.00-5.60) 07/02/19 08:00 Hgb 13.0 GM/dL (11.7-16.9) 07/02/19 08:00 Hct 38.5 % (35.4-49) 07/02/19 08:00 MCV 91.9 fl (80-96) 07/02/19 08:00 MCH 31.0 pg (25.7-33.7) 07/02/19 08:00 MCHC 33.8 g/dl (32.0-35.9) 07/02/19 08:00 RDW 14.5 % (11.9-15.9) 07/02/19 08:00 Plt Count 256 K/MM3 (134-434) 07/02/19 08:00 MPV 8.8 fl (7.5-11.1) 07/02/19 08:00 Sodium 141 mmol/L (136-145) 07/02/19 08:00 Potassium 4.2 mmol/L (3.5-5.1) 07/02/19 08:00 Chloride 111 mmol/L (98-107) H 07/02/19 08:00 Carbon Dioxide 26 mmol/L (21-32) 07/02/19 08:00 Anion Gap 5 MMOL/L (8-16) L 07/02/19 08:00 BUN 13.4 mg/dL (7-18) 07/02/19 08:00 Creatinine 0.8 mg/dL (0.55-1.3) 07/02/19 08:00 Est GFR (CKD-EPI)AfAm 125.92 07/02/19 08:00 Est GFR (CKD-EPI)NonAf 108.65 07/02/19 08:00 Random Glucose 101 mg/dL (74-106) 07/02/19 08:00 Calcium 8.4 mg/dL (8.5-10.1) L 07/02/19 08:00 Total Bilirubin 0.3 mg/dL (0.2-1) 07/02/19 08:00 AST 22 U/L (15-37) 07/02/19 08:00 ALT 38 U/L (13-61) 07/02/19 08:00 Alkaline Phosphatase 46 U/L (45-117) 07/02/19 08:00 Total Protein 6.1 g/dl (6.4-8.2) L 07/02/19 08:00 Albumin 3.0 g/dl (3.4-5.0) L 07/02/19 08:00 Labs noted. Assessment: 07/02/19 12:47 AOX3, in no acute respiratory distress. Full ROM, ambulating in the unit. Withdrawal symptoms. Plan: continue detox.
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
[2019-07-02] MEDS: THIAMINE HCL 100 MG TABLET (FP) PO SCH (22:41)
[2019-07-03] MEDS: diazePAM 5 MG TABLET PO PRN ×2 (01:02→10:37)
[2019-07-03] MEDS: diazePAM 5 MG TABLET PO SCH ×2 (05:46→19:13)
[2019-07-03] MEDS ORDERED: METHADONE HCL 10 MG TABLET (FOR DETOX USE ONLY) PO ONE (10:00)
--- NOTE | 2019-07-03 10:07 | PN ---
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 According to Dr Cruz' note Seroquel would be ordered for patient on his request but it was not orderded. So Seroquel 100 mg/ hs ordered for patient
[2019-07-03] MEDS: PRENATAL VITAMINS W/ FOLIC ACID TABLET (FP) PO SCH (10:35)
[2019-07-03] MEDS: NICOTINE 7 MG/24 HOURS TOPICAL PATCH TD SCH (10:38)
--- NOTE | 2019-07-03 13:33 | PN ---
S CIWA - CIWA Score Nausea/Vomitin-Mild Nausea/No Vomiting Muscle Tremors: 2 Anxiety: 2 Agitation: 2 Paroxysmal Sweats: 1-Minimal Palms Moist Orientation: 0-Oriented Tacttile Disturbances: 0-None Auditory Disturbances: 0-None Visual Disturbances: 0-None Headache: 0-None Present CIWA-Ar Total Score: 8 BHS COWS - Scale Resting Pulse: 0= [place] 80 or Below Sweatin= Chills/Flushing Restless Observation: 0= Sits Still Pupil Size: 0= Normal to Room Light Bone or Joint Aches: 1= Mild Discomfort Runny Nose/ Eye Tearin= Nasal Congestion GI Upset > 30mins: 1= Stomach Cramp Tremor Observation of Outstretched Hands: 2= Slight Tremor Visible Yawning Observation: 0= None Anxiety or Irritability: 2=Irritable/Anxious Goose Flesh Skin: 0=Smooth Skin COWS Score: 8 S Progress Note (SOAP) Subjective: 44 years old male admitted on 07/01/19 for alcohol benzo opiate withdrawal sx management treating with valium and methadone detox regimen feeling better today requests medication change to 5 am due to tomorrow is discharge date patient will received methadone 5 mg around 5 am Objective: 07/03/19 13:32 Vital Signs Temperature 97.9 F 07/03/19 13:16 Pulse Rate 73 07/03/19 13:16 Respiratory Rate 18 07/03/19 13:16 Blood Pressure 104/63 07/03/19 13:16 O2 Sat by Pulse Oximetry (%) Laboratory Last Values WBC 8.0 K/mm3 (4.0-10.0) 07/02/19 08:00 RBC 4.18 M/mm3 (4.00-5.60) 07/02/19 08:00 Hgb 13.0 GM/dL (11.7-16.9) 07/02/19 08:00 Hct 38.5 % (35.4-49) 07/02/19 08:00 MCV 91.9 fl (80-96) 07/02/19 08:00 MCH 31.0 pg (25.7-33.7) 07/02/19 08:00 MCHC 33.8 g/dl (32.0-35.9) 07/02/19 08:00 RDW 14.5 % (11.9-15.9) 07/02/19 08:00 Plt Count 256 K/MM3 (134-434) 07/02/19 08:00 MPV 8.8 fl (7.5-11.1) 07/02/19 08:00 Sodium 141 mmol/L (136-145) 07/02/19 08:00 Potassium 4.2 mmol/L (3.5-5.1) 07/02/19 08:00 Chloride 111 mmol/L (98-107) H 07/02/19 08:00 Carbon Dioxide 26 mmol/L (21-32) 07/02/19 08:00 Anion Gap 5 MMOL/L (8-16) L 07/02/19 08:00 BUN 13.4 mg/dL (7-18) 07/02/19 08:00 Creatinine 0.8 mg/dL (0.55-1.3) 07/02/19 08:00 Est GFR (CKD-EPI)AfAm 125.92 07/02/19 08:00 Est GFR (CKD-EPI)NonAf 108.65 07/02/19 08:00 Random Glucose 101 mg/dL (74-106) 07/02/19 08:00 Calcium 8.4 mg/dL (8.5-10.1) L 07/02/19 08:00 Total Bilirubin 0.3 mg/dL (0.2-1) 07/02/19 08:00 AST 22 U/L (15-37) 07/02/19 08:00 ALT 38 U/L (13-61) 07/02/19 08:00 Alkaline Phosphatase 46 U/L (45-117) 07/02/19 08:00 Total Protein 6.1 g/dl (6.4-8.2) L 07/02/19 08:00 Albumin 3.0 g/dl (3.4-5.0) L 07/02/19 08:00 RPR Titer Nonreactive (NONREACTIVE) 07/02/19 08:00 lab noted Assessment: 07/03/19 13:32 alcohol benzo opiate withdrawal Plan: valium and methadone regiments
[2019-07-03] MEDS ORDERED: QUEtiapine FUMARATE 100 MG TABLET (FP) PO SCH (22:00)
[2019-07-03] MEDS: THIAMINE HCL 100 MG TABLET (FP) PO SCH (22:32)
[2019-07-04] MEDS ORDERED: diazePAM 5 MG TABLET PO ONE (06:00)
[2019-07-04] MEDS ORDERED: METHADONE HCL 5 MG TABLET (FOR DETOX USE ONLY) PO ONE (06:00)
[2019-07-04] MEDS ORDERED: PRENATAL VITAMINS W/ FOLIC ACID TABLET (FP) PO SCH ×2 (06:00)
[2019-07-04 09:28] VITALS: BP 123/74; PULSE 70; TEMP 95.7
--- NOTE | 2019-07-04 10:02 | DS ---
[facility] Detox Discharge Summary Admission Date: 07/01/19 Discharge Date: 07/04/19 - History Present History: Alcohol Dependence, Opioid Dependence, Sedative Dependence Additional Comments: 44 years old male admitted on 07/01/19 for alcohol benzo opiate withdrawal sx management treated with valium and methadone detox regiments patient has completed the valium and methadone regiments and tolerated well alert oriented x 3 cardiac s1s2 regular rate rhythm respiratory clear lungs bilaterally on auscultation skin warm and dry Pertinent Past History: patient agrees to return to [facility] - Physical Exam Results Vital Signs: Vital Signs Temperature 95.7 F L 07/04/19 09:28 Pulse Rate 70 07/04/19 09:28 Respiratory Rate 16 07/04/19 09:28 Blood Pressure 123/74 07/04/19 09:28 O2 Sat by Pulse Oximetry (%) Pertinent Admission Physical Exam Findings: alcohol benzo opiate withdrawal Vital Signs Temperature 95.7 F L 07/04/19 09:28 Pulse Rate 70 07/04/19 09:28 Respiratory Rate 16 07/04/19 09:28 Blood Pressure 123/74 07/04/19 09:28 O2 Sat by Pulse Oximetry (%) Laboratory Last Values WBC 8.0 K/mm3 (4.0-10.0) 07/02/19 08:00 RBC 4.18 M/mm3 (4.00-5.60) 07/02/19 08:00 Hgb 13.0 GM/dL (11.7-16.9) 07/02/19 08:00 Hct 38.5 % (35.4-49) 07/02/19 08:00 MCV 91.9 fl (80-96) 07/02/19 08:00 MCH 31.0 pg (25.7-33.7) 07/02/19 08:00 MCHC 33.8 g/dl (32.0-35.9) 07/02/19 08:00 RDW 14.5 % (11.9-15.9) 07/02/19 08:00 Plt Count 256 K/MM3 (134-434) 07/02/19 08:00 MPV 8.8 fl (7.5-11.1) 07/02/19 08:00 Sodium 141 mmol/L (136-145) 07/02/19 08:00 Potassium 4.2 mmol/L (3.5-5.1) 07/02/19 08:00 Chloride 111 mmol/L (98-107) H 07/02/19 08:00 Carbon Dioxide 26 mmol/L (21-32) 07/02/19 08:00 Anion Gap 5 MMOL/L (8-16) L 07/02/19 08:00 BUN 13.4 mg/dL (7-18) 07/02/19 08:00 Creatinine 0.8 mg/dL (0.55-1.3) 07/02/19 08:00 Est GFR (CKD-EPI)AfAm 125.92 07/02/19 08:00 Est GFR (CKD-EPI)NonAf 108.65 07/02/19 08:00 Random Glucose 101 mg/dL (74-106) 07/02/19 08:00 Calcium 8.4 mg/dL (8.5-10.1) L 07/02/19 08:00 Total Bilirubin 0.3 mg/dL (0.2-1) 07/02/19 08:00 AST 22 U/L (15-37) 07/02/19 08:00 ALT 38 U/L (13-61) 07/02/19 08:00 Alkaline Phosphatase 46 U/L (45-117) 07/02/19 08:00 Total Protein 6.1 g/dl (6.4-8.2) L 07/02/19 08:00 Albumin 3.0 g/dl (3.4-5.0) L 07/02/19 08:00 RPR Titer Nonreactive (NONREACTIVE) 07/02/19 08:00 lab noted - Treatment Hospital Course: Detox Protocol Followed, Detoxed Safely, Responded well, Discharged Condition Good, Rehab Referral Accepted Patient has Accepted a Re[facility] Referral to: [facility] - Medication Discharge Medications: Ambulatory Orders Quetiapine Fumarate [Seroquel -] 200 mg PO HS 01/01/19 Prednisolone 1% Ophthalmic [Pred Forte 1% -] 1 drop OU BID 07/01/19 Naloxone HCl [Narcan] 4 mg NS ASDIR PRN #1 spray 07/04/19 - Diagnosis (1) Alcohol dependence with uncomplicated withdrawal Status: Acute (2) Opioid dependence with withdrawal Status: Acute (3) Sedative, hypnotic, or anxiolytic withdrawal Status: Acute (4) Chronic GERD Status: Chronic (5) Eczema Status: Chronic Qualifiers: Eczema type: unspecified Qualified Code(s): L30.9 - Dermatitis, unspecified (6) Nicotine dependence Status: Acute Qualifiers: Nicotine product type: cigarettes Substance use status: in withdrawal Qualified Code(s): F17.213 - Nicotine dependence, cigarettes, with withdrawal - AMA Did Patient Leave Against Medical Advice: No CIWA Score - CIWA Score Nausea/Vomitin-No Nausea/No Vomiting Muscle Tremors: 1-None Visible, but [place] Anxiety: 1-Mildly Anxious Agitation: 2 Paroxysmal Sweats: No Perspiration Orientation: 0-Oriented Tacttile Disturbances: 0-None Auditory Disturbances: 0-None Visual Disturbances: 0-None Headache: 0-None Present CIWA-Ar Total Score: 4 COWS (PN) - Opiate Withdrawal Resting Pulse: 0= [place] 80 or Below Sweatin= Chills/Flushing Restless Observation: 0= Sits Still Pupil Size: 0= Normal to Room Light Bone or Joint Aches: 1= Mild Discomfort Runny Nose/ Eye Tearin= None GI Upset > 30mins: 0= None Tremor Observation of Outstretched Hands: 1= Tremor [place], Not Seen Yawning Observation: 0= None Anxiety or Irritability: 1=Feels Anxious/Irritable Goose Flesh Skin: 0=Smooth Skin COWS Score: 4
== END 2019-07-04 08:54 | disposition home or self-care (01) | DRG 773 ==
LOC: YASAS 12:16 → Y3N 16:30
PROVIDERS: ADMIT Allergy & Immunology; ATTEND Allergy & Immunology
PROC: HZ2ZZZZ Detoxification Services for Substance Abuse Treatment (ICD-10-PCS; principal; 2019-07-01)
DX: F11.23 Opioid dependence with withdrawal (principal); F10.230 Alcohol dependence with withdrawal, uncomplicated; F13.230 Sedative, hypnotic or anxiolytic dependence with withdrawal, uncomplicated; F12.20 Cannabis dependence, uncomplicated; F17.213 Nicotine dependence, cigarettes, with withdrawal; F19.24 Other psychoactive substance dependence with psychoactive substance-induced mood disorder; K21.9 Gastro-esophageal reflux disease without esophagitis; L30.9 Dermatitis, unspecified; G47.00 Insomnia, unspecified
CPT/HCPCS: 36415; 80053; 85027; 86593

== ENCOUNTER 2019-08-04 10:18 | Inpatient (IN) | payer OTHER ==
--- NOTE | 2019-08-04 11:17 | BHS.RME ---
Substance Use & Tx History - Substance Use History Opiates (Heroin) Substance amount: 1-1.5 Frequency of use: Daily Substance route: Inhalation (ex: sniffing or snorting) Date of Last Use: 08/03/19 Alcohol Substance amount: 1/4 to one pint [place] Frequency of use: Daily Substance route: Oral Date of Last Use: 08/04/19 Cannabis Substance amount: 1 joint Frequency of use: Less than 3 times per week Substance route: Smoking Date of Last Use: 08/03/19 - Last Treatment Treatment type: Substance Use Disorder ([facility]) Physical/Psych/Mental Status - Behavior General Behavior: Decreased activity Eye Contact: Decreased - Cooperativeness Cooperativeness: Cooperative - Thinking Thought Processes: Loosened Thought content: Future oriented - Physical Health Problems Is patient presently having any pain?: Yes (chronic neck and low back) Does patient presently have any injuries (include location): No Does patient currently have a fever: No Is patient : No COWS - Scale Resting Pulse: 1= [place] 81-100 Sweatin= Beads of Sweat on Face Restless Observation: 0= Sits Still Pupil Size: 0= Normal to Room Light Bone or Joint Aches: 1= Mild Discomfort Runny Nose/ Eye Tearin= Nasal Congestion GI Upset > 30mins: 1= Stomach Cramp Tremor Observation: 1= Tremor [place], Not Seen Yawning Observation: 0= None Anxiety or Irritability: 1=Feels Anxious/Irritable Goose Flesh Skin: 0=Smooth Skin COWS Score: 9 CIWA Nausea/Vomitin-Mild Nausea/No Vomiting Muscle Tremors: 1-None Visible, but [place] Anxiety: 2 Agitation: 0-Normal Activity Paroxysmal Sweats: 3 Orientation: 0-Oriented Tacttile Disturbances: 0-None Auditory Disturbances: 2-Mild Harshness/Frighten Visual Disturbances: 2-Mild Sensitivity Headache: 3-Moderate CIWA-Ar Total Score: 14
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
[2019-08-04] MEDS ORDERED: hydrOXYzine PAMOATE 25 MG CAPSULE (FP) PO PRN (11:56)
[2019-08-04] MEDS ORDERED: IBUPROFEN 400 MG TABLET (FP) PO PRN (11:56)
[2019-08-04] MEDS ORDERED: MAGNESIUM HYDROX 2400MG/30ML ORAL SUSPENSION 30 ML CUP PO PRN (11:56)
[2019-08-04] MEDS ORDERED: MELATONIN 5 MG TABLETS PO PRN (11:56)
[2019-08-04] MEDS ORDERED: ACETAMINOPHEN 325 MG TABLET (FP) PO PRN ×2 (11:56)
[2019-08-04] MEDS ORDERED: METHOCARBAMOL 500 MG TABLET PO PRN (11:56)
[2019-08-04] MEDS ORDERED: cloNIDine HCL 0.1 MG TABLET PO PRN (11:56)
[2019-08-04] MEDS ORDERED: MAG HYDROX/AL HYDROX/SIMETH 30 ML UNIT-DOSE CUP PO PRN (11:56)
[2019-08-04] MEDS ORDERED: MENTHOL/PHENOL 1 EACH UD MM PRN (11:56)
[2019-08-04] MEDS ORDERED: MAGNESIUM CITRATE 300 ML BOTTLE PO PRN (11:56)
[2019-08-04] MEDS ORDERED: BISMUTH SUBSALICYLATE 524 MG/30 ML UD PO PRN (11:56)
[2019-08-04] MEDS ORDERED: MINERAL OIL/PETROLAT/WATER TOPICAL CREAM 113 GM JAR TP PRN (12:01)
[2019-08-04] MEDS ORDERED: COLLOIDAL OATMEAL 1 EACH PACKET TP ONE (12:02)
[2019-08-04 12:23] VITALS: BMI 29.3
[2019-08-04] MEDS ORDERED: METHADONE HCL 10 MG TABLET (FOR DETOX USE ONLY) PO ONE (12:50)
[2019-08-04] MEDS ORDERED: COLLOIDAL OATMEAL 1 BAR EACH TP PRN (13:01)
[2019-08-04] MEDS: NICOTINE 21 MG/24 HOURS TOPICAL PATCH TD SCH (13:29)
[2019-08-04] MEDS: diazePAM 5 MG TABLET PO SCH ×2 (14:18→22:17)
[2019-08-04] MEDS: prednisoLONE ACETATE 1% OPHTH SUSP 5 ML BOTTLE OU SCH ×2 (15:21→22:16)
[2019-08-04] MEDS: diazePAM 5 MG TABLET PO PRN (19:12)
[2019-08-04] MEDS: THIAMINE HCL 100 MG TABLET (FP) PO SCH (22:17)
[2019-08-05] MEDS: diazePAM 5 MG TABLET PO SCH ×3 (05:33→22:19)
[2019-08-05] MEDS ORDERED: METHADONE HCL 5 MG TABLET (FOR DETOX USE ONLY) ONE (08:48)
[2019-08-05] MEDS ORDERED: METHADONE HCL 10 MG TABLET (FOR DETOX USE ONLY) ONE (08:49)
[2019-08-05] MEDS ORDERED: METHADONE (DETOX) 20 MG, METHADONE (DETOX) 5 MG PO ONE (10:00)
[2019-08-05] MEDS: PRENATAL VITAMINS W/ FOLIC ACID TABLET (FP) PO SCH (10:31)
[2019-08-05] MEDS: NICOTINE 21 MG/24 HOURS TOPICAL PATCH TD SCH (10:31)
[2019-08-05] MEDS: prednisoLONE ACETATE 1% OPHTH SUSP 5 ML BOTTLE OU SCH ×2 (10:34→22:20)
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
--- NOTE | 2019-08-05 11:20 | PN ---
[facility] CIWA - CIWA Score Nausea/Vomitin-Mild Nausea/No Vomiting Muscle Tremors: 1-None Visible, but [place] Anxiety: 1-Mildly Anxious Agitation: 1-Slight > Activity Paroxysmal Sweats: 2 Orientation: 0-Oriented Tacttile Disturbances: 2-Mild Itch/Numbness/Burn Auditory Disturbances: 0-None Visual Disturbances: 0-None Headache: 0-None Present CIWA-Ar Total Score: 8 BHS COWS - Scale Resting Pulse: 0= [place] 80 or Below Sweatin= Chills/Flushing Restless Observation: 1= Difficult to Sit Still Pupil Size: 1= Pupils >than Normal Bone or Joint Aches: 2= Severe Diffuse Aches Runny Nose/ Eye Tearin= Nasal Congestion GI Upset > 30mins: 1= Stomach Cramp Tremor Observation of Outstretched Hands: 1= Tremor [place], Not Seen Yawning Observation: 0= None Anxiety or Irritability: 1=Feels Anxious/Irritable Goose Flesh Skin: 0=Smooth Skin COWS Score: 9 [facility] Progress Note (SOAP) Subjective: inteerrupted sleep,sweats, shakeas, body aches Objective: 08/05/19 11:19 Vital Signs Temperature 97.7 F 08/05/19 08:55 Pulse Rate 80 08/05/19 08:55 Respiratory Rate 18 08/05/19 08:55 Blood Pressure 121/80 08/05/19 08:55 O2 Sat by Pulse Oximetry (%) pending labs pt aox3 in nad ambulating Assessment: 08/05/19 11:20 withsddrawal sx's Plan: cont. detox increase fluids f/up pending labs
[2019-08-05 11:24] LABS: HEMATOCRIT 39.8 % (35.4-49); HEMOGLOBIN 13.8 GM/dL (11.7-16.9); MCH 31.7 pg (25.7-33.7); MCHC 34.7 g/dl (32.0-35.9); MEAN CELL VOLUME 91.4 fl (80-96); MEAN PLT VOLUME 8.9 fl (7.5-11.1); PLATELET COUNT 226 K/MM3 (134-434); RBC 4.35 M/mm3 (4.00-5.60); RDW 14.6 % (11.9-15.9); WHITE BLOOD COUNT 3.6 K/mm3 (4.0-10.0)
[2019-08-05 11:27] LABS: ALBUMIN 3.8 g/dl (3.4-5.0); BILIRUBIN,TOTAL 0.4 mg/dL (0.2-1); BLOOD UREA NITROGEN 11.9 mg/dL (7-18); CALCIUM 8.9 mg/dL (8.5-10.1); CREATININE 0.8 mg/dL (0.55-1.3); POTASSIUM 4.4 mmol/L (3.5-5.1); TOT PROT 6.7 g/dl (6.4-8.2)
[2019-08-05] MEDS: diazePAM 5 MG TABLET PO PRN ×2 (12:14→17:01)
--- NOTE | 2019-08-05 12:39 | PN ---
[facility] CIWA - CIWA Score Nausea/Vomitin-Mild Nausea/No Vomiting Muscle Tremors: 1-None Visible, but [place] Anxiety: 2 Agitation: 1-Slight > Activity Paroxysmal Sweats: 2 Orientation: 0-Oriented Tacttile Disturbances: 2-Mild Itch/Numbness/Burn Auditory Disturbances: 0-None Visual Disturbances: 0-None Headache: 0-None Present CIWA-Ar Total Score: 9 [facility] COWS - Scale Resting Pulse: 0= [place] 80 or Below Sweatin= Chills/Flushing Restless Observation: 1= Difficult to Sit Still Pupil Size: 1= Pupils >than Normal Bone or Joint Aches: 2= Severe Diffuse Aches Runny Nose/ Eye Tearin= Nasal Congestion GI Upset > 30mins: 1= Stomach Cramp Tremor Observation of Outstretched Hands: 1= Tremor [place], Not Seen Anxiety or Irritability: 1=Feels Anxious/Irritable Goose Flesh Skin: 0=Smooth Skin [facility] Progress Note (SOAP) Subjective: interrupted sleep, sweats, shakes , bodyaches, Objective: 08/05/19 11:17 Vital Signs Temperature 97.7 F 08/05/19 08:55 Pulse Rate 80 08/05/19 08:55 Respiratory Rate 18 08/05/19 08:55 Blood Pressure 121/80 08/05/19 08:55 O2 Sat by Pulse Oximetry (%)
[2019-08-05] MEDS: QUEtiapine FUMARATE 100 MG TABLET (FP) PO SCH (22:19)
[2019-08-05] MEDS: THIAMINE HCL 100 MG TABLET (FP) PO SCH (22:20)
[2019-08-06] MEDS: diazePAM 5 MG TABLET PO SCH ×2 (05:29→17:28)
[2019-08-06] MEDS ORDERED: METHADONE HCL 10 MG TABLET (FOR DETOX USE ONLY) PO ONE (10:00)
[2019-08-06] MEDS: PRENATAL VITAMINS W/ FOLIC ACID TABLET (FP) PO SCH (10:08)
[2019-08-06] MEDS: prednisoLONE ACETATE 1% OPHTH SUSP 5 ML BOTTLE OU SCH ×2 (10:09→22:43)
[2019-08-06] MEDS: NICOTINE 21 MG/24 HOURS TOPICAL PATCH TD SCH (10:09)
[2019-08-06] MEDS: diazePAM 5 MG TABLET PO PRN (13:54)
--- NOTE | 2019-08-06 17:45 | PN ---
[facility] CIWA - CIWA Score Nausea/Vomitin-No Nausea/No Vomiting Muscle Tremors: 3 Anxiety: 3 Agitation: 1-Slight > Activity Paroxysmal Sweats: 3 Orientation: 0-Oriented Tacttile Disturbances: 1-Very Mild Itch/Numbness Auditory Disturbances: 0-None Visual Disturbances: 0-None Headache: 0-None Present CIWA-Ar Total Score: 11 S COWS - Scale Resting Pulse: 0= [place] 80 or Below Sweatin= Chills/Flushing Restless Observation: 1= Difficult to Sit Still Pupil Size: 0= Normal to Room Light Bone or Joint Aches: 2= Severe Diffuse Aches Runny Nose/ Eye Tearin= None GI Upset > 30mins: 0= None Tremor Observation of Outstretched Hands: 2= Slight Tremor Visible Yawning Observation: 1= 1-2x During Session Anxiety or Irritability: 2=Irritable/Anxious Goose Flesh Skin: 3=Piloerection COWS Score: 12 [facility] Progress Note (SOAP) Subjective: Anxious, Tremors, Sweating, Hot/Cold Sensations, Body Aches. Objective: PATIENT A & O X 3, OBSERVED AMBULATING ON DETOX UNIT UNASSISTED. IN NO ACUTE DISTRESS. 08/06/19 17:43 Vital Signs Temperature 98.2 F 08/06/19 11:22 Pulse Rate 66 08/06/19 11:22 Respiratory Rate 16 08/06/19 11:22 Blood Pressure 125/70 08/06/19 11:22 O2 Sat by Pulse Oximetry (%) Laboratory Tests 08/05/19 08/05/19 08/05/19 08:00 08:00 08:00 WBC 3.6 L RBC 4.35 Hgb 13.8 Hct 39.8 MCV 91.4 MCH 31.7 MCHC 34.7 RDW 14.6 Plt Count 226 MPV 8.9 Sodium 139 Potassium 4.4 Chloride 106 Carbon Dioxide 31 Anion Gap 2 L BUN 11.9 Creatinine 0.8 Est GFR (CKD-EPI)AfAm 125.92 Est GFR (CKD-EPI)NonAf 108.65 Random Glucose 102 Calcium 8.9 Total Bilirubin 0.4 AST 24 ALT 36 Alkaline Phosphatase 47 Total Protein 6.7 Albumin 3.8 RPR Titer Nonreactive LABS NOTED. Assessment: 08/06/19 17:43 WITHDRAWAL SYMPTOMS. Plan: CONTINUE DETOX. INCREASE DAILY ORAL WATER INTAKE. PRN ROBAXIN ORAL RECOMMENDED FOR BODY ACHES / MUSCLES SPASMS.
[2019-08-06] MEDS: QUEtiapine FUMARATE 100 MG TABLET (FP) PO SCH (22:43)
[2019-08-06] MEDS: THIAMINE HCL 100 MG TABLET (FP) PO SCH (22:44)
[2019-08-07] MEDS ORDERED: diazePAM 5 MG TABLET PO ONE (06:00)
[2019-08-07] MEDS ORDERED: METHADONE (DETOX) 10 MG, METHADONE (DETOX) 5 MG PO ONE (10:00)
[2019-08-07] MEDS: NICOTINE 21 MG/24 HOURS TOPICAL PATCH TD SCH (10:45)
[2019-08-07] MEDS: PRENATAL VITAMINS W/ FOLIC ACID TABLET (FP) PO SCH (10:46)
[2019-08-07] MEDS ORDERED: METHADONE HCL 5 MG TABLET (FOR DETOX USE ONLY) ONE (10:47)
[2019-08-07] MEDS ORDERED: METHADONE HCL 10 MG TABLET (FOR DETOX USE ONLY) ONE (10:47)
--- NOTE | 2019-08-07 15:06 | PN ---
[facility] CIWA - CIWA Score Nausea/Vomitin-No Nausea/No Vomiting Muscle Tremors: 2 Anxiety: 2 Agitation: 2 Paroxysmal Sweats: 2 Orientation: 0-Oriented Tacttile Disturbances: 0-None Auditory Disturbances: 0-None Visual Disturbances: 0-None Headache: 0-None Present CIWA-Ar Total Score: 8 S COWS - Scale Resting Pulse: 0= [place] 80 or Below Sweatin= Chills/Flushing Restless Observation: 0= Sits Still Pupil Size: 0= Normal to Room Light Bone or Joint Aches: 2= Severe Diffuse Aches Runny Nose/ Eye Tearin= None GI Upset > 30mins: 1= Stomach Cramp Tremor Observation of Outstretched Hands: 2= Slight Tremor Visible Yawning Observation: 0= None Anxiety or Irritability: 1=Feels Anxious/Irritable Goose Flesh Skin: 0=Smooth Skin COWS Score: 7 [facility] Progress Note (SOAP) Subjective: Anxious, chills, sweating, aches, LBP, shoulder pain Objective: 08/07/19 15:04 Last Vital Signs Temp Pulse Resp BP Pulse Ox 97.5 F L 71 18 132/80 08/07/19 12:53 08/07/19 12:53 08/07/19 12:53 08/07/19 12:53 Elevated b/p noted, denies htn Laboratory Tests 08/05/19 08/05/19 08/05/19 08:00 08:00 08:00 WBC 3.6 L RBC 4.35 Hgb 13.8 Hct 39.8 MCV 91.4 MCH 31.7 MCHC 34.7 RDW 14.6 Plt Count 226 MPV 8.9 Sodium 139 Potassium 4.4 Chloride 106 Carbon Dioxide 31 Anion Gap 2 L BUN 11.9 Creatinine 0.8 Est GFR (CKD-EPI)AfAm 125.92 Est GFR (CKD-EPI)NonAf 108.65 Random Glucose 102 Calcium 8.9 Total Bilirubin 0.4 AST 24 ALT 36 Alkaline Phosphatase 47 Total Protein 6.7 Albumin 3.8 RPR Titer Nonreactive Labs reviewed Assessment: 08/07/19 15:05 Withdrawal sxs Noted with elevated b/p Plan: Continue detox Encouraged PO water intake Elevated b/p: denies htn, most likely due to anxiety, monitor b/p
[2019-08-07] MEDS: prednisoLONE ACETATE 1% OPHTH SUSP 5 ML BOTTLE OU SCH ×2 (15:36→22:25)
[2019-08-07] MEDS: QUEtiapine FUMARATE 100 MG TABLET (FP) PO SCH (22:25)
[2019-08-07] MEDS: THIAMINE HCL 100 MG TABLET (FP) PO SCH (22:25)
[2019-08-08] MEDS ORDERED: METHADONE HCL 10 MG TABLET (FOR DETOX USE ONLY) PO ONE (10:00)
[2019-08-08] MEDS: prednisoLONE ACETATE 1% OPHTH SUSP 5 ML BOTTLE OU SCH ×2 (10:48→22:18)
[2019-08-08] MEDS: NICOTINE 21 MG/24 HOURS TOPICAL PATCH TD SCH (10:48)
[2019-08-08] MEDS: PRENATAL VITAMINS W/ FOLIC ACID TABLET (FP) PO SCH (10:48)
--- NOTE | 2019-08-08 11:14 | PN ---
[facility] CIWA - CIWA Score Nausea/Vomitin-No Nausea/No Vomiting Muscle Tremors: 2 Anxiety: 1-Mildly Anxious Agitation: 0-Normal Activity Paroxysmal Sweats: 1-Minimal Palms Moist Orientation: 0-Oriented Tacttile Disturbances: 0-None Auditory Disturbances: 0-None Visual Disturbances: 0-None Headache: 1-Very Mild CIWA-Ar Total Score: 5 [facility] COWS - Scale Resting Pulse: 0= [place] 80 or Below Sweatin= No chills or Flushing Restless Observation: 0= Sits Still Pupil Size: 0= Normal to Room Light Bone or Joint Aches: 1= Mild Discomfort Runny Nose/ Eye Tearin= None GI Upset > 30mins: 0= None Tremor Observation of Outstretched Hands: 0= None Yawning Observation: 1= 1-2x During Session Anxiety or Irritability: 1=Feels Anxious/Irritable Goose Flesh Skin: 0=Smooth Skin COWS Score: 3 [facility] Progress Note (SOAP) Subjective: feeling better anxiety Objective: 08/08/19 11:15 Vital Signs Temperature 96 F L 08/08/19 05:47 Pulse Rate 60 08/08/19 05:47 Respiratory Rate 18 08/08/19 05:47 Blood Pressure 101/66 08/08/19 05:47 O2 Sat by Pulse Oximetry (%) aaox3 ambulating no acute distress Assessment: 08/08/19 11:15 mild withdrawals Plan: d/c in am
[2019-08-08] MEDS: THIAMINE HCL 100 MG TABLET (FP) PO SCH (22:19)
[2019-08-08] MEDS: QUEtiapine FUMARATE 100 MG TABLET (FP) PO SCH (22:20)
[2019-08-09] MEDS ORDERED: METHADONE HCL 5 MG TABLET (FOR DETOX USE ONLY) PO ONE (06:00)
[2019-08-09 07:15] VITALS: BP 118/66; PULSE 71; TEMP 96.4
--- NOTE | 2019-08-09 09:14 | DS ---
[facility] Detox Discharge Summary Admission Date: 08/04/19 Discharge Date: 08/09/19 - History Present History: Alcohol Dependence, Cannabis Dependence, Opioid Dependence, Sedative Dependence - Physical Exam Results Vital Signs: Vital Signs Temperature 96.4 F L 08/09/19 05:50 Pulse Rate 71 08/09/19 05:50 Respiratory Rate 17 08/09/19 05:50 Blood Pressure 118/66 08/09/19 05:50 O2 Sat by Pulse Oximetry (%) Pertinent Admission Physical Exam Findings: Vital Signs Temperature 96.4 F L 08/09/19 05:50 Pulse Rate 71 08/09/19 05:50 Respiratory Rate 17 08/09/19 05:50 Blood Pressure 118/66 08/09/19 05:50 O2 Sat by Pulse Oximetry (%) Laboratory Tests 08/05/19 08/05/19 08/05/19 08:00 08:00 08:00 WBC 3.6 L RBC 4.35 Hgb 13.8 Hct 39.8 MCV 91.4 MCH 31.7 MCHC 34.7 RDW 14.6 Plt Count 226 MPV 8.9 Sodium 139 Potassium 4.4 Chloride 106 Carbon Dioxide 31 Anion Gap 2 L BUN 11.9 Creatinine 0.8 Est GFR (CKD-EPI)AfAm 125.92 Est GFR (CKD-EPI)NonAf 108.65 Random Glucose 102 Calcium 8.9 Total Bilirubin 0.4 AST 24 ALT 36 Alkaline Phosphatase 47 Total Protein 6.7 Albumin 3.8 RPR Titer Nonreactive aaox3 ambulating no acute distress lungs assessed CTA - Treatment Hospital Course: Detox Protocol Followed, Detoxed Safely, Responded well, Discharged Condition Good, Rehab Referral Accepted - Medication Discharge Medications: Ambulatory Orders Quetiapine Fumarate [Seroquel -] 200 mg PO HS 01/01/19 Prednisolone 1% Ophthalmic [Pred Forte 1% -] 1 drop OU BID 07/01/19 Amoxicillin - [Amoxicillin 500mg Capsule -] 500 mg PO TID 08/04/19 Meloxicam [Mobic] 15 mg PO PRN PRN 08/04/19 - Diagnosis (1) Substance-induced anxiety disorder Current Visit: Yes Status: Acute (2) Substance-induced sleep disorder Current Visit: Yes Status: Acute (3) Chronic low back pain Current Visit: Yes Status: Chronic Qualifiers: Back pain laterality: unspecified Sciatica presence: unspecified whether sciatica present Qualified Code(s): M54.5 - Low back pain; G89.29 - Other chronic pain (4) Alcohol dependence with uncomplicated withdrawal Current Visit: Yes Status: Chronic (5) Cannabis dependence, uncomplicated Current Visit: Yes Status: Chronic (6) Opioid dependence with withdrawal Current Visit: Yes Status: Chronic (7) Sedative, hypnotic, or anxiolytic withdrawal Current Visit: Yes Status: Chronic (8) Substance-induced sleep disorder Current Visit: No Status: Acute (9) Anxiety disorder Current Visit: No Status: Chronic Qualifiers: Anxiety disorder type: unspecified anxiety disorder Qualified Code(s): F41.9 - Anxiety disorder, unspecified (10) Cocaine dependence, uncomplicated Current Visit: Yes Status: Chronic (11) Drug-induced mood disorder Current Visit: No Status: Chronic (12) Nicotine dependence Current Visit: Yes Status: Chronic Qualifiers: Nicotine product type: cigarettes Substance use status: in withdrawal Qualified Code(s): F17.213 - Nicotine dependence, cigarettes, with withdrawal (13) PTSD (post-traumatic stress disorder) Current Visit: No Status: Chronic (14) History of traumatic head injury Current Visit: No Status: Resolved - AMA Did Patient Leave Against Medical Advice: No
== END 2019-08-09 08:56 | disposition home or self-care (01) | DRG 773 ==
LOC: YASAS 10:18 → Y6N 12:41
PROVIDERS: ADMIT Allergy & Immunology; ATTEND Allergy & Immunology
PROC: HZ2ZZZZ Detoxification Services for Substance Abuse Treatment (ICD-10-PCS; principal; 2019-08-04)
DX: F10.230 Alcohol dependence with withdrawal, uncomplicated (principal); F11.23 Opioid dependence with withdrawal; F14.20 Cocaine dependence, uncomplicated; F12.20 Cannabis dependence, uncomplicated; F17.210 Nicotine dependence, cigarettes, uncomplicated; F19.280 Other psychoactive substance dependence with psychoactive substance-induced anxiety disorder; F19.282 Other psychoactive substance dependence with psychoactive substance-induced sleep disorder; F19.24 Other psychoactive substance dependence with psychoactive substance-induced mood disorder; F43.10 Post-traumatic stress disorder, unspecified; M54.5 Low back pain; G89.29 Other chronic pain; L30.9 Dermatitis, unspecified; R03.0 Elevated blood-pressure reading, without diagnosis of hypertension; Z87.828 Personal history of other (healed) physical injury and trauma
CPT/HCPCS: 36415; 80053; 85027; 86593

== ENCOUNTER 2020-09-29 10:35 | Inpatient (IN) | payer OTHER ==
[~2020-09-29 10:35] MED LIST changes: +COLLOIDAL OATMEAL 1 BAR EACH TP PRN; -METHADONE HCL 10 MG TABLET (FOR DETOX USE ONLY) PO SCH
[2020-09-29 14:48] VITALS: BMI 31.9
[2020-09-29] MEDS ORDERED: MENTHOL/PHENOL 1 EACH UD MM PRN (15:41)
[2020-09-29] MEDS ORDERED: MAGNESIUM HYDROX 2400MG/30ML ORAL SUSPENSION 30 ML CUP PO PRN (15:41)
[2020-09-29] MEDS ORDERED: MAG HYDROX/AL HYDROX/SIMETH 30 ML UNIT-DOSE CUP PO PRN (15:41)
[2020-09-29] MEDS ORDERED: METHADONE HCL 10 MG TABLET (FOR DETOX USE ONLY) PO ONE (15:41)
[2020-09-29] MEDS ORDERED: ACETAMINOPHEN 325 MG TABLET (FP) PO PRN ×2 (15:41)
[2020-09-29] MEDS ORDERED: NICOTINE POLACRILEX 2 MG GUM BUC PRN (15:41)
[2020-09-29] MEDS ORDERED: cloNIDine HCL 0.1 MG TABLET PO PRN (15:41)
[2020-09-29] MEDS ORDERED: MAGNESIUM CITRATE 300 ML BOTTLE PO PRN (15:41)
[2020-09-29] MEDS ORDERED: IBUPROFEN 400 MG TABLET (FP) PO PRN (15:41)
[2020-09-29] MEDS ORDERED: METHOCARBAMOL 500 MG TABLET PO PRN (15:41)
[2020-09-29] MEDS ORDERED: ONDANSETRON *ODT* 4 MG TABLET SL PRN (15:41)
[2020-09-29] MEDS ORDERED: BISMUTH SUBSALICYLATE 524 MG/30 ML UD PO PRN (15:41)
[2020-09-29] MEDS: diazePAM 5 MG TABLET PO SCH ×2 (19:27→22:27)
[2020-09-29] MEDS: hydrOXYzine PAMOATE 25 MG CAPSULE (FP) PO SCH ×2 (19:27→22:28)
[2020-09-29] MEDS: NICOTINE 21 MG/24 HOURS TOPICAL PATCH TD SCH (19:30)
[2020-09-29] MEDS: THIAMINE HCL 100 MG TABLET (FP) PO SCH (22:27)
[2020-09-29] MEDS: MELATONIN 5 MG TABLETS PO SCH (22:28)
[2020-09-30] MEDS: diazePAM 5 MG TABLET PO SCH ×4 (05:46→22:30)
[2020-09-30] MEDS: hydrOXYzine PAMOATE 25 MG CAPSULE (FP) PO SCH ×5 (05:47→22:30)
[2020-09-30] MEDS ORDERED: METHADONE HCL 10 MG TABLET (FOR DETOX USE ONLY) ONE (09:09)
[2020-09-30] MEDS ORDERED: METHADONE HCL 5 MG TABLET (FOR DETOX USE ONLY) ONE (09:10)
[2020-09-30] MEDS ORDERED: METHADONE (DETOX) 20 MG, METHADONE (DETOX) 5 MG PO ONE (10:00)
[2020-09-30 10:32] LABS: HEMATOCRIT 43.9 % (35.4-49); MCH 31.3 pg (25.7-33.7); MCHC 34.1 g/dl (32.0-35.9); MEAN PLT VOLUME 8.2 fl (7.5-11.1); PLATELET COUNT 293 K/MM3 (134-434); RBC 4.77 M/mm3 (4.00-5.60); RDW 15.3 % (11.9-15.9); WHITE BLOOD COUNT 6.3 K/mm3 (4.0-10.0)
[2020-09-30] MEDS: NICOTINE 21 MG/24 HOURS TOPICAL PATCH TD SCH (10:33)
[2020-09-30] MEDS: PRENATAL VITAMINS W/ FOLIC ACID TABLET (FP) PO SCH (10:33)
[2020-09-30 10:56] LABS: CALCIUM 9.1 mg/dL (8.5-10.1)
[2020-09-30 10:57] LABS: BLOOD UREA NITROGEN 12.6 mg/dL (7-18)
[2020-09-30 11:00] LABS: CREATININE 0.9 mg/dL (0.55-1.3)
[2020-09-30 11:01] LABS: BILIRUBIN,TOTAL 0.8 mg/dL (0.2-1); TOT PROT 7.2 g/dl (6.4-8.2)
[2020-09-30] MEDS: diazePAM 5 MG TABLET PO PRN (13:18)
[2020-09-30] MEDS: MELATONIN 5 MG TABLETS PO SCH (22:29)
[2020-09-30] MEDS: QUEtiapine FUMARATE 100 MG TABLET (FP) PO SCH (22:29)
[2020-09-30] MEDS: THIAMINE HCL 100 MG TABLET (FP) PO SCH (22:30)
[2020-10-01] MEDS: hydrOXYzine PAMOATE 25 MG CAPSULE (FP) PO SCH ×5 (05:13→21:19)
[2020-10-01] MEDS: diazePAM 5 MG TABLET PO SCH ×3 (05:13→21:20)
[2020-10-01] MEDS ORDERED: METHADONE HCL 10 MG TABLET (FOR DETOX USE ONLY) PO ONE (10:00)
[2020-10-01] MEDS: PRENATAL VITAMINS W/ FOLIC ACID TABLET (FP) PO SCH (10:07)
[2020-10-01] MEDS: diazePAM 5 MG TABLET PO PRN ×2 (10:09→18:03)
[2020-10-01] MEDS: NICOTINE 21 MG/24 HOURS TOPICAL PATCH TD SCH (10:10)
[2020-10-01] MEDS: FLUOCINONIDE 0.05% CREAM (15 GM TUBE) TP SCH ×2 (13:29→21:19)
[2020-10-01] MEDS: MELATONIN 5 MG TABLETS PO SCH (21:19)
[2020-10-01] MEDS: QUEtiapine FUMARATE 100 MG TABLET (FP) PO SCH (21:19)
[2020-10-01] MEDS: THIAMINE HCL 100 MG TABLET (FP) PO SCH (21:19)
[2020-10-02 05:06] LABS: SARS-CoV-2 NAA Not Detected (Not Detected)
[2020-10-02] MEDS: hydrOXYzine PAMOATE 25 MG CAPSULE (FP) PO SCH ×5 (05:21→22:31)
[2020-10-02] MEDS: diazePAM 5 MG TABLET PO SCH ×2 (05:22→17:34)
[2020-10-02] MEDS ORDERED: METHADONE HCL 10 MG TABLET (FOR DETOX USE ONLY) ONE (09:31)
[2020-10-02] MEDS ORDERED: METHADONE HCL 5 MG TABLET (FOR DETOX USE ONLY) ONE (09:31)
[2020-10-02] MEDS ORDERED: METHADONE (DETOX) 10 MG, METHADONE (DETOX) 5 MG PO ONE (10:00)
[2020-10-02] MEDS: PRENATAL VITAMINS W/ FOLIC ACID TABLET (FP) PO SCH (10:11)
[2020-10-02] MEDS: NICOTINE 21 MG/24 HOURS TOPICAL PATCH TD SCH (10:12)
[2020-10-02] MEDS: diazePAM 5 MG TABLET PO PRN ×2 (10:13→14:50)
[2020-10-02] MEDS: FLUOCINONIDE 0.05% CREAM (15 GM TUBE) TP SCH ×2 (10:17→22:32)
[2020-10-02] MEDS: THIAMINE HCL 100 MG TABLET (FP) PO SCH (22:32)
[2020-10-02] MEDS: MELATONIN 5 MG TABLETS PO SCH (22:32)
[2020-10-02] MEDS: QUEtiapine FUMARATE 100 MG TABLET (FP) PO SCH (22:32)
[2020-10-03] MEDS: hydrOXYzine PAMOATE 25 MG CAPSULE (FP) PO SCH ×5 (05:14→21:13)
[2020-10-03] MEDS ORDERED: diazePAM 5 MG TABLET PO ONE (06:00)
[2020-10-03] MEDS ORDERED: METHADONE HCL 10 MG TABLET (FOR DETOX USE ONLY) PO ONE (10:00)
[2020-10-03] MEDS: NICOTINE 21 MG/24 HOURS TOPICAL PATCH TD SCH (10:34)
[2020-10-03] MEDS: PRENATAL VITAMINS W/ FOLIC ACID TABLET (FP) PO SCH (10:34)
[2020-10-03] MEDS: FLUOCINONIDE 0.05% CREAM (15 GM TUBE) TP SCH ×2 (10:35→21:13)
[2020-10-03] MEDS: THIAMINE HCL 100 MG TABLET (FP) PO SCH (21:13)
[2020-10-03] MEDS: MELATONIN 5 MG TABLETS PO SCH (21:14)
[2020-10-03] MEDS: QUEtiapine FUMARATE 100 MG TABLET (FP) PO SCH (21:14)
[2020-10-04] MEDS: hydrOXYzine PAMOATE 25 MG CAPSULE (FP) PO SCH (05:14)
[2020-10-04] MEDS ORDERED: METHADONE HCL 5 MG TABLET (FOR DETOX USE ONLY) PO ONE (06:00)
[2020-10-04 06:16] VITALS: BP 100/68; PULSE 64; TEMP 97.7
== END 2020-10-04 06:50 | disposition home or self-care (01) | DRG 773 ==
LOC: YASAS 10:35 → Y3N 17:45 → UNDOADMIN 17:45 → Y3N 18:52
PROVIDERS: ADMIT Allergy & Immunology; ATTEND Allergy & Immunology
PROC: HZ2ZZZZ Detoxification Services for Substance Abuse Treatment (ICD-10-PCS; principal; 2020-09-29)
DX: F11.23 Opioid dependence with withdrawal (principal); F10.230 Alcohol dependence with withdrawal, uncomplicated; F14.20 Cocaine dependence, uncomplicated; F13.20 Sedative, hypnotic or anxiolytic dependence, uncomplicated; F12.20 Cannabis dependence, uncomplicated; F17.210 Nicotine dependence, cigarettes, uncomplicated; F19.282 Other psychoactive substance dependence with psychoactive substance-induced sleep disorder; F43.10 Post-traumatic stress disorder, unspecified; F41.9 Anxiety disorder, unspecified; G47.00 Insomnia, unspecified; L30.9 Dermatitis, unspecified; M54.5 Low back pain; G89.29 Other chronic pain
CPT/HCPCS: 36415; 80053; 85027; 86780; C9803; U0003; U0005

== ENCOUNTER 2020-12-03 10:59 | Inpatient (IN) | payer OTHER ==
[2020-12-03 12:26] VITALS: BMI 31.2
[2020-12-03] MEDS ORDERED: IBUPROFEN 400 MG TABLET (FP) PO PRN (13:13)
[2020-12-03] MEDS ORDERED: ONDANSETRON *ODT* 4 MG TABLET SL PRN (13:13)
[2020-12-03] MEDS ORDERED: NICOTINE POLACRILEX 2 MG GUM BUC PRN (13:13)
[2020-12-03] MEDS ORDERED: cloNIDine HCL 0.1 MG TABLET PO PRN (13:13)
[2020-12-03] MEDS ORDERED: MAGNESIUM CITRATE 300 ML BOTTLE PO PRN (13:13)
[2020-12-03] MEDS ORDERED: MENTHOL/PHENOL 1 EACH UD MM PRN (13:13)
[2020-12-03] MEDS ORDERED: METHOCARBAMOL 500 MG TABLET PO PRN (13:13)
[2020-12-03] MEDS ORDERED: ACETAMINOPHEN 325 MG TABLET (FP) PO PRN ×2 (13:13)
[2020-12-03] MEDS ORDERED: MAGNESIUM HYDROX 2400MG/30ML ORAL SUSPENSION 30 ML CUP PO PRN (13:13)
[2020-12-03] MEDS ORDERED: MAG HYDROX/AL HYDROX/SIMETH 30 ML UNIT-DOSE CUP PO PRN (13:13)
[2020-12-03] MEDS ORDERED: BISMUTH SUBSALICYLATE 524 MG/30 ML PO PRN (13:13)
[2020-12-03] MEDS ORDERED: METHADONE HCL 10 MG TABLET (FOR DETOX USE ONLY) PO ONE (14:00)
[2020-12-03] MEDS: hydrOXYzine PAMOATE 25 MG CAPSULE (FP) PO SCH ×3 (14:35→22:27)
[2020-12-03] MEDS: COLLOIDAL OATMEAL 1 BAR EACH TP SCH (14:36)
[2020-12-03] MEDS: NICOTINE 21 MG/24 HOURS TOPICAL PATCH TD SCH (14:40)
[2020-12-03] MEDS: prednisoLONE ACETATE 1% OPHTH SUSP 5 ML BOTTLE OU SCH ×2 (14:44→22:26)
[2020-12-03 17:18] LABS: HEMATOCRIT 41.4 % (35.4-49); HEMOGLOBIN 13.8 GM/dL (11.7-16.9); MCH 30.7 pg (25.7-33.7); MCHC 33.3 g/dl (32.0-35.9); MEAN CELL VOLUME 92.3 fl (80-96); MEAN PLT VOLUME 8.6 fl (7.5-11.1); PLATELET COUNT 303 10^3/uL (134-434); RBC 4.49 M/mm3 (4.00-5.60); RDW 14.5 % (11.9-15.9)
[2020-12-03 17:35] LABS: TOT PROT 7.1 g/dl (6.4-8.2)
[2020-12-03 17:36] LABS: CREATININE 0.8 mg/dL (0.55-1.3)
[2020-12-03 17:37] LABS: BLOOD UREA NITROGEN 14.5 mg/dL (7-18)
[2020-12-03 17:41] LABS: BILIRUBIN,TOTAL 0.3 mg/dL (0.2-1)
[2020-12-03] MEDS: diazePAM 5 MG TABLET PO SCH ×2 (18:20→22:25)
[2020-12-03] MEDS: THIAMINE HCL 100 MG TABLET (FP) PO SCH (22:25)
[2020-12-03] MEDS: MELATONIN 5 MG TABLETS PO SCH (22:26)
[2020-12-04] MEDS: diazePAM 5 MG TABLET PO SCH ×4 (05:17→22:17)
[2020-12-04] MEDS: hydrOXYzine PAMOATE 25 MG CAPSULE (FP) PO SCH ×5 (05:17→22:16)
[2020-12-04] MEDS ORDERED: METHADONE HCL 5 MG TABLET (FOR DETOX USE ONLY) ONE (08:54)
[2020-12-04] MEDS ORDERED: METHADONE HCL 10 MG TABLET (FOR DETOX USE ONLY) ONE (08:55)
[2020-12-04] MEDS ORDERED: METHADONE (DETOX) 20 MG, METHADONE (DETOX) 5 MG PO ONE (10:00)
[2020-12-04] MEDS: MINERAL OIL/PETROLAT/WATER TOPICAL CREAM 113 GM JAR TP SCH (10:13)
[2020-12-04] MEDS: PRENATAL VITAMINS W/ FOLIC ACID TABLET (FP) PO SCH (10:15)
[2020-12-04] MEDS: NICOTINE 21 MG/24 HOURS TOPICAL PATCH TD SCH (10:15)
[2020-12-04] MEDS: prednisoLONE ACETATE 1% OPHTH SUSP 5 ML BOTTLE OU SCH ×2 (10:15→22:17)
[2020-12-04] MEDS: COLLOIDAL OATMEAL 1 BAR EACH TP SCH (10:18)
[2020-12-04] MEDS: diazePAM 5 MG TABLET PO PRN (12:43)
[2020-12-04] MEDS: THIAMINE HCL 100 MG TABLET (FP) PO SCH (22:17)
[2020-12-04] MEDS: QUEtiapine FUMARATE 100 MG TABLET (FP) PO SCH (22:17)
[2020-12-04] MEDS: MELATONIN 5 MG TABLETS PO SCH (22:18)
[2020-12-05] MEDS: diazePAM 5 MG TABLET PO SCH ×3 (05:40→22:33)
[2020-12-05] MEDS: hydrOXYzine PAMOATE 25 MG CAPSULE (FP) PO SCH ×5 (05:40→22:34)
[2020-12-05] MEDS ORDERED: METHADONE HCL 10 MG TABLET (FOR DETOX USE ONLY) PO ONE (10:00)
[2020-12-05] MEDS: prednisoLONE ACETATE 1% OPHTH SUSP 5 ML BOTTLE OU SCH ×2 (10:05→22:39)
[2020-12-05] MEDS: NICOTINE 21 MG/24 HOURS TOPICAL PATCH TD SCH (10:05)
[2020-12-05] MEDS: MINERAL OIL/PETROLAT/WATER TOPICAL CREAM 113 GM JAR TP SCH (10:06)
[2020-12-05] MEDS: PRENATAL VITAMINS W/ FOLIC ACID TABLET (FP) PO SCH (10:06)
[2020-12-05] MEDS: COLLOIDAL OATMEAL 1 BAR EACH TP SCH (10:06)
[2020-12-05] MEDS: diazePAM 5 MG TABLET PO PRN (17:40)
[2020-12-05] MEDS: MELATONIN 5 MG TABLETS PO SCH (22:34)
[2020-12-05] MEDS: THIAMINE HCL 100 MG TABLET (FP) PO SCH (22:34)
[2020-12-05] MEDS: QUEtiapine FUMARATE 100 MG TABLET (FP) PO SCH (22:34)
[2020-12-06] MEDS: diazePAM 5 MG TABLET PO SCH ×2 (06:06→17:38)
[2020-12-06] MEDS: hydrOXYzine PAMOATE 25 MG CAPSULE (FP) PO SCH ×5 (06:07→22:20)
[2020-12-06] MEDS ORDERED: METHADONE HCL 5 MG TABLET (FOR DETOX USE ONLY) ONE (08:51)
[2020-12-06] MEDS ORDERED: METHADONE HCL 10 MG TABLET (FOR DETOX USE ONLY) ONE (08:51)
[2020-12-06] MEDS ORDERED: METHADONE (DETOX) 10 MG, METHADONE (DETOX) 5 MG PO ONE (10:00)
[2020-12-06] MEDS: COLLOIDAL OATMEAL 1 BAR EACH TP SCH (10:34)
[2020-12-06] MEDS: MINERAL OIL/PETROLAT/WATER TOPICAL CREAM 113 GM JAR TP SCH (10:34)
[2020-12-06] MEDS: prednisoLONE ACETATE 1% OPHTH SUSP 5 ML BOTTLE OU SCH ×2 (10:35→22:19)
[2020-12-06] MEDS: PRENATAL VITAMINS W/ FOLIC ACID TABLET (FP) PO SCH (10:35)
[2020-12-06] MEDS: NICOTINE 21 MG/24 HOURS TOPICAL PATCH TD SCH (10:35)
[2020-12-06] MEDS: diazePAM 5 MG TABLET PO PRN (10:36)
[2020-12-06] MEDS: QUEtiapine FUMARATE 100 MG TABLET (FP) PO SCH (22:20)
[2020-12-06] MEDS: THIAMINE HCL 100 MG TABLET (FP) PO SCH (22:20)
[2020-12-06] MEDS: MELATONIN 5 MG TABLETS PO SCH (22:21)
[2020-12-07] MEDS: hydrOXYzine PAMOATE 25 MG CAPSULE (FP) PO SCH ×5 (05:46→22:16)
[2020-12-07] MEDS ORDERED: diazePAM 5 MG TABLET PO ONE (06:00)
[2020-12-07] MEDS ORDERED: METHADONE HCL 10 MG TABLET (FOR DETOX USE ONLY) PO ONE (10:00)
[2020-12-07] MEDS: PRENATAL VITAMINS W/ FOLIC ACID TABLET (FP) PO SCH (10:29)
[2020-12-07] MEDS: prednisoLONE ACETATE 1% OPHTH SUSP 5 ML BOTTLE OU SCH ×2 (10:29→22:17)
[2020-12-07] MEDS: MINERAL OIL/PETROLAT/WATER TOPICAL CREAM 113 GM JAR TP SCH (10:30)
[2020-12-07] MEDS: NICOTINE 21 MG/24 HOURS TOPICAL PATCH TD SCH (10:30)
[2020-12-07] MEDS: COLLOIDAL OATMEAL 1 BAR EACH TP SCH (10:32)
[2020-12-07] MEDS: THIAMINE HCL 100 MG TABLET (FP) PO SCH (22:16)
[2020-12-07] MEDS: QUEtiapine FUMARATE 100 MG TABLET (FP) PO SCH (22:16)
[2020-12-07] MEDS: MELATONIN 5 MG TABLETS PO SCH (22:16)
[2020-12-08] MEDS: hydrOXYzine PAMOATE 25 MG CAPSULE (FP) PO SCH (05:17)
[2020-12-08] MEDS ORDERED: METHADONE HCL 5 MG TABLET (FOR DETOX USE ONLY) PO ONE (06:00)
[2020-12-08 06:23] VITALS: BP 124/64; PULSE 63; TEMP 97
== END 2020-12-08 07:43 | disposition home or self-care (01) | DRG 773 ==
LOC: YASAS 10:59 → Y6N 13:27 → Y3N 12-05 14:44
PROVIDERS: ADMIT Allergy & Immunology; ATTEND Allergy & Immunology
PROC: HZ2ZZZZ Detoxification Services for Substance Abuse Treatment (ICD-10-PCS; principal; 2020-12-01)
DX: F11.23 Opioid dependence with withdrawal (principal); F10.230 Alcohol dependence with withdrawal, uncomplicated; F13.230 Sedative, hypnotic or anxiolytic dependence with withdrawal, uncomplicated; F14.20 Cocaine dependence, uncomplicated; F17.210 Nicotine dependence, cigarettes, uncomplicated; F43.10 Post-traumatic stress disorder, unspecified; F19.24 Other psychoactive substance dependence with psychoactive substance-induced mood disorder; F19.280 Other psychoactive substance dependence with psychoactive substance-induced anxiety disorder; F41.9 Anxiety disorder, unspecified; G47.00 Insomnia, unspecified; M54.5 Low back pain; G89.29 Other chronic pain; R63.4 Abnormal weight loss; L30.9 Dermatitis, unspecified; Z56.0 Unemployment, unspecified; Z68.31 Body mass index [BMI] 31.0-31.9, adult
CPT/HCPCS: 36415; 80053; 85027; 86780; 93005; 93010; C9803; U0003; U0005

== ENCOUNTER 2021-01-10 12:09 | Inpatient (IN) | payer OTHER ==
[2021-01-10 13:35] VITALS: BMI 30.4
[2021-01-10] MEDS ORDERED: NICOTINE 10 MG CARTRIDGE (INHALER) IH PRN (14:51)
[2021-01-10] MEDS ORDERED: MAG HYDROX/AL HYDROX/SIMETH 30 ML UNIT-DOSE CUP PO PRN (14:51)
[2021-01-10] MEDS ORDERED: MENTHOL/PHENOL 1 EACH UD MM PRN (14:51)
[2021-01-10] MEDS ORDERED: MAGNESIUM CITRATE 300 ML BOTTLE PO PRN (14:51)
[2021-01-10] MEDS ORDERED: cloNIDine HCL 0.1 MG TABLET PO PRN (14:51)
[2021-01-10] MEDS ORDERED: ONDANSETRON *ODT* 4 MG TABLET SL PRN (14:51)
[2021-01-10] MEDS ORDERED: clonazePAM 0.5 MG ODT TABLETS SL PRN (14:51)
[2021-01-10] MEDS ORDERED: BISMUTH SUBSALICYLATE 524 MG/30 ML PO PRN (14:51)
[2021-01-10] MEDS ORDERED: methaDONE HCL 10 MG TABLET (FOR DETOX USE ONLY) PO ONE (14:51)
[2021-01-10] MEDS ORDERED: IBUPROFEN 400 MG TABLET (FP) PO PRN (14:51)
[2021-01-10] MEDS ORDERED: ACETAMINOPHEN 325 MG TABLET (FP) PO PRN ×2 (14:51)
[2021-01-10] MEDS ORDERED: MAGNESIUM HYDROX 2400MG/30ML ORAL SUSPENSION 30 ML CUP PO PRN (14:51)
[2021-01-10] MEDS ORDERED: MINERAL OIL/PETROLAT/WATER TOPICAL CREAM 454 GM JAR TP PRN (14:57)
[2021-01-10] MEDS: hydrOXYzine PAMOATE 25 MG CAPSULE (FP) PO SCH ×2 (17:42→22:20)
[2021-01-10] MEDS ORDERED: MELATONIN 5 MG TABLETS PO SCH (22:00)
[2021-01-10] MEDS: THIAMINE HCL 100 MG TABLET (FP) PO SCH (22:20)
[2021-01-11] MEDS: hydrOXYzine PAMOATE 25 MG CAPSULE (FP) PO SCH ×5 (06:57→22:33)
[2021-01-11] MEDS ORDERED: methaDONE HCL 10 MG TABLET (FOR DETOX USE ONLY) ONE (08:57)
[2021-01-11] MEDS: diazePAM 5 MG TABLET PO PRN ×2 (10:32→22:16)
[2021-01-11] MEDS: PRENATAL VITAMINS W/ FOLIC ACID TABLET (FP) PO SCH (10:33)
[2021-01-11 11:44] LABS: HEMATOCRIT 43.6 % (35.4-49); HEMOGLOBIN 14.9 GM/dL (11.7-16.9); MCH 31.5 pg (25.7-33.7); MCHC 34.3 g/dl (32.0-35.9); MEAN CELL VOLUME 91.8 fl (80-96); MEAN PLT VOLUME 8.7 fl (7.5-11.1); PLATELET COUNT 290 10^3/uL (134-434); RBC 4.74 M/mm3 (4.00-5.60); RDW 14.3 % (11.9-15.9); WHITE BLOOD COUNT 6.1 K/mm3 (4.0-10.0)
[2021-01-11 11:52] LABS: CALCIUM 8.7 mg/dL (8.5-10.1)
[2021-01-11 11:53] LABS: ALBUMIN 3.7 g/dl (3.4-5.0); BLOOD UREA NITROGEN 12.7 mg/dL (7-18)
[2021-01-11 11:56] LABS: CREATININE 0.8 mg/dL (0.55-1.3)
[2021-01-11 11:58] LABS: BILIRUBIN,TOTAL 0.7 mg/dL (0.2-1); TOT PROT 6.8 g/dl (6.4-8.2)
[2021-01-11] MEDS: NICOTINE 21 MG/24 HOURS TOPICAL PATCH TD SCH (12:12)
[2021-01-11] MEDS: THIAMINE HCL 100 MG TABLET (FP) PO SCH (22:13)
[2021-01-11] MEDS: SUVOREXANT 10 MG TABLET PO PRN (22:16)
[2021-01-12] MEDS: hydrOXYzine PAMOATE 25 MG CAPSULE (FP) PO SCH ×5 (06:10→22:04)
[2021-01-12] MEDS: diazePAM 5 MG TABLET PO PRN ×2 (06:12→17:24)
[2021-01-12] MEDS: NICOTINE 21 MG/24 HOURS TOPICAL PATCH TD SCH (09:58)
[2021-01-12] MEDS: PRENATAL VITAMINS W/ FOLIC ACID TABLET (FP) PO SCH (09:58)
[2021-01-12] MEDS ORDERED: methaDONE HCL 10 MG TABLET (FOR DETOX USE ONLY) PO ONE (10:00)
[2021-01-12] MEDS: THIAMINE HCL 100 MG TABLET (FP) PO SCH (22:04)
[2021-01-12] MEDS: METHOCARBAMOL 500 MG TABLET PO PRN (22:06)
[2021-01-13] MEDS: diazePAM 5 MG TABLET PO PRN ×4 (01:03→23:37)
[2021-01-13] MEDS: hydrOXYzine PAMOATE 25 MG CAPSULE (FP) PO SCH ×5 (05:41→22:15)
[2021-01-13] MEDS ORDERED: methaDONE HCL 10 MG TABLET (FOR DETOX USE ONLY) ONE (09:09)
[2021-01-13] MEDS: NICOTINE 21 MG/24 HOURS TOPICAL PATCH TD SCH (10:31)
[2021-01-13] MEDS: PRENATAL VITAMINS W/ FOLIC ACID TABLET (FP) PO SCH (10:31)
[2021-01-13] MEDS: THIAMINE HCL 100 MG TABLET (FP) PO SCH (22:15)
[2021-01-13] MEDS: METHOCARBAMOL 500 MG TABLET PO PRN (22:15)
[2021-01-14] MEDS: SUVOREXANT 10 MG TABLET PO PRN ×2 (01:54→21:55)
[2021-01-14] MEDS: hydrOXYzine PAMOATE 25 MG CAPSULE (FP) PO SCH ×5 (06:09→22:24)
[2021-01-14] MEDS ORDERED: methaDONE HCL 10 MG TABLET (FOR DETOX USE ONLY) PO ONE (10:00)
[2021-01-14] MEDS ORDERED: LOPERAMIDE HCL 2 MG CAPSULE PO ONE (10:30)
[2021-01-14] MEDS: NICOTINE 21 MG/24 HOURS TOPICAL PATCH TD SCH (10:32)
[2021-01-14] MEDS: diazePAM 5 MG TABLET PO PRN ×3 (10:32→23:05)
[2021-01-14] MEDS: PRENATAL VITAMINS W/ FOLIC ACID TABLET (FP) PO SCH (10:32)
[2021-01-14] MEDS: THIAMINE HCL 100 MG TABLET (FP) PO SCH (22:24)
[2021-01-15] MEDS: hydrOXYzine PAMOATE 25 MG CAPSULE (FP) PO SCH (05:50)
[2021-01-15 06:56] VITALS: BP 106/65; PULSE 58; TEMP 98
== END 2021-01-15 07:05 | disposition home or self-care (01) | DRG 773 ==
LOC: YASAS 12:09 → Y6N 15:23
PROVIDERS: ADMIT Allergy & Immunology; ATTEND Allergy & Immunology
PROC: HZ2ZZZZ Detoxification Services for Substance Abuse Treatment (ICD-10-PCS; principal; 2021-01-10)
DX: F11.23 Opioid dependence with withdrawal (principal); F10.230 Alcohol dependence with withdrawal, uncomplicated; F14.20 Cocaine dependence, uncomplicated; F13.20 Sedative, hypnotic or anxiolytic dependence, uncomplicated; F12.20 Cannabis dependence, uncomplicated; F17.210 Nicotine dependence, cigarettes, uncomplicated; F19.280 Other psychoactive substance dependence with psychoactive substance-induced anxiety disorder; F19.282 Other psychoactive substance dependence with psychoactive substance-induced sleep disorder; F41.9 Anxiety disorder, unspecified; L30.9 Dermatitis, unspecified; M54.5 Low back pain; G89.29 Other chronic pain; Z87.820 Personal history of traumatic brain injury; Z56.0 Unemployment, unspecified
CPT/HCPCS: 36415; 80053; 85027; 86780; C9803; U0003; U0005

== ENCOUNTER 2021-02-21 12:16 | Inpatient (IN) | payer OTHER ==
[2021-02-21] MEDS ORDERED: MAGNESIUM CITRATE 300 ML BOTTLE PO PRN (18:21)
[2021-02-21] MEDS ORDERED: MENTHOL/PHENOL 1 EACH UD MM PRN (18:21)
[2021-02-21] MEDS ORDERED: ACETAMINOPHEN 325 MG TABLET (FP) PO PRN ×2 (18:21)
[2021-02-21] MEDS ORDERED: MAGNESIUM HYDROX 2400MG/30ML ORAL SUSPENSION 30 ML CUP PO PRN (18:21)
[2021-02-21] MEDS ORDERED: BISMUTH SUBSALICYLATE 524 MG/30 ML PO PRN (18:21)
[2021-02-21] MEDS ORDERED: ONDANSETRON *ODT* 4 MG TABLET SL PRN (18:21)
[2021-02-21] MEDS ORDERED: MAG HYDROX/AL HYDROX/SIMETH 30 ML UNIT-DOSE CUP PO PRN (18:21)
[2021-02-21] MEDS ORDERED: hydrOXYzine PAMOATE 25 MG CAPSULE (FP) PO PRN (18:21)
[2021-02-21] MEDS ORDERED: NICOTINE POLACRILEX 2 MG GUM BUC PRN (18:21)
[2021-02-21] MEDS ORDERED: diazePAM 5 MG TABLET PO ONE (18:23)
[2021-02-21] MEDS ORDERED: COLLOIDAL OATMEAL 1 BAR EACH TP PRN (18:24)
[2021-02-21] MEDS ORDERED: cloNIDine HCL 0.1 MG TABLET PO PRN (18:27)
[2021-02-21] MEDS ORDERED: methaDONE HCL 10 MG TABLET (FOR DETOX USE ONLY) PO ONE (18:27)
[2021-02-21 19:26] VITALS: BMI 29.2
[2021-02-21] MEDS: THIAMINE HCL 100 MG TABLET (FP) PO SCH (22:25)
[2021-02-21] MEDS: MELATONIN 5 MG TABLETS PO SCH (22:28)
[2021-02-21] MEDS: MINERAL OIL/PETROLAT/WATER TOPICAL CREAM 113 GM JAR TP SCH (22:28)
[2021-02-21] MEDS: diazePAM 5 MG TABLET PO SCH (22:29)
[2021-02-22] MEDS: diazePAM 5 MG TABLET PO SCH ×4 (05:24→22:28)
[2021-02-22] MEDS: MINERAL OIL/PETROLAT/WATER TOPICAL CREAM 113 GM JAR TP SCH ×4 (06:30→22:27)
[2021-02-22 08:30] LABS: HEMATOCRIT 38.8 % (35.4-49); HEMOGLOBIN 13.3 GM/dL (11.7-16.9); MCHC 34.2 g/dl (32.0-35.9); MEAN CELL VOLUME 90.7 fl (80-96); PLATELET COUNT 345 10^3/uL (134-434); RBC 4.28 M/mm3 (4.00-5.60); RDW 14.6 % (11.9-15.9); WHITE BLOOD COUNT 5.5 K/mm3 (4.0-10.0)
[2021-02-22 09:30] LABS: CALCIUM 8.6 mg/dL (8.5-10.1)
[2021-02-22 09:31] LABS: ALBUMIN 3.2 g/dl (3.4-5.0); BLOOD UREA NITROGEN 12.5 mg/dL (7-18)
[2021-02-22 09:34] LABS: CREATININE 0.6 mg/dL (0.55-1.3)
[2021-02-22 09:37] LABS: TOT PROT 6.5 g/dl (6.4-8.2)
[2021-02-22 09:39] LABS: BILIRUBIN,TOTAL 0.6 mg/dL (0.2-1)
[2021-02-22] MEDS: NICOTINE 14 MG/24 HOURS TOPICAL PATCH TD SCH (10:51)
[2021-02-22] MEDS: PRENATAL VITAMINS W/ FOLIC ACID TABLET (FP) PO SCH (10:51)
[2021-02-22] MEDS: MELATONIN 5 MG TABLETS PO SCH (22:27)
[2021-02-22] MEDS: THIAMINE HCL 100 MG TABLET (FP) PO SCH (22:27)
[2021-02-23] MEDS: IBUPROFEN 400 MG TABLET (FP) PO PRN (04:04)
[2021-02-23] MEDS: diazePAM 5 MG TABLET PO SCH ×3 (06:43→22:21)
[2021-02-23] MEDS: MINERAL OIL/PETROLAT/WATER TOPICAL CREAM 113 GM JAR TP SCH ×4 (06:46→22:20)
[2021-02-23] MEDS ORDERED: methaDONE HCL 10 MG TABLET (FOR DETOX USE ONLY) PO ONE (10:00)
[2021-02-23] MEDS: NICOTINE 14 MG/24 HOURS TOPICAL PATCH TD SCH (10:31)
[2021-02-23] MEDS: PRENATAL VITAMINS W/ FOLIC ACID TABLET (FP) PO SCH (10:31)
[2021-02-23] MEDS: diazePAM 5 MG TABLET PO PRN ×2 (10:33→18:15)
[2021-02-23] MEDS ORDERED: BACITRACIN 15 GM TUBE TOPICAL OINTMENT TP SCH (12:15)
[2021-02-23] MEDS: BACITRACIN 0.9 GM PACKET TP SCH (22:20)
[2021-02-23] MEDS: THIAMINE HCL 100 MG TABLET (FP) PO SCH (22:21)
[2021-02-23] MEDS: MELATONIN 5 MG TABLETS PO SCH (22:21)
[2021-02-24] MEDS: IBUPROFEN 400 MG TABLET (FP) PO PRN (01:58)
[2021-02-24] MEDS: diazePAM 5 MG TABLET PO PRN (02:00)
[2021-02-24] MEDS: diazePAM 5 MG TABLET PO SCH ×2 (06:19→17:28)
[2021-02-24] MEDS: MINERAL OIL/PETROLAT/WATER TOPICAL CREAM 113 GM JAR TP SCH ×4 (07:21→22:11)
[2021-02-24] MEDS: PRENATAL VITAMINS W/ FOLIC ACID TABLET (FP) PO SCH (10:36)
[2021-02-24] MEDS: NICOTINE 14 MG/24 HOURS TOPICAL PATCH TD SCH (10:37)
[2021-02-24] MEDS: BACITRACIN 0.9 GM PACKET TP SCH ×2 (10:37→22:10)
[2021-02-24] MEDS: THIAMINE HCL 100 MG TABLET (FP) PO SCH (22:10)
[2021-02-24] MEDS: METHOCARBAMOL 500 MG TABLET PO PRN (22:10)
[2021-02-24] MEDS: MELATONIN 5 MG TABLETS PO SCH (22:11)
[2021-02-25] MEDS: METHOCARBAMOL 500 MG TABLET PO PRN (05:23)
[2021-02-25] MEDS ORDERED: diazePAM 5 MG TABLET PO ONE (06:00)
[2021-02-25 06:38] VITALS: BP 114/76; PULSE 57; TEMP 97.7
[2021-02-25] MEDS: MINERAL OIL/PETROLAT/WATER TOPICAL CREAM 113 GM JAR TP SCH (06:51)
[2021-02-25] MEDS ORDERED: cloNIDine HCL 0.1 MG TABLET PO ONE (06:55)
== END 2021-02-25 06:57 | disposition home or self-care (01) | DRG 773 ==
LOC: YASAS 12:16 → Y6N 19:43
PROVIDERS: ADMIT Allergy & Immunology; ATTEND Allergy & Immunology
PROC: HZ2ZZZZ Detoxification Services for Substance Abuse Treatment (ICD-10-PCS; principal; 2021-02-21)
DX: F11.23 Opioid dependence with withdrawal (principal); F10.230 Alcohol dependence with withdrawal, uncomplicated; F13.20 Sedative, hypnotic or anxiolytic dependence, uncomplicated; F12.20 Cannabis dependence, uncomplicated; F17.210 Nicotine dependence, cigarettes, uncomplicated; F19.24 Other psychoactive substance dependence with psychoactive substance-induced mood disorder; F42.9 Obsessive-compulsive disorder, unspecified; F43.10 Post-traumatic stress disorder, unspecified; G47.00 Insomnia, unspecified; L30.9 Dermatitis, unspecified; M54.5 Low back pain; G89.29 Other chronic pain; Z85.820 Personal history of malignant melanoma of skin
CPT/HCPCS: 36415; 80053; 85027; 86780; C9803; J0735; Q0162; U0003; U0005

== ENCOUNTER 2021-04-15 12:15 | Inpatient (IN) | payer OTHER ==
[2021-04-15] MEDS ORDERED: ACETAMINOPHEN 325 MG TABLET (FP) PO PRN ×2 (15:06)
[2021-04-15] MEDS ORDERED: MENTHOL/PHENOL 1 EACH UD MM PRN (15:06)
[2021-04-15] MEDS ORDERED: MAG HYDROX/AL HYDROX/SIMETH 30 ML UNIT-DOSE CUP PO PRN (15:06)
[2021-04-15] MEDS ORDERED: ONDANSETRON *ODT* 4 MG TABLET SL PRN (15:06)
[2021-04-15] MEDS ORDERED: NICOTINE 10 MG CARTRIDGE (INHALER) IH PRN (15:06)
[2021-04-15] MEDS ORDERED: MAGNESIUM CITRATE 300 ML BOTTLE PO PRN (15:06)
[2021-04-15] MEDS ORDERED: methaDONE HCL 10 MG TABLET (FOR DETOX USE ONLY) PO ONE ×2 (15:06→20:30)
[2021-04-15] MEDS ORDERED: cloNIDine HCL 0.1 MG TABLET PO PRN (15:06)
[2021-04-15] MEDS ORDERED: BISMUTH SUBSALICYLATE 524 MG/30 ML PO PRN (15:06)
[2021-04-15] MEDS ORDERED: MAGNESIUM HYDROX 2400MG/30ML ORAL SUSPENSION 30 ML CUP PO PRN (15:06)
[2021-04-15 15:55] VITALS: BMI 29.2
[2021-04-15] MEDS ORDERED: COLLOIDAL OATMEAL 1 BAR EACH TP PRN (16:42)
[2021-04-15] MEDS: hydrOXYzine PAMOATE 25 MG CAPSULE (FP) PO SCH ×2 (20:28→22:53)
[2021-04-15] MEDS: diazePAM 5 MG TABLET PO SCH ×2 (20:28→22:53)
[2021-04-15] MEDS: THIAMINE HCL 100 MG TABLET (FP) PO SCH (22:53)
[2021-04-15] MEDS: MELATONIN 5 MG TABLETS PO SCH (22:53)
[2021-04-16] MEDS: diazePAM 5 MG TABLET PO SCH ×4 (07:07→22:32)
[2021-04-16] MEDS: hydrOXYzine PAMOATE 25 MG CAPSULE (FP) PO SCH ×5 (07:08→22:31)
[2021-04-16] MEDS ORDERED: methaDONE HCL 10 MG TABLET (FOR DETOX USE ONLY) ONE (08:59)
[2021-04-16] MEDS: PRENATAL VITAMINS W/ FOLIC ACID TABLET (FP) PO SCH (10:52)
[2021-04-16 10:54] LABS: HEMATOCRIT 38.6 % (35.4-49); MCH 31.1 pg (25.7-33.7); MCHC 33.7 g/dl (32.0-35.9); MEAN CELL VOLUME 92.4 fl (80-96); MEAN PLT VOLUME 8.2 fl (7.5-11.1); PLATELET COUNT 288 10^3/uL (134-434); RBC 4.18 M/mm3 (4.00-5.60); RDW 14.8 % (11.9-15.9); WHITE BLOOD COUNT 6.8 K/mm3 (4.0-10.0)
[2021-04-16 10:57] LABS: CALCIUM 8.6 mg/dL (8.5-10.1)
[2021-04-16 10:58] LABS: ALBUMIN 3.3 g/dl (3.4-5.0); BLOOD UREA NITROGEN 13.4 mg/dL (7-18)
[2021-04-16 11:01] LABS: CREATININE 0.6 mg/dL (0.55-1.3)
[2021-04-16 11:03] LABS: BILIRUBIN,TOTAL 0.2 mg/dL (0.2-1); TOT PROT 6.2 g/dl (6.4-8.2)
[2021-04-16] MEDS: THIAMINE HCL 100 MG TABLET (FP) PO SCH (22:31)
[2021-04-16] MEDS: MELATONIN 5 MG TABLETS PO SCH (22:31)
[2021-04-16] MEDS: METHOCARBAMOL 500 MG TABLET PO PRN (22:32)
[2021-04-17] MEDS: diazePAM 5 MG TABLET PO SCH ×3 (06:23→21:50)
[2021-04-17] MEDS: hydrOXYzine PAMOATE 25 MG CAPSULE (FP) PO SCH ×2 (06:24→10:13)
[2021-04-17] MEDS ORDERED: methaDONE HCL 10 MG TABLET (FOR DETOX USE ONLY) PO ONE (10:00)
[2021-04-17] MEDS: diazePAM 5 MG TABLET PO PRN (10:12)
[2021-04-17] MEDS: METHOCARBAMOL 500 MG TABLET PO PRN ×2 (10:13→21:50)
[2021-04-17] MEDS: PRENATAL VITAMINS W/ FOLIC ACID TABLET (FP) PO SCH (10:13)
[2021-04-17] MEDS: MELATONIN 5 MG TABLETS PO SCH (21:50)
[2021-04-17] MEDS: THIAMINE HCL 100 MG TABLET (FP) PO SCH (21:50)
[2021-04-18] MEDS: diazePAM 5 MG TABLET PO SCH ×2 (05:52→18:00)
[2021-04-18] MEDS: METHOCARBAMOL 500 MG TABLET PO PRN ×2 (05:52→18:00)
[2021-04-18] MEDS ORDERED: methaDONE HCL 10 MG TABLET (FOR DETOX USE ONLY) ONE (10:00)
[2021-04-18] MEDS: PRENATAL VITAMINS W/ FOLIC ACID TABLET (FP) PO SCH (10:21)
[2021-04-18] MEDS: diazePAM 5 MG TABLET PO PRN (13:21)
[2021-04-18] MEDS: hydrOXYzine PAMOATE 25 MG CAPSULE (FP) PO PRN (18:00)
[2021-04-18] MEDS: THIAMINE HCL 100 MG TABLET (FP) PO SCH (22:20)
[2021-04-18] MEDS: MELATONIN 5 MG TABLETS PO SCH (22:20)
[2021-04-18] MEDS: IBUPROFEN 400 MG TABLET (FP) PO PRN (22:20)
[2021-04-19] MEDS ORDERED: diazePAM 5 MG TABLET PO ONE (06:00)
[2021-04-19] MEDS ORDERED: methaDONE HCL 10 MG TABLET (FOR DETOX USE ONLY) PO ONE (10:00)
[2021-04-19] MEDS: PRENATAL VITAMINS W/ FOLIC ACID TABLET (FP) PO SCH (10:43)
[2021-04-19] MEDS: METHOCARBAMOL 500 MG TABLET PO PRN ×2 (10:43→22:32)
[2021-04-19] MEDS: hydrOXYzine PAMOATE 25 MG CAPSULE (FP) PO PRN (10:43)
[2021-04-19] MEDS: IBUPROFEN 400 MG TABLET (FP) PO PRN (22:32)
[2021-04-19] MEDS: MELATONIN 5 MG TABLETS PO SCH (22:33)
[2021-04-19] MEDS: THIAMINE HCL 100 MG TABLET (FP) PO SCH (22:33)
[2021-04-20 07:12] VITALS: BP 120/55; PULSE 65; TEMP 96.8
== END 2021-04-20 06:47 | disposition home or self-care (01) | DRG 773 ==
LOC: YASAS 12:15 → Y3N 17:27
PROVIDERS: ADMIT Allergy & Immunology; ATTEND Allergy & Immunology
PROC: HZ2ZZZZ Detoxification Services for Substance Abuse Treatment (ICD-10-PCS; principal; 2021-04-15)
DX: F11.23 Opioid dependence with withdrawal (principal); F10.230 Alcohol dependence with withdrawal, uncomplicated; F13.20 Sedative, hypnotic or anxiolytic dependence, uncomplicated; F12.20 Cannabis dependence, uncomplicated; F17.210 Nicotine dependence, cigarettes, uncomplicated; F19.280 Other psychoactive substance dependence with psychoactive substance-induced anxiety disorder; F19.24 Other psychoactive substance dependence with psychoactive substance-induced mood disorder; F41.9 Anxiety disorder, unspecified; F43.10 Post-traumatic stress disorder, unspecified; G47.00 Insomnia, unspecified; L30.9 Dermatitis, unspecified; Z85.820 Personal history of malignant melanoma of skin; Z91.14 Patient's other noncompliance with medication regimen
CPT/HCPCS: 36415; 80053; 85027; 86780; C9803; U0003; U0005

== ENCOUNTER 2021-05-21 11:44 | Inpatient (IN) | payer OTHER ==
[2021-05-21] MEDS ORDERED: MENTHOL/PHENOL 1 EACH UD MM PRN (12:04)
[2021-05-21] MEDS ORDERED: MAGNESIUM CITRATE 300 ML BOTTLE PO PRN (12:04)
[2021-05-21] MEDS ORDERED: chlordiazePOXIDE HCL 25 MG CAPSULE PO PRN (12:04)
[2021-05-21] MEDS ORDERED: IBUPROFEN 400 MG TABLET (FP) PO PRN (12:04)
[2021-05-21] MEDS ORDERED: ACETAMINOPHEN 325 MG TABLET (FP) PO PRN (12:04)
[2021-05-21] MEDS ORDERED: MAGNESIUM HYDROX 2400MG/30ML ORAL SUSPENSION 30 ML CUP PO PRN (12:04)
[2021-05-21] MEDS ORDERED: MAG HYDROX/AL HYDROX/SIMETH 30 ML UNIT-DOSE CUP PO PRN (12:04)
[2021-05-21] MEDS ORDERED: methaDONE HCL 10 MG TABLET (FOR DETOX USE ONLY) PO ONE (12:04)
[2021-05-21] MEDS ORDERED: NICOTINE 10 MG CARTRIDGE (INHALER) IH PRN (12:04)
[2021-05-21] MEDS ORDERED: BISMUTH SUBSALICYLATE 262 MG/15 ML BTL PO PRN (12:04)
[2021-05-21] MEDS ORDERED: ONDANSETRON *ODT* 4 MG TABLET SL PRN (12:04)
[2021-05-21] MEDS ORDERED: cloNIDine HCL 0.1 MG TABLET PO PRN (12:04)
[2021-05-21 13:06] VITALS: BMI 28.3
[2021-05-21] MEDS: hydrOXYzine PAMOATE 25 MG CAPSULE (FP) PO SCH ×3 (15:47→22:17)
[2021-05-21] MEDS: PRENATAL VITAMINS W/ FOLIC ACID TABLET (FP) PO SCH (15:47)
[2021-05-21] MEDS: chlordiazePOXIDE HCL 25 MG CAPSULE PO SCH ×3 (15:47→22:17)
[2021-05-21] MEDS: NICOTINE 14 MG/24 HOURS TOPICAL PATCH TD SCH (15:47)
[2021-05-21 16:46] LABS: HEMATOCRIT 41.8 % (35.4-49); HEMOGLOBIN 14.2 GM/dL (11.7-16.9); MEAN CELL VOLUME 91.2 fl (80-96); MEAN PLT VOLUME 7.7 fl (7.5-11.1); PLATELET COUNT 344 10^3/uL (134-434); RBC 4.58 M/mm3 (4.00-5.60); RDW 14.8 % (11.9-15.9); WHITE BLOOD COUNT 8.1 K/mm3 (4.0-10.0)
[2021-05-21 16:54] LABS: ALBUMIN 3.8 g/dl (3.4-5.0); BLOOD UREA NITROGEN 16.8 mg/dL (7-18); CALCIUM 9.3 mg/dL (8.5-10.1)
[2021-05-21 16:57] LABS: CREATININE 0.8 mg/dL (0.55-1.3)
[2021-05-21 16:59] LABS: BILIRUBIN,TOTAL 0.4 mg/dL (0.2-1); TOT PROT 7.3 g/dl (6.4-8.2)
[2021-05-21] MEDS: MELATONIN 5 MG TABLETS PO SCH (22:17)
[2021-05-21] MEDS: THIAMINE HCL 100 MG TABLET (FP) PO SCH (22:17)
[2021-05-21] MEDS: GABAPENTIN 300 MG CAPSULE PO SCH (22:17)
[2021-05-22] MEDS: GABAPENTIN 300 MG CAPSULE PO SCH ×3 (05:20→22:27)
[2021-05-22] MEDS: hydrOXYzine PAMOATE 25 MG CAPSULE (FP) PO SCH ×5 (05:20→22:27)
[2021-05-22] MEDS: chlordiazePOXIDE HCL 25 MG CAPSULE PO SCH ×4 (05:20→22:26)
[2021-05-22] MEDS ORDERED: methaDONE HCL 10 MG TABLET (FOR DETOX USE ONLY) ONE (09:17)
[2021-05-22] MEDS: PRENATAL VITAMINS W/ FOLIC ACID TABLET (FP) PO SCH (10:47)
[2021-05-22] MEDS: NICOTINE 14 MG/24 HOURS TOPICAL PATCH TD SCH (13:19)
[2021-05-22] MEDS: ACETAMINOPHEN 325 MG TABLET (FP) PO PRN (17:47)
[2021-05-22] MEDS: MELATONIN 5 MG TABLETS PO SCH (22:27)
[2021-05-22] MEDS: THIAMINE HCL 100 MG TABLET (FP) PO SCH (22:27)
[2021-05-23] MEDS: hydrOXYzine PAMOATE 25 MG CAPSULE (FP) PO SCH ×5 (05:14→22:06)
[2021-05-23] MEDS: GABAPENTIN 300 MG CAPSULE PO SCH ×3 (05:14→22:06)
[2021-05-23] MEDS: chlordiazePOXIDE HCL 25 MG CAPSULE PO SCH ×4 (05:14→22:07)
[2021-05-23] MEDS ORDERED: COLLOIDAL OATMEAL 1 BAR EACH TP PRN (09:59)
[2021-05-23] MEDS ORDERED: methaDONE HCL 10 MG TABLET (FOR DETOX USE ONLY) PO ONE (10:00)
[2021-05-23] MEDS: PRENATAL VITAMINS W/ FOLIC ACID TABLET (FP) PO SCH (10:15)
[2021-05-23] MEDS: NICOTINE 14 MG/24 HOURS TOPICAL PATCH TD SCH (10:17)
[2021-05-23] MEDS: NICOTINE 21 MG/24 HOURS TOPICAL PATCH TD SCH (12:16)
[2021-05-23] MEDS: THIAMINE HCL 100 MG TABLET (FP) PO SCH (22:06)
[2021-05-23] MEDS: MELATONIN 5 MG TABLETS PO SCH (22:07)
[2021-05-24] MEDS ORDERED: chlordiazePOXIDE HCL 10 MG CAPSULE PO PRN
[2021-05-24] MEDS: chlordiazePOXIDE HCL 10 MG CAPSULE PO SCH ×4 (05:24→22:32)
[2021-05-24] MEDS: GABAPENTIN 300 MG CAPSULE PO SCH ×3 (05:24→22:30)
[2021-05-24] MEDS: hydrOXYzine PAMOATE 25 MG CAPSULE (FP) PO SCH ×5 (05:24→22:30)
[2021-05-24] MEDS: ACETAMINOPHEN 325 MG TABLET (FP) PO PRN (05:25)
[2021-05-24] MEDS ORDERED: methaDONE HCL 10 MG TABLET (FOR DETOX USE ONLY) ONE (09:22)
[2021-05-24] MEDS: PRENATAL VITAMINS W/ FOLIC ACID TABLET (FP) PO SCH (10:30)
[2021-05-24] MEDS: NICOTINE 21 MG/24 HOURS TOPICAL PATCH TD SCH (10:33)
[2021-05-24] MEDS: NICOTINE 14 MG/24 HOURS TOPICAL PATCH TD SCH (10:34)
[2021-05-24] MEDS: MELATONIN 5 MG TABLETS PO SCH (22:30)
[2021-05-24] MEDS: THIAMINE HCL 100 MG TABLET (FP) PO SCH (22:30)
[2021-05-25] MEDS: METHOCARBAMOL 500 MG TABLET PO PRN ×2 (01:23→22:51)
[2021-05-25] MEDS: chlordiazePOXIDE HCL 10 MG CAPSULE PO SCH ×2 (05:20→18:16)
[2021-05-25] MEDS: hydrOXYzine PAMOATE 25 MG CAPSULE (FP) PO SCH ×5 (05:21→22:49)
[2021-05-25] MEDS: GABAPENTIN 300 MG CAPSULE PO SCH ×3 (05:21→22:49)
[2021-05-25] MEDS ORDERED: methaDONE HCL 10 MG TABLET (FOR DETOX USE ONLY) PO ONE (10:00)
[2021-05-25] MEDS: PRENATAL VITAMINS W/ FOLIC ACID TABLET (FP) PO SCH (10:39)
[2021-05-25] MEDS: NICOTINE 14 MG/24 HOURS TOPICAL PATCH TD SCH (11:59)
[2021-05-25] MEDS: NICOTINE 21 MG/24 HOURS TOPICAL PATCH TD SCH (12:00)
[2021-05-25] MEDS: MELATONIN 5 MG TABLETS PO SCH (22:49)
[2021-05-25] MEDS: THIAMINE HCL 100 MG TABLET (FP) PO SCH (22:49)
[2021-05-26] MEDS ORDERED: chlordiazePOXIDE HCL 10 MG CAPSULE PO ONE (05:00)
[2021-05-26] MEDS: hydrOXYzine PAMOATE 25 MG CAPSULE (FP) PO SCH (05:19)
[2021-05-26] MEDS: GABAPENTIN 300 MG CAPSULE PO SCH (05:19)
[2021-05-26 06:35] VITALS: BP 118/66; PULSE 62; TEMP 97.8
== END 2021-05-26 07:07 | disposition home or self-care (01) | DRG 773 ==
LOC: YASAS 11:44 → Y3N 13:00
PROVIDERS: ADMIT Allergy & Immunology; ATTEND Allergy & Immunology
PROC: HZ2ZZZZ Detoxification Services for Substance Abuse Treatment (ICD-10-PCS; principal; 2021-05-21)
DX: F11.23 Opioid dependence with withdrawal (principal); F10.230 Alcohol dependence with withdrawal, uncomplicated; F13.230 Sedative, hypnotic or anxiolytic dependence with withdrawal, uncomplicated; F14.10 Cocaine abuse, uncomplicated; F17.210 Nicotine dependence, cigarettes, uncomplicated; F41.9 Anxiety disorder, unspecified; F43.10 Post-traumatic stress disorder, unspecified; F19.24 Other psychoactive substance dependence with psychoactive substance-induced mood disorder; F19.282 Other psychoactive substance dependence with psychoactive substance-induced sleep disorder; F19.280 Other psychoactive substance dependence with psychoactive substance-induced anxiety disorder; L30.9 Dermatitis, unspecified; M54.59 Other low back pain; G89.29 Other chronic pain; G47.00 Insomnia, unspecified; Z91.14 Patient's other noncompliance with medication regimen; Z87.820 Personal history of traumatic brain injury
CPT/HCPCS: 36415; 80053; 85027; 86780; C9803; U0003; U0005

== ENCOUNTER 2021-06-27 11:22 | Inpatient (IN) | payer OTHER ==
[2021-06-27] MEDS ORDERED: MENTHOL/PHENOL 1 EACH UD MM PRN (12:19)
[2021-06-27] MEDS ORDERED: MAGNESIUM HYDROX 2400MG/30ML ORAL SUSPENSION 30 ML CUP PO PRN (12:19)
[2021-06-27] MEDS ORDERED: ACETAMINOPHEN 325 MG TABLET (FP) PO PRN ×2 (12:19)
[2021-06-27] MEDS ORDERED: methaDONE HCL 10 MG TABLET (FOR DETOX USE ONLY) PO ONE (12:19)
[2021-06-27] MEDS ORDERED: MAGNESIUM CITRATE 300 ML BOTTLE PO PRN (12:19)
[2021-06-27] MEDS ORDERED: IBUPROFEN 400 MG TABLET (FP) PO PRN (12:19)
[2021-06-27] MEDS ORDERED: MAG HYDROX/AL HYDROX/SIMETH 30 ML UNIT-DOSE CUP PO PRN (12:19)
[2021-06-27] MEDS ORDERED: ONDANSETRON *ODT* 4 MG TABLET SL PRN (12:19)
[2021-06-27] MEDS ORDERED: BISMUTH SUBSALICYLATE 262 MG/15 ML BTL PO PRN (12:19)
[2021-06-27] MEDS ORDERED: NICOTINE 10 MG CARTRIDGE (INHALER) IH PRN (12:19)
[2021-06-27] MEDS: METHOCARBAMOL 500 MG TABLET PO PRN ×2 (14:54→22:16)
[2021-06-27] MEDS: cloNIDine HCL 0.1 MG TABLET PO PRN ×2 (14:54→22:15)
[2021-06-27] MEDS: hydrOXYzine PAMOATE 25 MG CAPSULE (FP) PO SCH ×3 (14:56→22:16)
[2021-06-27 15:36] VITALS: BMI 56.7
[2021-06-27] MEDS ORDERED: NICOTINE 7 MG/24 HOURS TOPICAL PATCH TD SCH (15:45)
[2021-06-27] MEDS: NICOTINE 7 MG/24 HOURS TOPICAL PATCH TD SCH (16:30)
[2021-06-27] MEDS: MELATONIN 5 MG TABLETS PO SCH (22:16)
[2021-06-27] MEDS: THIAMINE HCL 100 MG TABLET (FP) PO SCH (22:16)
[2021-06-28] MEDS: cloNIDine HCL 0.1 MG TABLET PO PRN (03:02)
[2021-06-28] MEDS: hydrOXYzine PAMOATE 25 MG CAPSULE (FP) PO SCH ×6 (06:10→22:39)
[2021-06-28] MEDS ORDERED: methaDONE HCL 10 MG TABLET (FOR DETOX USE ONLY) ONE (09:29)
[2021-06-28 09:55] LABS: HEMATOCRIT 45.7 % (35.4-49); HEMOGLOBIN 15.1 GM/dL (11.7-16.9); MCH 30.4 pg (25.7-33.7); MCHC 33.1 g/dl (32.0-35.9); MEAN CELL VOLUME 91.7 fl (80-96); MEAN PLT VOLUME 9.4 fl (7.5-11.1); PLATELET COUNT 329 10^3/uL (134-434); RBC 4.98 M/mm3 (4.00-5.60); RDW 14.5 % (11.9-15.9); WHITE BLOOD COUNT 8.7 K/mm3 (4.0-10.0)
[2021-06-28 10:03] LABS: ALBUMIN 4.6 g/dl (3.4-5.0); BLOOD UREA NITROGEN 12.7 mg/dL (7-18); CALCIUM 9.9 mg/dL (8.5-10.1)
[2021-06-28 10:06] LABS: CREATININE 0.8 mg/dL (0.55-1.3)
[2021-06-28 10:08] LABS: BILIRUBIN,TOTAL 0.6 mg/dL (0.2-1); TOT PROT 7.9 g/dl (6.4-8.2)
[2021-06-28] MEDS: PRENATAL VITAMINS W/ FOLIC ACID TABLET (FP) PO SCH (10:26)
[2021-06-28] MEDS: METHOCARBAMOL 500 MG TABLET PO PRN (10:26)
[2021-06-28] MEDS: NICOTINE 7 MG/24 HOURS TOPICAL PATCH TD SCH (10:26)
[2021-06-28] MEDS: LACTULOSE 20 GM/30 ML UDC (FOR ORAL USE ONLY) PO SCH ×2 (13:16→22:39)
[2021-06-28] MEDS: MELATONIN 5 MG TABLETS PO SCH (22:35)
[2021-06-28] MEDS: THIAMINE HCL 100 MG TABLET (FP) PO SCH (22:38)
[2021-06-29] MEDS: hydrOXYzine PAMOATE 25 MG CAPSULE (FP) PO SCH ×5 (05:49→22:32)
[2021-06-29] MEDS: diazePAM 5 MG TABLET PO PRN ×3 (05:49→22:32)
[2021-06-29] MEDS: LACTULOSE 20 GM/30 ML UDC (FOR ORAL USE ONLY) PO SCH ×3 (05:50→22:51)
[2021-06-29] MEDS ORDERED: methaDONE HCL 10 MG TABLET (FOR DETOX USE ONLY) PO ONE (10:00)
[2021-06-29] MEDS: PRENATAL VITAMINS W/ FOLIC ACID TABLET (FP) PO SCH (10:30)
[2021-06-29] MEDS: NICOTINE 7 MG/24 HOURS TOPICAL PATCH TD SCH (10:31)
[2021-06-29] MEDS: METHOCARBAMOL 500 MG TABLET PO PRN (10:32)
[2021-06-29] MEDS ORDERED: COLLOIDAL OATMEAL 1 BAR EACH TP PRN (11:45)
[2021-06-29] MEDS: MELATONIN 5 MG TABLETS PO SCH (22:32)
[2021-06-29] MEDS: THIAMINE HCL 100 MG TABLET (FP) PO SCH (22:32)
[2021-06-30] MEDS: diazePAM 5 MG TABLET PO PRN ×4 (05:45→22:23)
[2021-06-30] MEDS: LACTULOSE 20 GM/30 ML UDC (FOR ORAL USE ONLY) PO SCH ×4 (05:46→22:22)
[2021-06-30] MEDS: hydrOXYzine PAMOATE 25 MG CAPSULE (FP) PO SCH ×5 (05:46→22:23)
[2021-06-30] MEDS ORDERED: methaDONE HCL 10 MG TABLET (FOR DETOX USE ONLY) ONE (09:51)
[2021-06-30] MEDS: PRENATAL VITAMINS W/ FOLIC ACID TABLET (FP) PO SCH (10:20)
[2021-06-30] MEDS: NICOTINE 7 MG/24 HOURS TOPICAL PATCH TD SCH (10:20)
[2021-06-30] MEDS: METHOCARBAMOL 500 MG TABLET PO PRN (10:20)
[2021-06-30] MEDS: MELATONIN 5 MG TABLETS PO SCH (22:22)
[2021-06-30] MEDS: THIAMINE HCL 100 MG TABLET (FP) PO SCH (22:22)
[2021-07-01] MEDS: hydrOXYzine PAMOATE 25 MG CAPSULE (FP) PO SCH ×5 (06:00→22:18)
[2021-07-01] MEDS: diazePAM 5 MG TABLET PO PRN (06:01)
[2021-07-01] MEDS ORDERED: methaDONE HCL 10 MG TABLET (FOR DETOX USE ONLY) PO ONE (10:00)
[2021-07-01] MEDS: LACTULOSE 20 GM/30 ML UDC (FOR ORAL USE ONLY) PO SCH ×4 (10:04→22:18)
[2021-07-01] MEDS: PRENATAL VITAMINS W/ FOLIC ACID TABLET (FP) PO SCH (10:04)
[2021-07-01] MEDS: METHOCARBAMOL 500 MG TABLET PO PRN ×2 (10:04→17:45)
[2021-07-01] MEDS: NICOTINE 7 MG/24 HOURS TOPICAL PATCH TD SCH (10:06)
[2021-07-01] MEDS: THIAMINE HCL 100 MG TABLET (FP) PO SCH (22:18)
[2021-07-01] MEDS: MELATONIN 5 MG TABLETS PO SCH (22:18)
[2021-07-02] MEDS: hydrOXYzine PAMOATE 25 MG CAPSULE (FP) PO SCH (05:50)
[2021-07-02 09:19] VITALS: BP 130/84; PULSE 101; TEMP 98.4
== END 2021-07-02 10:54 | disposition home or self-care (01) | DRG 773 ==
LOC: YASAS 11:22 → Y6N 14:11
PROVIDERS: ADMIT Allergy & Immunology; ATTEND Allergy & Immunology
PROC: HZ2ZZZZ Detoxification Services for Substance Abuse Treatment (ICD-10-PCS; principal; 2021-06-27)
DX: F11.23 Opioid dependence with withdrawal (principal); F10.20 Alcohol dependence, uncomplicated; F13.20 Sedative, hypnotic or anxiolytic dependence, uncomplicated; F12.20 Cannabis dependence, uncomplicated; F17.210 Nicotine dependence, cigarettes, uncomplicated; F19.282 Other psychoactive substance dependence with psychoactive substance-induced sleep disorder; F19.280 Other psychoactive substance dependence with psychoactive substance-induced anxiety disorder; F19.24 Other psychoactive substance dependence with psychoactive substance-induced mood disorder; F43.10 Post-traumatic stress disorder, unspecified; F41.9 Anxiety disorder, unspecified; R79.89 Other specified abnormal findings of blood chemistry
CPT/HCPCS: 36415; 80053; 82140; 82947; 82962; 85027; 86780; C9803; J0735; U0003; U0005

== ENCOUNTER 2022-01-07 12:20 | Inpatient (IN) | payer OTHER ==
[2022-01-07 13:25] VITALS: BMI 25.7
[2022-01-07] MEDS ORDERED: LOPERAMIDE HCL 2 MG CAPSULE PO PRN (13:32)
[2022-01-07] MEDS ORDERED: MAG HYDROX/AL HYDROX/SIMETH 30 ML UNIT-DOSE CUP PO PRN (13:32)
[2022-01-07] MEDS ORDERED: NALOXONE HCL (KLOXXADO) 8 MG SPRAY NS PRN (13:32)
[2022-01-07] MEDS ORDERED: DICYCLOMINE HCL 10 MG CAPSULE PO PRN (13:32)
[2022-01-07] MEDS ORDERED: cloNIDine HCL 0.1 MG TABLET PO PRN (13:32)
[2022-01-07] MEDS ORDERED: NICOTINE 10 MG CARTRIDGE (INHALER) IH PRN (13:32)
[2022-01-07] MEDS ORDERED: MAGNESIUM CITRATE 300 ML BOTTLE PO PRN (13:32)
[2022-01-07] MEDS ORDERED: IBUPROFEN 600 MG TABLET (FP) PO PRN (13:32)
[2022-01-07] MEDS ORDERED: ONDANSETRON *ODT* 4 MG TABLET SL PRN (13:32)
[2022-01-07] MEDS ORDERED: ACETAMINOPHEN 325 MG TABLET (FP) PO PRN ×2 (13:32)
[2022-01-07] MEDS ORDERED: BISMUTH SUBSALICYLATE 262 MG/15 ML BTL PO PRN (13:32)
[2022-01-07] MEDS ORDERED: METHOCARBAMOL 500 MG TABLET PO PRN (13:32)
[2022-01-07] MEDS ORDERED: BENZOCAINE/MENTHOL (CHLORASEPTIC ) LOZENGE MM PRN (13:32)
[2022-01-07] MEDS ORDERED: methaDONE HCL 10 MG TABLET (FOR DETOX USE ONLY) PO ONE (13:32)
[2022-01-07] MEDS ORDERED: IBUPROFEN 400 MG TABLET (FP) PO PRN (13:32)
[2022-01-07] MEDS ORDERED: MAGNESIUM HYDROX 2400MG/30ML ORAL SUSPENSION 30 ML CUP PO PRN (13:32)
[2022-01-07] MEDS ORDERED: traMADol HCL 50 MG TABLET PO PRN (14:37)
[2022-01-07] MEDS ORDERED: DOCUSATE SODIUM 100 MG CAPSULE (FP) PO PRN (14:37)
[2022-01-07] MEDS: hydrOXYzine PAMOATE 25 MG CAPSULE (FP) PO SCH ×3 (15:49→22:11)
[2022-01-07] MEDS: PRENATAL VITAMINS W/ FOLIC ACID TABLET (FP) PO SCH (15:49)
[2022-01-07 17:04] LABS: HEMATOCRIT 39.5 % (35.4-49); HEMOGLOBIN 13.3 GM/dL (11.7-16.9); MCH 29.5 pg (25.7-33.7); MCHC 33.7 g/dl (32.0-35.9); MEAN CELL VOLUME 87.5 fl (80-96); MEAN PLT VOLUME 8.2 fl (7.5-11.1); PLATELET COUNT 288 10^3/uL (134-434); RBC 4.51 M/mm3 (4.00-5.60); RDW 16.8 % (11.9-15.9); WHITE BLOOD COUNT 4.9 K/mm3 (4.0-10.0)
[2022-01-07] MEDS: chlordiazePOXIDE HCL 25 MG CAPSULE PO SCH ×2 (17:38→22:12)
[2022-01-07] MEDS: QUEtiapine FUMARATE 50 MG TABLET PO SCH (22:11)
[2022-01-07] MEDS: MELATONIN 5 MG TABLETS PO SCH (22:12)
[2022-01-07] MEDS: THIAMINE HCL 100 MG TABLET (FP) PO SCH (22:12)
[2022-01-08] MEDS: chlordiazePOXIDE HCL 25 MG CAPSULE PO SCH ×4 (05:17→22:30)
[2022-01-08] MEDS: hydrOXYzine PAMOATE 25 MG CAPSULE (FP) PO SCH ×5 (05:17→22:30)
[2022-01-08] MEDS: chlordiazePOXIDE HCL 25 MG CAPSULE PO PRN (09:03)
[2022-01-08 10:15] LABS: CALCIUM 9.7 mg/dL (8.5-10.1)
[2022-01-08 10:16] LABS: ALBUMIN 4.2 g/dl (3.4-5.0); BLOOD UREA NITROGEN 11.2 mg/dL (7-18)
[2022-01-08 10:19] LABS: CREATININE 0.8 mg/dL (0.55-1.3)
[2022-01-08 10:20] LABS: BILIRUBIN,TOTAL 0.4 mg/dL (0.2-1); TOT PROT 7.1 g/dl (6.4-8.2)
[2022-01-08] MEDS: NICOTINE 14 MG/24 HOURS TOPICAL PATCH TD SCH (10:22)
[2022-01-08] MEDS: PRENATAL VITAMINS W/ FOLIC ACID TABLET (FP) PO SCH (10:22)
[2022-01-08] MEDS: COLLOIDAL OATMEAL 1 BAR EACH TP PRN (16:37)
[2022-01-08] MEDS: THIAMINE HCL 100 MG TABLET (FP) PO SCH (22:30)
[2022-01-08] MEDS: MELATONIN 5 MG TABLETS PO SCH (22:30)
[2022-01-08] MEDS: QUEtiapine FUMARATE 50 MG TABLET PO SCH (22:30)
[2022-01-09] MEDS: chlordiazePOXIDE HCL 25 MG CAPSULE PO SCH ×4 (05:28→22:45)
[2022-01-09] MEDS: hydrOXYzine PAMOATE 25 MG CAPSULE (FP) PO SCH ×5 (05:29→22:44)
[2022-01-09] MEDS ORDERED: methaDONE HCL 10 MG TABLET (FOR DETOX USE ONLY) PO ONE (10:00)
[2022-01-09] MEDS: PRENATAL VITAMINS W/ FOLIC ACID TABLET (FP) PO SCH (10:12)
[2022-01-09] MEDS: NICOTINE 14 MG/24 HOURS TOPICAL PATCH TD SCH (10:12)
[2022-01-09] MEDS: chlordiazePOXIDE HCL 25 MG CAPSULE PO PRN (13:49)
[2022-01-09] MEDS: MELATONIN 5 MG TABLETS PO SCH (22:35)
[2022-01-09] MEDS: QUEtiapine FUMARATE 50 MG TABLET PO SCH (22:44)
[2022-01-09] MEDS: THIAMINE HCL 100 MG TABLET (FP) PO SCH (22:45)
[2022-01-10] MEDS ORDERED: chlordiazePOXIDE HCL 10 MG CAPSULE PO PRN
[2022-01-10] MEDS: hydrOXYzine PAMOATE 25 MG CAPSULE (FP) PO SCH ×5 (06:07→22:05)
[2022-01-10] MEDS: chlordiazePOXIDE HCL 10 MG CAPSULE PO SCH ×4 (06:07→22:06)
[2022-01-10] MEDS: PRENATAL VITAMINS W/ FOLIC ACID TABLET (FP) PO SCH (10:41)
[2022-01-10] MEDS: NICOTINE 14 MG/24 HOURS TOPICAL PATCH TD SCH (10:41)
[2022-01-10] MEDS: QUEtiapine FUMARATE 50 MG TABLET PO SCH (22:05)
[2022-01-10] MEDS: THIAMINE HCL 100 MG TABLET (FP) PO SCH (22:05)
[2022-01-10] MEDS: MELATONIN 5 MG TABLETS PO SCH (22:06)
[2022-01-11] MEDS: chlordiazePOXIDE HCL 10 MG CAPSULE PO SCH ×2 (05:08→18:04)
[2022-01-11] MEDS: hydrOXYzine PAMOATE 25 MG CAPSULE (FP) PO SCH ×5 (05:08→22:28)
[2022-01-11] MEDS ORDERED: methaDONE HCL 10 MG TABLET (FOR DETOX USE ONLY) PO ONE (10:00)
[2022-01-11] MEDS: PRENATAL VITAMINS W/ FOLIC ACID TABLET (FP) PO SCH (10:16)
[2022-01-11] MEDS: NICOTINE 14 MG/24 HOURS TOPICAL PATCH TD SCH (10:16)
[2022-01-11 18:53] VITALS: RESP 18
[2022-01-11] MEDS: QUEtiapine FUMARATE 50 MG TABLET PO SCH (22:28)
[2022-01-11] MEDS: THIAMINE HCL 100 MG TABLET (FP) PO SCH (22:28)
[2022-01-11] MEDS: COLLOIDAL OATMEAL 1 BAR EACH TP PRN (22:28)
[2022-01-11] MEDS: MELATONIN 5 MG TABLETS PO SCH (22:28)
[2022-01-12] MEDS ORDERED: chlordiazePOXIDE HCL 10 MG CAPSULE PO ONE (05:00)
[2022-01-12] MEDS: hydrOXYzine PAMOATE 25 MG CAPSULE (FP) PO SCH (05:26)
[2022-01-12 09:49] VITALS: BP 111/77; PULSE 83; TEMP 97.5
== END 2022-01-12 11:03 | disposition home or self-care (01) | DRG 773 ==
LOC: YASAS 12:20 → Y3N 14:29
PROVIDERS: ADMIT Allergy & Immunology; ATTEND Surgery
PROC: HZ2ZZZZ Detoxification Services for Substance Abuse Treatment (ICD-10-PCS; principal; 2022-01-07)
DX: F10.230 Alcohol dependence with withdrawal, uncomplicated (principal); F11.20 Opioid dependence, uncomplicated; F14.10 Cocaine abuse, uncomplicated; F12.10 Cannabis abuse, uncomplicated; F17.213 Nicotine dependence, cigarettes, with withdrawal; F41.9 Anxiety disorder, unspecified; F43.10 Post-traumatic stress disorder, unspecified; F19.24 Other psychoactive substance dependence with psychoactive substance-induced mood disorder; G47.00 Insomnia, unspecified; Z28.310 Unvaccinated for COVID-19; Z56.0 Unemployment, unspecified
CPT/HCPCS: 36415; 80053; 84132; 85027; 86780; 87811; C9803-CS; U0003; U0005

== ENCOUNTER 2022-03-07 11:20 | Inpatient (IN) | payer OTHER ==
[2022-03-07 14:22] VITALS: BMI 26.6
[2022-03-07] MEDS ORDERED: MAGNESIUM CITRATE 300 ML BOTTLE PO PRN (16:35)
[2022-03-07] MEDS ORDERED: ACETAMINOPHEN 325 MG TABLET (FP) PO PRN ×2 (16:35)
[2022-03-07] MEDS ORDERED: MAG HYDROX/AL HYDROX/SIMETH 30 ML UNIT-DOSE CUP PO PRN (16:35)
[2022-03-07] MEDS ORDERED: ONDANSETRON *ODT* 4 MG TABLET SL PRN (16:35)
[2022-03-07] MEDS ORDERED: LOPERAMIDE HCL 2 MG CAPSULE PO PRN (16:35)
[2022-03-07] MEDS ORDERED: IBUPROFEN 600 MG TABLET (FP) PO PRN (16:35)
[2022-03-07] MEDS ORDERED: MAGNESIUM HYDROX 2400MG/30ML ORAL SUSPENSION 30 ML CUP PO PRN (16:35)
[2022-03-07] MEDS ORDERED: NICOTINE 10 MG CARTRIDGE (INHALER) IH PRN (16:35)
[2022-03-07] MEDS ORDERED: IBUPROFEN 400 MG TABLET (FP) PO PRN (16:35)
[2022-03-07] MEDS ORDERED: BISMUTH SUBSALICYLATE 524 MG/30 ML PO PRN (16:35)
[2022-03-07] MEDS ORDERED: DICYCLOMINE HCL 10 MG CAPSULE PO PRN (16:35)
[2022-03-07] MEDS ORDERED: NALOXONE HCL (KLOXXADO) 8 MG SPRAY NS PRN (16:35)
[2022-03-07] MEDS ORDERED: BENZOCAINE/MENTHOL (CHLORASEPTIC ) LOZENGE MM PRN (16:35)
[2022-03-07] MEDS ORDERED: cloNIDine HCL 0.1 MG TABLET PO PRN (16:35)
[2022-03-07] MEDS ORDERED: NICOTINE POLACRILEX 2 MG GUM BUC PRN (16:35)
[2022-03-07] MEDS ORDERED: METHOCARBAMOL 500 MG TABLET PO PRN (16:35)
[2022-03-07] MEDS ORDERED: DOCUSATE SODIUM 100 MG CAPSULE (FP) PO PRN (16:43)
[2022-03-07] MEDS ORDERED: COLLOIDAL OATMEAL 1 BAR EACH TP PRN (16:44)
[2022-03-07] MEDS ORDERED: methaDONE HCL 10 MG TABLET (FOR DETOX USE ONLY) PO ONE (17:30)
[2022-03-07] MEDS: hydrOXYzine PAMOATE 25 MG CAPSULE (FP) PO SCH ×2 (18:25→22:20)
[2022-03-07] MEDS: diazePAM 5 MG TABLET PO SCH ×4 (18:25→22:21)
[2022-03-07] MEDS: NICOTINE 14 MG/24 HOURS TOPICAL PATCH TD SCH (18:27)
[2022-03-07] MEDS: THIAMINE HCL 100 MG TABLET (FP) PO SCH (22:20)
[2022-03-07] MEDS: MELATONIN 5 MG TABLETS PO SCH (22:20)
[2022-03-08] MEDS: diazePAM 5 MG TABLET PO SCH ×3 (05:25→22:01)
[2022-03-08] MEDS: hydrOXYzine PAMOATE 25 MG CAPSULE (FP) PO SCH ×5 (05:25→22:01)
[2022-03-08] MEDS: PRENATAL VITAMINS W/ FOLIC ACID TABLET (FP) PO SCH (10:33)
[2022-03-08] MEDS: NICOTINE 14 MG/24 HOURS TOPICAL PATCH TD SCH (10:33)
[2022-03-08] MEDS: diazePAM 5 MG TABLET PO PRN ×2 (10:36→17:30)
[2022-03-08 11:03] LABS: HEMATOCRIT 40.8 % (35.4-49); HEMOGLOBIN 13.7 GM/dL (11.7-16.9); MCH 31.5 pg (25.7-33.7); MCHC 33.6 g/dl (32.0-35.9); MEAN CELL VOLUME 93.6 fl (80-96); MEAN PLT VOLUME 8.5 fl (7.5-11.1); PLATELET COUNT 261 10^3/uL (134-434); RBC 4.36 M/mm3 (4.00-5.60); RDW 14.8 % (11.9-15.9); WHITE BLOOD COUNT 4.9 K/mm3 (4.0-10.0)
[2022-03-08 11:25] LABS: ALBUMIN 3.3 g/dl (3.4-5.0)
[2022-03-08 11:28] LABS: BLOOD UREA NITROGEN 9.4 mg/dL (7-18); CALCIUM 8.9 mg/dL (8.5-10.1); CREATININE 0.6 mg/dL (0.55-1.3)
[2022-03-08 11:29] LABS: BILIRUBIN,TOTAL 0.3 mg/dL (0.2-1); TOT PROT 6.1 g/dl (6.4-8.2)
[2022-03-08] MEDS ORDERED: FLU VACC QS2022-23(6MOS UP)/PF 60 MCG/0.5 ML SYRINGE IM ONE (12:00)
[2022-03-08] MEDS: QUEtiapine FUMARATE 50 MG TABLET PO SCH (22:01)
[2022-03-08] MEDS: MELATONIN 5 MG TABLETS PO SCH (22:01)
[2022-03-08] MEDS: THIAMINE HCL 100 MG TABLET (FP) PO SCH (22:01)
[2022-03-09] MEDS: LACTULOSE 20 GM/30 ML UDC (FOR ORAL USE ONLY) PO PRN (04:56)
[2022-03-09] MEDS: diazePAM 5 MG TABLET PO SCH ×2 (05:50→17:26)
[2022-03-09] MEDS: hydrOXYzine PAMOATE 25 MG CAPSULE (FP) PO SCH ×5 (05:51→21:53)
[2022-03-09] MEDS: PRENATAL VITAMINS W/ FOLIC ACID TABLET (FP) PO SCH (09:44)
[2022-03-09] MEDS: diazePAM 5 MG TABLET PO PRN ×3 (09:45→21:52)
[2022-03-09] MEDS: NICOTINE 14 MG/24 HOURS TOPICAL PATCH TD SCH (09:45)
[2022-03-09] MEDS ORDERED: methaDONE HCL 10 MG TABLET (FOR DETOX USE ONLY) PO ONE (10:00)
[2022-03-09] MEDS: THIAMINE HCL 100 MG TABLET (FP) PO SCH (21:53)
[2022-03-09] MEDS: QUEtiapine FUMARATE 50 MG TABLET PO SCH (21:53)
[2022-03-09] MEDS: MELATONIN 5 MG TABLETS PO SCH (21:53)
[2022-03-10] MEDS: hydrOXYzine PAMOATE 25 MG CAPSULE (FP) PO SCH ×5 (05:19→22:08)
[2022-03-10] MEDS ORDERED: diazePAM 5 MG TABLET PO ONE (06:00)
[2022-03-10] MEDS: LACTULOSE 20 GM/30 ML UDC (FOR ORAL USE ONLY) PO PRN (07:00)
[2022-03-10] MEDS: LACTULOSE 20 GM/30 ML UDC (FOR ORAL USE ONLY) PO SCH ×4 (10:31→22:09)
[2022-03-10] MEDS: PRENATAL VITAMINS W/ FOLIC ACID TABLET (FP) PO SCH (10:31)
[2022-03-10] MEDS: NICOTINE 14 MG/24 HOURS TOPICAL PATCH TD SCH (10:33)
[2022-03-10] MEDS: diazePAM 5 MG TABLET PO PRN ×2 (10:35→14:46)
[2022-03-10] MEDS: MELATONIN 5 MG TABLETS PO SCH (22:08)
[2022-03-10] MEDS: QUEtiapine FUMARATE 50 MG TABLET PO SCH (22:08)
[2022-03-10] MEDS: THIAMINE HCL 100 MG TABLET (FP) PO SCH (22:08)
[2022-03-11] MEDS: hydrOXYzine PAMOATE 25 MG CAPSULE (FP) PO SCH ×5 (05:18→22:44)
[2022-03-11] MEDS ORDERED: methaDONE HCL 10 MG TABLET (FOR DETOX USE ONLY) PO ONE (10:00)
[2022-03-11] MEDS: LACTULOSE 20 GM/30 ML UDC (FOR ORAL USE ONLY) PO SCH ×4 (10:20→22:44)
[2022-03-11] MEDS: NICOTINE 14 MG/24 HOURS TOPICAL PATCH TD SCH (10:20)
[2022-03-11] MEDS: PRENATAL VITAMINS W/ FOLIC ACID TABLET (FP) PO SCH (10:20)
[2022-03-11] MEDS: MELATONIN 5 MG TABLETS PO SCH (22:43)
[2022-03-11] MEDS: QUEtiapine FUMARATE 50 MG TABLET PO SCH (22:43)
[2022-03-11] MEDS: THIAMINE HCL 100 MG TABLET (FP) PO SCH (22:43)
[2022-03-12] MEDS: hydrOXYzine PAMOATE 25 MG CAPSULE (FP) PO SCH ×2 (05:17→09:16)
[2022-03-12 09:05] VITALS: BP 129/84; PULSE 70; RESP 16; TEMP 97.1
[2022-03-12] MEDS: NICOTINE 14 MG/24 HOURS TOPICAL PATCH TD SCH (09:16)
[2022-03-12] MEDS: LACTULOSE 20 GM/30 ML UDC (FOR ORAL USE ONLY) PO SCH (09:16)
[2022-03-12] MEDS: PRENATAL VITAMINS W/ FOLIC ACID TABLET (FP) PO SCH (09:16)
== END 2022-03-12 08:54 | disposition home or self-care (01) | DRG 773 ==
LOC: YASAS 11:20 → Y3N 16:55
PROVIDERS: ADMIT Allergy & Immunology; ATTEND Surgery
PROC: HZ2ZZZZ Detoxification Services for Substance Abuse Treatment (ICD-10-PCS; principal; 2022-03-07)
DX: F11.23 Opioid dependence with withdrawal (principal); F10.230 Alcohol dependence with withdrawal, uncomplicated; F13.20 Sedative, hypnotic or anxiolytic dependence, uncomplicated; F14.20 Cocaine dependence, uncomplicated; F12.20 Cannabis dependence, uncomplicated; F17.210 Nicotine dependence, cigarettes, uncomplicated; F19.282 Other psychoactive substance dependence with psychoactive substance-induced sleep disorder; F19.24 Other psychoactive substance dependence with psychoactive substance-induced mood disorder; F43.10 Post-traumatic stress disorder, unspecified; E72.20 Disorder of urea cycle metabolism, unspecified; L30.9 Dermatitis, unspecified; Z28.310 Unvaccinated for COVID-19; Z28.9 Immunization not carried out for unspecified reason
CPT/HCPCS: 36415; 80053; 82140; 85027; 86780; C9803-CS; Q0162; U0003; U0005

== ENCOUNTER 2022-05-15 10:20 | Inpatient (IN) | payer OTHER ==
[2022-05-15] MEDS ORDERED: IBUPROFEN 400 MG TABLET (FP) PO PRN (12:58)
[2022-05-15] MEDS ORDERED: ONDANSETRON *ODT* 4 MG TABLET SL PRN (12:58)
[2022-05-15] MEDS ORDERED: NICOTINE 10 MG CARTRIDGE (INHALER) IH PRN (12:58)
[2022-05-15] MEDS ORDERED: cloNIDine HCL 0.1 MG TABLET PO PRN (12:58)
[2022-05-15] MEDS ORDERED: NALOXONE HCL (KLOXXADO) 8 MG SPRAY NS PRN (12:58)
[2022-05-15] MEDS ORDERED: BISMUTH SUBSALICYLATE 524 MG/30 ML PO PRN (12:58)
[2022-05-15] MEDS ORDERED: POLYETHYLENE GLYCOL (HEALTHYLAX) 3350 17 GM PACKET PO PRN (12:58)
[2022-05-15] MEDS ORDERED: LOPERAMIDE HCL 2 MG CAPSULE PO PRN (12:58)
[2022-05-15] MEDS ORDERED: DICYCLOMINE HCL 10 MG CAPSULE PO PRN (12:58)
[2022-05-15] MEDS ORDERED: methaDONE HCL 10 MG TABLET (FOR DETOX USE ONLY) PO ONE (12:58)
[2022-05-15] MEDS ORDERED: MAG HYDROX/AL HYDROX/SIMETH 30 ML UNIT-DOSE CUP PO PRN (12:58)
[2022-05-15] MEDS ORDERED: MAGNESIUM HYDROX 2400MG/30ML ORAL SUSPENSION 30 ML CUP PO PRN (12:58)
[2022-05-15] MEDS ORDERED: IBUPROFEN 600 MG TABLET (FP) PO PRN (12:58)
[2022-05-15] MEDS ORDERED: ACETAMINOPHEN 325 MG TABLET (FP) PO PRN ×2 (12:58)
[2022-05-15] MEDS ORDERED: BENZOCAINE/MENTHOL (CHLORASEPTIC ) LOZENGE MM PRN (12:58)
[2022-05-15] MEDS ORDERED: COLLOIDAL OATMEAL 1 BAR EACH TP PRN (13:03)
[2022-05-15] MEDS ORDERED: MINERAL OIL/PETROLAT/WATER TOPICAL CREAM 113 GM JAR TP PRN (13:04)
[2022-05-15] MEDS ORDERED: methaDONE HCL 10 MG TABLET (FOR DETOX USE ONLY) ONE (13:58)
[2022-05-15] MEDS: NICOTINE 14 MG/24 HOURS TOPICAL PATCH TD SCH (14:22)
[2022-05-15] MEDS: diazePAM 5 MG TABLET PO PRN (14:22)
[2022-05-15] MEDS: PRENATAL VITAMINS W/ FOLIC ACID TABLET (FP) PO SCH (14:22)
[2022-05-15] MEDS: diazePAM 5 MG TABLET PO SCH ×2 (17:11→22:04)
[2022-05-15] MEDS: THIAMINE HCL 100 MG TABLET (FP) PO SCH (22:04)
[2022-05-15] MEDS: MELATONIN 5 MG TABLETS PO SCH (22:05)
[2022-05-16] MEDS: diazePAM 5 MG TABLET PO SCH ×4 (05:41→22:31)
[2022-05-16] MEDS: PRENATAL VITAMINS W/ FOLIC ACID TABLET (FP) PO SCH (10:17)
[2022-05-16] MEDS: NICOTINE 14 MG/24 HOURS TOPICAL PATCH TD SCH (10:17)
[2022-05-16 10:31] LABS: HEMOGLOBIN 13.5 GM/dL (11.7-16.9); MCH 30.1 pg (25.7-33.7); MCHC 32.9 g/dl (32.0-35.9); MEAN CELL VOLUME 91.3 fl (80-96); PLATELET COUNT 249 10^3/uL (134-434); RBC 4.49 M/mm3 (4.00-5.60); RDW 13.9 % (11.9-15.9); WHITE BLOOD COUNT 4.1 K/mm3 (4.0-10.0)
[2022-05-16 10:55] LABS: ALBUMIN 3.3 g/dl (3.4-5.0); CALCIUM 8.8 mg/dL (8.5-10.1)
[2022-05-16 10:57] LABS: BLOOD UREA NITROGEN 12.1 mg/dL (7-18)
[2022-05-16 10:58] LABS: CREATININE 0.7 mg/dL (0.55-1.3)
[2022-05-16 11:00] LABS: BILIRUBIN,TOTAL 0.3 mg/dL (0.2-1)
[2022-05-16] MEDS: LACTULOSE 20 GM/30 ML UDC (FOR ORAL USE ONLY) PO SCH ×2 (13:23→22:35)
[2022-05-16] MEDS: THIAMINE HCL 100 MG TABLET (FP) PO SCH (22:31)
[2022-05-16] MEDS: QUEtiapine FUMARATE 25 MG TABLET PO SCH (22:31)
[2022-05-16] MEDS: MELATONIN 5 MG TABLETS PO SCH (22:34)
[2022-05-17] MEDS: diazePAM 5 MG TABLET PO SCH ×3 (05:35→22:27)
[2022-05-17] MEDS: LACTULOSE 20 GM/30 ML UDC (FOR ORAL USE ONLY) PO SCH ×3 (05:36→22:28)
[2022-05-17] MEDS ORDERED: methaDONE HCL 10 MG TABLET (FOR DETOX USE ONLY) PO ONE (10:00)
[2022-05-17] MEDS: METHOCARBAMOL 500 MG TABLET PO PRN (10:49)
[2022-05-17] MEDS: hydrOXYzine PAMOATE 25 MG CAPSULE (FP) PO PRN (10:49)
[2022-05-17] MEDS: PRENATAL VITAMINS W/ FOLIC ACID TABLET (FP) PO SCH (10:49)
[2022-05-17] MEDS: diazePAM 5 MG TABLET PO PRN ×2 (10:50→18:00)
[2022-05-17] MEDS: NICOTINE 14 MG/24 HOURS TOPICAL PATCH TD SCH (10:50)
[2022-05-17] MEDS: THIAMINE HCL 100 MG TABLET (FP) PO SCH (22:27)
[2022-05-17] MEDS: QUEtiapine FUMARATE 25 MG TABLET PO SCH (22:27)
[2022-05-17] MEDS: MELATONIN 5 MG TABLETS PO SCH (22:28)
[2022-05-18] MEDS: diazePAM 5 MG TABLET PO SCH ×2 (05:40→17:33)
[2022-05-18] MEDS: LACTULOSE 20 GM/30 ML UDC (FOR ORAL USE ONLY) PO SCH ×3 (05:40→22:30)
[2022-05-18] MEDS: METHOCARBAMOL 500 MG TABLET PO PRN (10:36)
[2022-05-18] MEDS: hydrOXYzine PAMOATE 25 MG CAPSULE (FP) PO PRN (10:36)
[2022-05-18] MEDS: PRENATAL VITAMINS W/ FOLIC ACID TABLET (FP) PO SCH (10:36)
[2022-05-18] MEDS: diazePAM 5 MG TABLET PO PRN (10:37)
[2022-05-18] MEDS: NICOTINE 14 MG/24 HOURS TOPICAL PATCH TD SCH (10:38)
[2022-05-18] MEDS: QUEtiapine FUMARATE 25 MG TABLET PO SCH (22:29)
[2022-05-18] MEDS: THIAMINE HCL 100 MG TABLET (FP) PO SCH (22:29)
[2022-05-18] MEDS: MELATONIN 5 MG TABLETS PO SCH (22:33)
[2022-05-19] MEDS: LACTULOSE 20 GM/30 ML UDC (FOR ORAL USE ONLY) PO SCH ×3 (05:29→22:34)
[2022-05-19] MEDS ORDERED: diazePAM 5 MG TABLET PO ONE (06:00)
[2022-05-19] MEDS ORDERED: methaDONE HCL 10 MG TABLET (FOR DETOX USE ONLY) PO ONE (10:00)
[2022-05-19] MEDS: NICOTINE 14 MG/24 HOURS TOPICAL PATCH TD SCH (10:19)
[2022-05-19] MEDS: PRENATAL VITAMINS W/ FOLIC ACID TABLET (FP) PO SCH (10:19)
[2022-05-19] MEDS: hydrOXYzine PAMOATE 25 MG CAPSULE (FP) PO PRN ×2 (10:19→17:58)
[2022-05-19] MEDS: METHOCARBAMOL 500 MG TABLET PO PRN (10:19)
[2022-05-19 17:14] VITALS: RESP 18
[2022-05-19] MEDS: QUEtiapine FUMARATE 25 MG TABLET PO SCH (22:20)
[2022-05-19] MEDS: THIAMINE HCL 100 MG TABLET (FP) PO SCH (22:20)
[2022-05-19] MEDS: MELATONIN 5 MG TABLETS PO SCH (22:21)
[2022-05-20] MEDS: hydrOXYzine PAMOATE 25 MG CAPSULE (FP) PO PRN (02:26)
[2022-05-20] MEDS: METHOCARBAMOL 500 MG TABLET PO PRN (02:26)
[2022-05-20] MEDS: LACTULOSE 20 GM/30 ML UDC (FOR ORAL USE ONLY) PO SCH (05:17)
[2022-05-20 06:03] VITALS: BP 107/66; PULSE 61; TEMP 97.8
== END 2022-05-20 07:50 | disposition home or self-care (01) | DRG 773 ==
LOC: YASAS 10:20 → Y6N 13:11
PROVIDERS: ADMIT Allergy & Immunology; ATTEND Surgery
PROC: HZ2ZZZZ Detoxification Services for Substance Abuse Treatment (ICD-10-PCS; principal; 2022-05-15)
DX: F11.23 Opioid dependence with withdrawal (principal); F10.230 Alcohol dependence with withdrawal, uncomplicated; F13.20 Sedative, hypnotic or anxiolytic dependence, uncomplicated; F14.20 Cocaine dependence, uncomplicated; F12.20 Cannabis dependence, uncomplicated; F17.210 Nicotine dependence, cigarettes, uncomplicated; F19.280 Other psychoactive substance dependence with psychoactive substance-induced anxiety disorder; F19.282 Other psychoactive substance dependence with psychoactive substance-induced sleep disorder; F43.10 Post-traumatic stress disorder, unspecified; G47.00 Insomnia, unspecified; L30.9 Dermatitis, unspecified; R79.89 Other specified abnormal findings of blood chemistry; Z85.820 Personal history of malignant melanoma of skin
CPT/HCPCS: 36415; 80053; 82140; 85027; 86780; C9803-CS; U0003; U0005

== ENCOUNTER 2022-08-29 10:58 | Inpatient (IN) | payer OTHER ==
[2022-08-29 11:37] VITALS: BMI 26.4
[2022-08-29] MEDS ORDERED: NALOXONE HCL 0.4 MG/ML VIAL IM PRN (12:02)
[2022-08-29] MEDS ORDERED: POLYETHYLENE GLYCOL (HEALTHYLAX) 3350 17 GM PACKET PO PRN (12:02)
[2022-08-29] MEDS ORDERED: IBUPROFEN 400 MG TABLET (FP) PO PRN (12:02)
[2022-08-29] MEDS ORDERED: NICOTINE 10 MG CARTRIDGE (INHALER) IH PRN (12:02)
[2022-08-29] MEDS ORDERED: BISMUTH SUBSALICYLATE 524 MG/30 ML PO PRN (12:02)
[2022-08-29] MEDS ORDERED: BENZONATATE 200 MG CAPSULE PO PRN (12:02)
[2022-08-29] MEDS ORDERED: IBUPROFEN 600 MG TABLET (FP) PO PRN (12:02)
[2022-08-29] MEDS ORDERED: NALOXONE HCL (KLOXXADO) 8 MG SPRAY NS PRN (12:02)
[2022-08-29] MEDS ORDERED: MAG HYDROX/AL HYDROX/SIMETH 30 ML UNIT-DOSE CUP PO PRN (12:02)
[2022-08-29] MEDS ORDERED: ACETAMINOPHEN 325 MG TABLET (FP) PO PRN (12:02)
[2022-08-29] MEDS ORDERED: ONDANSETRON *ODT* 4 MG TABLET SL PRN (12:02)
[2022-08-29] MEDS ORDERED: LOPERAMIDE HCL 2 MG CAPSULE PO PRN (12:02)
[2022-08-29] MEDS ORDERED: guaiFENesin 600 MG TABLET.ER (FP) PO PRN (12:02)
[2022-08-29] MEDS ORDERED: DICYCLOMINE HCL 10 MG CAPSULE PO PRN (12:02)
[2022-08-29] MEDS ORDERED: MAGNESIUM HYDROX 2400MG/30ML ORAL SUSPENSION 30 ML CUP PO PRN (12:02)
[2022-08-29] MEDS ORDERED: BENZOCAINE/MENTHOL (CHLORASEPTIC ) LOZENGE MM PRN (12:02)
[2022-08-29] MEDS ORDERED: DOCUSATE SODIUM 100 MG CAPSULE (FP) PO PRN (12:06)
[2022-08-29] MEDS ORDERED: diazePAM 5 MG TABLET ONE (13:08)
[2022-08-29] MEDS ORDERED: NICOTINE 14 MG/24 HOURS TOPICAL PATCH TD ONE (13:08)
[2022-08-29] MEDS: PRENATAL VITAMINS W/ FOLIC ACID TABLET (FP) PO SCH (13:11)
[2022-08-29] MEDS: NICOTINE 14 MG/24 HOURS TOPICAL PATCH TD SCH (13:11)
[2022-08-29] MEDS: diazePAM 5 MG TABLET PO SCH ×3 (13:11→22:12)
[2022-08-29] MEDS: LACTULOSE 20 GM/30 ML UDC (FOR ORAL USE ONLY) PO SCH ×2 (14:17→22:13)
[2022-08-29 14:36] LABS: HEMATOCRIT 38.1 % (35.4-49); HEMOGLOBIN 12.9 GM/dL (11.7-16.9); MCH 30.8 pg (25.7-33.7); MCHC 33.8 g/dl (32.0-35.9); MEAN CELL VOLUME 91.3 fl (80-96); MEAN PLT VOLUME 8.6 fl (7.5-11.1); PLATELET COUNT 269 10^3/uL (134-434); RBC 4.18 M/mm3 (4.00-5.60); RDW 15.1 % (11.9-15.9); WHITE BLOOD COUNT 5.3 K/mm3 (4.0-10.0)
[2022-08-29 14:40] LABS: ALBUMIN 3.7 g/dl (3.4-5.0); BLOOD UREA NITROGEN 14.2 mg/dL (7-18); CALCIUM 9.1 mg/dL (8.5-10.1)
[2022-08-29 14:46] LABS: BILIRUBIN,TOTAL 0.2 mg/dL (0.2-1); TOT PROT 6.6 g/dl (6.4-8.2)
[2022-08-29] MEDS: THIAMINE HCL 100 MG TABLET (FP) PO SCH (22:12)
[2022-08-29] MEDS: MELATONIN 5 MG TABLETS PO SCH (22:12)
[2022-08-29] MEDS: METHOCARBAMOL 500 MG TABLET PO PRN (22:14)
[2022-08-29] MEDS: hydrOXYzine PAMOATE 25 MG CAPSULE (FP) PO PRN (22:14)
[2022-08-30] MEDS: diazePAM 5 MG TABLET PO SCH ×4 (05:23→22:15)
[2022-08-30] MEDS: LACTULOSE 20 GM/30 ML UDC (FOR ORAL USE ONLY) PO SCH ×3 (05:24→22:15)
[2022-08-30] MEDS: PRENATAL VITAMINS W/ FOLIC ACID TABLET (FP) PO SCH (10:28)
[2022-08-30] MEDS: NICOTINE 14 MG/24 HOURS TOPICAL PATCH TD SCH (10:29)
[2022-08-30] MEDS ORDERED: methaDONE HCL 40 MG DISPERSABLE TABLET PO SCH (11:15)
[2022-08-30] MEDS: THIAMINE HCL 100 MG TABLET (FP) PO SCH (22:15)
[2022-08-30] MEDS: MELATONIN 5 MG TABLETS PO SCH (22:15)
[2022-08-30] MEDS: METHOCARBAMOL 500 MG TABLET PO PRN (22:17)
[2022-08-30] MEDS: hydrOXYzine PAMOATE 25 MG CAPSULE (FP) PO PRN (22:17)
[2022-08-31] MEDS: diazePAM 5 MG TABLET PO SCH ×3 (05:40→21:28)
[2022-08-31] MEDS: LACTULOSE 20 GM/30 ML UDC (FOR ORAL USE ONLY) PO SCH ×3 (05:41→21:23)
[2022-08-31] MEDS: METHOCARBAMOL 500 MG TABLET PO PRN ×2 (10:31→21:26)
[2022-08-31] MEDS: NICOTINE 14 MG/24 HOURS TOPICAL PATCH TD SCH (10:31)
[2022-08-31] MEDS: PRENATAL VITAMINS W/ FOLIC ACID TABLET (FP) PO SCH (10:31)
[2022-08-31] MEDS: hydrOXYzine PAMOATE 25 MG CAPSULE (FP) PO PRN ×2 (10:31→21:26)
[2022-08-31] MEDS: diazePAM 5 MG TABLET PO PRN ×2 (10:32→16:42)
[2022-08-31] MEDS: MELATONIN 5 MG TABLETS PO SCH (21:26)
[2022-08-31] MEDS: QUEtiapine FUMARATE 25 MG TABLET PO SCH (21:26)
[2022-08-31] MEDS: THIAMINE HCL 100 MG TABLET (FP) PO SCH (21:27)
[2022-09-01] MEDS: diazePAM 5 MG TABLET PO SCH ×2 (05:22→17:23)
[2022-09-01] MEDS: LACTULOSE 20 GM/30 ML UDC (FOR ORAL USE ONLY) PO SCH ×3 (05:24→21:13)
[2022-09-01] MEDS: PRENATAL VITAMINS W/ FOLIC ACID TABLET (FP) PO SCH (10:20)
[2022-09-01] MEDS: NICOTINE 14 MG/24 HOURS TOPICAL PATCH TD SCH (10:20)
[2022-09-01] MEDS: diazePAM 5 MG TABLET PO PRN (10:22)
[2022-09-01] MEDS: MELATONIN 5 MG TABLETS PO SCH (21:12)
[2022-09-01] MEDS: THIAMINE HCL 100 MG TABLET (FP) PO SCH (21:12)
[2022-09-01] MEDS: QUEtiapine FUMARATE 25 MG TABLET PO SCH (21:12)
[2022-09-02] MEDS ORDERED: ALBUTEROL SO4 HFA INHALER IH PRN (01:21)
[2022-09-02] MEDS: LACTULOSE 20 GM/30 ML UDC (FOR ORAL USE ONLY) PO SCH (05:18)
[2022-09-02] MEDS ORDERED: diazePAM 5 MG TABLET PO ONE (06:00)
[2022-09-02 06:14] VITALS: BP 106/71; PULSE 80; RESP 16; TEMP 98.2
== END 2022-09-02 05:52 | disposition home or self-care (01) | DRG 773 ==
LOC: YASAS 10:58 → Y3N 13:22
PROVIDERS: ADMIT Allergy & Immunology; ATTEND Surgery
PROC: HZ2ZZZZ Detoxification Services for Substance Abuse Treatment (ICD-10-PCS; principal; 2022-08-29)
DX: F10.230 Alcohol dependence with withdrawal, uncomplicated (principal); F11.20 Opioid dependence, uncomplicated; F12.20 Cannabis dependence, uncomplicated; F17.210 Nicotine dependence, cigarettes, uncomplicated; F19.282 Other psychoactive substance dependence with psychoactive substance-induced sleep disorder; F43.10 Post-traumatic stress disorder, unspecified; F41.9 Anxiety disorder, unspecified; E72.20 Disorder of urea cycle metabolism, unspecified; G47.00 Insomnia, unspecified; R73.9 Hyperglycemia, unspecified; Z85.820 Personal history of malignant melanoma of skin; Z28.310 Unvaccinated for COVID-19; Z28.9 Immunization not carried out for unspecified reason
CPT/HCPCS: 36415; 80053; 82140; 82947; 83036; 85027; 86780; C9803-CS; Q0162; U0003; U0005

== ENCOUNTER 2022-10-03 09:38 | Inpatient (IN) | payer OTHER ==
[2022-10-03 10:22] VITALS: BMI 29.5
[2022-10-03] MEDS ORDERED: NICOTINE 7 MG/24 HOURS TOPICAL PATCH TD PRN (10:46)
[2022-10-03] MEDS ORDERED: MAG HYDROX/AL HYDROX/SIMETH 30 ML UNIT-DOSE CUP PO PRN (10:46)
[2022-10-03] MEDS ORDERED: DICYCLOMINE HCL 10 MG CAPSULE PO PRN (10:46)
[2022-10-03] MEDS ORDERED: hydrOXYzine PAMOATE 25 MG CAPSULE (FP) PO PRN (10:46)
[2022-10-03] MEDS ORDERED: BISMUTH SUBSALICYLATE 262 MG/15 ML BTL PO PRN (10:46)
[2022-10-03] MEDS ORDERED: ONDANSETRON *ODT* 4 MG TABLET SL PRN (10:46)
[2022-10-03] MEDS ORDERED: BENZONATATE 200 MG CAPSULE PO PRN (10:46)
[2022-10-03] MEDS ORDERED: MAGNESIUM HYDROX 2400MG/30ML ORAL SUSPENSION 30 ML CUP PO PRN (10:46)
[2022-10-03] MEDS ORDERED: IBUPROFEN 400 MG TABLET (FP) PO PRN (10:46)
[2022-10-03] MEDS ORDERED: POLYETHYLENE GLYCOL (HEALTHYLAX) 3350 17 GM PACKET PO PRN (10:46)
[2022-10-03] MEDS ORDERED: NALOXONE HCL (KLOXXADO) 8 MG SPRAY NS PRN (10:46)
[2022-10-03] MEDS ORDERED: LOPERAMIDE HCL 2 MG CAPSULE PO PRN (10:46)
[2022-10-03] MEDS ORDERED: NICOTINE POLACRILEX 2 MG GUM BUC PRN (10:46)
[2022-10-03] MEDS ORDERED: BENZOCAINE/MENTHOL (CHLORASEPTIC ) LOZENGE MM PRN (10:46)
[2022-10-03] MEDS ORDERED: NALOXONE HCL 0.4 MG/ML VIAL IM PRN (10:46)
[2022-10-03] MEDS ORDERED: guaiFENesin 600 MG TABLET.ER (FP) PO PRN (10:46)
[2022-10-03] MEDS ORDERED: P-EPHED 60MG/TRIPROLIDI 2.5MG TABLET PO PRN (10:46)
[2022-10-03] MEDS ORDERED: ACETAMINOPHEN 325 MG TABLET (FP) PO PRN ×2 (10:46)
[2022-10-03] MEDS ORDERED: diazePAM 5 MG TABLET PO PRN (10:49)
[2022-10-03] MEDS ORDERED: levETIRAcetam 500 MG TABLET (FP) PO ONE (11:37)
[2022-10-03] MEDS: levETIRAcetam 500 MG TABLET (FP) PO SCH ×2 (11:38→22:32)
[2022-10-03] MEDS: IBUPROFEN 600 MG TABLET (FP) PO PRN ×2 (12:57→18:26)
[2022-10-03] MEDS ORDERED: SUVOREXANT 10 MG TABLET PO PRN (22:00)
[2022-10-03] MEDS: MELATONIN 5 MG TABLETS PO PRN (22:32)
[2022-10-03] MEDS: THIAMINE HCL 100 MG TABLET (FP) PO SCH (22:32)
[2022-10-03] MEDS: QUEtiapine FUMARATE 25 MG TABLET PO SCH (22:33)
[2022-10-04] MEDS: methaDONE HCL 10 MG TABLET PO SCH (08:13)
[2022-10-04] MEDS ORDERED: methaDONE HCL 10 MG TABLET PO ONE (08:45)
[2022-10-04] MEDS: PRENATAL VITAMINS W/ FOLIC ACID TABLET (FP) PO SCH (10:29)
[2022-10-04] MEDS: levETIRAcetam 500 MG TABLET (FP) PO SCH ×2 (10:30→21:40)
[2022-10-04 12:26] LABS: HEMATOCRIT 34.6 % (35.4-49); HEMOGLOBIN 11.9 GM/dL (11.7-16.9); MCH 31.4 pg (25.7-33.7); MCHC 34.5 g/dl (32.0-35.9); PLATELET COUNT 244 10^3/uL (134-434); POTASSIUM 4.2 mmol/L (3.5-5.1); RDW 14.3 % (11.9-15.9); WHITE BLOOD COUNT 10.6 K/mm3 (4.0-10.0)
[2022-10-04 12:30] LABS: ALBUMIN 2.9 g/dl (3.4-5.0); CALCIUM 8.3 mg/dL (8.5-10.1)
[2022-10-04 12:31] LABS: BLOOD UREA NITROGEN 14.3 mg/dL (7-18)
[2022-10-04 12:33] LABS: CREATININE 0.7 mg/dL (0.55-1.3)
[2022-10-04 12:35] LABS: BILIRUBIN,TOTAL 0.3 mg/dL (0.2-1); TOT PROT 5.8 g/dl (6.4-8.2)
[2022-10-04 13:55] LABS: HIV INTERPRETATION NEGATIVE (NEGATIVE)
[2022-10-04] MEDS: QUEtiapine FUMARATE 25 MG TABLET PO SCH (21:40)
[2022-10-04] MEDS: THIAMINE HCL 100 MG TABLET (FP) PO SCH (21:40)
[2022-10-04] MEDS: MELATONIN 5 MG TABLETS PO PRN (21:41)
[2022-10-05] MEDS: methaDONE HCL 10 MG TABLET PO SCH (05:24)
[2022-10-05] MEDS: PRENATAL VITAMINS W/ FOLIC ACID TABLET (FP) PO SCH (10:41)
[2022-10-05] MEDS: levETIRAcetam 500 MG TABLET (FP) PO SCH ×2 (10:41→22:14)
[2022-10-05] MEDS ORDERED: diazePAM 5 MG TABLET PO PRN (16:21)
[2022-10-05] MEDS ORDERED: cloNIDine HCL 0.1 MG TABLET PO PRN (16:21)
[2022-10-05] MEDS: diazePAM 5 MG TABLET PO SCH ×2 (17:52→22:14)
[2022-10-05] MEDS: QUEtiapine FUMARATE 25 MG TABLET PO SCH (22:14)
[2022-10-05] MEDS: THIAMINE HCL 100 MG TABLET (FP) PO SCH (22:14)
[2022-10-06] MEDS: diazePAM 5 MG TABLET PO SCH ×4 (05:22→23:00)
[2022-10-06] MEDS ORDERED: methaDONE HCL 10 MG TABLET (FOR DETOX USE ONLY) PO ONE (10:00)
[2022-10-06] MEDS: PRENATAL VITAMINS W/ FOLIC ACID TABLET (FP) PO SCH (10:42)
[2022-10-06] MEDS: levETIRAcetam 500 MG TABLET (FP) PO SCH ×2 (10:42→21:10)
[2022-10-06] MEDS: LACTULOSE 20 GM/30 ML UDC (FOR ORAL USE ONLY) PO SCH ×2 (17:32→22:41)
[2022-10-06] MEDS: QUEtiapine FUMARATE 25 MG TABLET PO SCH (21:09)
[2022-10-06] MEDS: THIAMINE HCL 100 MG TABLET (FP) PO SCH (21:10)
[2022-10-07] MEDS: diazePAM 5 MG TABLET PO SCH ×3 (05:27→22:27)
[2022-10-07] MEDS ORDERED: methaDONE HCL 10 MG TABLET (FOR DETOX USE ONLY) PO ONE (10:00)
[2022-10-07] MEDS: LACTULOSE 20 GM/30 ML UDC (FOR ORAL USE ONLY) PO SCH ×4 (10:10→22:27)
[2022-10-07] MEDS: PRENATAL VITAMINS W/ FOLIC ACID TABLET (FP) PO SCH (10:10)
[2022-10-07] MEDS: levETIRAcetam 500 MG TABLET (FP) PO SCH ×2 (10:11→22:27)
[2022-10-07] MEDS: QUEtiapine FUMARATE 25 MG TABLET PO SCH (22:27)
[2022-10-07] MEDS: THIAMINE HCL 100 MG TABLET (FP) PO SCH (22:27)
[2022-10-08] MEDS ORDERED: diazePAM 5 MG TABLET PO SCH (06:00)
[2022-10-08 06:36] VITALS: BP 120/99; PULSE 80; RESP 18; TEMP 97.7
[2022-10-09] MEDS ORDERED: diazePAM 5 MG TABLET PO ONE (06:00)
== END 2022-10-08 07:10 | disposition home or self-care (01) | DRG 773 ==
LOC: YASAS 09:38 → Y6N 11:26
PROVIDERS: ADMIT Allergy & Immunology; ATTEND Surgery
PROC: HZ2ZZZZ Detoxification Services for Substance Abuse Treatment (ICD-10-PCS; principal; 2022-10-03)
DX: F10.230 Alcohol dependence with withdrawal, uncomplicated (principal); F11.23 Opioid dependence with withdrawal; F13.20 Sedative, hypnotic or anxiolytic dependence, uncomplicated; F12.20 Cannabis dependence, uncomplicated; F17.210 Nicotine dependence, cigarettes, uncomplicated; F19.280 Other psychoactive substance dependence with psychoactive substance-induced anxiety disorder; F19.282 Other psychoactive substance dependence with psychoactive substance-induced sleep disorder; F43.10 Post-traumatic stress disorder, unspecified; L85.3 Xerosis cutis; S52.611D Displaced fracture of right ulna styloid process, subsequent encounter for closed fracture with routine healing; X58.XXXD Exposure to other specified factors, subsequent encounter; Z28.310 Unvaccinated for COVID-19; Z28.9 Immunization not carried out for unspecified reason
CPT/HCPCS: 36415; 73130-TC-RT-FY; 80053; 82140; 85027; 86780; 87389; 87811; C9803-CS; U0003; U0005

== ENCOUNTER 2022-10-05 12:09 | Emergency (ER) | payer OTHER ==
[2022-10-05 12:17] VITALS: BP 106/70; PULSE 78; RESP 18; TEMP 98.3; BMI 23.8
[2022-10-05] MEDS ORDERED: ACETAMINOPHEN 325 MG TABLET (FP) PO ONE (13:41)
[2022-10-05] MEDS ORDERED: ACETAMINOPHEN 325 MG TABLET (FP) ONE (14:42)
== END 2022-10-05 15:47 | disposition home or self-care (01) ==
LOC: JER 12:09
PROC: 2W3CX1Z Immobilization of Right Lower Arm using Splint (ICD-10-PCS; principal; 2022-10-05)
DX: S52.611A Displaced fracture of right ulna styloid process, initial encounter for closed fracture (principal); W19.XXXA Unspecified fall, initial encounter; Y92.89 Other specified places as the place of occurrence of the external cause; Z20.822 Contact with and (suspected) exposure to COVID-19
CPT/HCPCS: 0241U-QW; 29105; 71046-TC-FY; 99284-25

== ENCOUNTER 2023-01-05 13:57 | Inpatient (IN) | payer OTHER ==
[2023-01-05 15:22] VITALS: BMI 29.5
[2023-01-05] MEDS ORDERED: ONDANSETRON *ODT* 4 MG TABLET SL PRN (18:41)
[2023-01-05] MEDS ORDERED: LOPERAMIDE HCL 2 MG CAPSULE PO PRN (18:41)
[2023-01-05] MEDS ORDERED: P-EPHED 60MG/TRIPROLIDI 2.5MG TABLET PO PRN (18:41)
[2023-01-05] MEDS ORDERED: BISMUTH SUBSALICYLATE 524 MG/30 ML PO PRN (18:41)
[2023-01-05] MEDS ORDERED: BENZONATATE 200 MG CAPSULE PO PRN (18:41)
[2023-01-05] MEDS ORDERED: NALOXONE HCL 0.4 MG/ML VIAL IM PRN (18:41)
[2023-01-05] MEDS ORDERED: MAG HYDROX/AL HYDROX/SIMETH 30 ML UNIT-DOSE CUP PO PRN (18:41)
[2023-01-05] MEDS ORDERED: guaiFENesin 600 MG TABLET.ER (FP) PO PRN (18:41)
[2023-01-05] MEDS ORDERED: NALOXONE HCL (KLOXXADO) 8 MG SPRAY NS PRN (18:41)
[2023-01-05] MEDS ORDERED: MAGNESIUM HYDROX 2400MG/30ML ORAL SUSPENSION 30 ML CUP PO PRN (18:41)
[2023-01-05] MEDS ORDERED: POLYETHYLENE GLYCOL (HEALTHYLAX) 3350 17 GM PACKET PO PRN (18:41)
[2023-01-05] MEDS ORDERED: NICOTINE POLACRILEX 2 MG GUM BUC PRN (18:41)
[2023-01-05] MEDS ORDERED: ACETAMINOPHEN 325 MG TABLET (FP) PO PRN (18:41)
[2023-01-05] MEDS ORDERED: IBUPROFEN 400 MG TABLET (FP) PO PRN (18:41)
[2023-01-05] MEDS ORDERED: DICYCLOMINE HCL 10 MG CAPSULE PO PRN (18:41)
[2023-01-05] MEDS ORDERED: BENZOCAINE/MENTHOL (CHLORASEPTIC ) LOZENGE MM PRN (18:41)
[2023-01-05] MEDS: MELATONIN 5 MG TABLETS PO SCH (22:12)
[2023-01-05] MEDS: THIAMINE HCL 100 MG TABLET (FP) PO SCH (22:12)
[2023-01-05] MEDS: hydrOXYzine PAMOATE 25 MG CAPSULE (FP) PO PRN (22:13)
[2023-01-05] MEDS: diazePAM 5 MG TABLET PO SCH (22:13)
[2023-01-05] MEDS: METHOCARBAMOL 500 MG TABLET PO PRN (22:13)
[2023-01-05] MEDS: levETIRAcetam 500 MG TABLET (FP) PO SCH (22:13)
[2023-01-06] MEDS: diazePAM 5 MG TABLET PO SCH ×4 (04:54→22:58)
[2023-01-06] MEDS: hydrOXYzine PAMOATE 25 MG CAPSULE (FP) PO PRN ×2 (04:54→22:57)
[2023-01-06] MEDS: IBUPROFEN 600 MG TABLET (FP) PO PRN ×2 (04:54→17:35)
[2023-01-06] MEDS: PRENATAL VITAMINS W/ FOLIC ACID TABLET (FP) PO SCH (10:02)
[2023-01-06] MEDS: levETIRAcetam 500 MG TABLET (FP) PO SCH ×2 (10:02→22:56)
[2023-01-06] MEDS: methaDONE HCL 10 MG TABLET PO SCH (10:03)
[2023-01-06] MEDS: NICOTINE 14 MG/24 HOURS TOPICAL PATCH TD SCH (10:05)
[2023-01-06 10:40] LABS: HEMATOCRIT 40.3 % (35.4-49); HEMOGLOBIN 13.3 GM/dL (11.7-16.9); MCH 30.1 pg (25.7-33.7); MCHC 33.1 g/dl (32.0-35.9); MEAN PLT VOLUME 8.1 fl (7.5-11.1); PLATELET COUNT 295 10^3/uL (134-434); RBC 4.43 M/mm3 (4.00-5.60); RDW 14.5 % (11.9-15.9); WHITE BLOOD COUNT 5.7 K/mm3 (4.0-10.0)
[2023-01-06 10:47] LABS: POTASSIUM 4.5 mmol/L (3.5-5.1)
[2023-01-06 10:59] LABS: ALBUMIN 3.5 g/dl (3.4-5.0); CALCIUM 8.4 mg/dL (8.5-10.1)
[2023-01-06 11:00] LABS: BLOOD UREA NITROGEN 12.3 mg/dL (7-18)
[2023-01-06 11:02] LABS: BILIRUBIN,TOTAL 0.6 mg/dL (0.2-1); TOT PROT 6.5 g/dl (6.4-8.2)
[2023-01-06 11:03] LABS: CREATININE 0.9 mg/dL (0.55-1.3)
[2023-01-06] MEDS: diazePAM 5 MG TABLET PO PRN ×2 (12:22→20:34)
[2023-01-06] MEDS: MELATONIN 5 MG TABLETS PO SCH (22:51)
[2023-01-06] MEDS: QUEtiapine FUMARATE 25 MG TABLET PO SCH (22:56)
[2023-01-06] MEDS: THIAMINE HCL 100 MG TABLET (FP) PO SCH (22:57)
[2023-01-07] MEDS: diazePAM 5 MG TABLET PO SCH ×3 (05:38→22:10)
[2023-01-07] MEDS: methaDONE HCL 10 MG TABLET PO SCH (05:38)
[2023-01-07] MEDS: PRENATAL VITAMINS W/ FOLIC ACID TABLET (FP) PO SCH (10:03)
[2023-01-07] MEDS: NICOTINE 14 MG/24 HOURS TOPICAL PATCH TD SCH (10:03)
[2023-01-07] MEDS: diazePAM 5 MG TABLET PO PRN ×2 (10:04→17:37)
[2023-01-07] MEDS: levETIRAcetam 500 MG TABLET (FP) PO SCH ×2 (10:05→22:10)
[2023-01-07] MEDS: THIAMINE HCL 100 MG TABLET (FP) PO SCH (22:10)
[2023-01-07] MEDS: MELATONIN 5 MG TABLETS PO SCH (22:10)
[2023-01-07] MEDS: QUEtiapine FUMARATE 25 MG TABLET PO SCH (22:10)
[2023-01-08] MEDS: methaDONE HCL 10 MG TABLET PO SCH (05:21)
[2023-01-08] MEDS: diazePAM 5 MG TABLET PO SCH ×2 (05:22→17:22)
[2023-01-08] MEDS: levETIRAcetam 500 MG TABLET (FP) PO SCH ×2 (10:09→21:38)
[2023-01-08] MEDS: PRENATAL VITAMINS W/ FOLIC ACID TABLET (FP) PO SCH (10:09)
[2023-01-08] MEDS: NICOTINE 14 MG/24 HOURS TOPICAL PATCH TD SCH (10:10)
[2023-01-08] MEDS: diazePAM 5 MG TABLET PO PRN ×2 (10:10→14:37)
[2023-01-08] MEDS: METHOCARBAMOL 500 MG TABLET PO PRN (21:38)
[2023-01-08] MEDS: hydrOXYzine PAMOATE 25 MG CAPSULE (FP) PO PRN (21:38)
[2023-01-08] MEDS: MELATONIN 5 MG TABLETS PO SCH (21:38)
[2023-01-08] MEDS: THIAMINE HCL 100 MG TABLET (FP) PO SCH (21:39)
[2023-01-08] MEDS: QUEtiapine FUMARATE 25 MG TABLET PO SCH (21:39)
[2023-01-09] MEDS: methaDONE HCL 10 MG TABLET PO SCH (05:36)
[2023-01-09] MEDS ORDERED: diazePAM 5 MG TABLET PO ONE (06:00)
[2023-01-09 06:40] VITALS: RESP 18
[2023-01-09 08:51] VITALS: BP 103/61; PULSE 60; TEMP 98.2
== END 2023-01-09 08:55 | disposition home or self-care (01) | DRG 773 ==
LOC: YASAS 13:57 → Y3N 19:49
PROVIDERS: ADMIT Allergy & Immunology; ATTEND Surgery
PROC: HZ2ZZZZ Detoxification Services for Substance Abuse Treatment (ICD-10-PCS; principal; 2023-01-05)
DX: F10.230 Alcohol dependence with withdrawal, uncomplicated (principal); F10.220 Alcohol dependence with intoxication, uncomplicated; F10.251 Alcohol dependence with alcohol-induced psychotic disorder with hallucinations; F11.20 Opioid dependence, uncomplicated; F13.20 Sedative, hypnotic or anxiolytic dependence, uncomplicated; F14.20 Cocaine dependence, uncomplicated; F17.210 Nicotine dependence, cigarettes, uncomplicated; F19.94 Other psychoactive substance use, unspecified with psychoactive substance-induced mood disorder; G47.00 Insomnia, unspecified; Z28.310 Unvaccinated for COVID-19; Z86.69 Personal history of other diseases of the nervous system and sense organs; Z56.0 Unemployment, unspecified
CPT/HCPCS: 36415; 80053; 85027; 86780; 87635

== ENCOUNTER 2023-02-11 12:25 | Inpatient (IN) | payer OTHER ==
[2023-02-11 13:01] VITALS: BMI 27.4
[2023-02-11] MEDS ORDERED: ALBUTEROL SO4 HFA INHALER IH PRN (17:32)
[2023-02-11] MEDS ORDERED: BISMUTH SUBSALICYLATE 524 MG/30 ML PO PRN (17:33)
[2023-02-11] MEDS ORDERED: NALOXONE HCL 0.4 MG/ML VIAL IM PRN (17:33)
[2023-02-11] MEDS ORDERED: ONDANSETRON *ODT* 4 MG TABLET SL PRN (17:33)
[2023-02-11] MEDS ORDERED: DICYCLOMINE HCL 10 MG CAPSULE PO PRN (17:33)
[2023-02-11] MEDS ORDERED: BENZONATATE 200 MG CAPSULE PO PRN (17:33)
[2023-02-11] MEDS ORDERED: BENZOCAINE/MENTHOL (CHLORASEPTIC ) LOZENGE MM PRN (17:33)
[2023-02-11] MEDS ORDERED: MAG HYDROX/AL HYDROX/SIMETH 30 ML UNIT-DOSE CUP PO PRN (17:33)
[2023-02-11] MEDS ORDERED: NALOXONE HCL (KLOXXADO) 8 MG SPRAY NS PRN (17:33)
[2023-02-11] MEDS ORDERED: MAGNESIUM HYDROX 2400MG/30ML ORAL SUSPENSION 30 ML CUP PO PRN (17:33)
[2023-02-11] MEDS ORDERED: ACETAMINOPHEN 325 MG TABLET (FP) PO PRN (17:33)
[2023-02-11] MEDS ORDERED: P-EPHED 60MG/TRIPROLIDI 2.5MG TABLET PO PRN (17:33)
[2023-02-11] MEDS ORDERED: COLLOIDAL OATMEAL 1 BAR EACH TP PRN (17:33)
[2023-02-11] MEDS ORDERED: IBUPROFEN 400 MG TABLET (FP) PO PRN (17:33)
[2023-02-11] MEDS ORDERED: POLYETHYLENE GLYCOL (HEALTHYLAX) 3350 17 GM PACKET PO PRN (17:33)
[2023-02-11] MEDS ORDERED: guaiFENesin 600 MG TABLET.ER (FP) PO PRN (17:33)
[2023-02-11] MEDS ORDERED: cloNIDine HCL 0.1 MG TABLET PO PRN (17:36)
[2023-02-11] MEDS: LOPERAMIDE HCL 2 MG CAPSULE PO PRN (18:34)
[2023-02-11] MEDS: METHOCARBAMOL 500 MG TABLET PO PRN (18:34)
[2023-02-11] MEDS: IBUPROFEN 600 MG TABLET (FP) PO PRN (18:34)
[2023-02-11] MEDS: diazePAM 5 MG TABLET PO PRN (18:40)
[2023-02-11] MEDS ORDERED: methaDONE HCL 10 MG TABLET (FOR DETOX USE ONLY) PO ONE (22:00)
[2023-02-11] MEDS ORDERED: QUEtiapine FUMARATE 25 MG TABLET PO ONE (22:00)
[2023-02-11] MEDS: THIAMINE HCL 100 MG TABLET (FP) PO SCH (22:19)
[2023-02-11] MEDS: MELATONIN 5 MG TABLETS PO SCH (22:19)
[2023-02-12] MEDS: diazePAM 5 MG TABLET PO PRN ×4 (05:51→20:18)
[2023-02-12] MEDS: PRENATAL VITAMINS W/ FOLIC ACID TABLET (FP) PO SCH (10:20)
[2023-02-12] MEDS: NICOTINE POLACRILEX 2 MG GUM BUC PRN (10:23)
[2023-02-12] MEDS ORDERED: diazePAM 5 MG TABLET PO SCH (11:15)
[2023-02-12] MEDS ORDERED: COLLOIDAL OATMEAL 1 BAR EACH TP PRN (12:01)
[2023-02-12 12:22] LABS: POTASSIUM 4.4 mmol/L (3.5-5.1)
[2023-02-12 12:29] LABS: ALBUMIN 3.5 g/dl (3.4-5.0); BLOOD UREA NITROGEN 12.8 mg/dL (7-18); CALCIUM 8.7 mg/dL (8.5-10.1)
[2023-02-12 12:31] LABS: HEMATOCRIT 41.2 % (35.4-49); HEMOGLOBIN 13.9 GM/dL (11.7-16.9); MCH 30.4 pg (25.7-33.7); MCHC 33.7 g/dl (32.0-35.9); MEAN CELL VOLUME 90.3 fl (80-96); MEAN PLT VOLUME 8.7 fl (7.5-11.1); PLATELET COUNT 297 10^3/uL (134-434); RBC 4.56 M/mm3 (4.00-5.60); RDW 14.6 % (11.9-15.9); WHITE BLOOD COUNT 6.9 K/mm3 (4.0-10.0)
[2023-02-12 12:32] LABS: CREATININE 0.7 mg/dL (0.55-1.3)
[2023-02-12 12:33] LABS: BILIRUBIN,TOTAL 0.5 mg/dL (0.2-1); TOT PROT 6.5 g/dl (6.4-8.2)
[2023-02-12 13:19] LABS: HIV INTERPRETATION NEGATIVE (NEGATIVE)
[2023-02-12] MEDS: METHOCARBAMOL 500 MG TABLET PO PRN (18:17)
[2023-02-12] MEDS: diazePAM 5 MG TABLET PO SCH ×2 (18:17→22:27)
[2023-02-12] MEDS: IBUPROFEN 600 MG TABLET (FP) PO PRN (18:18)
[2023-02-12] MEDS: MELATONIN 5 MG TABLETS PO SCH (22:27)
[2023-02-12] MEDS: THIAMINE HCL 100 MG TABLET (FP) PO SCH (22:27)
[2023-02-13] MEDS: diazePAM 5 MG TABLET PO PRN (00:26)
[2023-02-13] MEDS: diazePAM 5 MG TABLET PO SCH ×4 (05:19→22:27)
[2023-02-13] MEDS ORDERED: methaDONE HCL 10 MG TABLET (FOR DETOX USE ONLY) PO ONE (10:00)
[2023-02-13] MEDS: PRENATAL VITAMINS W/ FOLIC ACID TABLET (FP) PO SCH (10:17)
[2023-02-13] MEDS: NICOTINE 14 MG/24 HOURS TOPICAL PATCH TD SCH (12:13)
[2023-02-13] MEDS ORDERED: SUGAMMADEX SODIUM 200 MG/2 ML VIAL ONE (16:41)
[2023-02-13] MEDS ORDERED: PROPOFOL 60 ML ONE (16:41)
[2023-02-13] MEDS ORDERED: MIDAZOLAM HCL 2 MG/2 ML SINGLE DOSE VIAL ONE (16:41)
[2023-02-13] MEDS: hydrOXYzine PAMOATE 25 MG CAPSULE (FP) PO PRN (18:19)
[2023-02-13] MEDS: NICOTINE POLACRILEX 2 MG GUM BUC PRN (18:22)
[2023-02-13] MEDS: QUEtiapine FUMARATE 25 MG TABLET PO SCH (22:26)
[2023-02-13] MEDS: THIAMINE HCL 100 MG TABLET (FP) PO SCH (22:26)
[2023-02-13] MEDS: MELATONIN 5 MG TABLETS PO SCH (22:26)
[2023-02-14] MEDS: METHOCARBAMOL 500 MG TABLET PO PRN ×3 (00:44→22:24)
[2023-02-14] MEDS: diazePAM 5 MG TABLET PO PRN ×3 (00:45→17:23)
[2023-02-14] MEDS: diazePAM 5 MG TABLET PO SCH ×3 (05:43→22:25)
[2023-02-14] MEDS: PRENATAL VITAMINS W/ FOLIC ACID TABLET (FP) PO SCH (10:09)
[2023-02-14] MEDS: NICOTINE 14 MG/24 HOURS TOPICAL PATCH TD SCH (10:09)
[2023-02-14] MEDS: IBUPROFEN 600 MG TABLET (FP) PO PRN (12:03)
[2023-02-14] MEDS: MELATONIN 5 MG TABLETS PO SCH (22:24)
[2023-02-14] MEDS: hydrOXYzine PAMOATE 25 MG CAPSULE (FP) PO PRN (22:24)
[2023-02-14] MEDS: QUEtiapine FUMARATE 25 MG TABLET PO SCH (22:24)
[2023-02-14] MEDS: THIAMINE HCL 100 MG TABLET (FP) PO SCH (22:24)
[2023-02-15] MEDS: diazePAM 5 MG TABLET PO SCH ×2 (05:42→17:48)
[2023-02-15] MEDS: LOPERAMIDE HCL 2 MG CAPSULE PO PRN (05:44)
[2023-02-15] MEDS: METHOCARBAMOL 500 MG TABLET PO PRN ×2 (05:44→21:57)
[2023-02-15] MEDS ORDERED: methaDONE HCL 10 MG TABLET (FOR DETOX USE ONLY) PO ONE (10:00)
[2023-02-15] MEDS: PRENATAL VITAMINS W/ FOLIC ACID TABLET (FP) PO SCH (10:13)
[2023-02-15] MEDS: NICOTINE 14 MG/24 HOURS TOPICAL PATCH TD SCH (10:13)
[2023-02-15] MEDS: diazePAM 5 MG TABLET PO PRN (10:16)
[2023-02-15 13:04] VITALS: RESP 18
[2023-02-15] MEDS: hydrOXYzine PAMOATE 25 MG CAPSULE (FP) PO PRN (21:57)
[2023-02-15] MEDS: THIAMINE HCL 100 MG TABLET (FP) PO SCH (21:57)
[2023-02-15] MEDS: MELATONIN 5 MG TABLETS PO SCH (21:57)
[2023-02-15] MEDS: QUEtiapine FUMARATE 25 MG TABLET PO SCH (21:58)
[2023-02-16] MEDS ORDERED: diazePAM 5 MG TABLET PO ONE (06:00)
[2023-02-16 06:06] VITALS: BP 117/74; PULSE 70; TEMP 97.7
== END 2023-02-16 06:27 | disposition home or self-care (01) | DRG 773 ==
LOC: YASAS 12:25 → Y3N 17:27
PROVIDERS: ADMIT Allergy & Immunology; ATTEND Surgery
PROC: HZ2ZZZZ Detoxification Services for Substance Abuse Treatment (ICD-10-PCS; principal; 2023-02-11)
DX: F11.23 Opioid dependence with withdrawal (principal); F10.230 Alcohol dependence with withdrawal, uncomplicated; F12.20 Cannabis dependence, uncomplicated; F17.210 Nicotine dependence, cigarettes, uncomplicated; F19.24 Other psychoactive substance dependence with psychoactive substance-induced mood disorder; F41.9 Anxiety disorder, unspecified; F43.10 Post-traumatic stress disorder, unspecified; G47.00 Insomnia, unspecified; L30.9 Dermatitis, unspecified; Z85.820 Personal history of malignant melanoma of skin; Z28.310 Unvaccinated for COVID-19; Z28.9 Immunization not carried out for unspecified reason
CPT/HCPCS: 36415; 80053; 85027; 86780; 87389; 87635

== ENCOUNTER 2024-03-02 13:16 | Inpatient (IN) | payer OTHER ==
[2024-03-02 14:26] VITALS: BMI 26.1
[2024-03-02] MEDS ORDERED: IBUPROFEN 400 MG TABLET (FP) PO PRN (14:50)
[2024-03-02] MEDS ORDERED: BISMUTH SUBSALICYLATE 524 MG/30 ML PO PRN (14:50)
[2024-03-02] MEDS ORDERED: LOPERAMIDE HCL 2 MG CAPSULE PO PRN (14:50)
[2024-03-02] MEDS ORDERED: ONDANSETRON *ODT* 4 MG TABLET SL PRN (14:50)
[2024-03-02] MEDS ORDERED: MAG HYDROX/AL HYDROX/SIMETH 30 ML UNIT-DOSE CUP PO PRN (14:50)
[2024-03-02] MEDS ORDERED: BENZONATATE 200 MG CAPSULE PO PRN (14:50)
[2024-03-02] MEDS ORDERED: ACETAMINOPHEN 325 MG TABLET (FP) PO PRN (14:50)
[2024-03-02] MEDS ORDERED: NALOXONE HCL 0.4 MG/ML VIAL IM PRN (14:50)
[2024-03-02] MEDS ORDERED: BENZOCAINE/MENTHOL (CHLORASEPTIC ) LOZENGE MM PRN (14:50)
[2024-03-02] MEDS ORDERED: POLYETHYLENE GLYCOL (HEALTHYLAX) 3350 17 GM PACKET PO PRN (14:50)
[2024-03-02] MEDS ORDERED: guaiFENesin 600 MG TABLET.ER (FP) PO PRN (14:50)
[2024-03-02] MEDS ORDERED: NALOXONE (NARCAN) HCL 4 MG/0.1 ML SPRAY NS PRN (14:50)
[2024-03-02] MEDS ORDERED: DICYCLOMINE HCL 10 MG CAPSULE PO PRN (14:50)
[2024-03-02] MEDS ORDERED: MAGNESIUM HYDROX 2400MG/30ML ORAL SUSPENSION 30 ML CUP PO PRN (14:50)
[2024-03-02] MEDS: PRENATAL VITAMINS W/ FOLIC ACID TABLET (FP) PO SCH (17:37)
[2024-03-02] MEDS: NICOTINE 7 MG/24 HOURS TOPICAL PATCH TD SCH (17:39)
[2024-03-02] MEDS: THIAMINE 100 MG TABLET PO SCH (22:31)
[2024-03-02] MEDS: MELATONIN 5 MG TABLETS PO SCH (22:31)
[2024-03-02] MEDS: diazePAM 5 MG TABLET PO SCH (22:32)
[2024-03-03] MEDS: BUPRENORPHINE/NALOXONE 8 MG/2 MG FILM PACKET SL SCH ×2 (10:19→22:17)
[2024-03-03 11:32] LABS: HEMATOCRIT 38.5 % (35.4-49); MCH 30.8 pg (25.7-33.7); MCHC 33.8 g/dl (32.0-35.9); MEAN PLT VOLUME 8.4 fl (7.5-11.1); PLATELET COUNT 266 10^3/uL (134-434); RBC 4.23 M/mm3 (4.00-5.60); RDW 15.1 % (11.9-15.9); WHITE BLOOD COUNT 5.8 K/mm3 (4.0-10.0)
[2024-03-03 13:12] LABS: CHLORIDE 111 mmol/L (98-107); POTASSIUM 4.2 mmol/L (3.5-5.1); SODIUM 142 mmol/L (136-145)
[2024-03-03 13:23] LABS: CALCIUM 8.7 mg/dL (8.5-10.1); GLUCOSE,RANDOM 100 mg/dL (74-106)
[2024-03-03 13:24] LABS: ALBUMIN 3.2 g/dl (3.4-5.0); ANION GAP 3 mmol/L (4-13); BLOOD UREA NITROGEN 15.6 mg/dL (7-18); CO2 28 mmol/L (21-32)
[2024-03-03 13:27] LABS: CREATININE 0.7 mg/dL (0.55-1.3); SGOT/AST 18 U/L (15-37); SGPT/ALT 25 U/L (13-61)
[2024-03-03 13:28] LABS: BILIRUBIN,TOTAL 0.2 mg/dL (0.2-1); TOT PROT 5.8 g/dl (6.4-8.2)
[2024-03-03 13:29] LABS: ALK PHOS 43 U/L (45-117)
[2024-03-03] MEDS: diazePAM 5 MG TABLET PO PRN (14:13)
[2024-03-03] MEDS: METHOCARBAMOL 500 MG TABLET PO PRN (17:34)
[2024-03-03] MEDS: IBUPROFEN 600 MG TABLET (FP) PO PRN (17:34)
[2024-03-03] MEDS: QUEtiapine FUMARATE 25 MG TABLET PO SCH (22:16)
[2024-03-04] MEDS: diazePAM 5 MG TABLET PO SCH (06:15)
[2024-03-05] MEDS: diazePAM 5 MG TABLET PO SCH (05:54)
[2024-03-05] MEDS: hydrOXYzine PAMOATE 25 MG CAPSULE (FP) PO PRN (10:00)
[2024-03-06] MEDS: diazePAM 5 MG TABLET PO ONE (06:00)
[2024-03-06 06:41] VITALS: RESP 16
[2024-03-06 09:08] VITALS: BP 110/70; PULSE 72; TEMP 97.5
== END 2024-03-06 09:53 | disposition home or self-care (01) | DRG 773 ==
LOC: YASAS 13:16 → Y6N 16:29
PROVIDERS: ADMIT Allergy & Immunology; ATTEND Surgery
PROC: HZ2ZZZZ Detoxification Services for Substance Abuse Treatment (ICD-10-PCS; principal; 2024-03-02)
DX: F10.230 Alcohol dependence with withdrawal, uncomplicated (principal); F11.20 Opioid dependence, uncomplicated; F14.20 Cocaine dependence, uncomplicated; F12.20 Cannabis dependence, uncomplicated; F17.210 Nicotine dependence, cigarettes, uncomplicated; F19.282 Other psychoactive substance dependence with psychoactive substance-induced sleep disorder; F19.280 Other psychoactive substance dependence with psychoactive substance-induced anxiety disorder; F43.10 Post-traumatic stress disorder, unspecified; F41.9 Anxiety disorder, unspecified; Z87.820 Personal history of traumatic brain injury; Z91.85 Personal history of military service
CPT/HCPCS: 36415; 80053; 80305; 80307; 85027; 86780; 93005; 93010

== ENCOUNTER 2024-09-07 16:37 | Inpatient (IN) | payer OTHER ==
[2024-09-07 17:16] VITALS: BMI 23.1
[2024-09-07] MEDS ORDERED: IBUPROFEN 600 MG TABLET (FP) PO PRN (18:55)
[2024-09-07] MEDS ORDERED: NALOXONE (NARCAN) HCL 4 MG/0.1 ML SPRAY NS PRN (18:55)
[2024-09-07] MEDS ORDERED: ONDANSETRON *ODT* 4 MG TABLET SL PRN (18:55)
[2024-09-07] MEDS ORDERED: MAGNESIUM HYDROX 2400MG/30ML ORAL SUSPENSION 30 ML CUP PO PRN (18:55)
[2024-09-07] MEDS ORDERED: BISMUTH SUBSALICYLATE 524 MG/30 ML PO PRN (18:55)
[2024-09-07] MEDS ORDERED: DICYCLOMINE HCL 10 MG CAPSULE PO PRN (18:55)
[2024-09-07] MEDS ORDERED: BENZOCAINE/MENTHOL (CHLORASEPTIC ) LOZENGE MM PRN (18:55)
[2024-09-07] MEDS ORDERED: ACETAMINOPHEN 325 MG TABLET (FP) PO PRN (18:55)
[2024-09-07] MEDS ORDERED: IBUPROFEN 400 MG TABLET (FP) PO PRN (18:55)
[2024-09-07] MEDS ORDERED: POLYETHYLENE GLYCOL (HEALTHYLAX) 3350 17 GM PACKET PO PRN (18:55)
[2024-09-07] MEDS ORDERED: guaiFENesin 600 MG TABLET.ER (FP) PO PRN (18:55)
[2024-09-07] MEDS ORDERED: MAG HYDROX/AL HYDROX/SIMETH 30 ML UNIT-DOSE CUP PO PRN (18:55)
[2024-09-07] MEDS ORDERED: BENZONATATE 200 MG CAPSULE PO PRN (18:55)
[2024-09-07] MEDS ORDERED: LOPERAMIDE HCL 2 MG CAPSULE PO PRN (18:55)
[2024-09-07] MEDS: NICOTINE POLACRILEX 2 MG GUM BUC PRN (21:05)
[2024-09-07] MEDS: THIAMINE 100 MG TABLET PO SCH (22:11)
[2024-09-07] MEDS: chlordiazePOXIDE HCL 25 MG CAPSULE PO SCH (22:11)
[2024-09-07] MEDS: MELATONIN 5 MG TABLETS PO SCH (22:12)
[2024-09-07] MEDS: BUPRENORPHINE/NALOXONE 8 MG/2 MG FILM PACKET SL SCH (22:12)
[2024-09-08] MEDS ORDERED: levETIRAcetam 500 MG TABLET (FP) PO SCH (10:00)
[2024-09-08] MEDS: levETIRAcetam 500 MG TABLET (FP) PO SCH (10:43)
[2024-09-08] MEDS: PRENATAL VITAMINS W/ FOLIC ACID TABLET (FP) PO SCH (10:43)
[2024-09-08] MEDS: NICOTINE 14 MG/24 HOURS TOPICAL PATCH TD SCH (10:44)
[2024-09-08] MEDS: BUPRENORPHINE/NALOXONE 8 MG/2 MG FILM PACKET SL SCH (13:05)
[2024-09-08] MEDS: GABAPENTIN 300 MG CAPSULE PO SCH (13:05)
[2024-09-08] MEDS: chlordiazePOXIDE HCL 25 MG CAPSULE PO PRN (13:09)
[2024-09-08] MEDS: hydrOXYzine PAMOATE 25 MG CAPSULE (FP) PO PRN (20:22)
[2024-09-08 20:34] LABS: HCV DIAGNOSTIC IN-HOUSE W/RFLX NON-REACTIVE (NONREACTIVE)
[2024-09-08 20:35] LABS: HIV INTERPRETATION NEGATIVE (NEGATIVE)
[2024-09-08] MEDS: QUEtiapine FUMARATE 25 MG TABLET PO SCH (22:14)
[2024-09-09] MEDS: chlordiazePOXIDE HCL 25 MG CAPSULE PO SCH (05:31)
[2024-09-10] MEDS: chlordiazePOXIDE HCL 10 MG CAPSULE PO SCH (05:37)
[2024-09-10] MEDS: chlordiazePOXIDE HCL 10 MG CAPSULE PO PRN (13:13)
[2024-09-10 13:24] LABS: HEMATOCRIT 38.4 % (40.1-51.0); HEMOGLOBIN 12.3 g/dL (13.7-17.5); MEAN CELL VOLUME 93.2 fl (79.0-92.2); MEAN PLT VOLUME 9.9 fl (9.4-12.4); PLATELET COUNT 287 x10^3/uL (163-337); RDW 14.1 % (12.1-15.9)
[2024-09-10 13:50] LABS: POTASSIUM 4.5 mmol/L (3.5-5.1)
[2024-09-10 14:04] LABS: BLOOD UREA NITROGEN 11.6 mg/dL (7-18); CALCIUM 8.7 mg/dL (8.5-10.1)
[2024-09-10 14:08] LABS: BILIRUBIN,TOTAL 0.2 mg/dL (0.2-1)
[2024-09-10 14:11] LABS: TOT PROT 5.5 g/dl (6.4-8.2)
[2024-09-10 14:17] LABS: CREATININE 0.6 mg/dL (0.55-1.3)
[2024-09-11] MEDS: chlordiazePOXIDE HCL 10 MG CAPSULE PO SCH (05:35)
[2024-09-11] MEDS: METHOCARBAMOL 500 MG TABLET PO PRN (09:28)
[2024-09-12] MEDS: chlordiazePOXIDE HCL 10 MG CAPSULE PO ONE (05:42)
[2024-09-12 12:34] VITALS: BP 107/63; PULSE 84; RESP 16; TEMP 97.1
== END 2024-09-12 11:10 | disposition other institution (70) | DRG 897 ==
LOC: YASAS 16:37 → Y6N 19:48
PROVIDERS: ADMIT Allergy & Immunology; ATTEND Allergy & Immunology
PROC: HZ2ZZZZ Detoxification Services for Substance Abuse Treatment (ICD-10-PCS; principal; 2024-09-07)
DX: F10.230 Alcohol dependence with withdrawal, uncomplicated (principal); F11.20 Opioid dependence, uncomplicated; F14.20 Cocaine dependence, uncomplicated; F12.20 Cannabis dependence, uncomplicated; F17.213 Nicotine dependence, cigarettes, with withdrawal; F29 Unspecified psychosis not due to a substance or known physiological condition; F20.9 Schizophrenia, unspecified; F41.9 Anxiety disorder, unspecified; F43.10 Post-traumatic stress disorder, unspecified; E78.5 Hyperlipidemia, unspecified; D64.9 Anemia, unspecified
CPT/HCPCS: 36415; 80053; 80305; 80307; 85027; 86803; 87389